=== PATIENT | female | born 1955 | race Caucasian/White ===

== ENCOUNTER 2021-03-09 10:01 | Emergency (ER) | payer OTHER, SELFPAY ==
--- NOTE | ~2021-03-09 | XR_ITS ---
EXAMINATION: XR KNEE-BILATERAL CLINICAL INFORMATION: Bilateral knee pain. COMPARISON: None TECHNIQUE: 4 views each of both knees were obtained. FINDINGS: Right knee: The bony alignments are intact. The cortices are intact. Decreased joint space, subchondral sclerosis, osteophyte formations, consistent with tricompartmental mild osteoarthrosis is present. No evidence of any joint effusion. Enthesopathy is noted at the insertional site of the quadriceps tendon to the superior pole of the patella. Slight contour irregularity is also noted at the upper lateral tibial plateau, may represent old posttraumatic change. Left knee: The bony alignments are intact. The cortices are intact. Decreased joint space, subchondral sclerosis, osteophyte formations, consistent with mild tricompartmental osteoarthrosis is noted. Similar to the right side, mild enthesopathy is also noted at the insertional site of the quadriceps tendon to the superior pole of the patella and no evidence of any joint effusion. XR/XR knee RT 4V IMPRESSION: 1. Mild tricompartmental osteoarthrosis seen bilaterally. 2. Mild enthesopathy at the insertional site of the quadriceps tendon to the superior pole of the patella bilaterally. 3. No evidence of any joint effusion on either side.
--- NOTE | ~2021-03-09 | XR_ITS ---
EXAMINATION: XR KNEE-BILATERAL CLINICAL INFORMATION: Bilateral knee pain. COMPARISON: None TECHNIQUE: 4 views each of both knees were obtained. FINDINGS: Right knee: The bony alignments are intact. The cortices are intact. Decreased joint space, subchondral sclerosis, osteophyte formations, consistent with tricompartmental mild osteoarthrosis is present. No evidence of any joint effusion. Enthesopathy is noted at the insertional site of the quadriceps tendon to the superior pole of the patella. Slight contour irregularity is also noted at the upper lateral tibial plateau, may represent old posttraumatic change. Left knee: The bony alignments are intact. The cortices are intact. Decreased joint space, subchondral sclerosis, osteophyte formations, consistent with mild tricompartmental osteoarthrosis is noted. Similar to the right side, mild enthesopathy is also noted at the insertional site of the quadriceps tendon to the superior pole of the patella and no evidence of any joint effusion. XR/XR knee LT 4V IMPRESSION: 1. Mild tricompartmental osteoarthrosis seen bilaterally. 2. Mild enthesopathy at the insertional site of the quadriceps tendon to the superior pole of the patella bilaterally. 3. No evidence of any joint effusion on either side.
[2021-03-09 10:54] VITALS: BP 148/53; PULSE 80; RESP 18; TEMP 36.1; O2SAT 98; BMI 27.4
--- NOTE | 2021-03-09 12:12 | ED_ITS ---
HPI - General Adult General Chief complaint: Extremity Injury, Lower Stated complaint: Pain/swelling in both feet Time Seen by Provider: 03/09/21 11:34 Source: patient Mode of arrival: ambulatory Limitations: no limitations History of Present Illness HPI narrative: Healthy 65-year-old female presents to ED for bilateral knee pain. Patient states worsening bilateral knee pain for the past 2 weeks. Patient denies any recent trauma. Patient denies any leg swelling, calf pain, thigh swelling, thigh pain, redness, wounds on feet, foul odor, fever, chills, chest pain, or shortness of breath. Patient denies any recent long travel or recent chills. Related Data Previous Rx's Medication Instructions Recorded naproxen 500 mg tablet 500 mg PO BID PRN 10 Days #20 tab 03/09/21 prednisone 20 mg tablet 60 mg PO DAILY 5 Days #15 tab 03/09/21 Allergies Allergy/AdvReac Type Severity Reaction Status Date / Time No Known Allergies Allergy Unverified 12/12/19 16:03 [No Known Allergies*] Review of Systems Review of Systems: Yes all other systems are reviewed and are negative Constitutional: Constitutional: Reports as per HPI and Reports no additional constitutional complaints Eyes: Eyes: Reports as per HPI and Reports no additional eye complaints ENT: Reports system reviewed and no additional complaints, except as documented and Reports as per HPI Cardiovascular: Cardiovascular: Reports as per HPI and Reports no additional cardiovascular complaints Respiratory: Respiratory: Reports as per HPI and Reports no additional respiratory complaints Gastrointestinal: Gastrointestinal: Reports as per HPI and Reports no additional gastrointestinal complaints Genitourinary: Genitourinary: Reports no additional female genitourinary complaints and Reports as per HPI Musculoskeletal: Musculoskeletal: Reports no additional musculoskeletal complaints, Reports as per HPI and Reports arthralgias (Bilateral knee pain) Integumentary/Breasts: Skin/Breast: Reports system reviewed and no additional complaints, except as docu and Reports as per HPI Neurologic: Reports system reviewed and no additional complaints, except as documented and Reports as per HPI Psychiatric: Psychiatric: Reports no additional psychiatric complaints and Reports as per HPI [facility] Social History Social History Advance Directives: No Advance Directives Information Provided: Yes Physical Exam Vital Signs: Vital Signs: Last Vital Signs Temp 98.6 F 03/09/21 12:43 Pulse 67 03/09/21 12:43 Resp 18 03/09/21 12:43 BP 122/73 12/14/21 12:43 Pulse Ox 97 03/09/21 12:43 BMI result Body Mass Index 27.4 Const: General: cooperative, healthy appearing, comfortable, no acute distress, well developed, alert, awake and Physically active Orientation/cons ciousness: patient oriented x3 HENMT: Head: Yes normal to inspection, Yes No palpable skull fracture present, Yes normocephalic, Yes atraumatic, No abrasion, No Acrocyanosis present, No Teran's sign, No contusion, No cranial bruits, No hematoma, No laceration, No occipital foramen tenderness, No palpable skull fracture, No raccoon eyes, No scalp lesion, No scalp tenderness, No Temporal artery tenderness present and No periorbital ecchymosis Eyes: General: appearance normal, both eyes and all related structures Neck: Neck: Yes normal visual inspection, Yes full ROM, Yes no lymphadenopathy, Yes no meningeal signs, Yes trachea midline, Yes supple, No anterior neck swelling and No tender Chest: Chest palpation & inspection: normal inspection of the chest and normal palpation of entire chest wall Resp: Effort & Inspection: normal respiratory effort and able to speak in complete sentences Auscultation: clear to auscultation bilaterally Cardio: Jugular venous distension: no JVD Heart sounds: S1 normal heart sound present and S2 normal heart sound present GI: Inspection: Yes normal to inspection and No abdominal wall ecchymosis Palpation (GI): Soft to palpation, not firm, nontender, no guarding and not rigid : General: No CVA tenderness and Yes no CVA tenderness Back/Spine/Pelvis: Back: no CVA tenderness, No CVA tenderness and No back tenderness Skin: General skin exam: no rashes or lesions noted and elasticity normal Neuro: General: patient oriented x3, gait normal, no meningeal signs and CN's II-XI intact bilaterally Cranial nerves: Yes CN's II-XII intact bilaterally Extrem: Other: Lower extremities negative for swelling, pitting edema, calf tenderness, or redness. Motor states/nerve/vascular exam intact. General: Yes normal to inspection and Yes full ROM Knee images: 1. Positive for tenderness on palpation. Negative ecchymosis, crepitus, erythema, deformity, stiffness, or elasticity. Patient able to flex and extend knee. 2. Positive for tenderness on palpation. Negative ecchymosis, crepitus, erythema, deformity, stiffness, or elasticity. Patient able to flex and extend knee. Psych: Appearance: grossly normal, well kempt and not disheveled Course Course Course Narrative: Patient is seen for bilateral knee x-ray and given pain medication. History physical exam does not indicate septic joint, cellulitis, arterial occlusion or DVT. Reevaluation(s) Reevaluation #1: Knee x-ray shows bilateral arthritis and enthesopathy at the insertion of qauadricpes. Patient will be discharged with pain medication and steroids. Time: 12:49 Medical Decision Making MDM Narrative Medical decision making narrative: Bilateral knee arthritis Discharge Plan Discharge Clinical Impression: Osteoarthritis of both knees Patient Disposition: Home, Self-Care Instructions: Osteoarthritis (ED) Additional Instructions: La radiograf?a de moffett rodilla result? negativa por cualquier l?quido o fractura. La radiograf?a de rodilla muestra osteoartritis bilateral con inflamaci?n del tend?n del cu?driceps. Se le jun? de sowmya con SAWYER y esteroides. Sabina un seguimiento con el proveedor de atenci?n primaria para ramses evaluaci?n adicional para agustin si necesita fisioterapia o manejo del dolor. Regrese al servicio de urgencias inmediatamente si tiene hinchaz?n, enrojecimiento, incapacidad para caminar, dolor en la pantorrilla, rigidez y rodilla, fiebre, escalofr?os, calor, vetas lagunas, frialdad de las extremidades inferiores, decoloraci?n clifton azulada, aumento de la hinchaz?n, dolor en el pecho, dificultad para respirar, o cualquier otro s?ntoma preocupante. Prescriptions: New prednisone 20 mg tablet 60 mg PO DAILY 5 Days Qty: 15 RF: 0 naproxen 500 mg tablet 500 mg PO BID PRN (Reason: pain) 10 Days Qty: 20 RF: 0 Stand Alone Forms: Work/School Release Interventions: ED Discharge Assessment Last Done: 03/09/21 13:56 Discharge Date/Time: 12/14/21 13:56 Print Language: Palestinian
[2021-03-09] MEDS: Ketorolac Tromethamine 30 MG/ML VIAL IM (12:18)
[2021-03-09 12:43] VITALS: BP 122/73; PULSE 67; RESP 18; TEMP 37; O2SAT 97
== END 2021-03-09 13:56 | disposition home or self-care (01) ==
PROVIDERS: Emergency Provider Emergency Medicine
DX: M17.0 Bilateral primary osteoarthritis of knee (principal); M25.562 Pain in left knee; M25.561 Pain in right knee
CPT/HCPCS: 73564; 96372; 99284; J1885

== ENCOUNTER 2021-05-18 14:20 | Emergency (ER) | payer OTHER, SELFPAY ==
--- NOTE | ~2021-05-18 | XR_ITS ---
EXAMINATION: XR KNEE, RIGHT CLINICAL INFORMATION: Right knee pain COMPARISON: Right knee radiographs 03/09/2021 TECHNIQUE: Four views of the right knee. FINDINGS: Again seen are tricompartmental degenerative changes with sclerosis and osteophyte formation most marked in the medial compartment. A small joint effusion is present that has increased in size since the prior study. Again seen is enthesopathy at the insertion of the quadriceps tendon. XR/XR knee RT 4V IMPRESSION: Tricompartmental degenerative changes are stable. Small joint effusion has increased.
[2021-05-18 15:29] VITALS: BP 173/76; PULSE 83; RESP 18; TEMP 36.8; O2SAT 98; BMI 31.0
--- NOTE | 2021-05-18 16:55 | ED_ITS ---
HPI - Extremity Injury (Lower) General Chief Complaint: Extremity Injury, Lower Stated Complaint: B/L Foot Pain Time Seen by Provider: 05/18/21 16:55 Source: patient Mode of arrival: ambulatory Limitations: no limitations History of Present Illness HPI Narrative: Patient is a 65 year old female presenting to the emergency department today with right knee pain. Patient states that she has chronic right knee pain but it seems to be worse lately. Patient denies any dizziness, lightheadedness, abdominal pain, nausea, vomiting, fever, chills, blurry vision, double vision, loss of vision, chest pain, difficulty breathing, shortness of breath, back pain, night sweats, pain with urination, increased urinary frequency, increased urinary urgency, blood in her urine or stool, syncope or a near syncopal e pisode, recent trauma or falls, bowel incontinence, bladder incontinence, bowel retention, bladder retention, or any other complaints at this time. Other symptoms: none Related Data Previous Rx's Medication Instructions Recorded naproxen 500 mg tablet 500 mg PO BID PRN 10 Days #20 tab 03/09/21 prednisone 20 mg tablet 60 mg PO DAILY 5 Days #15 tab 03/09/21 Allergies Allergy/AdvReac Type Severity Reaction Status Date / Time No Known Allergies Allergy Unverified 12/12/19 16:03 [No Known Allergies*] Review of Systems Constitutional: Constitutional: Reports no additional constitutional complaints, Denies chills, Denies fever(s) and Denies night sweats Eyes: Eyes: Reports no additional eye complaints, Denies blurry vision, Denies change in vision, Denies diplopia, Denies eye discharge, Denies loss of vision and Denies eye pain ENT: Denies dizziness Cardiovascular: Cardiovascular: Reports no additional cardiovascular complaints, Denies chest pain, Denies lightheadedness, Denies Loss of Consciousness and Denies dyspnea Respiratory: Respiratory: Reports no additional respiratory complaints and Denies dyspnea Gastrointestinal: Gastrointestinal: Reports no additional gastrointestinal complaints, Denies abdominal pain, Denies melena, Denies hematochezia, Denies change in bowel habits and Denies change in stool character Genitourinary: Genitourinary: Denies hematuria, Denies urinary frequency, Denies dysuria, Denies urinary incontinence, Denies urinary hesitancy and Denies urinary urgency Musculoskeletal: Musculoskeletal: Reports no additional musculoskeletal complaints, Denies numbness and Denies tingling Comments: right knee pain Neurologic: Denies dizziness, Denies loss of vision, Denies numbness and Denies tingling Psychiatric: Psychiatric: Reports no additional psychiatric complaints Endocrine: Endocrine: Reports no additional endocrine complaints Hematologic/Lymphatic: Hematologic/Lymphatic: Reports no additional hematologic/lymphatic complaints Allergic/Immunologic: Allergic/Immunologic: Reports no additional allergic/immunologic complaints PMFSH Past Medical History Attestation statement: The following information was validated with the patient. Source: old records reviewed Medical History HTN (hypertension) Social History Social History Advance Directives: No Advance Directives Information Provided: No Patient : No Physical Exam Vital Signs: Vital Signs: Last Vital Signs Temp 98.3 F 05/18/21 15:29 Pulse 83 05/18/21 15:29 Resp 18 05/18/21 15:29 BP 173/76 H 05/18/21 15:29 Pulse Ox 98 05/18/21 15:29 BMI result Body Mass Index 31.0 Const: General: cooperative, no acute distress, alert and awake Nutritional Appearance: well nourished Orientation/consciousness: patient oriented x3 Limitations: no limitations HENMT: Head: Yes normal to inspection and Yes atraumatic Ears: hearing grossly normal bilaterally and external ears normal General nose exam: Normal external nose present, no nasal discharge noted and no epistaxis Face and sinus: Yes normal facial exam, No abrasion and No laceration Mouth: Normal oral and palatal mucosa present, no drooling and no muffled voice Eyes: General: appearance normal, both eyes and all related structures Periorbital: periorbital findings normal Eyelids: Yes eyelids normal Conjunctivae: conjunctivae normal Pupils: Equal, round and reactive pupils present EOM: EOMs intact bilaterally Neck: Neck: Yes normal visual inspection, Yes full ROM and Yes no lymphadenopathy Chest: Chest palpation & inspection: normal inspection of the chest Resp: Effort & Inspection: normal respiratory effort and able to speak in complete sentences GI: Inspection: Yes normal to inspection Neuro: General: patient oriented x3 and moves all extremities Cranial nerves: Yes Equal, round and reactive pupils present Cognition (Neuro): normal cognition Motor exam (neuro): 5/5 motor strength present throughout Sensory Exam: Normal double simultaneous stimulation for sensation Coordination: [id number] test normal Extrem: General: Yes normal to inspection, Yes full ROM and Yes capillary refill normal Right lower extremity: full ROM and knee Details: tenderness Psych: Appearance: grossly normal Mental Status: mental status grossly normal Affect: normal affect Attitude: cooperative Thought process: Normal thought process present Thought content: Normal thought content present Insight: Good insight present (Psych) MDM - Extremity Injury (Lower) MDM Narrative Medical decision making narrative: Patient is a 65 year old female presenting to the emergency department today with right knee pain. Patient's physical exam was unremarkable. Patient's right knee x-ray showed no acute process. I explained my physical exam findings as well as all test results to the patient. I answered all questions asked by the patient. Patient received IM toradol which she stated helped her symptoms significantly. I stressed the importance of the patient taking her medication as prescribed. I stressed the importance of the patient following up with her primary care provider and orthopedic provider. I stressed the importance of the patient returning to the emergency department immediately if her symptoms were to worsen or if she were to develop any dizziness, shortness of breath, difficulty breathing, chest pain, blurry vision, loss of vision, nausea, vomiting, abdominal pain, fever, chills, back pain, or any other complaints. Patient verbalized agreement and understanding with this treatment plan and discharge. Differential Diagnosis Differential diagnosis: Unlikely ankle sprain and strain (chronic right knee pain) Medical Records Attestation: I reviewed the patient's medical records. Imaging Data Right knee x-ray: Attestation: I personally reviewed and interpreted this imaging study as follows: Radiologist's impression: EXAMINATION: XR KNEE, RIGHT? CLINICAL INFORMATION: Right knee pain? COMPARISON: Right knee radiographs 03/09/2021? TECHNIQUE: Four views of the right knee. FINDINGS: Again seen are tricompartmental degenerative changes with sclerosis and osteophyte formation most marked in the medial compartment. A small joint effusion is present that has increased in size since the prior study. Again seen is enthesopathy at the insertion of the quadriceps tendon. XR/XR knee RT 4V IMPRESSION: Tricompartmental degenerative changes are stable. Small joint effusion has increased. Dictated By: MARCELLO JERRY MD Signed By: Electronically signed by MARCELLO JERRY MD 05/18/21 1720 Discharge Plan Discharge Clinical Impression: Chronic knee pain Patient Disposition: Home, Self-Care Instructions: Chronic Pain (ED), Knee Pain (ED) Additional Instructions: Call to schedule a follow up appointment with an Orthopedic provider. Follow up with your primary care provider. Return to the emergency department immediately if your symptoms worsen or if you develop any dizziness, shortness of breath, difficulty breathing, chest pain, blurry vision, loss of vision, nausea, vomiting, abdominal pain, fever, chills, back pain, or any other complaints. Prescriptions: No Action prednisone 20 mg tablet 60 mg PO DAILY 5 Days Qty: 15 0RF naproxen 500 mg tablet 500 mg PO BID PRN (Reason: pain) 10 Days Qty: 20 0RF Referrals: Niecy Dixon MD [Physician] - 2 days Interventions: ED Discharge Assessment Last Done: 05/18/21 18:29 Print Language: Colombian
[2021-05-18] MEDS: Ketorolac Tromethamine 30 MG/ML VIAL IM (18:01)
== END 2021-05-18 18:41 | disposition home or self-care (01) ==
PROVIDERS: Emergency Provider Emergency Medicine
DX: G89.29 Other chronic pain (principal); M25.561 Pain in right knee; I10 Essential (primary) hypertension
CPT/HCPCS: 73564; 96372; 99284; J1885

== ENCOUNTER → 2021-06-18 09:05 | Outpatient (BNVA) | payer OTHER, SELFPAY | PROVIDERS: Visit Provider Physician Assistant | DX: M17.0 Bilateral primary osteoarthritis of knee (principal) | CPT/HCPCS: 20610; 99202; J1040 ==

== ENCOUNTER 2021-12-03 07:54 | Outpatient (REF) | payer OTHER, SELFPAY ==
--- NOTE | ~2021-12-03 | XR_ITS ---
EXAMINATION: XR ANKLE, LEFT CLINICAL INFORMATION: Left ankle and foot pain. COMPARISON: None TECHNIQUE: AP, lateral, and mortise views of the left ankle. FINDINGS: Focal cortical irregularity at the lateral aspect of the talar body which is partially seen on the mortise view and may represent a nondisplaced fracture fragment. No additional fracture. No dislocation. The ankle mortise is maintained. Small tibiotalar joint effusion. Circumferential soft tissue swelling, most significant laterally. No osseous erosion. No abnormal soft tissue calcification. XR/XR ankle LT 2V IMPRESSION: Possible tiny avulsion fracture at the lateral aspect of the talus. Circumferential soft tissue swelling, most prominent laterally.
[2021-12-03 08:10] LABS: MANUAL DIFF FLAG NO
[2021-12-03 08:52] LABS: Basophils Absolute Auto 0.1 X10*3/uL (0.0-0.2); Eosinophils Absolute Auto 0.3 X10*3/uL (0.0-0.4); Eosinophils Percent Auto 5.5 % (0-4); Hematocrit 27.3 % (37.0-47.0); Hemoglobin 8.5 g/dl (12.0-16.0); Imm Gran Abs Auto 0.01 X10*3/uL (0.00-0.03); Imm Gran Pct Auto 0.2 % (0.0-0.4); Lymphocytes Absolute Auto 1.9 X10*3/uL (1.2-4.9); Lymphocytes Percent Auto 36.7 % (20-40); Mean Corpuscular HGB Conc 31.1 g/dl (31.0-35.0); Mean Corpuscular Hemoglobin 24.5 pg (27.0-33.0); Mean Corpuscular Volume 78.7 fL (80.0-98.0); Mean Platelet Volume 9.9 fL (9.4-12.3); Monocytes Absolute Auto 0.4 X10*3/uL (0.1-1.2); Monocytes Percent Auto 7.3 % (2-11); Neutrophils Absolute Auto 2.6 x10*3/uL (2.0-8.3); Neutrophils Percent Auto 49.3 % (45-73); Platelet Count 404 X10*3/uL (160-400); Red Blood Count 3.47 X10*6/uL (4.20-5.50); Red Cell Distribution Width 17.4 % (11.0-16.0); White Blood Count 5.2 X10*3/uL (4.8-10.8)
[2021-12-03 09:22] LABS: Alanine Aminotransferase 17 U/L (0-31); Albumin Level 4.1 g/dL (3.5-5.0); Alkaline Phosphatase 90 U/L (39-117); Anion Gap 15 (12-20); Aspartate Amino Transferase 21 U/L (5-31); Bilirubin Total 0.3 mg/dL (0.0-1.0); Blood Urea Nitrogen 17 mg/dL (9-16); Calcium 9.1 mg/dL (8.4-10.2); Carbon Dioxide 27 mmol/L (22-29); Chloride 104 mmol/L (96-108); Cholesterol 230 mg/dL; Estimated Glomerular Filt Rate > 60; Glucose Fasting 93 mg/dL (60-99); HDL Cholesterol 88 mg/dL; LDL Cholesterol Calculated 131 mg/dl; Potassium 4.2 mmol/L (3.3-5.1); Rheumatoid Factor < 15.0 IU/mL (<15.0); Sodium 142 mmol/L (135-145); Total Protein 7.1 g/dL (6.5-8.0); Triglycerides 59 mg/dL
[2021-12-03 09:29] LABS: Erythrocyte Sedimentation Rate 23 MM/HR (0-20)
[2021-12-03 09:43] LABS: Thyroid Stimulating Hormone 2.66 uIU/mL (0.32-4.0)
[2021-12-06 16:51] LABS: CRP High Sensitivity 1.9 mg/L; Cyclic Citrullinated Peptide <16 UNITS
[2021-12-07 09:07] LABS: Anti DNA DS Antibody <1 IU/mL
[2021-12-07 14:46] LABS: ANA Titer 2 1:40 titer; Anti Nuclear Antibody Pattern Nuclear, Homogeneous; Anti Nuclear Antibody Screen POSITIVE (NEGATIVE)
== END 2021-12-03 07:55 | disposition home or self-care (01) ==
LOC: HO.XRAY 07:54
PROVIDERS: PCP Internal Medicine; Visit Provider Internal Medicine
DX: M25.572 Pain in left ankle and joints of left foot (principal); E66.9 Obesity, unspecified
CPT/HCPCS: 36415; 73600; 80053; 80061; 84443; 85025; 85652; 86038; 86039; 86141; 86200; 86225; 86431

== ENCOUNTER 2022-01-06 11:22 | Outpatient (REF) | payer OTHER, SELFPAY ==
[2022-01-06 12:00] LABS: MANUAL DIFF FLAG NO
[2022-01-06 12:52] LABS: Basophils Percent Auto 0.6 % (0-2); Eosinophils Absolute Auto 0.2 X10*3/uL (0.0-0.4); Eosinophils Percent Auto 2.9 % (0-4); Hematocrit 29.6 % (37.0-47.0); Hemoglobin 9.1 g/dl (12.0-16.0); Imm Gran Abs Auto 0.01 X10*3/uL (0.00-0.03); Imm Gran Pct Auto 0.2 % (0.0-0.4); Lymphocytes Absolute Auto 1.5 X10*3/uL (1.2-4.9); Lymphocytes Percent Auto 28.3 % (20-40); Mean Corpuscular HGB Conc 30.7 g/dl (31.0-35.0); Mean Corpuscular Hemoglobin 24.4 pg (27.0-33.0); Mean Corpuscular Volume 79.4 fL (80.0-98.0); Monocytes Absolute Auto 0.4 X10*3/uL (0.1-1.2); Neutrophils Absolute Auto 3.1 x10*3/uL (2.0-8.3); Platelet Count 405 X10*3/uL (160-400); Red Blood Count 3.73 X10*6/uL (4.20-5.50); Red Cell Distribution Width 16.5 % (11.0-16.0); White Blood Count 5.1 X10*3/uL (4.8-10.8)
[2022-01-06 13:07] LABS: Estimated Average Glucose 108 mg/dL; Hemoglobin A1c % 5.4 %
[2022-01-06 13:31] LABS: Appearance Urine Clear; Color Urine Yellow; Glucose Urine UA Negative (Negative); Leukocyte Esterase Urine Trace (Negative); Nitrite Urine Negative (Negative); UMIC TRIGGER UA YES; Urine Blood Negative (Negative); Urine Ketones Negative (Negative); Urine Protein Trace mg/dL (Neg-Trace)
[2022-01-06 13:40] LABS: Erythrocyte Sedimentation Rate 27 MM/HR (0-20)
[2022-01-06 13:42] LABS: Bacteria Urine None Seen (None Seen); Calcium Oxalate Crystals Urine Present; Hyaline Casts Urine 0-2 /LPF (0-2); RBC Urine 0-2 /HPF (0-2); Squamous Epithelial Cell Urine 0-2 /HPF (0-2); WBC Urine 0-5 /HPF (0-5)
[2022-01-06 13:44] LABS: Alanine Aminotransferase 11 U/L (0-31); Albumin Level 4.4 g/dL (3.5-5.0); Alkaline Phosphatase 95 U/L (39-117); Anion Gap 15 (12-20); Aspartate Amino Transferase 18 U/L (5-31); Bilirubin Total 0.2 mg/dL (0.0-1.0); Blood Urea Nitrogen 19 mg/dL (9-16); Calcium 9.5 mg/dL (8.4-10.2); Carbon Dioxide 27 mmol/L (22-29); Chloride 102 mmol/L (96-108); Estimated Glomerular Filt Rate > 60; Glucose Random 91 mg/dL (60-115); Potassium 4.4 mmol/L (3.3-5.1); Sodium 140 mmol/L (135-145); Total Protein 7.6 g/dL (6.5-8.0); Uric Acid 4.5 mg/dL (2.4-5.7)
[2022-01-06 13:54] LABS: Thyroid Stimulating Hormone 1.55 uIU/mL (0.32-4.0)
[2022-01-06 13:59] LABS: Ferritin 7 ng/mL (10-250)
[2022-01-06 14:02] LABS: Creatinine Urine 88.04 mg/dL; Protein/Creatinine Ratio, Ur 0.19 (<0.2); Total Protein Urine Random 17 mg/dL (<12)
[2022-01-07 08:35] LABS: HBS Num1 0.88 mIU/mL (0-7.99); HBc Num1 0.13 S/CO (0.00-0.79); HBsAGNum1 0.16 S/CO (0.00-0.99); HIV AB/AG Nonreactive (Nonreactive); HIV Num 1 0.07 S/CO (0.00-0.99); Hepatitis A Antibody IgM 0.28 Index (0-0.79); Hepatitis B Core Antibody Nonreactive (Nonreactive); Hepatitis B Surface Antigen Negative (Negative); ~HepC Num1 0.17 S/CO (0.00-0.79); ~Hepatitis A Antibody IgM Nonreactive (Nonreactive); ~Hepatitis B Surface Antibody NONREACTIVE (Nonreactive); ~Hepatitis C Antibody Nonreactive (Nonreactive)
[2022-01-07 14:47] LABS: Complement C3 150 mg/dL (83-193)
[2022-01-09 00:47] LABS: TS Negative Control Passed; TS Panel A 0; TS Panel B 0; TS Positive Control Passed; TSpotTB Negative (Negative)
[2022-01-10 13:42] LABS: Thyroid Peroxidase Antibodies 1 IU/mL (<9)
[2022-01-10 17:43] LABS: Lyme Blot 2.09 index
[2022-01-10 21:22] LABS: Angiotensin Converting Enzyme 19.7 U/L (9-67)
[2022-01-11 11:22] LABS: Thyroglobulin Antibodies <1 IU/mL (< or = 1)
[2022-01-11 13:42] LABS: Vitamin D 25-OH, D2 <4 ng/mL; Vitamin D 25-OH, D3 35 ng/mL; Vitamin D 25-OH, Total 35 ng/mL (30-100)
[2022-01-11 14:32] LABS: IgA 168 mg/dL (70-320); IgG 1403 mg/dL (600-1540); IgM 78 mg/dL (50-300)
[2022-01-11 21:52] LABS: PTT (LAC) Screen 29 sec (<=40)
[2022-01-11 23:21] LABS: Prot Elec - Albumin 4.2 g/dL (3.8-4.8); Prot Elec - Alpha1 0.3 g/dL (0.2-0.3); Prot Elec - Alpha2 0.7 g/dL (0.5-0.9); Prot Elec - Beta 1 0.6 g/dL (0.4-0.6); Prot Elec - Beta 2 0.3 g/dL (0.2-0.5); Prot Elec - Gamma 1.2 g/dL (0.8-1.7); Prot Elec - Total Protein 7.4 g/dL (6.1-8.1)
[2022-01-12 09:56] LABS: Lyme Abs Screen POSITIVE
[2022-01-12 11:21] LABS: Antibody to SS-A Antigen <1.0 NEG AI (<1.0 NEG); Antibody to SS-B Antigen <1.0 NEG AI (<1.0 NEG); SM/Ribonucleoprotein Ab <1.0 NEG AI (<1.0 NEG); Smith Protein <1.0 NEG AI (<1.0 NEG)
[2022-01-12 20:22] LABS: Beta-2 Glycoprotein IgA <2.0 U/mL (<20.0); Beta-2 Glycoprotein IgG <2.0 U/mL (<20.0); Beta-2 Glycoprotein IgM <2.0 U/mL (<20.0)
[2022-01-12 21:36] LABS: 18 KD (IgG) Band NON-REACTIVE; 23 KD (IgG) Band NON-REACTIVE; 23 KD (IgM) Band NON-REACTIVE; 28 KD (IgG) Band NON-REACTIVE; 30 KD (IgG) Band NON-REACTIVE; 39 KD (IgM) Band NON-REACTIVE; 39KD (IgG) Band NON-REACTIVE; 41 KD (IgM) Band NON-REACTIVE; 41KD (IgG) Band REACTIVE; 45 KD (IgG) Band NON-REACTIVE; 58 KD (IgG) Band NON-REACTIVE; 66 KD (IgG) Band NON-REACTIVE; 93 KD (IgG) Band NON-REACTIVE; Lyme IgG Blot Interp NEGATIVE (NEGATIVE); Lyme IgM Blot Interp NEGATIVE (NEGATIVE)
[2022-01-14 13:51] LABS: Endomysial IgA Antibody Negative (Negative)
[2022-01-15 13:36] LABS: Cardiolipin IgG Ab <2.0 GPL-U/mL; Cardiolipin IgM Ab <2.0 MPL-U/mL
== END 2022-01-06 11:23 | disposition home or self-care (01) ==
LOC: HO.10HDL 11:22
PROVIDERS: Internal Medicine Medical Oncology; Visit Provider Student in an Organized Health Care Education/Training Program
DX: Z11.7 Encounter for testing for latent tuberculosis infection (principal); Z11.4 Encounter for screening for human immunodeficiency virus [HIV]; Z11.59 Encounter for screening for other viral diseases; Z13.21 Encounter for screening for nutritional disorder; Z13.1 Encounter for screening for diabetes mellitus; R76.8 Other specified abnormal immunological findings in serum; M25.572 Pain in left ankle and joints of left foot; D64.9 Anemia, unspecified
CPT/HCPCS: 36415; 80053; 81001; 82164; 82306; 82550; 82728; 82784; 83036; 84156; 84165; 84443; 84550; 85025; 85597; 85613; 85652; 85730; 86140; 86146; 86147; 86160; 86231; 86235; 86334; 86376; 86481; 86617; 86618; 86704; 86706; 86709; 86800; 86803; 86812; 87340; 87389

== ENCOUNTER 2022-01-06 12:23 | Outpatient (REF) | payer OTHER, SELFPAY ==
--- NOTE | ~2022-01-06 | XR_ITS ---
EXAMINATION: XR ANKLE, RIGHT XR FOOT, RIGHT XR FOOT, LEFT CLINICAL INFORMATION: Rheumatoid arthritis. COMPARISON: None TECHNIQUE: AP, lateral, and mortise views of the right ankle and AP, lateral, and oblique views of each foot. FINDINGS: RIGHT ANKLE: No fracture. Alignment is anatomic. Ankle mortise is symmetric. Joint spaces are maintained. Small marginal osteophytes at the talocrural joint. No ankle joint effusion. Mild soft tissue swelling. No erosions. RIGHT FOOT: Tiny marginal osteophytes of the 1st MTP joint and the 2nd toe DIP joint. No erosions. Joint spaces appear relatively well preserved. Bone mineralization is normal. Mild soft tissue swelling. Small enthesopathic spur is present at the plantar fascial origin on the calcaneus. LEFT FOOT: Small marginal osteophytes at the 1st MTP joint. Joint spaces appear relatively well preserved. No erosions. Bone mineralization is normal. Mild soft tissue swelling. Tiny enthesopathic spur at the plantar fascial origin. XR/XR foot LT min 3V IMPRESSION: Minimal multifocal osteoarthritis in the feet, primarily at the 1st MTP joints. No specific findings of rheumatoid arthritis. No acute osseous findings. Soft tissue swelling at the ankles and feet, right greater than left.
--- NOTE | ~2022-01-06 | XR_ITS ---
EXAMINATION: XR ANKLE, RIGHT XR FOOT, RIGHT XR FOOT, LEFT CLINICAL INFORMATION: Rheumatoid arthritis. COMPARISON: None TECHNIQUE: AP, lateral, and mortise views of the right ankle and AP, lateral, and oblique views of each foot. FINDINGS: RIGHT ANKLE: No fracture. Alignment is anatomic. Ankle mortise is symmetric. Joint spaces are maintained. Small marginal osteophytes at the talocrural joint. No ankle joint effusion. Mild soft tissue swelling. No erosions. RIGHT FOOT: Tiny marginal osteophytes of the 1st MTP joint and the 2nd toe DIP joint. No erosions. Joint spaces appear relatively well preserved. Bone mineralization is normal. Mild soft tissue swelling. Small enthesopathic spur is present at the plantar fascial origin on the calcaneus. LEFT FOOT: Small marginal osteophytes at the 1st MTP joint. Joint spaces appear relatively well preserved. No erosions. Bone mineralization is normal. Mild soft tissue swelling. Tiny enthesopathic spur at the plantar fascial origin. XR/XR foot RT min 3V IMPRESSION: Minimal multifocal osteoarthritis in the feet, primarily at the 1st MTP joints. No specific findings of rheumatoid arthritis. No acute osseous findings. Soft tissue swelling at the ankles and feet, right greater than left.
--- NOTE | ~2022-01-06 | XR_ITS ---
EXAMINATION: XR ANKLE, RIGHT XR FOOT, RIGHT XR FOOT, LEFT CLINICAL INFORMATION: Rheumatoid arthritis. COMPARISON: None TECHNIQUE: AP, lateral, and mortise views of the right ankle and AP, lateral, and oblique views of each foot. FINDINGS: RIGHT ANKLE: No fracture. Alignment is anatomic. Ankle mortise is symmetric. Joint spaces are maintained. Small marginal osteophytes at the talocrural joint. No ankle joint effusion. Mild soft tissue swelling. No erosions. RIGHT FOOT: Tiny marginal osteophytes of the 1st MTP joint and the 2nd toe DIP joint. No erosions. Joint spaces appear relatively well preserved. Bone mineralization is normal. Mild soft tissue swelling. Small enthesopathic spur is present at the plantar fascial origin on the calcaneus. LEFT FOOT: Small marginal osteophytes at the 1st MTP joint. Joint spaces appear relatively well preserved. No erosions. Bone mineralization is normal. Mild soft tissue swelling. Tiny enthesopathic spur at the plantar fascial origin. XR/XR ankle RT min 3V IMPRESSION: Minimal multifocal osteoarthritis in the feet, primarily at the 1st MTP joints. No specific findings of rheumatoid arthritis. No acute osseous findings. Soft tissue swelling at the ankles and feet, right greater than left.
--- NOTE | ~2022-01-06 | XR_ITS ---
EXAMINATION: XR HAND/WRIST, RIGHT XR HAND/WRIST, LEFT CLINICAL INFORMATION: Rheumatoid arthritis, unspecified. COMPARISON: None TECHNIQUE: PA, lateral, and oblique views of the each hand and wrist as well as scaphoid views of each wrist. FINDINGS: RIGHT HAND/WRIST: Small marginal osteophytes are present at multiple joints in the hand and wrist including the 1st CMC joints, 1st and 2nd MCP joints, and most interphalangeal joints (particularly the DIP joints). Joint spaces appear relatively well preserved. No erosions. Articular surfaces are normal. Bone mineralization appears within normal limits. Soft tissues are unremarkable. No soft tissue calcifications. No fracture or malalignment. LEFT HAND/WRIST: At the 1st CMC joint, there are moderate-sized marginal osteophytes along with nonuniform joint space narrowing, articular surface irregularity, and joint space narrowing. More mild osteoarthritis in the DIP joints is characterized by small marginal osteophytes primarily. There is also involvement of the thumb IP joint. MCP joints are unremarkable. No appreciable erosions. Bone mineralization appears normal. No soft tissue calcifications. No acute fractures. XR/XR hand wrist LT IMPRESSION: Moderate osteoarthritis in the left 1st CMC joint with more mild multifocal osteoarthritis elsewhere in the bilateral hands and wrists. No specific findings of rheumatoid arthritis.
--- NOTE | ~2022-01-06 | XR_ITS ---
EXAMINATION: XR HAND/WRIST, RIGHT XR HAND/WRIST, LEFT CLINICAL INFORMATION: Rheumatoid arthritis, unspecified. COMPARISON: None TECHNIQUE: PA, lateral, and oblique views of the each hand and wrist as well as scaphoid views of each wrist. FINDINGS: RIGHT HAND/WRIST: Small marginal osteophytes are present at multiple joints in the hand and wrist including the 1st CMC joints, 1st and 2nd MCP joints, and most interphalangeal joints (particularly the DIP joints). Joint spaces appear relatively well preserved. No erosions. Articular surfaces are normal. Bone mineralization appears within normal limits. Soft tissues are unremarkable. No soft tissue calcifications. No fracture or malalignment. LEFT HAND/WRIST: At the 1st CMC joint, there are moderate-sized marginal osteophytes along with nonuniform joint space narrowing, articular surface irregularity, and joint space narrowing. More mild osteoarthritis in the DIP joints is characterized by small marginal osteophytes primarily. There is also involvement of the thumb IP joint. MCP joints are unremarkable. No appreciable erosions. Bone mineralization appears normal. No soft tissue calcifications. No acute fractures. XR/XR hand wrist RT IMPRESSION: Moderate osteoarthritis in the left 1st CMC joint with more mild multifocal osteoarthritis elsewhere in the bilateral hands and wrists. No specific findings of rheumatoid arthritis.
== END 2022-01-06 12:24 | disposition home or self-care (01) ==
LOC: HO.MDS 12:23
PROVIDERS: Visit Provider Internal Medicine Medical Oncology
DX: M06.9 Rheumatoid arthritis, unspecified (principal); D50.9 Iron deficiency anemia, unspecified
CPT/HCPCS: 73110; 73130; 73610; 73630; 96365; 99202; J1756

== ENCOUNTER 2022-01-13 12:48 | Outpatient (REF) | payer OTHER, SELFPAY | END 2022-01-13 12:49 | disposition home or self-care (01) | LOC: HO.MDS 12:48 | PROVIDERS: Visit Provider Internal Medicine Medical Oncology | DX: D50.9 Iron deficiency anemia, unspecified (principal) | CPT/HCPCS: 96365; J1756 ==

== ENCOUNTER 2022-01-17 13:59 | Outpatient (REF) | payer OTHER, SELFPAY ==
[2022-01-22 11:03] LABS: HLA B27 Negative (Negative)
== END 2022-01-17 14:00 | disposition home or self-care (01) ==
LOC: HO.LAB 13:59
PROVIDERS: PCP Internal Medicine; Visit Provider Student in an Organized Health Care Education/Training Program
DX: M25.572 Pain in left ankle and joints of left foot (principal)
CPT/HCPCS: 36415; 86812

== ENCOUNTER 2022-01-20 12:12 | Outpatient (REF) | payer OTHER, SELFPAY | END 2022-01-20 12:13 | disposition home or self-care (01) | LOC: HO.MDS 12:12 | PROVIDERS: Visit Provider Internal Medicine Medical Oncology | DX: D50.9 Iron deficiency anemia, unspecified (principal) | CPT/HCPCS: 96365; J1756 ==

== ENCOUNTER 2022-01-26 13:47 | Outpatient (REF) | payer OTHER, SELFPAY | END 2022-01-26 13:48 | disposition home or self-care (01) | LOC: HO.MDS 13:47 | PROVIDERS: Visit Provider Internal Medicine Medical Oncology | DX: D50.9 Iron deficiency anemia, unspecified (principal) | CPT/HCPCS: 96365; J1756 ==

== ENCOUNTER → 2022-02-10 08:03 | Outpatient (BNVA) | payer OTHER, SELFPAY | PROVIDERS: PCP Internal Medicine; Referring Provider Internal Medicine; Visit Provider Student in an Organized Health Care Education/Training Program | DX: M25.472 Effusion, left ankle (principal); M25.432 Effusion, left wrist; R76.8 Other specified abnormal immunological findings in serum; D50.9 Iron deficiency anemia, unspecified; I10 Essential (primary) hypertension; F41.9 Anxiety disorder, unspecified | CPT/HCPCS: 99212 ==

== ENCOUNTER 2022-03-07 14:28 | Outpatient (REF) | payer OTHER, SELFPAY ==
[2022-03-07 14:41] LABS: MANUAL DIFF FLAG NO
[2022-03-07 14:52] LABS: Basophils Absolute Auto 0.1 X10*3/uL (0.0-0.2); Basophils Percent Auto 0.9 % (0-2); Eosinophils Absolute Auto 0.2 X10*3/uL (0.0-0.4); Eosinophils Percent Auto 4.3 % (0-4); Hematocrit 39.4 % (37.0-47.0); Hemoglobin 12.7 g/dl (12.0-16.0); Lymphocytes Absolute Auto 1.9 X10*3/uL (1.2-4.9); Mean Corpuscular HGB Conc 32.2 g/dl (31.0-35.0); Mean Corpuscular Hemoglobin 27.7 pg (27.0-33.0); Mean Corpuscular Volume 85.8 fL (80.0-98.0); Mean Platelet Volume 9.7 fL (9.4-12.3); Monocytes Absolute Auto 0.4 X10*3/uL (0.1-1.2); Monocytes Percent Auto 7.2 % (2-11); Neutrophils Absolute Auto 2.8 x10*3/uL (2.0-8.3); Neutrophils Percent Auto 52.6 % (45-73); Platelet Count 347 X10*3/uL (160-400); Red Blood Count 4.59 X10*6/uL (4.20-5.50); Red Cell Distribution Width 18.5 % (11.0-16.0); White Blood Count 5.4 X10*3/uL (4.8-10.8)
[2022-03-07 15:06] LABS: Iron 103 mcg/dL (30-160); Percent Iron Saturation 27 % (15-50); Total Iron Binding Capacity 378 mcg/dL (228-428); Unsaturated Iron Binding 275 ug/dL
[2022-03-07 15:43] LABS: Folate 10.9 ng/mL (> or = 4.0); Vitamin B12 441 pg/mL (200-900)
== END 2022-03-07 14:29 | disposition home or self-care (01) ==
LOC: HO.LAB 14:28
PROVIDERS: PCP Internal Medicine; Visit Provider Internal Medicine
DX: D64.9 Anemia, unspecified (principal)
CPT/HCPCS: 36415; 82607; 82746; 83540; 85025

== ENCOUNTER 2022-03-25 08:34 | Outpatient (REF) | payer OTHER, SELFPAY ==
--- NOTE | ~2022-03-25 | MR_ITS ---
EXAMINATION: MR WRIST WITHOUT AND WITH CONTRAST, LEFT CLINICAL INFORMATION: Left wrist pain. COMPARISON: Radiographs 01/06/2022 TECHNIQUE: MRI without and with intravenous administration of 8.5 mL of Gadavist is performed on the left wrist. FINDINGS: There is a lobulated and elongated ganglion measuring approximately 1.8 cm, the distal extent of which is the largest with a transverse measurement of 6 mm, which projects volar to the radial styloid and dorsal/peripheral to the radial vessels. Trace distal radioulnar joint effusion. There is degeneration and a possible full-thickness perforation of the central TFCC. Ulnar variance is neutral. The scapholunate and lunotriquetral ligaments appear intact. Severe 1st CMC joint osteoarthritis with an 8mm ossified body at the ulnar aspect of the joint. Relatively mild osteoarthritis of the radioscaphoid articulation and at the junction of the capitate and hamate. No acute osseous abnormality. No enhancing mass lesion. MR/MR wrist LT wo/w con IMPRESSION: 1. There is a lobulated and elongated ganglion volar to the radial styloid measuring up to 1.8 cm. 2. 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 3. Degeneration and possible full-thickness perforation of the central TFCC.
--- NOTE | ~2022-03-25 | MR_ITS ---
EXAMINATION: MRI ANKLE WITHOUT CONTRAST, LEFT CLINICAL INFORMATION: Ankle pain and swelling. Effusion. COMPARISON: Most recent left foot radiographs dated 01/06/2022 and left ankle radiographs dated 12/03/2021. TECHNIQUE: Multisequence MR imaging of the left ankle was obtained without contrast on a high-field strength scanner. FINDINGS: BONE AND ARTICULAR CARTILAGE: Reactive marrow edema within the lateral malleolus. No associated fracture line. Articular cartilage thinning with subchondral cystic change at the articulation between the lateral talus and lateral malleolus. Mild degenerative spurring and reactive marrow edema at the lateral aspect of the calcaneal body adjacent to the peroneal tendons. No talar osteochondral lesion. Subtalar joint articular cartilage thinning with mild subchondral cystic change. Degenerative cystic change at the angle of [place]. ACHILLES TENDON: Intact. OTHER TENDONS: Prominent fluid within the peroneal brevis and peroneal longus tendon sheaths consistent with prominent tenosynovitis. Adjacent soft tissue edema. There is attenuation and longitudinal split tearing of the peroneal brevis tendon at the level of the lateral malleolus measuring up to 4.1 cm in cranial caudal dimension. No full-thickness transverse tendon tear or tendon retraction. Mild posterior tibialis and flexor digitorum longus tenosynovitis. LIGAMENTS: Attenuation the anterior talofibular ligament likely indicating a remote sprain/partial tear. No evidence of acute ligament injury. JOINT FLUID AND SOFT TISSUES: Trace posterior subtalar joint effusion. Lateral subcutaneous venous edema. PLANTAR FASCIA: Intact. SINUS TARSI AND TARSAL TUNNEL: Patent. MR/MR ankle LT wo con IMPRESSION: 1. Prominent peroneal brevis and peroneal longus tenosynovitis. Attenuation and longitudinal split tearing of the peroneal brevis tendon at the level of the lateral malleolus measuring up to 4.1 cm in craniocaudal dimension. No full-thickness transverse tendon tear or tendon retraction. Overlying lateral soft tissue edema. Reactive marrow edema within the lateral malleolus as well as the lateral aspect of the calcaneal body where there is associated degenerative spurring. 2. Mild posterior tibialis and flexor digitorum longus tenosynovitis. 3. Mild degenerative arthritis at the articulation between the lateral talus and lateral malleolus. Trace posterior subtalar joint effusion. 4. Remote sprain/partial tear of the anterior talofibular ligament. No evidence of acute ligament injury.
== END 2022-03-25 08:35 | disposition home or self-care (01) ==
LOC: HO.MRI 08:34
PROVIDERS: Visit Provider Student in an Organized Health Care Education/Training Program
DX: M25.432 Effusion, left wrist (principal); M25.472 Effusion, left ankle
CPT/HCPCS: 73223; 73721

== ENCOUNTER → 2022-04-06 09:53 | Outpatient (BNVA) | payer OTHER, SELFPAY | PROVIDERS: PCP Internal Medicine; Visit Provider Student in an Organized Health Care Education/Training Program | DX: Z13.820 Encounter for screening for osteoporosis (principal); M06.9 Rheumatoid arthritis, unspecified; M24.132 Other articular cartilage disorders, left wrist; Z79.631 Long term (current) use of antimetabolite agent | CPT/HCPCS: 99212 ==

== ENCOUNTER 2022-04-15 08:06 | Outpatient (REF) | payer OTHER, SELFPAY ==
--- NOTE | ~2022-04-15 | MM_ITS ---
EXAMINATION: BONE DENSITOMETRY CLINICAL INDICATION: Menopause. COMPARISON: None (current study represents initial baseline exam). TECHNIQUE: Using a [employer] DXA System (software version: 13.1) manufactured by [employer], dual-energy x-ray absorptiometry was performed of the lumbar spine and left hip. The images are of good technical quality. Summary results are attached. FINDINGS: AP SPINE L1-L4: BMD 0.789 g/cm2, Z-score -2.2, T-score -3.3, osteoporosis. LEFT FEMUR, NECK: BMD 0.856 g/cm2, Z-score -0.2, T-score -1.3, osteopenia. LEFT FEMUR, TOTAL: BMD 0.938 g/cm2, Z-score 0.3, T-score -0.6, normal. IDENTIFIED RISK FACTORS: Rheumatoid arthritis. Recurrent falls. Menopause. Hysterectomy. Glucocorticoids (chronic). HISTORY OF FRACTURE: No insufficiency fracture reported. MEDICATIONS: Calcium supplement or multivitamin. Vitamin D. MM/XR DEXA axial skeleton IMPRESSION: 1. DIAGNOSIS: Osteoporosis based on the lowest T-score value of -3.3 in the lumbar spine applying World Health Organization criteria. 2. 10-YEAR FRACTURE RISK PREDICTION, FRAX: According to the guidelines, FRAX calculation should only be performed on patients in the osteopenia bone density category. Therefore, FRAX was not performed on this patient.? 3. Treatment Recommendations: NOF guidelines recommend consideration for treatment in postmenopausal women and men age 50 and older presenting with the following: -A hip or vertebral (clinical or morphometric) fracture. -T-score less than or equal to -2.5 at the femoral neck or spine after appropriate evaluation to exclude secondary causes. -Low bone mass at the hip or spine and a 10-year fracture probability by FRAX of greater than or equal to 3% for hip fracture or greater than or equal to 20% for major osteoporotic fracture based on the [place] adapted WHO algorithm. 4. Other Recommendations: All treatment decisions require clinical judgment and consideration of individual patient factors, including patient preferences, comorbidities, previous drug use, risk factors not captured in the FRAX model (e.g. frailty, falls, vitamin D deficiency, increased bone turnover, interval significant decline in bone density) and possible under or overestimation of fracture risk by FRAX. Additional medical evaluation for secondary cause of low bone mineral density may be appropriate. FUTURE SCAN RECOMMENDATION: People with diagnosed cases of osteoporosis or at high risk for fracture should have regular bone mineral density tests. For patients eligible for Medicare, routine testing is allowed once every 2 years. The testing frequency can be increased to one year for patients who have rapidly progressing disease, those who are receiving or discontinuing medical therapy to restore bone mass, or have additional risk factors.
== END 2022-04-15 08:07 | disposition home or self-care (01) ==
LOC: HO.MAMMO 08:06
PROVIDERS: PCP Internal Medicine; Visit Provider Student in an Organized Health Care Education/Training Program
DX: Z13.820 Encounter for screening for osteoporosis (principal); Z78.0 Asymptomatic menopausal state; Z79.52 Long term (current) use of systemic steroids
CPT/HCPCS: 77080

== ENCOUNTER 2022-05-26 09:19 | Outpatient (REF) | payer OTHER, SELFPAY ==
[2022-05-26 09:34] LABS: MANUAL DIFF FLAG NO
[2022-05-26 09:56] LABS: Basophils Percent Auto 0.9 % (0-2); Eosinophils Absolute Auto 0.2 X10*3/uL (0.0-0.4); Eosinophils Percent Auto 4.1 % (0-4); Hematocrit 37.6 % (37.0-47.0); Hemoglobin 12.5 g/dl (12.0-16.0); Imm Gran Abs Auto 0.01 X10*3/uL (0.00-0.03); Imm Gran Pct Auto 0.2 % (0.0-0.4); Lymphocytes Absolute Auto 1.8 X10*3/uL (1.2-4.9); Lymphocytes Percent Auto 38.3 % (20-40); Mean Corpuscular HGB Conc 33.2 g/dl (31.0-35.0); Mean Corpuscular Hemoglobin 29.9 pg (27.0-33.0); Mean Platelet Volume 9.6 fL (9.4-12.3); Monocytes Absolute Auto 0.4 X10*3/uL (0.1-1.2); Monocytes Percent Auto 8.4 % (2-11); Neutrophils Absolute Auto 2.3 x10*3/uL (2.0-8.3); Neutrophils Percent Auto 48.1 % (45-73); Platelet Count 348 X10*3/uL (160-400); Red Blood Count 4.18 X10*6/uL (4.20-5.50); White Blood Count 4.7 X10*3/uL (4.8-10.8)
[2022-05-26 10:38] LABS: Erythrocyte Sedimentation Rate 23 MM/HR (0-20)
[2022-05-26 10:56] LABS: Alanine Aminotransferase 216 U/L (0-31); Albumin Level 4.1 g/dL (3.5-5.0); Alkaline Phosphatase 274 U/L (39-117); Anion Gap 14 (12-20); Aspartate Amino Transferase 72 U/L (5-31); Bilirubin Total 0.8 mg/dL (0.0-1.0); Blood Urea Nitrogen 18 mg/dL (9-16); C Reactive Protein 0.36 mg/dL (< or = 0.50); Calcium 9.2 mg/dL (8.4-10.2); Carbon Dioxide 26 mmol/L (22-29); Chloride 102 mmol/L (96-108); Cholesterol 236 mg/dL; Estimated Glomerular Filt Rate > 60; Glucose Fasting 102 mg/dL (60-99); HDL Cholesterol 71 mg/dL; LDL Cholesterol Calculated 143 mg/dl; Potassium 4.3 mmol/L (3.3-5.1); Sodium 138 mmol/L (135-145); Total Protein 7.2 g/dL (6.5-8.0); Triglycerides 114 mg/dL
== END 2022-05-26 09:20 | disposition home or self-care (01) ==
LOC: HO.LAB 09:19
PROVIDERS: PCP Internal Medicine; Visit Provider Student in an Organized Health Care Education/Training Program
DX: Z00.00 Encounter for general adult medical examination without abnormal findings (principal); R74.01 Elevation of levels of liver transaminase levels; R10.13 Epigastric pain; Z79.631 Long term (current) use of antimetabolite agent
CPT/HCPCS: 36415; 80053; 80061; 85025; 85652; 86140

== ENCOUNTER 2022-06-02 10:44 | Outpatient (REF) | payer OTHER, SELFPAY ==
[2022-06-02 11:01] LABS: MANUAL DIFF FLAG NO
[2022-06-02 11:10] LABS: Basophils Absolute Auto 0.1 X10*3/uL (0.0-0.2); Basophils Percent Auto 1.1 % (0-2); Eosinophils Absolute Auto 0.2 X10*3/uL (0.0-0.4); Eosinophils Percent Auto 4.4 % (0-4); Hematocrit 38.1 % (37.0-47.0); Hemoglobin 12.6 g/dl (12.0-16.0); Imm Gran Abs Auto 0.02 X10*3/uL (0.00-0.03); Imm Gran Pct Auto 0.4 % (0.0-0.4); Lymphocytes Absolute Auto 1.7 X10*3/uL (1.2-4.9); Mean Corpuscular HGB Conc 33.1 g/dl (31.0-35.0); Mean Corpuscular Hemoglobin 29.6 pg (27.0-33.0); Mean Corpuscular Volume 89.6 fL (80.0-98.0); Mean Platelet Volume 9.2 fL (9.4-12.3); Monocytes Absolute Auto 0.4 X10*3/uL (0.1-1.2); Monocytes Percent Auto 7.2 % (2-11); Neutrophils Percent Auto 55.9 % (45-73); Platelet Count 422 X10*3/uL (160-400); Red Blood Count 4.25 X10*6/uL (4.20-5.50); Red Cell Distribution Width 12.5 % (11.0-16.0); White Blood Count 5.4 X10*3/uL (4.8-10.8)
[2022-06-02 12:11] LABS: Erythrocyte Sedimentation Rate 19 MM/HR (0-20)
[2022-06-02 16:54] LABS: Alanine Aminotransferase 45 U/L (0-31); Alkaline Phosphatase 173 U/L (39-117); Anion Gap 18 (12-20); Aspartate Amino Transferase 21 U/L (5-31); Bilirubin Total 0.6 mg/dL (0.0-1.0); Blood Urea Nitrogen 13 mg/dL (9-16); Calcium 9.4 mg/dL (8.4-10.2); Carbon Dioxide 23 mmol/L (22-29); Chloride 105 mmol/L (96-108); Estimated Glomerular Filt Rate > 60; Glucose Random 102 mg/dL (60-115); Potassium 4.2 mmol/L (3.3-5.1); Sodium 142 mmol/L (135-145); Total Protein 6.9 g/dL (6.5-8.0)
== END 2022-06-02 10:45 | disposition home or self-care (01) ==
LOC: HO.LAB 10:44
PROVIDERS: PCP Internal Medicine; Visit Provider Student in an Organized Health Care Education/Training Program
DX: R74.01 Elevation of levels of liver transaminase levels (principal); Z79.631 Long term (current) use of antimetabolite agent
CPT/HCPCS: 36415; 80053; 85025; 85652; 86140

== ENCOUNTER → 2022-06-10 08:46 | Outpatient (BNVA) | payer OTHER, SELFPAY | PROVIDERS: PCP Internal Medicine; Visit Provider Student in an Organized Health Care Education/Training Program | DX: M06.00 Rheumatoid arthritis without rheumatoid factor, unspecified site (principal); M24.132 Other articular cartilage disorders, left wrist; M81.0 Age-related osteoporosis without current pathological fracture; F33.0 Major depressive disorder, recurrent, mild | CPT/HCPCS: 99212 ==

== ENCOUNTER 2022-06-16 09:23 | Outpatient (REF) | payer OTHER, SELFPAY ==
--- NOTE | ~2022-06-16 | US_ITS ---
EXAMINATION: US COMPLETE ABDOMEN WITH LIVER ELASTOGRAPHY CLINICAL INFORMATION: Elevated LFTs COMPARISON: None available. TECHNIQUE: Real-time imaging of the abdominal viscera. Noninvasive ultrasound liver fibrosis assessment is performed using [employer] El[employer] point quantification shear wave elastography (2D-SWE) with a C5-2 MHz transducer. Multiple elastography samples are obtained. FINDINGS: PANCREAS: Obscured by overlying bowel gas. ABDOMINAL AORTA: The proximal and distal abdominal aorta appear unremarkable. The mid abdominal aorta is obscured by overlying bowel gas. INFERIOR VENA CAVA: Visualized portions are normal. LIVER: Normal. The liver demonstrates normal size, contour and echogenicity. No focal lesion or intrahepatic biliary duct dilatation. The right lobe measures 11.9 cm in length. The left lobe measures 9.4 cm in length. Portal flow is hepatopedal Shear wave liver elastography median stiffness is 1.51 m/s (reference: normal median stiffness is 1.3 m/s or less). IQR/median stiffness to assess sampling precision is 0.21 (reference: good quality data set is IQR/median stiffness of 0.15 or less). Examination was limited due to patient's inability to suspend respirations correctly. GALLBLADDER: There is a nonmobile calculus present without significant wall thickening or pericholecystic fluid. COMMON BILE DUCT: Normal in caliber measuring 0.4 cm in diameter. RIGHT KIDNEY: Normal. No hydronephrosis. No renal calculi or focal parenchymal lesions. The kidney measures 9.6 cm in maximum dimension. LEFT KIDNEY: Normal. No hydronephrosis. No renal calculi or focal parenchymal lesions. The kidney measures 8.9 cm in maximum dimension. SPLEEN: Normal. The spleen measures 8.0 cm in maximum dimension. US/US abdomen comp w elastography IMPRESSION: 1. Cholelithiasis without evidence of acute cholecystitis. 2. Liver elastography: Although measurements appear to rule out compensated advanced chronic liver disease, there is statistical variability of the sampling which decreases accuracy. REFERENCE: Society of Radiologists in Ultrasound Liver Stiffness Thresholds (2019): LIVER STIFFNESS THRESHOLDS: *Liver Stiffness equal or less than 1.3 m/s: High probability of being normal. *Liver Stiffness less than 1.7 m/s: In the absence of other known clinical signs, rules out compensated advanced chronic liver disease. *Liver Stiffness 1.7-2.1 m/s: Suggestive of compensated advanced chronic liver disease but need further test for confirmation. *Liver Stiffness over 2.1 m/s: Rules in compensated advanced chronic liver disease. *Liver Stiffness over 2.4 m/s: Suggestive of clinically significant portal hypertension. QUALITY OF DATA SET: *IQR/Median value equal or less than 0.15 implies a quality data set. *IQR/Median value over 0.15 implies a poor quality data set. SIGNIFICANT CHANGE FROM PRIOR EXAM: Significant change if liver stiffness measurement is 10% or greater from prior exam. OTHER CONSIDERATIONS: The stage of liver fibrosis may be overestimated in the setting of acute hepatitis, liver inflammation, elevated liver function tests, hepatic vascular congestion, obstructive cholestasis, non-fasting state, and infiltrative diseases such as amyloidosis and lymphoma. In some patients with NAFLD, the liver stiffness thresholds for compensated advanced chronic liver disease may be lower. In causes other than viral hepatitis and NAFLD, liver stiffness thresholds are not well established.
== END 2022-06-16 09:24 | disposition home or self-care (01) ==
LOC: HO.US 09:23
PROVIDERS: PCP Internal Medicine; Visit Provider Internal Medicine
DX: R74.01 Elevation of levels of liver transaminase levels (principal)
CPT/HCPCS: 76705; 76981

== ENCOUNTER → 2022-07-04 10:03 | Outpatient (BNVA) | payer OTHER, SELFPAY | PROVIDERS: PCP Internal Medicine; Visit Provider Student in an Organized Health Care Education/Training Program | DX: Z71.89 Other specified counseling (principal) | CPT/HCPCS: 99211 ==

== ENCOUNTER 2022-08-15 08:17 | Day surgery (SDC) | payer OTHER, SELFPAY ==
[2022-08-11 11:45] VITALS: BMI 32.7
--- NOTE | 2022-08-11 14:57 | P.CONAN_ITS ---
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 (Acute) Triangular fibrocartilage complex tear (Acute) Rheumatoid arthritis (Acute) Menopausal state (Acute) Screening for osteoporosis (Acute) Chronic GERD (Acute) Microcytic hypochromic anemia (Acute) Obesity (BMI 30-39.9) (Acute) ORA (generalized anxiety disorder) (Acute) Bilateral primary osteoarthritis of knee (Acute) Past Medical History Medical History RUBY positive Chronic GERD HTN (hypertension) Left ankle pain Family History Family History Mother Arthritis Father Prostate cancer Maternal Aunt Breast cancer Cervical cancer Sister SLE (systemic lupus erythematosus) Surgical History Surgical History (Updated 08/15/22 @ 09:14 by Anjali Mckenzie, RN) History of carpal tunnel surgery of left wrist History of partial hysterectomy Hx of colonoscopy Hx of esophagogastroduodenoscopy Vocal cord anomaly Social History Social History Household Members: Children Housing: House Are you a primary geriatric personal care aide to a significant other at home: No Do you presently have visiting nurse or other home services: No Alcohol intake: current Alcohol intake frequency: does not drink Alcohol type: hard liquor Patient Tobacco Use Status: Former Tobacco user Tobacco use type: Cigarette e-Cigarette/Vaping Use: Never Used Second Hand Smoke Exposure: No Use of substances other than those prescribed or required for medical reasons: No Advance Directives: No Advance Directives Information Provided: Yes Advance Directives on File: No Nutrition Risks: No Nutritional Risk service: No Current occupational status: retired and disabled 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 Cognitive needs: No Hearing needs: No Vision needs: Yes Meds Allergies Allergy/AdvReac Type Severity Reaction Status Date / Time etanercept [From Enbrel] Allergy Rash Verified 08/15/22 09:14 Home Medications Medication Instructions Recorded Confirmed Last Taken Type clonazepam 0.5 mg tablet 0.5 mg PO BID PRN Anxiety 06/18/21 08/11/22 Unknown History ibuprofen 200 mg tablet (Advil) 400 mg PO Q8H PRN Pain 02/10/22 08/11/22 Unknown History Exam Exam Date and Time: August 11, 2022 145 Height,Weight and Vital Signs: Height 5 ft 2 in Weight 81.193 kg Assessment and Plan Assessment Anesthesia Assessment: Chart Reviewed Documented by User: Santos Zarate MD 08/15/22 17:15 HPI - Anesthesia Eval Consult details Narrative: 66yo F for EGD and Colonoscopy PMFSH Past Medical History Medical History RUBY positive Chronic GERD HTN (hypertension) Left ankle pain Functional capacity: independent ambulation Family History Family History Mother Arthritis Father Prostate cancer Maternal Aunt Breast cancer Cervical cancer Sister SLE (systemic lupus erythematosus) Family history of problems with anesthesia: No Surgical History Surgical History (Updated 08/15/22 @ 09:14 by Anjali Mckenzie, RN) History of carpal tunnel surgery of left wrist History of partial hysterectomy Hx of colonoscopy Hx of esophagogastroduodenoscopy Vocal cord anomaly History of Problems with Anesthesia: No Social History Social History Household Members: Children Housing: House Are you a primary geriatric personal care aide to a significant other at home: No Do you presently have visiting nurse or other home services: No Alcohol intake: current Alcohol intake frequency: does not drink Alcohol type: hard liquor Patient Tobacco Use Status: Former Tobacco user Tobacco use type: Cigarette e-Cigarette/Vaping Use: Never Used Second Hand Smoke Exposure: No Use of substances other than those prescribed or required for medical reasons: No Advance Directives: No Advance Directives Information Provided: Yes Advance Directives on File: No Nutrition Risks: No Nutritional Risk service: No Current occupational status: retired and disabled 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 Cognitive needs: No Hearing needs: No Vision needs: Yes Meds Allergies Allergy/AdvReac Type Severity Reaction Status Date / Time etanercept [From Enbrel] Allergy Rash Verified 08/15/22 09:14 Home Medications Medication Instructions Recorded Confirmed Last Taken Type clonazepam 0.5 mg tablet 0.5 mg PO BID PRN Anxiety 06/18/21 08/11/22 Unknown History ibuprofen 200 mg tablet (Advil) 400 mg PO Q8H PRN Pain 02/10/22 08/11/22 Unknown History Exam Airway Mallampati Class: IV TM Dist: >3cm Neck ROM: Full Loose/Missing/Broken Teeth: Yes (implants ) Assessment and Plan Assessment Anesthesia Assessment: Anesthesia Plan Discussed Final Anesthetic Review Family History of Problems with Anesthesia: No History of Problems with Anesthesia: No NPO: Yes ASA Class: II Final Preanesthetic Review: Meds/Allgs Chart Reviewed, Consent Obtained/Reviewed and Anes Risks/Benef Reviewed Patient Risk: Intermediate Procedure Risk: Intermediate Anesthetic Plan Anesthetic Plan: MAC: and Agree w/ Assess. and Plan Disposition: Standard PACU
--- NOTE | 2022-08-15 09:35 | MHC.SHP ---
Pre-Procedural Eval Section A Date of Service: 08/15/22 The patient is an INPATIENT: No The History & Physical has been completed within 30 days and I have reviewed it.: No Section B Chief Complaint: screening,Anemia Relevant Family History (Specify if Yes): No Relevant Social History: Tobacco Use (Former smoker) Present Medications: see Short Stay Collaborative assessment Medical History: Significant History (RUBY positive Chronic GERD HTN (hypertension)) History of Previous Operations: Relevant previous surgery/procedure and date(s) (History of carpal tunnel surgery of left wrist History of partial hysterectomy Vocal cord anomaly) Allergies: Allergies Allergy/AdvReac Type Severity Reaction Status Date / Time etanercept [From Enbrel] Allergy Rash Verified 08/15/22 09:14 Review of Systems Sugical H&P ROS: Negative: Constitution, Cardiovascular, Respiratory and Gastrointestinal Exam Surgical H&P Exam: Normal: Heart, Normal: Lungs, Normal: Extremities and Normal: Abdomen Plan Diagnosis/Plan: Unchanged I have reviewed the history and physical and performed a pertinent physical examination on my patient. No changes have occurred unless specified. Time Spent With Patient Time: Total time managing care of this patient today ____ minutes.
[2022-08-15] MEDS: Lactated Ringers 1,000 ML 100 ML IVCONT (09:45)
[2022-08-15 09:46] VITALS: BP 144/92; PULSE 66; RESP 18; TEMP 36.6; O2SAT 99
--- NOTE | 2022-08-15 10:23 | W.PM.OPN ---
Operative Note Operative Note Date of Service: 08/15/22 Narrative: FLEXIBLE TRANSORAL UPPER GASTROINTESTINAL ENDOSCOPY WITH BIOPSIES AND COLONOSCOPY TILL CECUM WITH BIOPSIES AND SNARE POLYPECTOMY Pre-op diagnosis: Colon cancer screening, iron deficiency anemia Post-op diagnosis: Gastritis, gastric polyps, hiatal hernia, colon polyp, diverticulosis, hemorrhoids? Endoscopist:? Gulshan Zee MD Anesthesia:?MAC UPPER ENDOSCOPY Consent: Indications for the procedure and potential complications of bleeding, perforation, reaction to medications and missed diagnosis were discussed with the patient and informed consent was obtained. Instrument: Olympus GIF H 190 mid size upper endoscope Monitoring: Vital signs and clinical assessment, continuous EKG monitoring, Pulse oximetry, Carbon Dioxide monitoring and blood pressure monitoring were done throughout the procedure. Procedure: The patient was placed in the left lateral decubitis position and pre-procedure medications were administered and a bite block was placed. The endoscope was inserted into the mouth and advanced under direct vision to the third part of duodenum. A careful inspection was made as the upper endoscope was withdrawn including a retroflexed examination of the proximal stomach; Findings and interventions are described below. Findings: Larynx: Normal Esophagus: GE junction at 30 cms, large hiatal hernia 30 to 35 cms. A few 5 to 10 mm benign appearing polyps in the hiatal hernia sac - biopsied. No esophagitis or Randle's. Stomach: Mild gastric erythema. Biopsies were obtained. Grade 4 flap valve on retroflexed examination of the cardia. Duodenum: Normal bulb and descending duodenum. Biopsies were obtained from 3rd part of the duodenum to check for celiac sprue. Intervention: Biopsies as noted above COLONOSCOPY PROCEDURE NOTE Consent: Indications for the procedure and potential complications of bleeding, perforation, reaction to medications and missed diagnosis were discussed with the patient and informed consent was obtained. Instrument: Olympus PCF H 190 L variable stiffness pediatric colonoscope Monitoring: Vital signs and clinical assessment, intermittent blood pressure monitoring, continuous EKG monitoring, Pulse oximetry and Carbon Dioxide monitoring were done throughout the procedure. Colon withdrawl time was 15 minutes. Procedure: The patient was placed in the left lateral decubitis position and pre-procedure medications were administered. After a digital rectal examination of the ano-rectum, the video colonoscope was inserted into the rectum and advanced through the colon to the cecum. The colonoscope was slowly withdrawn in a retrograde panoramic fashion and the colon mucosa was carefully examined including a retroflexed view of the rectum. Findings and interventions are described below. Procedure Difficulty: : Without difficulty Findings: Terminal Ileum: Not evaluated Cecum: A 5 mm sessile polyp - removed with a cold snare. A few aphthoid ulcers adjacent to the appendicular orifice - random biopsies were obtained Ascending Colon: Normal Transverse Colon: Normal Descending Colon: Normal Sigmoid Colon: Moderate diverticulosis Rectum: Normal Ano-rectum: Moderate internal hemorrhoids Colon preparation: Good after some irrigation Impression and Post Procedure Diagnosis: Endoscopy Findings: ESOPHAGUS: GE junction at 30 cms, large hiatal hernia 30 to 35 cms. A few 5 to 10 mm benign appearing polyps in the hiatal hernia sac - biopsied. STOMACH: Mild gastric erythema. Biopsies were obtained. Grade 4 flap valve on retroflexed examination of the cardia. DUODENUM: Normal -biopsied to check for celiac sprue Colonoscopy Findings: One small polyp removed Moderate diverticulosis seen in the sigmoid colon Moderate hemorrhoids on retroflexed exam. No clear source found for CIARRA. Plan: Await pathology results Patient to schedule a FU appointment in the GI Clinic with Gulshan Zee M.D. for FU of CIARRA and elevated LFTs - scheduled on 09/29/22. Repeat Colonoscopy interval based on path results - in 5 years if polyps are adenomatous and 10 years if polyps are hyperplastic. Above findings were reviewed with the patient and Hiatal hernia, colon polyps and diverticulosis handouts were given in the discharge area BIOPSIES SHOWED: A.? Small bowel, biopsy:? Small intestinal mucosa within normal limits; negative for celiac disease. B.? Stomach, antrum, biopsy:? Antral-type mucosa with mild chronic inactive inflammation; no Helicobacter organisms seen. C.? Stomach, polyp:? Clinically polypoid oxyntic mucosa with mild chronic inactive inflammation; no Helicobacter organisms seen. D.? Cecum, biopsy:? Colonic mucosa within normal limits. E.? Cecum, polypectomy:? Small fragment of clinically polypoid colonic mucosa within normal limits.
[2022-08-15 11:22] VITALS: BP 116/69; PULSE 101; RESP 16; TEMP 36.3; O2SAT 94
[2022-08-15 11:37] VITALS: BP 119/79; PULSE 79; RESP 16; TEMP 36.1; O2SAT 95
== END 2022-08-15 11:54 | disposition home or self-care (01) ==
PROVIDERS: PCP Internal Medicine; Visit Provider Internal Medicine Gastroenterology
PROC: 0DJD8ZZ Inspection of Lower Intestinal Tract, Via Natural or Artificial Opening Endoscopic (ICD-10-PCS; CPT 45378; principal; 2022-08-15 10:20)
DX: Z12.11 Encounter for screening for malignant neoplasm of colon (principal); K63.5 Polyp of colon; K57.30 Diverticulosis of large intestine without perforation or abscess without bleeding; K64.8 Other hemorrhoids; D64.9 Anemia, unspecified; K31.7 Polyp of stomach and duodenum; K29.50 Unspecified chronic gastritis without bleeding; K44.9 Diaphragmatic hernia without obstruction or gangrene; K21.9 Gastro-esophageal reflux disease without esophagitis; R76.0 Raised antibody titer; I10 Essential (primary) hypertension; Z79.899 Other long term (current) drug therapy; Z88.8 Allergy status to other drugs, medicaments and biological substances; Z87.891 Personal history of nicotine dependence
CPT/HCPCS: 45385; 45380; 43239; 88305; 88342

== ENCOUNTER 2022-08-17 09:40 | Outpatient (REF) | payer OTHER, SELFPAY ==
[2022-08-17 10:10] LABS: MANUAL DIFF FLAG NO
[2022-08-17 10:32] LABS: Basophils Percent Auto 0.7 % (0-2); Eosinophils Absolute Auto 0.2 X10*3/uL (0.0-0.4); Eosinophils Percent Auto 4.1 % (0-4); Hematocrit 36.2 % (37.0-47.0); Imm Gran Abs Auto 0.01 X10*3/uL (0.00-0.03); Imm Gran Pct Auto 0.2 % (0.0-0.4); Lymphocytes Absolute Auto 1.6 X10*3/uL (1.2-4.9); Lymphocytes Percent Auto 28.7 % (20-40); Mean Corpuscular HGB Conc 33.1 g/dl (31.0-35.0); Mean Corpuscular Hemoglobin 29.6 pg (27.0-33.0); Mean Corpuscular Volume 89.4 fL (80.0-98.0); Mean Platelet Volume 9.7 fL (9.4-12.3); Monocytes Absolute Auto 0.4 X10*3/uL (0.1-1.2); Monocytes Percent Auto 7.1 % (2-11); Neutrophils Absolute Auto 3.4 x10*3/uL (2.0-8.3); Neutrophils Percent Auto 59.2 % (45-73); Platelet Count 310 X10*3/uL (160-400); Red Blood Count 4.05 X10*6/uL (4.20-5.50); Red Cell Distribution Width 12.7 % (11.0-16.0); White Blood Count 5.7 X10*3/uL (4.8-10.8)
[2022-08-17 11:04] LABS: Alanine Aminotransferase 16 U/L (0-31); Alkaline Phosphatase 90 U/L (39-117); Anion Gap 15 (12-20); Aspartate Amino Transferase 17 U/L (5-31); Bilirubin Total 0.4 mg/dL (0.0-1.0); Blood Urea Nitrogen 11 mg/dL (9-16); C Reactive Protein 2.25 mg/dL (< or = 0.50); Calcium 9.3 mg/dL (8.4-10.2); Carbon Dioxide 25 mmol/L (22-29); Chloride 107 mmol/L (96-108); Estimated Glomerular Filt Rate > 60; Glucose Random 95 mg/dL (60-115); Potassium 3.8 mmol/L (3.3-5.1); Sodium 143 mmol/L (135-145); Total Protein 6.9 g/dL (6.5-8.0)
[2022-08-17 11:26] LABS: Erythrocyte Sedimentation Rate 19 MM/HR (0-20)
== END 2022-08-17 09:41 | disposition home or self-care (01) ==
LOC: HO.LAB 09:40
PROVIDERS: PCP Internal Medicine; Visit Provider Student in an Organized Health Care Education/Training Program
DX: M06.9 Rheumatoid arthritis, unspecified (principal)
CPT/HCPCS: 36415; 80053; 85025; 85652; 86140

== ENCOUNTER → 2022-08-18 12:09 | Outpatient (BNVA) | payer OTHER, SELFPAY | PROVIDERS: PCP Internal Medicine; Visit Provider Student in an Organized Health Care Education/Training Program | DX: M06.00 Rheumatoid arthritis without rheumatoid factor, unspecified site (principal); M81.0 Age-related osteoporosis without current pathological fracture; F33.0 Major depressive disorder, recurrent, mild; Z79.631 Long term (current) use of antimetabolite agent | CPT/HCPCS: 99212 ==

== ENCOUNTER 2022-08-19 09:38 | Outpatient (REF) | payer OTHER, SELFPAY ==
[2022-08-19 09:57] LABS: MANUAL DIFF FLAG NO
[2022-08-19 11:01] LABS: Basophils Percent Auto 0.8 % (0-2); Eosinophils Absolute Auto 0.3 X10*3/uL (0.0-0.4); Eosinophils Percent Auto 5.5 % (0-4); Hematocrit 35.5 % (37.0-47.0); Hemoglobin 11.6 g/dl (12.0-16.0); Imm Gran Abs Auto 0.01 X10*3/uL (0.00-0.03); Imm Gran Pct Auto 0.2 % (0.0-0.4); Lymphocytes Absolute Auto 1.8 X10*3/uL (1.2-4.9); Lymphocytes Percent Auto 38.3 % (20-40); Mean Corpuscular HGB Conc 32.7 g/dl (31.0-35.0); Mean Corpuscular Hemoglobin 29.6 pg (27.0-33.0); Mean Corpuscular Volume 90.6 fL (80.0-98.0); Mean Platelet Volume 10.2 fL (9.4-12.3); Monocytes Absolute Auto 0.4 X10*3/uL (0.1-1.2); Monocytes Percent Auto 7.4 % (2-11); Neutrophils Absolute Auto 2.3 x10*3/uL (2.0-8.3); Neutrophils Percent Auto 47.8 % (45-73); Platelet Count 355 X10*3/uL (160-400); Red Blood Count 3.92 X10*6/uL (4.20-5.50); Red Cell Distribution Width 12.8 % (11.0-16.0); White Blood Count 4.7 X10*3/uL (4.8-10.8)
[2022-08-19 11:27] LABS: Alanine Aminotransferase 15 U/L (0-31); Alkaline Phosphatase 89 U/L (39-117); Anion Gap 12 (12-20); Aspartate Amino Transferase 16 U/L (5-31); Bilirubin Total 0.4 mg/dL (0.0-1.0); Blood Urea Nitrogen 14 mg/dL (9-16); C Reactive Protein 1.03 mg/dL (< or = 0.50); Calcium 9.4 mg/dL (8.4-10.2); Carbon Dioxide 28 mmol/L (22-29); Chloride 107 mmol/L (96-108); Estimated Glomerular Filt Rate > 60; Glucose Random 87 mg/dL (60-115); Potassium 4.5 mmol/L (3.3-5.1); Sodium 142 mmol/L (135-145); Total Protein 6.9 g/dL (6.5-8.0)
[2022-08-19 11:49] LABS: Erythrocyte Sedimentation Rate 20 MM/HR (0-20)
== END 2022-08-19 09:39 | disposition home or self-care (01) ==
LOC: HO.LAB 09:38
PROVIDERS: Student in an Organized Health Care Education/Training Program; PCP Internal Medicine; Visit Provider Internal Medicine
DX: Z79.899 Other long term (current) drug therapy (principal)
CPT/HCPCS: 36415; 80053; 85025; 85652; 86140

== ENCOUNTER 2022-11-03 08:00 | Outpatient (REF) | payer OTHER, SELFPAY ==
[2022-11-03 09:12] LABS: MANUAL DIFF FLAG NO
[2022-11-03 09:47] LABS: Basophils Percent Auto 0.9 % (0-2); Eosinophils Absolute Auto 0.3 X10*3/uL (0.0-0.4); Eosinophils Percent Auto 5.8 % (0-4); Hematocrit 38.5 % (37.0-47.0); Hemoglobin 12.6 g/dl (12.0-16.0); Imm Gran Abs Auto 0.01 X10*3/uL (0.00-0.03); Imm Gran Pct Auto 0.2 % (0.0-0.4); Lymphocytes Absolute Auto 1.9 X10*3/uL (1.2-4.9); Mean Corpuscular HGB Conc 32.7 g/dl (31.0-35.0); Mean Corpuscular Hemoglobin 29.6 pg (27.0-33.0); Mean Corpuscular Volume 90.4 fL (80.0-98.0); Mean Platelet Volume 9.6 fL (9.4-12.3); Monocytes Absolute Auto 0.4 X10*3/uL (0.1-1.2); Monocytes Percent Auto 9.1 % (2-11); Neutrophils Absolute Auto 1.9 x10*3/uL (2.0-8.3); Platelet Count 331 X10*3/uL (160-400); Red Blood Count 4.26 X10*6/uL (4.20-5.50); Red Cell Distribution Width 12.6 % (11.0-16.0); White Blood Count 4.5 X10*3/uL (4.8-10.8)
[2022-11-03 10:15] LABS: Ferritin 33 ng/mL (10-250)
== END 2022-11-03 08:01 | disposition home or self-care (01) ==
LOC: HO.LAB 08:00
PROVIDERS: PCP Internal Medicine; Visit Provider Internal Medicine Gastroenterology
DX: D50.9 Iron deficiency anemia, unspecified (principal); K44.9 Diaphragmatic hernia without obstruction or gangrene
CPT/HCPCS: 36415; 82728; 85025; 99212

== ENCOUNTER 2022-11-03 08:00 | Outpatient (AMB) | payer OTHER, SELFPAY ==
--- NOTE | 2022-11-03 08:08 | MHC.OFFVIS ---
Intake Vital Signs 11/03/22 08:18 Height 5 ft 2 in Weight 176 lb BMI 32.2 BP 120/70 Blood Pressure Location Lt brachial Position Sitting Pulse 74 Intake Visit Reasons: abd pain Intake Note: Patient new consult for abdominal pain. Patient cc: abdominal pain, acid reflex with burning sensation, patient is scare to eat due vomiting. Patient needed Omeprazole refills. Chrome Polisher Required: Yes Chrome Polisher Name: Jade [facility] interpeter Accompanied by: Self / Same As Patient Allergies etanercept [From Enbrel] Allergy (Verified 11/03/22 08:06) Rash Medication List - Last Reconciled 11/03/22 by Gulshan Zee MD clonazepam 0.5 mg PO BID PRN ibuprofen (Advil) 400 mg PO Q8H PRN omeprazole 40 mg PO DAILY 90 days paroxetine HCl 0 mg PO HPI abd pain HPI Details GI clinic visit for this 66 year old Lao-speaking female for follow-up to discuss colonoscopy results LABS IN [facility] : Reviewed IMAGING STUDIES: 05/2022 ABD US SHOWED: IMPRESSION: 1. Cholelithiasis without evidence of acute cholecystitis. ? 2. Liver elastography:? Although measurements appear to rule out compensated advanced chronic liver disease, there is statistical variability of the sampling which decreases accuracy. ENDOSCOPIC STUDIES: 07/2022 EGD AND COLONOSCOPY SHOWED: Endoscopy Findings: ESOPHAGUS: GE junction at 30 cms, large hiatal hernia 30 to 35 cms. A few 5 to 10 mm benign appearing polyps in the hiatal hernia sac - biopsied. STOMACH: Mild gastric erythema. Biopsies were obtained. Grade 4 flap valve on retroflexed examination of the cardia. DUODENUM: Normal -biopsied to check for celiac sprue Colonoscopy Findings: One small polyp removed Moderate diverticulosis seen in the sigmoid colon Moderate hemorrhoids on retroflexed exam. No clear source found for CIARRA. Plan: Patient to schedule a FU appointment in the GI Clinic with Gulshan Zee M.D. for FU of CIARRA and elevated LFTs - scheduled on 09/29/22. Repeat Colonoscopy interval based on path results - in 5 years if polyps are adenomatous and 10 years if polyps are hyperplastic. Above findings were reviewed with the patient and Hiatal hernia, colon polyps and diverticulosis handouts were given in the discharge area BIOPSIES SHOWED: A.? Small bowel, biopsy:? Small intestinal mucosa within normal limits; negative for celiac disease. B.? Stomach, antrum, biopsy:? Antral-type mucosa with mild chronic inactive inflammation; no Helicobacter organisms seen. C.? Stomach, polyp:? Clinically polypoid oxyntic mucosa with mild chronic inactive inflammation; no Helicobacter organisms seen. D.? Cecum, biopsy:? Colonic mucosa within normal limits. E.? Cecum, polypectomy:? Small fragment of clinically polypoid colonic mucosa within normal limits. 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 Unable to eat due to episodes of choking and postprandial regurgitation. Notes a burning sensation in the chest and upper abdomen and denies abdominal pain. Decreased appetite and anemia for the past 3 months. Treated with IV iron. Denies recent change in bowel habits, constipation, diarrhea, black stools or rectal bleeding. Has a BM 2-3 times a day. Patient denies major cardiac or pulmonary problems. Admits to loud snoring and has not been checked sleep apnea Denies problems with anesthesia in the past. Denies being on chronic anticoagulation. Takes Advil prn for knee pain - takes once a week Past smoker and quitted smoking 6 months ago. (smoked 1-2 cigg daily) Mom had colon polyps and had surgery in her 80's Patient denies known family history of colon cancer or other GI malignancies. [facility] Medical History RUBY positive Chronic GERD HTN (hypertension) Left ankle pain Surgical History History of carpal tunnel surgery of left wrist History of partial hysterectomy Hx of colonoscopy Hx of esophagogastroduodenoscopy Vocal cord anomaly Family History Mother Arthritis Father Prostate cancer Maternal Aunt Breast cancer Cervical cancer Sister SLE (systemic lupus erythematosus) Social History Household Members: Children Housing: House Are you a primary wound care center consultant to a significant other at home: No Do you presently have visiting nurse or other home services: No Alcohol intake: current Alcohol intake frequency: does not drink Alcohol type: hard liquor Patient Tobacco Use Status: Former Tobacco user Tobacco use type: Cigarette e-Cigarette/Vaping Use: Never Used Second Hand Smoke Exposure: No service: No Current occupational status: retired and disabled 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 Cognitive needs: No Hearing needs: No Vision needs: Yes Review of Systems Const Denies fever(s), Denies headache(s) and Denies weight loss Eyes Denies eye discharge and Denies irritation ENT Reports Normal hearing present, Reports dysphagia, Denies dizziness, Denies headache(s) and Reports sore throat Card Reports chest pain, Denies leg edema and Denies dyspnea on exertion Resp Denies cough, Denies dyspnea on exertion and Denies wheezing GI Reports abdominal pain, Denies change in bowel habits, Reports dysphagia, Reports early satiety, Denies heartburn and Reports other (loss of appetite) Denies difficulty voiding and Denies dysuria Musc Denies back pain and Denies arthralgias Skin/Breast Denies pruritus, Denies rash and Denies jaundice Neuro Reports Normal hearing present, Denies Abnormal speech present, Denies dizziness, Denies headache(s) and Denies seizure-like activity Psych Denies anxiety, Denies depression and Denies panic attacks Endo Denies cold intolerance, Denies flushing and Denies heat intolerance Zheng/Lymph Denies easy bleeding and Denies easy bruising Aller/Immun Denies wheezing Physical Exam Vital Signs: Last Vital Signs Pulse 74 11/03/22 08:18 BP 120/70 11/03/22 08:18 BMI result Body Mass Index 32.2 Const General: healthy appearing and no acute distress Nutritional Appearance: obese Orientation/consciousness: patient oriented x3 Limitations: language barrier HEENT Head: Yes normal to inspection Ears: hearing grossly normal bilaterally Eyes Sclerae: sclerae normal Pupils: Equal, round and reactive pupils present Neck Neck: Yes normal visual inspection Chest Chest palpation & inspection: normal inspection of the chest Resp Effort & Inspection: normal respiratory effort Auscultation: clear to auscultation bilaterally Cardio Palpation: normal PMI Rate: regular rate Rhythm: regular rhythm Heart sounds: S1 normal heart sound present, S2 normal heart sound present and no murmurs GI Palpation (GI): Soft to palpation, nontender and No hepatosplenomegaly present Auscultation: normal bowel sounds Rectal Exam - Female: deferred Skin General skin exam: no rashes or lesions noted Neuro General: patient oriented x3, gait normal and moves all extremities Cranial nerves: Yes Equal, round and reactive pupils present and Yes Normal hearing present Speech: No Abnormal speech present Psych Appearance: grossly normal Mental Status: mental status grossly normal Assessment & Plan Assessment & Plan (1) Microcytic hypochromic anemia: Code(s): D50.9 - Iron deficiency anemia, unspecified (2) Large hiatal hernia: Code(s): K44.9 - Diaphragmatic hernia without obstruction or gangrene Plan 66 year old Lao-speaking female with hypertension, obesity, rheumatoid arthritis and generalized anxiety disorder seen for follow-up after EGD and colonoscopy EGD showed a large hiatal hernia with benign polyps in hiatal hernia sac. Gastric biopsies were negative for Helicobacter pylori. A small hyperplastic polyp was removed during colonoscopy - FU colonoscopy advised in 10 yrs. Patient complains of heartburn, postprandial burning sensation in the chest and episodes of choking and regurgitation likely related to large hiatal hernia. Patient was advised to resume omeprazole and was referred to general surgery to be evaluated for hiatal hernia repair. She was advised to have labs checked to Fu on iron def anemia FU in 3 months. Orders: Orders Ferritin Today D50.9 - Iron deficiency anemia, unspecified Complete Blood Count Auto Diff Today D50.9 - Iron deficiency anemia, unspecified Referrals General Surgery Referral K44.9 - Diaphragmatic hernia without obstruction or gangrene Medications: Refilled omeprazole 40 mg PO DAILY 90 days 90 caps 1RF Coding Level of Care Code Est Pt Level 4 (82249) Diagnoses Microcytic hypochromic anemia D50.9 Large hiatal hernia K44.9 Time Spent (min) 25
[2022-11-03 08:18] VITALS: BP 120/70; PULSE 74; BMI 32.2
== END 2022-11-03 08:58 | disposition home or self-care (01) ==
PROVIDERS: PCP Internal Medicine; Visit Provider Internal Medicine Gastroenterology
DX: D50.9 Iron deficiency anemia, unspecified (principal); K44.9 Diaphragmatic hernia without obstruction or gangrene
CPT/HCPCS: 99214

== ENCOUNTER 2022-11-15 08:03 | Outpatient (REF) | payer OTHER, SELFPAY ==
[2022-11-15 08:26] LABS: MANUAL DIFF FLAG NO
[2022-11-15 08:51] LABS: Basophils Percent Auto 0.6 % (0-2); Eosinophils Absolute Auto 0.3 X10*3/uL (0.0-0.4); Eosinophils Percent Auto 4.9 % (0-4); Hematocrit 35.9 % (37.0-47.0); Hemoglobin 11.7 g/dl (12.0-16.0); Imm Gran Abs Auto 0.01 X10*3/uL (0.00-0.03); Imm Gran Pct Auto 0.2 % (0.0-0.4); Lymphocytes Absolute Auto 2.4 X10*3/uL (1.2-4.9); Mean Corpuscular HGB Conc 32.6 g/dl (31.0-35.0); Mean Corpuscular Hemoglobin 29.5 pg (27.0-33.0); Mean Corpuscular Volume 90.7 fL (80.0-98.0); Mean Platelet Volume 9.6 fL (9.4-12.3); Monocytes Absolute Auto 0.4 X10*3/uL (0.1-1.2); Monocytes Percent Auto 6.8 % (2-11); Neutrophils Absolute Auto 2.3 x10*3/uL (2.0-8.3); Neutrophils Percent Auto 42.5 % (45-73); Platelet Count 285 X10*3/uL (160-400); Red Blood Count 3.96 X10*6/uL (4.20-5.50); Red Cell Distribution Width 12.5 % (11.0-16.0); White Blood Count 5.3 X10*3/uL (4.8-10.8)
[2022-11-15 09:16] LABS: Alanine Aminotransferase 13 U/L (0-31); Alkaline Phosphatase 93 U/L (39-117); Anion Gap 10 (12-20); Aspartate Amino Transferase 17 U/L (5-31); Bilirubin Total 0.3 mg/dL (0.0-1.0); Blood Urea Nitrogen 16 mg/dL (9-16); Calcium 9.6 mg/dL (8.4-10.2); Carbon Dioxide 29 mmol/L (22-29); Chloride 107 mmol/L (96-108); Estimated Glomerular Filt Rate > 60; Glucose Random 92 mg/dL (60-115); Potassium 3.9 mmol/L (3.3-5.1); Sodium 142 mmol/L (135-145)
[2022-11-15 09:38] LABS: Ferritin 34 ng/mL (10-250)
[2022-11-15 12:12] LABS: Alanine Aminotransferase 14 U/L (0-31); Albumin Level 4.3 g/dL (3.5-5.0); Alkaline Phosphatase 100 U/L (39-117); Anion Gap 11 (12-20); Aspartate Amino Transferase 18 U/L (5-31); Bilirubin Total 0.4 mg/dL (0.0-1.0); Blood Urea Nitrogen 14 mg/dL (9-16); Calcium 9.7 mg/dL (8.4-10.2); Carbon Dioxide 29 mmol/L (22-29); Chloride 105 mmol/L (96-108); Estimated Glomerular Filt Rate > 60; Glucose Random 94 mg/dL (60-115); Sodium 141 mmol/L (135-145); Total Protein 7.6 g/dL (6.5-8.0)
== END 2022-11-15 08:04 | disposition home or self-care (01) ==
LOC: HO.LAB 08:03
PROVIDERS: Internal Medicine Medical Oncology; Absent Provider Surgery; PCP Internal Medicine; Visit Provider Student in an Organized Health Care Education/Training Program
DX: D50.9 Iron deficiency anemia, unspecified (principal); R74.01 Elevation of levels of liver transaminase levels; K44.9 Diaphragmatic hernia without obstruction or gangrene; E66.9 Obesity, unspecified; K21.9 Gastro-esophageal reflux disease without esophagitis; M06.9 Rheumatoid arthritis, unspecified; M81.0 Age-related osteoporosis without current pathological fracture; Z79.899 Other long term (current) drug therapy
CPT/HCPCS: 36415; 80053; 82728; 85025; 99202; 99212

== ENCOUNTER 2022-11-15 08:37 | Outpatient (AMB) | payer OTHER, SELFPAY ==
--- NOTE | 2022-11-15 08:39 | MHC.OFFVIS ---
Intake Vital Signs 11/15/22 08:40 Height 5 ft 2 in Weight 179 lb 0.246 oz BMI 32.7 BP 116/74 Blood Pressure Location Rt brachial Position Sitting Pulse 61 Pulse Source Pulse Oximeter Temp 96.6 F L Temp Source Skin Pulse Oximetry (%) 98 Intake Visit Reasons: RA Intake Note: Pt seen today for RA follow up. C/o intermittent left ankle pain, bl knee pain Production Control Technologist Required: Yes Production Control Technologist Name: Bao [id number] Information Interpreted: clinical only Accompanied by: Self / Same As Patient Allergies etanercept [From Enbrel] Allergy (Verified 11/15/22 08:42) Rash Medication List - Last Reconciled 11/15/22 by Martinez Cox MD clonazepam 0.5 mg PO BID PRN ibuprofen (Advil) 400 mg PO Q8H PRN omeprazole 40 mg PO DAILY 90 days paroxetine HCl 0 mg PO HPI HPI Comments History of Present Illness Details 66-year-old female with seronegative RA presents for follow-up. She is not on any DMARDs. She continues to feel about the same. Continues to have pain in both knees, left ankle and wrist pain. Pain is generally worse in the morning. Knee pain is worse with walking. Initial history: This is a 66-year-old female with mild recurrent major depression and rheumatoid arthritis that comes for her physical exam. Depression stable with paroxetine and this is follow by Psychiatry. Rheumatoid arthritis is follow by Rheumatology and has not started methotrexate yet. No need for Pap smears due to hysterectomy. Mammogram is scheduled for 04/15/2022. Was refer for colonoscopy through open access and has not received it date yet. Last colonoscopy was 15 years ago. Complains of diffuse abdominal pain. [facility] Medical History RUBY positive Chronic GERD HTN (hypertension) Left ankle pain Surgical History History of carpal tunnel surgery of left wrist History of partial hysterectomy Hx of colonoscopy Hx of esophagogastroduodenoscopy Vocal cord anomaly Family History Mother Arthritis Father Prostate cancer Maternal Aunt Breast cancer Cervical cancer Sister SLE (systemic lupus erythematosus) Social History Household Members: Children Housing: House Are you a primary overnight caregiver to a significant other at home: No Do you presently have visiting nurse or other home services: No Alcohol intake: current Alcohol intake frequency: does not drink Alcohol type: hard liquor Patient Tobacco Use Status: Former Tobacco user Tobacco use type: Cigarette e-Cigarette/Vaping Use: Never Used Second Hand Smoke Exposure: No service: No Current occupational status: retired and disabled 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 Cognitive needs: No Hearing needs: No Vision needs: Yes Review of Systems Musc Reports arthralgias, Reports joint swelling and Reports stiffness Physical Exam Vital Signs: Last Vital Signs Temp 96.6 F L 11/15/22 08:40 Pulse 61 11/15/22 08:40 BP 116/74 11/15/22 08:40 Pulse Ox 98 11/15/22 08:40 BMI result Body Mass Index 32.7 Const General: cooperative, healthy appearing, comfortable and no acute distress Nutritional Appearance: obese Orientation/consciousness: patient oriented x3 Limitations: no limitations HEENT Head: Yes normocephalic and Yes atraumatic Mouth: moist mucous membranes Resp Effort & Inspection: normal respiratory effort and able to speak in complete sentences Neuro General: patient oriented x3 Extrem Other: Hand exam: Left wrist pain with full flexion and extension of left wrist. Left wrist swelling & tenderness to palpation Left 2nd 3rd and 4th MCP swelling Right hand 3rd 4th and 5th MCP tenderness Bilateral positive MCP squeeze test Bilateral mild osteoarthritic changes of both hands Normal nailfold capillaroscopy Left ankle swelling and tenderness especially at the lateral malleolus Results Reviewed Results Reviewed: MR/MR wrist LT wo/w con IMPRESSION: 1.? There is a lobulated and elongated ganglion volar to the radial styloid measuring up to 1.8 cm. ? 2. 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 ? 3. Degeneration and possible full-thickness perforation of the central TFCC. MR/MR ankle LT wo con IMPRESSION: 1.? Prominent peroneal brevis and peroneal longus tenosynovitis. Attenuation and longitudinal split tearing of the peroneal brevis tendon at the level of the lateral malleolus measuring up to 4.1 cm in craniocaudal dimension. No full-thickness transverse tendon tear or tendon retraction. Overlying lateral soft tissue edema. Reactive marrow edema within the lateral malleolus as well as the lateral aspect of the calcaneal body where there is associated degenerative spurring. 2.? Mild posterior tibialis and flexor digitorum longus tenosynovitis. 3.? Mild degenerative arthritis at the articulation between the lateral talus and lateral malleolus. Trace posterior subtalar joint effusion. 4.? Remote sprain/partial tear of the anterior talofibular ligament. No evidence of acute ligament injury. Assessment & Plan Assessment & Plan (1) Rheumatoid arthritis: Comment: Positive RUBY 1:80 homogeneous, 1:40 nuclear fine speckled Seronegative Dx 04/18 MTX couldn't be started due to transaminitis Enbrel 06/16-07/17 stopped due to local rash Code(s): M06.9 - Rheumatoid arthritis, unspecified Plan: This is a 66-year-old female with seronegative RA presents for follow-up. Continues to have multiple swollen and tender joints. Needs DMARDs. Patient had transaminitis with methotrexate. Had an injection site reaction to Enbrel. Does not want Humira as her sister has SLE and her sister was told that she might lose her vision if she takes Humira. I discussed injection site reaction. Discussed how to mitigate and treat them. I discussed risk of not treating active rheumatoid arthritis including persistent joint pain, deformities and tendon rupture. Patient continues to refuse injectables. Discussed risks and benefits of sulfasalazine. Patient agreed to proceed. Start sulfasalazine 500 mg Twice daily then uptitrate to 1000 mg Twice daily. Labs before next visit in 2 months (2) Osteoporosis without pathological fracture: Code(s): M81.0 - Age-related osteoporosis without current pathological fracture Plan: DEXA 04/18 shows T-score of -3.3 at the L-spine. Discussed the need for antiresorptives. Start Fosamax 70 mg once weekly. Patient has history of a large hiatal hernia and she was referred to general surgery for evaluation. Takes omeprazole daily. Advised patient to let us know if she develops GI upset with Fosamax and we will consider switching to Reclast or Prolia Plan I spent 26 minutes reviewing patient's chart, evaluating patient counseling patient and documenting in the chart Orders: Orders Comprehensive Met. Panel 2 Months M06.9 - Rheumatoid arthritis, unspecified C Reactive Protein 2 Months M06.9 - Rheumatoid arthritis, unspecified Complete Blood Count Auto Diff 2 Months M06.9 - Rheumatoid arthritis, unspecified Erythrocyte Sedimentation Rate 2 Months M06.9 - Rheumatoid arthritis, unspecified Medications: New sulfasalazine give with food (meal/snack) Take 1 tab twice daily for 1 week then 2 tabs in the morning and 1 tab at night for 1 week then 2 tabs Twice daily 240 tabs 0RF alendronate One tab once weekly on an empty stomach, with large glass of water (at least 6 oz) and remain upright for 30 minutes 70 mg PO QWEEK 12 tabs 1RF Coding Level of Care Code Est Pt Level 4 (32131) Diagnoses Rheumatoid arthritis M06.9 Osteoporosis without pathological fracture M81.0
[2022-11-15 08:40] VITALS: BP 116/74; PULSE 61; TEMP 35.9; O2SAT 98; BMI 32.7
== END 2022-11-15 09:14 | disposition home or self-care (01) ==
PROVIDERS: PCP Internal Medicine; Visit Provider Student in an Organized Health Care Education/Training Program
DX: M06.9 Rheumatoid arthritis, unspecified (principal); M81.0 Age-related osteoporosis without current pathological fracture
CPT/HCPCS: 99214

== ENCOUNTER 2022-11-15 09:33 | Outpatient (AMB) | payer OTHER, SELFPAY ==
[2022-11-15 09:56] VITALS: BP 184/89; PULSE 69; TEMP 36.4; O2SAT 99; BMI 32.6
--- NOTE | 2022-11-15 09:57 | A.OFFVIS_ITS ---
Intake Vital Signs 11/15/22 09:56 11/15/22 09:58 Height 5 ft 2 in Weight 178 lb 5 oz BMI 32.6 32.6 BP 184/89 H Blood Pressure Location Rt brachial Position Sitting Pulse 69 Pulse Source Pulse Oximeter Temp 97.6 F Temp Source Temporal Artery Scan Pulse Oximetry (%) 99 Oxygen Delivery Method Room Air Intake Visit Reasons: Diaphragmatic hernia Law Tutor Required: Yes Law Tutor Name: DEMARCUS Maurer Information Interpreted: non-clinical & clinical Calender Machine Operator Helper: Calender Machine Operator Helper Present Allergies etanercept [From Enbrel] Allergy (Verified 11/15/22 09:57) Rash Medication List - Last Reconciled 11/15/22 by Mauricio Conde MD alendronate 70 mg PO QWEEK clonazepam 0.5 mg PO BID PRN ibuprofen (Advil) 400 mg PO Q8H PRN omeprazole 40 mg PO DAILY 90 days paroxetine HCl 0 mg PO sulfasalazine give with food (meal/snack) Take 1 tab twice daily for 1 week then 2 tabs in the morning and 1 tab at night for 1 week then 2 tabs Twice daily HPI HPI Comments History of Present Illness Details The patient is a 66-year-old woman with rheumatoid arthritis, anemia from unclear sources, a hiatal hernia identified by Dr. Mai at upper endoscopy from 30-35 cm who reports reflux. Patient also reports issues with dysphagia. Via ethylene plant operator, she notes that she is not currently taking the prescribed prescription antacid and is having ongoing symptoms. For unclear reasons, she started taking it p.r.n. and continues to note report both sour/acid brash and regurgitation as well as odynophagia with certain foods. She notes that the biggest meal of her day/her supper tends to be at about 03:00 o'clock in the afternoon. She notes weight fluctuation between 150-170 lb. She states her medications were changed and that she is at the heaviest of her adult life at 178.3 lb/BMI 32.6. She denies any hematemesis, but does note regurgitation and vomiting, especially when she overeats. ESS 0 GERD 28 PATIENT REPORTS THAT SHE IS NOT TAKING HER PROTON PUMP INHIBITOR PFSH Medical History RUBY positive Chronic GERD HTN (hypertension) Left ankle pain Surgical History History of carpal tunnel surgery of left wrist History of partial hysterectomy Hx of colonoscopy Hx of esophagogastroduodenoscopy Vocal cord anomaly Family History Mother Arthritis Father Prostate cancer Maternal Aunt Breast cancer Cervical cancer Sister SLE (systemic lupus erythematosus) Social History Household Members: Children Housing: House Are you a primary manager critical care unit to a significant other at home: No Do you presently have visiting nurse or other home services: No Alcohol intake: current Alcohol intake frequency: does not drink Alcohol type: hard liquor Patient Tobacco Use Status: Former Tobacco user Tobacco use type: Cigarette e-Cigarette/Vaping Use: Never Used Second Hand Smoke Exposure: No service: No Current occupational status: retired and disabled 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 Cognitive needs: No Hearing needs: No Vision needs: Yes Review of Systems Const All systems reviewed & are unremarkable except as noted in HPI and below Reports as per HPI Physical Exam Vital Signs: Last Vital Signs Temp 97.6 F 11/15/22 09:56 Pulse 69 11/15/22 09:56 BP 184/89 H 11/15/22 09:56 Pulse Ox 99 11/15/22 09:56 Oxygen Delivery Method Room Air 11/15/22 09:56 BMI result Body Mass Index 32.6 The patient is non-toxic & in good spirits NC/AT, PERRLA, EOMI Mood, affect & judgment all appear appropriate Sclera anicteric conjunctiva pink and moist Oropharynx is clear with no aphthous ulcers, Mallampati class 4, mucous membranes moist Neck is supple with no masses, adenopathy or bruits Heart is regular, normal S1-S2 no rubs or murmurs Lungs are clear and equal anteriorly with no audible wheezing, rubs or dullness to percussion Abdomen is obese no demonstrable hernias. No HSM, tenderness, rebound, rigidity, guarding, masses or bruits are present. Rectal exam is deferred Skin has good turgor and is free of rashes Extremities free of cyanosis clubbing edema Results Reviewed Results Reviewed: Diagnostic imaging Patient underwent a liver lobe elastography 06/16/2022 which showed normal liver elasticity and parenchymal structure, cholelithiasis was incidentally noted Labs from 11/15/2022 include Hemoglobin 11.7, white blood cell count 5.3, platelet count 285 K BUN is 16, creatinine 0.73, electrolytes within normal parameters LFTs are within normal limits Endoscopy report dated 08/15/22 reviewed HH from 30 to 35cm is noted with no obvious source for the patient's anemia. Assessment & Plan Assessment & Plan (1) Large hiatal hernia: Code(s): K44.9 - Diaphragmatic hernia without obstruction or gangrene (2) Microcytic hypochromic anemia: Code(s): D50.9 - Iron deficiency anemia, unspecified (3) Obesity (BMI 30-39.9): Code(s): E66.9 - Obesity, unspecified (4) Chronic GERD: Code(s): K21.9 - Gastro-esophageal reflux disease without esophagitis Plan Via ethylene plant operator, I explained the importance of continuing to take the proton pump inhibitor since this will indicate whether not the patient would benefit from a fundoplication. Using a teaching catalytic converter operator and interpretive services, I explained that she has hiatal hernia which is when the valve that should be in the abdomen is up in the chest and it causes regurgitation and acid reflux. I have ordered an upper GI to assess gross function of the patient's esophagus since she is reporting dysphagia; if there is evidence of abnormal swallowing, high-resolution esophageal manometry may be required. The contribution of centripetal obesity to hiatal hernia and risk of recurrence from weight gain was discussed with the patient and apparently understood. Will see the patient back for a 45 minute visit after her upper GI and lab work is complete. She is instructed to take her omeprazole, 40 mg daily an hour before her dinner at 15:00. I have explained the importance of taking every day to better assess whether not she would benefit from a fundoplication. Her questions seemed to be satisfactorily answered. Orders: Orders Hemoglobin A1c Today D50.9 - Iron deficiency anemia, unspecified, E66.9 - Obesity, unspecified, K21.9 - Gastro-esophageal reflux disease without esophagitis, K44.9 - Diaphragmatic hernia without obstruction or gangrene Prealbumin Today D50.9 - Iron deficiency anemia, unspecified, E66.9 - Obesity, unspecified, K21.9 - Gastro-esophageal reflux disease without esophagitis, K44.9 - Diaphragmatic hernia without obstruction or gangrene FL upper GI series Today D50.9 - Iron deficiency anemia, unspecified, E66.9 - Obesity, unspecified, K21.9 - Gastro-esophageal reflux disease without esophagitis, K44.9 - Diaphragmatic hernia without obstruction or gangrene Coding Level of Care Code New Pt Level 4 (04612) Diagnoses Large hiatal hernia K44.9 Microcytic hypochromic anemia D50.9 Obesity (BMI 30-39.9) E66.9 Chronic GERD K21.9
[2022-11-15 09:58] VITALS: BMI 32.6
== END 2022-11-15 10:37 | disposition home or self-care (01) ==
PROVIDERS: PCP Internal Medicine; Referring Provider Internal Medicine Gastroenterology; Visit Provider Surgery
DX: K44.9 Diaphragmatic hernia without obstruction or gangrene (principal); D50.9 Iron deficiency anemia, unspecified; E66.9 Obesity, unspecified; K21.9 Gastro-esophageal reflux disease without esophagitis
CPT/HCPCS: 99204

== ENCOUNTER 2022-11-25 06:55 | Outpatient (REF) | payer OTHER, SELFPAY ==
--- NOTE | ~2022-11-25 | FL_ITS ---
EXAMINATION: XR FLUOROSCOPY UPPER GI WITH AIR CLINICAL INFORMATION: 66-year-old female complaining of dysphagia and episodic epigastric pain, GERD, and history of hiatus hernia. COMPARISON: None available. TECHNIQUE: Standard technique fluoroscopic air contrast upper GI examination was performed utilizing thin and thick barium with effervescent granules. Numerous fluoroscopic spot images were obtained. Plaster Mechanic was present during the examination to facilitate communication for best imaging. FINDINGS: Lateral cine images taken during swallow of thick barium demonstrate normal epiglottic inversion, and soft palate elevation. There was trace laryngeal penetration, which did not progress further into the larynx. No gross glottic or subglottic aspiration. Moderate cricopharyngeal achalasia was noted. No definite mass or diverticulum identified. Moderate distention of the hypopharynx was noted during swallow. There was persistent pooling in the piriform sinuses and vallecula, which did clear upon subsequent swallows. Esophagus is tortuous and mildly patulous, with markedly disordered motility. Primary peristaltic wave was moderately effective, however followed by numerous tertiary contractions which were essentially nonpropulsive. In the most distal esophagus, immediately above a large paraesophageal hiatus hernia, there is a moderate esophageal stricture identified, which has a probably benign appearance without heaped up margins or evidence of gross mass. There was granular mucosa in the region of the stricture and above with small ulcerations present highly suggestive of erosive esophagitis. Cannot exclude Randle's change in this region. There was notable gastroesophageal reflux seen throughout the examination which extended to the level of the thoracic inlet. Moderate to large sized paraesophageal hiatus hernia present. Otherwise, the stomach has normal contour and mucosal fold appearance. No definite mucosal ulceration or other gastric abnormality identified. No evidence of mass. The duodenal bulb and duodenal sweep have a normal appearance, with normal fold pattern. Contrasted progressed somewhat rapidly into the small bowel reaching the mid ileum at the end of the examination. Loops of jejunum and ileum appear normal without fold thickening. FLUOROSCOPY TIME: 38 spot images were obtained. 4.0 minutes DOSE AREA PRODUCT: 40.663 uGy-m2 (microgray-meter squared) FL/FL upper GI w air IMPRESSION: 1. Moderate to large sized paraesophageal hiatus hernia. 2. Episodic gastroesophageal reflux to the level of the thoracic inlet. 3. Suspect benign stricture of the distal esophagus just above the hiatus hernia, where there appears to be granular mucosa and ulcerations suggesting erosive esophagitis. Cannot exclude Randle's. No definite mass lesion. 4. The more proximal esophagus has a normal fold pattern but is somewhat patulous, tortuous, with extensive presbyesophagus and poor motility. 5. Trace laryngeal penetration of thick barium was noted without gross glottic or subglottic aspiration. Moderate cricopharyngeal achalasia was noted. 6. Normal-appearing duodenal bulb, duodenum, and imaged small bowel. Somewhat rapid transit of contrast was noted to the mid ileal level incidentally. 7. Given above findings, correlating with upper endoscopy highly recommended.
== END 2022-11-25 06:56 | disposition home or self-care (01) ==
LOC: HO.XRAY 06:55
PROVIDERS: PCP Internal Medicine; Visit Provider Surgery
DX: K44.9 Diaphragmatic hernia without obstruction or gangrene (principal); D50.9 Iron deficiency anemia, unspecified; E66.9 Obesity, unspecified
CPT/HCPCS: 74246

== ENCOUNTER → 2022-11-25 06:57 | Outpatient (BNV) | payer OTHER, SELFPAY | PROVIDERS: PCP Internal Medicine; Visit Provider Radiology Diagnostic Radiology | DX: R13.10 Dysphagia, unspecified (principal); R10.13 Epigastric pain | CPT/HCPCS: 74246 ==

== ENCOUNTER 2022-12-05 13:23 | Outpatient (REF) | payer OTHER, SELFPAY ==
[2022-12-05 14:40] LABS: Estimated Average Glucose 105 mg/dL; Hemoglobin A1c % 5.3 % (<6.0)
== END 2022-12-05 13:24 | disposition home or self-care (01) ==
LOC: HO.LAB 13:23
PROVIDERS: Visit Provider Surgery
DX: K44.9 Diaphragmatic hernia without obstruction or gangrene (principal); E66.9 Obesity, unspecified; D50.9 Iron deficiency anemia, unspecified; K21.9 Gastro-esophageal reflux disease without esophagitis
CPT/HCPCS: 36415; 83036; 84134

== ENCOUNTER 2022-12-06 10:25 | Outpatient (AMB) | payer OTHER, SELFPAY ==
--- NOTE | 2022-12-06 10:31 | A.OFFVIS_ITS ---
Intake Vital Signs 12/06/22 10:36 Height 5 ft 2 in Weight 178 lb 9.191 oz BMI 32.7 BP 135/73 Blood Pressure Location Lt brachial Position Sitting Pulse 82 Pulse Source Pulse Oximeter Temp 96.4 F L Temp Source Tympanic Pulse Oximetry (%) 95 Oxygen Delivery Method Room Air Intake Visit Reasons: Diaphragmatic hernia Credit And Collections Analyst Required: Yes Information Interpreted: non-clinical & clinical Manager Of Sustainability: Manager Of Sustainability Present Allergies etanercept [From Enbrel] Allergy (Verified 12/06/22 10:40) Rash HPI HPI Comments History of Present Illness0 Details The patient is a 66-year-old woman with rheumatoid arthritis, anemia from unclear sources, a hiatal hernia identified by Dr. Mai at upper endoscopy from 30-35 cm who reports reflux. Patient also reports issues with dysphagia. Via business management consultant, she notes that she is not currently taking the prescribed prescription antacid and is having ongoing symptoms. For unclear reasons, she started taking it p.r.n. and continues to note report both sour/acid brash and regurgitation as well as odynophagia with certain foods. She notes that the biggest meal of her day/her supper tends to be at about 03:00 o'clock in the afternoon. She notes weight fluctuation between 150-170 lb. She states her medications were changed and that she is at the heaviest of her adult life at 178.3 lb/BMI 32.6. She denies any hematemesis, but does note regurgitation and vomiting, especially when she overeats. ESS 0 GERD 28 PATIENT REPORTS THAT SHE IS NOT TAKING HER PROTON PUMP INHIBITOR The patient reports that she is doing better now with taking her daily PPI. She notes intermittent ibuprofen/Advil usage daily due to her arthritis. She otherwise denies interval change PFSH Medical History RUBY positive Left ankle pain Chronic GERD HTN (hypertension) Surgical History Hx of esophagogastroduodenoscopy Hx of colonoscopy History of carpal tunnel surgery of left wrist Vocal cord anomaly History of partial hysterectomy Family History Mother Arthritis Father Prostate cancer Maternal Aunt Breast cancer Cervical cancer Sister SLE (systemic lupus erythematosus) Social History Household Members: Children Housing: House Are you a primary intensive care nurse to a significant other at home: No Do you presently have visiting nurse or other home services: No Alcohol intake: current Alcohol intake frequency: does not drink Alcohol type: hard liquor Patient Tobacco Use Status: Former Tobacco user Tobacco use type: Cigarette e-Cigarette/Vaping Use: Never Used Second Hand Smoke Exposure: No service: No Current occupational status: retired and disabled 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 Moderate to large sized paraesophageal hiatus hernia. 2. Episodic gastroesophageal reflux to the level of the thoracic inlet. 3. Suspect benign stricture of the distal esophagus just above the hiatus hernia, where there appears to be granular mucosa and ulcerations suggesting erosive esophagitis. Cannot exclude Randle's. No definite mass lesion. 4. The more proximal esophagus has a normal fold pattern but is somewhat patulous, tortuous, with extensive presbyesophagus and poor motility. 5. Trace laryngeal penetration of thick barium was noted without gross glottic or subglottic aspiration. Moderate cricopharyngeal achalasia was noted. 6. Normal-appearing duodenal bulb, duodenum, and imaged small bowel. Somewhat rapid transit of contrast was noted to the mid ileal level incidentally. 7. Given above findings, correlating with upper endoscopy highly recommended. Patient underwent a liver lobe elastography 06/16/2022 which showed normal liver elasticity and parenchymal structure, cholelithiasis was incidentally noted Labs from 11/15/2022 include Hemoglobin 11.7, white blood cell count 5.3, platelet count 285 K BUN is 16, creatinine 0.73, electrolytes within normal parameters LFTs are within normal limits Endoscopy report dated 08/15/22 reviewed HH from 30 to 35cm is noted with no obvious source for the patient's anemia. Assessment & Plan Assessment & Plan (1) Large hiatal hernia: Code(s): K44.9 - Diaphragmatic hernia without obstruction or gangrene (2) Microcytic hypochromic anemia: Code(s): D50.9 - Iron deficiency anemia, unspecified (3) Obesity (BMI 30-39.9): Code(s): E66.9 - Obesity, unspecified (4) ORA (generalized anxiety disorder): Comment: Follow by psychiatry Dr. Valdez Code(s): F41.1 - Generalized anxiety disorder (5) Rheumatoid arthritis: Comment: Positive RUBY 1:80 homogeneous, 1:40 nuclear fine speckled Seronegative Dx 04/18 MTX couldn't be started due to transaminitis Enbrel 06/16-07/17 stopped due to local rash Code(s): M06.9 - Rheumatoid arthritis, unspecified (6) Dyspepsia: Code(s): R10.13 - Epigastric pain Plan Via business management consultant, explained to the patient that her upper GI showed esophageal dysmotility and an upper endoscopy to assess her anatomy is in order. I reviewed the option of a 2nd opinion as well as the inherent risks of an EGD with biopsies which include, but are not limited to bleeding, perforation or injury that could require emergent surgery, aspiration. The possible need to to send the patient to [facility] for esophageal manometry depending on the findings was also discussed and apparently understood. Will see the patient back a week after the EGD to review biopsy results and the next step. The importance of maintaining a healthy weight and stable weight due to the recent weight increase needs to be addressed with a more definite plan. Coding Level of Care Code Est Pt Level 4 (06514) Diagnoses Large hiatal hernia K44.9 Microcytic hypochromic anemia D50.9 Obesity (BMI 30-39.9) E66.9 ORA (generalized anxiety disorder) F41.1 Rheumatoid arthritis M06.9 Dyspepsia R10.13
[2022-12-06 10:36] VITALS: BP 135/73; PULSE 82; TEMP 35.8; O2SAT 95; BMI 32.7
== END 2022-12-06 10:51 | disposition home or self-care (01) ==
PROVIDERS: PCP Internal Medicine; Visit Provider Surgery
DX: K44.9 Diaphragmatic hernia without obstruction or gangrene (principal); D50.9 Iron deficiency anemia, unspecified; E66.9 Obesity, unspecified; F41.1 Generalized anxiety disorder; M06.9 Rheumatoid arthritis, unspecified; R10.13 Epigastric pain
CPT/HCPCS: 99214

== ENCOUNTER → 2022-12-06 10:25 | Outpatient (BNVA) | payer OTHER, SELFPAY | PROVIDERS: PCP Internal Medicine; Visit Provider Surgery | DX: K44.9 Diaphragmatic hernia without obstruction or gangrene (principal); D50.9 Iron deficiency anemia, unspecified; E66.9 Obesity, unspecified; F41.1 Generalized anxiety disorder; M06.00 Rheumatoid arthritis without rheumatoid factor, unspecified site; R10.13 Epigastric pain | CPT/HCPCS: 99212 ==

== ENCOUNTER 2022-12-21 08:12 | Day surgery (SDC) | payer OTHER, SELFPAY ==
[2022-12-19 14:04] VITALS: BMI 32.7
--- NOTE | 2022-12-20 10:25 | P.CONAN_ITS ---
Documented by User: Tisha Gutierrez NP 12/20/22 10:27 HPI - Anesthesia Eval Consult details Narrative: 67yo F for Upper Endoscopy s/p colo 07/2022 with MAC Hx vocal cord anomaly ? s/p surgery PMFSH Active Problems Active Problems: All Active Problems (Updated 12/06/22 @ 11:54 by [employer]) Large hiatal hernia (Acute) Osteoporosis without pathological fracture (Acute) Dyspepsia (Acute) Mild recurrent major depression (Acute) Degenerative triangular fibrocartilage complex tear (Acute) Triangular fibrocartilage complex tear (Acute) Rheumatoid arthritis (Acute) Menopausal state (Acute) Screening for osteoporosis (Acute) Microcytic hypochromic anemia (Acute) Obesity (BMI 30-39.9) (Acute) ORA (generalized anxiety disorder) (Acute) Bilateral primary osteoarthritis of knee (Acute) Chronic GERD (Acute) Past Medical History Medical History RUBY positive Left ankle pain Chronic GERD HTN (hypertension) Family History Family History Mother Arthritis Father Prostate cancer Maternal Aunt Breast cancer Cervical cancer Sister SLE (systemic lupus erythematosus) Family history of problems with anesthesia: No Surgical History Surgical History Hx of esophagogastroduodenoscopy Hx of colonoscopy History of carpal tunnel surgery of left wrist Vocal cord anomaly History of partial hysterectomy History of Problems with Anesthesia: No Social History Social History Household Members: Children Housing: House Are you a primary human services care specialist to a significant other at home: No Do you presently have visiting nurse or other home services: No Alcohol intake: current Alcohol intake frequency: does not drink Alcohol type: hard liquor Patient Tobacco Use Status: Former Tobacco user Tobacco use type: Cigarette e-Cigarette/Vaping Use: Never Used Second Hand Smoke Exposure: No Use of substances other than those prescribed or required for medical reasons: No Are you DNR?: No Advance Directives: No Advance Directives Information Provided: Yes Advance Directives on File: No Nutrition Risks: No Nutritional Risk service: No Current occupational status: retired and disabled 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 Cognitive needs: No Hearing needs: No Vision needs: Yes Meds Allergies Allergy/AdvReac Type Severity Reaction Status Date / Time etanercept [From Enbrel] Allergy Rash Verified 12/06/22 10:40 Home Medications Medication Instructions Recorded Confirmed Last Taken Type clonazepam 0.5 mg tablet 0.5 mg PO BID PRN Anxiety 06/18/21 12/19/22 Unknown His tory ibuprofen 200 mg tablet (Advil) 400 mg PO Q8H PRN Pain 02/10/22 11/15/22 Unknown History paroxetine HCl 10 mg tablet 10 mg PO QAM 08/18/22 12/19/22 Unknown History Exam Exam Date and Time: December 20, 2022 1025 Height,Weight and Vital Signs: Height 5 ft 2 in Weight 81.193 kg Pertinent Lab Results Pertinent Lab Results: Laboratory Tests 11/15/22 11/15/22 11/15/22 08:25 08:25 10:39 WBC 5.3 Hgb 11.7 L Hct 35.9 L Plt Count 285 Sodium 141 Potassium 4.0 Chloride 105 Carbon Dioxide BUN 14 Creatinine 0.75 11/15/22 10:39 WBC Hgb Hct Plt Count Sodium Potassium Chloride Carbon Dioxide 29 BUN Creatinine Assessment and Plan Assessment Anesthesia Assessment: Chart Reviewed Final Anesthetic Review Family History of Problems with Anesthesia: No History of Problems with Anesthesia: No Documented by User: Priscilla Perrin MD 12/21/22 09:41 PMFSH Past Medical History Medical History RUBY positive Left ankle pain Chronic GERD HTN (hypertension) Family History Family History Mother Arthritis Father Prostate cancer Maternal Aunt Breast cancer Cervical cancer Sister SLE (systemic lupus erythematosus) Surgical History Surgical History Hx of esophagogastroduodenoscopy Hx of colonoscopy History of carpal tunnel surgery of left wrist Vocal cord anomaly History of partial hysterectomy Social History Social History Household Members: Children Housing: House Are you a primary human services care specialist to a significant other at home: No Do you presently have visiting nurse or other home services: No Alcohol intake: current Alcohol intake frequency: does not drink Alcohol type: hard liquor Patient Tobacco Use Status: Former Tobacco user Tobacco use type: Cigarette e-Cigarette/Vaping Use: Never Used Second Hand Smoke Exposure: No Use of substances other than those prescribed or required for medical reasons: No Are you DNR?: No Advance Directives: No Advance Directives Information Provided: Yes Advance Directives on File: No Nutrition Risks: No Nutritional Risk service: No Current occupational status: retired and disabled 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 Cognitive needs: No Hearing needs: No Vision needs: Yes Meds Allergies Allergy/AdvReac Type Severity Reaction Status Date / Time etanercept [From Enbrel] Allergy Rash Verified 12/06/22 10:40 Home Medications Medication Instructions Recorded Confirmed Last Taken Type clonazepam 0.5 mg tablet 0.5 mg PO BID PRN Anxiety 06/18/21 12/19/22 Unknown History ibuprofen 200 mg tablet (Advil) 400 mg PO Q8H PRN Pain 02/10/22 11/15/22 Unknown History paroxetine HCl 10 mg tablet 10 mg PO QAM 08/18/22 12/19/22 Unknown History Exam Airway Mallampati Class: II TM Dist: >3cm Neck ROM: Limited (rheumatoid arthritis ) Loose/Missing/Broken Teeth: Yes, Upper and Lower Heart: rrr Lungs: cta Other: prior vocal cord surgery Assessment and Plan Assessment Anesthesia Assessment: Anesthesia Plan Discussed Final Anesthetic Review NPO: Yes ASA Class: III Final Preanesthetic Review: No Changes in Pt Med Stat, Meds/Allgs Chart Reviewed, Consent Obtained/Reviewed and Anes Risks/Benef Reviewed Patient Risk: Intermediate Procedure Risk: Intermediate Anesthetic Plan Anesthetic Plan: MAC: Disposition: Standard PACU
--- NOTE | 2022-12-20 10:32 | MHC.SHP ---
Pre-Procedural Eval Section A Date of Service: 12/20/22 The patient is an INPATIENT: No The History & Physical has been completed within 30 days and I have reviewed it.: Yes Section B Chief Complaint: Epigastric pain Allergies: Allergies Allergy/AdvReac Type Severity Reaction Status Date / Time etanercept [From Enbrel] Allergy Rash Verified 12/06/22 10:40 Plan I have reviewed the history and physical and performed a pertinent physical examination on my patient. No changes have occurred unless specified. Time Spent With Patient Time: Total time managing care of this patient today ____ minutes.
--- NOTE | 2022-12-20 10:32 | W.PM.OPN ---
Operative Note Operative Note Date of Service: 12/21/22 Narrative: Preop diagnosis: [dysphagia, hiatal hernia vs paraesophageal hernia, anemia] Postop diagnosis: [same, hiatal hernia, question hypertensive gastropathy, possible Type 4 mixed hiatal/paraesophageal hernia] Procedure: [EGD with Bx] Surgeon: Mauricio Conde MD Assist: [] Anesthesia: [MAC] Estimated blood loss: [3cc] Specimen: [1) gastric antrum; 2) hiatal hernia pouch, 3) lower esophagus 28cm, 4) mid esophagus 20 cm] Intraoperative findings: [hiatal hernia [id number] noted endoscopically, but UGI findings c/w type 4 mixed hernia. Possible hypertensive gastropathy, antral gastritis & trachealization of esophagus, Bx to assess for EoE performed Comment: I personally reviewed the UGI images & report; the UGI appears c/w paraesophageal hernia with a fixed intraabdominal GE jxn ; procedural sedation may be relaxing the pt enough her true & dynamic anatomy cannot be appreciated] Indications: [The patient is a 67-year-old Citizen [place]-speaking woman who is seen with the help of interpretive services because of dysphagia, a 5 cm hiatal hernia versus paraesophageal hernia. Patient underwent an EGD by Dr. Mai in gastroenterology 08/15/2022 and was noted to have a 5 cm hiatal hernia. Patient noted significant cervical and thoracic dysphagia and underwent an upper GI on 11/25/2022 that showed moderate cricopharyngeal achalasia, trace aspiration, presbyesophagus with tertiary contractions and a paraesophageal hernia. In addition, a distal esophageal stricture was identified barium swallow, and the patient is considering operative options, so endoscopy was recommended. The inherent risks to an upper endoscopy and biopsies which include, but are not limited to: Bleeding that could require another endoscopy or blood transfusion, aspiration that could cause pneumonia, risk of perforation or injury that could require emergent surgery, delayed complications, possibility of no change in her treatment, possible need for esophageal manometry at a different center were all reviewed with the patient via compensation director. She seemed understand her options and wanted to proceed.] Procedure: [The patient was identified in the preoperative holding area and again an operating suite 5. An appropriate time-out was performed while the patient was lucid and the patient was then placed in left lateral decubitus position with a bite block in place. Following successful administration of MAC anesthesia by the Department of Anesthesia, the Olympus 190 gastroscope was inserted per os into the esophagus under direct vision. The scope is then advanced into the stomach where clear secretions were encountered and aspirated. The stomach was then inflated and the stomach sheldon including anterior, posterior, lesser curve fundus and antrum all exam. The scope was then advanced to the 2nd portion of the duodenum. Duodenal bulb & secord portion appeared grossly normal. Biopsy sites were assessed for hemostasis which was good. Biopsies: 1) Antrum, 2) Hiatal hernia at 32cm, 3) lower esophagus 28cm, 4) mid-esophagus 20cm The scope was used to aspirate gas from the stomach and withdrawn from the patient. GE junction is noted to be at 30cm from the incisor and mild GERD morphology noted, no ulcers nor Randle's Hiatal hernia was not appreciated/noted from 30cm to 35cm. Esophageal had trachealization & biopsies to assess for EoE were obtained The patient tolerated the procedure well and was sent to the recovery area in stable condition. Continue PPI, path pending. Esophageal manometry required.
[2022-12-21 08:48] VITALS: BP 140/79; PULSE 79; RESP 16; TEMP 36.6; O2SAT 96
[2022-12-21 10:32] VITALS: BP 114/74; PULSE 101; RESP 16; TEMP 36.4; O2SAT 100
[2022-12-21 10:47] VITALS: BP 122/81; PULSE 84; RESP 14; TEMP 36.4; O2SAT 98
[2022-12-21 11:02] VITALS: BP 135/81; PULSE 73; RESP 16; TEMP 36.3; O2SAT 99
== END 2022-12-21 11:33 | disposition home or self-care (01) ==
LOC: HO.SSS 08:14
PROVIDERS: PCP Internal Medicine; Visit Provider Surgery
PROC: 0DJ08ZZ Inspection of Upper Intestinal Tract, Via Natural or Artificial Opening Endoscopic (ICD-10-PCS; CPT 43235; principal; 2022-12-21 10:00)
DX: R13.10 Dysphagia, unspecified (principal); R10.13 Epigastric pain; K22.9 Disease of esophagus, unspecified; K22.0 Achalasia of cardia; K29.50 Unspecified chronic gastritis without bleeding; K44.9 Diaphragmatic hernia without obstruction or gangrene; I10 Essential (primary) hypertension; D50.9 Iron deficiency anemia, unspecified; M06.9 Rheumatoid arthritis, unspecified; E66.9 Obesity, unspecified; Z68.32 Body mass index [BMI] 32.0-32.9, adult; F41.1 Generalized anxiety disorder; Z79.899 Other long term (current) drug therapy; Z88.8 Allergy status to other drugs, medicaments and biological substances; Z87.891 Personal history of nicotine dependence
CPT/HCPCS: 43239; 88305; 88342

== ENCOUNTER → 2022-12-21 08:12 | Outpatient (BNV) | payer OTHER, SELFPAY | PROVIDERS: PCP Internal Medicine; Visit Provider Surgery | DX: R13.10 Dysphagia, unspecified (principal); K76.6 Portal hypertension | CPT/HCPCS: 43239 ==

== ENCOUNTER 2022-12-27 09:59 | Outpatient (AMB) | payer OTHER, SELFPAY ==
--- NOTE | 2022-12-27 10:04 | MHC.OFFVIS ---
Intake Vital Signs 12/27/22 10:06 Height 5 ft 2 in Weight 179 lb 14.355 oz BMI 32.9 BP 147/75 H Blood Pressure Location Rt brachial Pulse 79 Pulse Source Pulse Oximeter Temp 96.6 F L Temp Source Tympanic Pulse Oximetry (%) 98 Oxygen Delivery Method Room Air Intake Visit Reasons: s/p EGD 12/21/22 Grain Combiner Required: Yes Information Interpreted: non-clinical & clinical Registered Nurse Nursery: Registered Nurse Nursery Present Allergies etanercept [From Enbrel] Allergy (Verified 12/06/22 10:40) Rash Medication List - Last Reconciled 12/27/22 by Mauricio Conde MD alendronate 70 mg PO QWEEK clonazepam 0.5 mg PO BID PRN ibuprofen (Advil) 400 mg PO Q8H PRN omeprazole 40 mg PO DAILY 90 days paroxetine HCl 10 mg PO QAM HPI HPI Comments History of Present Illness Details The patient is a 66-year-old woman with rheumatoid arthritis, anemia from unclear sources, a hiatal hernia identified by Dr. Mai at upper endoscopy from 30-35 cm who reports reflux. Patient also reports issues with dysphagia. Via artificial flower maker, she notes that she is not currently taking the prescribed prescription antacid and is having ongoing symptoms. For unclear reasons, she started taking it p.r.n. and continues to note report both sour/acid brash and regurgitation as well as odynophagia with certain foods. She notes that the biggest meal of her day/her supper tends to be at about 03:00 o'clock in the afternoon. She reports that her symptoms are improved on daily PPI. She notes weight fluctuation between 150-170 lb. She states her medications were changed and that she is at the heaviest of her adult life today at 179.8 lb/BMI 32.9. She denies any hematemesis, but does note regurgitation and vomiting, especially when she overeats. ESS 0 GERD 28 The patient reports that she is doing better now with taking her daily PPI. She notes intermittent ibuprofen/Advil usage daily due to her arthritis. She otherwise denies interval change PFSH Medical History RUBY positive Left ankle pain Chronic GERD HTN (hypertension) Surgical History Hx of esophagogastroduodenoscopy Hx of colonoscopy History of carpal tunnel surgery of left wrist Vocal cord anomaly History of partial hysterectomy Family History Mother Arthritis Father Prostate cancer Maternal Aunt Breast cancer Cervical cancer Sister SLE (systemic lupus erythematosus) Social History Household Members: Children Housing: House Are you a primary healthcare consultant to a significant other at home: No Do you presently have visiting nurse or other home services: No Alcohol intake: current Alcohol intake frequency: does not drink Alcohol type: hard liquor Patient Tobacco Use Status: Former Tobacco user Tobacco use type: Cigarette e-Cigarette/Vaping Use: Never Used Second Hand Smoke Exposure: No service: No Current occupational status: retired and disabled 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 Mai demonstrated. There is always a chance this may represent a type 4 hernia/different dynamic anatomy when the patient is awake and moving, but biopsies excluded EoE & H. pylori and she appears to have a hiatal hernia rather than paraesophageal hernia demonstrated on upper GI. Diagnostic imaging UGI dated 11/25/22 1. Moderate to large sized paraesophageal hiatus hernia. 2. Episodic gastroesophageal reflux to the level of the thoracic inlet. 3. Suspect benign stricture of the distal esophagus just above the hiatus hernia, where there appears to be granular mucosa and ulcerations suggesting erosive esophagitis. Cannot exclude Randle's. No definite mass lesion. 4. The more proximal esophagus has a normal fold pattern but is somewhat patulous, tortuous, with extensive presbyesophagus and poor motility. 5. Trace laryngeal penetration of thick barium was noted without gross glottic or subglottic aspiration. Moderate cricopharyngeal achalasia was noted. 6. Normal-appearing duodenal bulb, duodenum, and imaged small bowel. Somewhat rapid transit of contrast was noted to the mid ileal level incidentally. 7. Given above findings, correlating with upper endoscopy highly recommended. Patient underwent a liver lobe elastography 06/16/2022 which showed normal liver elasticity and parenchymal structure, cholelithiasis was incidentally noted Labs from 11/15/2022 include Hemoglobin 11.7, white blood cell count 5.3, platelet count 285 K BUN is 16, creatinine 0.73, electrolytes within normal parameters LFTs are within normal limits Endoscopy report dated 08/15/22 reviewed HH from 30 to 35cm is noted with no obvious source for the patient's anemia. Assessment & Plan Assessment & Plan (1) Large hiatal hernia: Code(s): K44.9 - Diaphragmatic hernia without obstruction or gangrene (2) Dysphagia: Code(s): R13.10 - Dysphagia, unspecified (3) Dyspepsia: Code(s): R10.13 - Epigastric pain (4) Rheumatoid arthritis: Comment: Positive RUBY 1:80 homogeneous, 1:40 nuclear fine speckled Seronegative Dx 04/18 MTX couldn't be started due to transaminitis Enbrel 06/16-07/17 stopped due to local rash Code(s): M06.9 - Rheumatoid arthritis, unspecified (5) Chronic GERD: Code(s): K21.9 - Gastro-esophageal reflux disease without esophagitis (6) ORA (generalized anxiety disorder): Comment: Follow by psychiatry Dr. Valdez Code(s): F41.1 - Generalized anxiety disorder (7) Microcytic hypochromic anemia: Code(s): D50.9 - Iron deficiency anemia, unspecified (8) Obesity (BMI 30-39.9): Code(s): E66.9 - Obesity, unspecified Plan Via artificial flower maker, I reviewed with the patient the importance of esophageal manometry to determine the next step since operative repair typically endorses a fundoplication. If she has a primary esophageal motility disorder, her dysphagia will worsen. We also reviewed her ongoing weight gain and need for dietary modification. I briefly reviewed the need to limit carbohydrates and fats and reviewed the fact that any hernia operation can fail with weight gain. Patient is not currently a candidate for bariatric surgery, but with her centripetal obesity and ongoing weight gain, this may be the most definitive resolution for these problems. She is in agreement to have manometry done at [facility] and obtain dietary Education. I will see her back in 1 month, she will continue her PPI and reach out if she is clinically worsening. Orders: Referrals [employer] [facility] Referral E66.9 - Obesity, unspecified, K44.9 - Diaphragmatic hernia without obstruction or gangrene, R10.13 - Epigastric pain, R13.10 - Dysphagia, unspecified Coding Level of Care Code Est Pt Level 4 (36251) Diagnoses Large hiatal hernia K44.9 Dysphagia R13.10 Dyspepsia R10.13 Rheumatoid arthritis M06.9 Chronic GERD K21.9 ORA (generalized anxiety disorder) F41.1 Microcytic hypochromic anemia D50.9 Obesity (BMI 30-39.9) E66.9
[2022-12-27 10:06] VITALS: BP 147/75; PULSE 79; TEMP 35.9; O2SAT 98; BMI 32.9
== END 2022-12-27 10:46 | disposition home or self-care (01) ==
PROVIDERS: PCP Internal Medicine; Visit Provider Surgery
DX: K44.9 Diaphragmatic hernia without obstruction or gangrene (principal); R13.10 Dysphagia, unspecified; R10.13 Epigastric pain; M06.9 Rheumatoid arthritis, unspecified; K21.9 Gastro-esophageal reflux disease without esophagitis; F41.1 Generalized anxiety disorder; D50.9 Iron deficiency anemia, unspecified; E66.9 Obesity, unspecified
CPT/HCPCS: 99214

== ENCOUNTER → 2022-12-27 09:59 | Outpatient (BNVA) | payer OTHER, SELFPAY | PROVIDERS: PCP Internal Medicine; Visit Provider Surgery | DX: K44.9 Diaphragmatic hernia without obstruction or gangrene (principal); R13.10 Dysphagia, unspecified; R10.13 Epigastric pain; K21.9 Gastro-esophageal reflux disease without esophagitis; D50.9 Iron deficiency anemia, unspecified; F41.1 Generalized anxiety disorder; E66.9 Obesity, unspecified; M06.00 Rheumatoid arthritis without rheumatoid factor, unspecified site; Z98.890 Other specified postprocedural states | CPT/HCPCS: 99212 ==

== ENCOUNTER 2023-01-09 12:39 | Outpatient (REF) | payer OTHER, SELFPAY ==
[2023-01-09 12:55] LABS: MANUAL DIFF FLAG NO
[2023-01-09 14:46] LABS: Erythrocyte Sedimentation Rate 14 MM/HR (0-20)
[2023-01-09 14:48] LABS: Alanine Aminotransferase 18 U/L (0-31); Albumin Level 4.2 g/dL (3.5-5.0); Alkaline Phosphatase 91 U/L (39-117); Anion Gap 13 (12-20); Aspartate Amino Transferase 20 U/L (5-31); Bilirubin Total 0.2 mg/dL (0.0-1.0); Blood Urea Nitrogen 13 mg/dL (9-16); C Reactive Protein 0.22 mg/dL (< or = 0.50); Calcium 9.6 mg/dL (8.4-10.2); Carbon Dioxide 27 mmol/L (22-29); Chloride 105 mmol/L (96-108); Estimated Glomerular Filt Rate > 60; Glucose Random 94 mg/dL (60-115); Potassium 4.3 mmol/L (3.3-5.1); Sodium 141 mmol/L (135-145); Total Protein 7.6 g/dL (6.5-8.0)
[2023-01-09 14:50] LABS: Basophils Percent Auto 0.8 % (0-2); Eosinophils Absolute Auto 0.2 X10*3/uL (0.0-0.4); Eosinophils Percent Auto 3.8 % (0-4); Hematocrit 37.7 % (37.0-47.0); Hemoglobin 12.3 g/dl (12.0-16.0); Lymphocytes Percent Auto 38.1 % (20-40); Mean Corpuscular HGB Conc 32.6 g/dl (31.0-35.0); Mean Corpuscular Hemoglobin 29.5 pg (27.0-33.0); Mean Corpuscular Volume 90.4 fL (80.0-98.0); Monocytes Absolute Auto 0.5 X10*3/uL (0.1-1.2); Monocytes Percent Auto 8.7 % (2-11); Neutrophils Absolute Auto 2.5 x10*3/uL (2.0-8.3); Neutrophils Percent Auto 48.6 % (45-73); Platelet Count 310 X10*3/uL (160-400); Red Blood Count 4.17 X10*6/uL (4.20-5.50); Red Cell Distribution Width 12.8 % (11.0-16.0); White Blood Count 5.2 X10*3/uL (4.8-10.8)
== END 2023-01-09 12:40 | disposition home or self-care (01) ==
LOC: HO.LAB 12:39
PROVIDERS: PCP Internal Medicine; Visit Provider Student in an Organized Health Care Education/Training Program
DX: M06.9 Rheumatoid arthritis, unspecified (principal)
CPT/HCPCS: 36415; 80053; 85025; 85652; 86140

== ENCOUNTER 2023-01-11 14:13 | Outpatient (AMB) | payer OTHER, SELFPAY ==
[2023-01-11 14:19] VITALS: BP 100/62; PULSE 88; TEMP 36.6; O2SAT 97; BMI 32.8
--- NOTE | 2023-01-11 14:19 | A.OFFVIS_ITS ---
Intake Vital Signs 01/11/23 14:19 Height 5 ft 2 in Weight 179 lb 3.773 oz BMI 32.8 BP 100/62 Blood Pressure Location Lt brachial Position Sitting Pulse 88 Pulse Source Pulse Oximeter Temp 97.9 F Temp Source Skin Pulse Oximetry (%) 97 Oxygen Delivery Method Room Air Intake Visit Reasons: RA Intake Note: Patient presents today to follow up on RA. Patient would like Placard form filled out. Professional Nurse Required: Yes Professional Nurse Language: Junior Underwriter Name: Riddhi [id number] Information Interpreted: clinical only Accompanied by: Self / Same As Patient Allergies etanercept [From Enbrel] Allergy (Verified 01/11/23 14:19) Rash Medication List - Last Reconciled 01/11/23 by Martinez Cox MD clonazepam 0.5 mg PO BID PRN ibuprofen (Advil) 400 mg PO Q8H PRN omeprazole 40 mg PO DAILY 90 days paroxetine HCl 10 mg PO QAM sulfasalazine PO HPI HPI Comments History of Present Illness Details 66-year-old female with seronegative RA presents for follow-up. She started taking sulfasalazine last visit. States that she takes 3 tabs a day. Also started alendronate. States that she was having some GI upset in the 1st few days after starting sulfasalazine then she was able to tolerated. She feels some improvement with regards to her joint pain and swelling. States that her left ankle continues to swell but it does not persist. She is having right index finger pain today. Initial history: This is a 66-year-old female with mild recurrent major depression and rheumatoid arthritis that comes for her physical exam. Depression stable with paroxetine and this is follow by Psychiatry. Rheumatoid arthritis is follow by Rheumatology and has not started methotrexate yet. No need for Pap smears due to hysterectomy. Mammogram is scheduled for 04/15/2022. Was refer for colonoscopy through open access and has not received it date yet. Last colonoscopy was 15 years ago. Complains of diffuse abdominal pain. [facility] Medical History RUBY positive Left ankle pain Chronic GERD HTN (hypertension) Surgical History Hx of esophagogastroduodenoscopy Hx of colonoscopy History of carpal tunnel surgery of left wrist Vocal cord anomaly History of partial hysterectomy Family History Mother Arthritis Father Prostate cancer Maternal Aunt Breast cancer Cervical cancer Sister SLE (systemic lupus erythematosus) Social History Household Members: Children Housing: House Are you a primary school childcare attendant to a significant other at home: No Do you presently have visiting nurse or other home services: No Alcohol intake: current Alcohol intake frequency: does not drink Alcohol type: hard liquor Patient Tobacco Use Status: Former Tobacco user Tobacco use type: Cigarette e-Cigarette/Vaping Use: Never Used Second Hand Smoke Exposure: No service: No Current occupational status: retired and disabled 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 Cognitive needs: No Hearing needs: No Vision needs: Yes Review of Systems Musc Reports arthralgias, Reports joint swelling and Reports stiffness Physical Exam Vital Signs: Last Vital Signs Temp 97.9 F 01/11/23 14:19 Pulse 88 01/11/23 14:19 BP 100/62 01/11/23 14:19 Pulse Ox 97 01/11/23 14:19 Oxygen Delivery Method Room Air 01/11/23 14:19 BMI result Body Mass Index 32.8 Const General: cooperative, healthy appearing, comfortable and no acute distress Nutritional Appearance: obese Orientation/consciousness: patient oriented x3 Limitations: no limitations HEENT Head: Yes normocephalic and Yes atraumatic Mouth: moist mucous membranes Resp Effort & Inspection: normal respiratory effort and able to speak in complete sentences Neuro General: patient oriented x3 Extrem Other: Hand exam: No left wrist tenderness, warmth swelling or tenderness or pain with flexion and extension Right 2nd extensor tendon tenderness Negative MCP squeeze test bilaterally Bilateral mild osteoarthritic changes of both hands Normal nailfold capillaroscopy Left ankle swelling and tenderness especially at the lateral malleolus Results Reviewed Results Reviewed: MR/MR wrist LT wo/w con IMPRESSION: 1.? There is a lobulated and elongated ganglion volar to the radial styloid measuring up to 1.8 cm. ? 2. 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 ? 3. Degeneration and possible full-thickness perforation of the central TFCC. MR/MR ankle LT wo con IMPRESSION: 1.? Prominent peroneal brevis and peroneal longus tenosynovitis. Attenuation and longitudinal split tearing of the peroneal brevis tendon at the level of the lateral malleolus measuring up to 4.1 cm in craniocaudal dimension. No full-thickness transverse tendon tear or tendon retraction. Overlying lateral soft tissue edema. Reactive marrow edema within the lateral malleolus as well as the lateral aspect of the calcaneal body where there is associated degenerative spurring. 2.? Mild posterior tibialis and flexor digitorum longus tenosynovitis. 3.? Mild degenerative arthritis at the articulation between the lateral talus and lateral malleolus. Trace posterior subtalar joint effusion. 4.? Remote sprain/partial tear of the anterior talofibular ligament. No evidence of acute ligament injury. Assessment & Plan Assessment & Plan (1) Rheumatoid arthritis: Comment: Positive RUBY 1:80 homogeneous, 1:40 nuclear fine speckled Seronegative Dx 04/18 MTX couldn't be started due to transaminitis Enbrel 06/16-07/17 stopped due to local rash SSZ 11/16 partially effective Code(s): M06.9 - Rheumatoid arthritis, unspecified Plan: This is a 66-year-old female with seronegative RA presents for follow-up. On sulfasalazine 1500 mg daily. Today she has less swollen and tender joints. Will uptitrate sulfasalazine into 3000 mg daily Labs before next visit in 2 months (2) Osteoporosis without pathological fracture: Code(s): M81.0 - Age-related osteoporosis without current pathological fracture Plan: DEXA 04/18 shows T-score of -3.3 at the L-spine. Recent calcium swallow consistent with hiatal hernia and esophagitis. Will discontinue alendronate. Will discuss alternatives such as Reclast or Prolia next visit Plan I spent 26 minutes reviewing patient's chart, evaluating patient, ordering diagnostic tests, counseling patient and documenting in the chart Orders: Orders Complete Blood Count Auto Diff 2 Months M06.9 - Rheumatoid arthritis, unspecified Comprehensive Met. Panel 2 Months M06.9 - Rheumatoid arthritis, unspecified C Reactive Protein 2 Months M06.9 - Rheumatoid arthritis, unspecified Erythrocyte Sedimentation Rate 2 Months M06.9 - Rheumatoid arthritis, unspeci fied Medications: Changed From sulfasalazine give with food (meal/snack) Take 1 tab twice daily for 1 week then 2 tabs in the morning and 1 tab at night for 1 week then 2 tabs Twice daily 240 tabs 0RF To sulfasalazine give with food (meal/snack) Take 2 tabs twice daily for 1 week then 3 tabs in the morning and 2 tabs at night for 1 week then 3 tabs Twice daily 360 tabs 1RF NS Coding Level of Care Code Est Pt Level 4 (97520) Diagnoses Rheumatoid arthritis M06.9 Osteoporosis without pathological fracture M81.0
== END 2023-01-11 15:01 | disposition home or self-care (01) ==
PROVIDERS: PCP Internal Medicine; Visit Provider Student in an Organized Health Care Education/Training Program
DX: M06.9 Rheumatoid arthritis, unspecified (principal); M81.0 Age-related osteoporosis without current pathological fracture
CPT/HCPCS: 99214

== ENCOUNTER → 2023-01-11 14:13 | Outpatient (BNVA) | payer OTHER, SELFPAY | PROVIDERS: PCP Internal Medicine; Visit Provider Student in an Organized Health Care Education/Training Program | DX: M06.9 Rheumatoid arthritis, unspecified (principal); M81.0 Age-related osteoporosis without current pathological fracture | CPT/HCPCS: 99212 ==

== ENCOUNTER 2023-01-30 09:05 | Outpatient (AMB) | payer MEDICARE, SELFPAY ==
--- NOTE | 2023-01-30 09:12 | MHC.OFFVIS ---
Intake Vital Signs 01/30/23 09:14 Height 5 ft 2 in Weight 178 lb 9.191 oz BMI 32.7 BP 142/72 H Blood Pressure Location Rt brachial Position Sitting Pulse 82 Pulse Source Pulse Oximeter Temp 96.2 F L Temp Source Tympanic Pulse Oximetry (%) 98 Oxygen Delivery Method Room Air Intake Visit Reasons: follow up Fur Machine Operator Required: Yes Fur Machine Operator Name: DEMARCUS Maurer Information Interpreted: clinical only Grain Buyer: Grain Buyer Present Allergies etanercept [From Enbrel] Allergy (Verified 01/11/23 14:19) Rash Medication List - Last Reconciled 01/30/23 by Mauricio Conde MD, FACS, FASMBS clonazepam 0.5 mg PO BID PRN ibuprofen (Advil) 400 mg PO Q8H PRN omeprazole 40 mg PO DAILY 90 days paroxetine HCl 10 mg PO QAM sulfasalazine PO sulfasalazine give with food (meal/snack) Take 2 tabs twice daily for 1 week then 3 tabs in the morning and 2 tabs at night for 1 week then 3 tabs Twice daily NS HPI HPI Comments History of Present Illness Details The patient is a 66-year-old woman with rheumatoid arthritis, anemia from unclear sources, a hiatal hernia identified by Dr. Mai at upper endoscopy from 30-35 cm who reports reflux. Patient also reports issues with dysphagia. Via balance engineer, she notes that she is not currently taking the prescribed prescription antacid and is having ongoing symptoms. For unclear reasons, she started taking it p.r.n. and continues to note report both sour/acid brash and regurgitation as well as odynophagia with certain foods. She notes that the biggest meal of her day/her supper tends to be at about 03:00 o'clock in the afternoon. The patient notes that she is interested in proceeding with surgery and understands the importance of weight loss. Will schedule dietitian appointment. The inherent risk of a operative failure if she regains weight was reviewed and apparently understood. The need to obtain esophageal manometry regarding possible fundoplication versus primary operative repair was discussed and apparently understood. She reports that her symptoms are improved on daily PPI. I explained to the patient that if she is unable to lose weight, she may just be better served to continue a PPI daily rather than considering operative repair since she reports good symptom control. She notes weight fluctuation between 150-170 lb. She states her medications were changed and that she is at the heaviest of her adult life today at 179.8 lb/BMI 32.9. She denies any hematemesis, but does note regurgitation and vomiting, especially when she overeats. ESS 0 GERD 28 The patient reports that she is doing better now with taking her daily PPI. She notes intermittent ibuprofen/Advil usage daily due to her arthritis. She otherwise denies interval change [facility] Medical History RUBY positive Left ankle pain Chronic GERD HTN (hypertension) Surgical History Hx of esophagogastroduodenoscopy Hx of colonoscopy History of carpal tunnel surgery of left wrist Vocal cord anomaly History of partial hysterectomy Family History Mother Arthritis Father Prostate cancer Maternal Aunt Breast cancer Cervical cancer Sister SLE (systemic lupus erythematosus) Social History Household Members: Children Housing: House Are you a primary career center advisor to a significant other at home: No Do you presently have visiting nurse or other home services: No Alcohol intake: current Alcohol intake frequency: does not drink Alcohol type: hard liquor Patient Tobacco Use Status: Former Tobacco user Tobacco use type: Cigarette e-Cigarette/Vaping Use: Never Used Second Hand Smoke Exposure: No service: No Current occupational status: retired and disabled 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 Mai demonstrated. There is always a chance this may represent a type 4 hernia/different dynamic anatomy when the patient is awake and moving, but biopsies excluded EoE & H. pylori and she appears to have a hiatal hernia rather than paraesophageal hernia demonstrated on upper GI. Diagnostic imaging UGI dated 11/25/22 1. Moderate to large sized paraesophageal hiatus hernia. 2. Episodic gastroesophageal reflux to the level of the thoracic inlet. 3. Suspect benign stricture of the distal esophagus just above the hiatus hernia, where there appears to be granular mucosa and ulcerations suggesting erosive esophagitis. Cannot exclude Randle's. No definite mass lesion. 4. The more proximal esophagus has a normal fold pattern but is somewhat patulous, tortuous, with extensive presbyesophagus and poor motility. 5. Trace laryngeal penetration of thick barium was noted without gross glottic or subglottic aspiration. Moderate cricopharyngeal achalasia was noted. 6. Normal-appearing duodenal bulb, duodenum, and imaged small bowel. Somewhat rapid transit of contrast was noted to the mid ileal level incidentally. 7. Given above findings, correlating with upper endoscopy highly recommended. Patient underwent a liver lobe elastography 06/16/2022 which showed normal liver elasticity and parenchymal structure, cholelithiasis was incidentally noted Labs from 11/15/2022 include Hemoglobin 11.7, white blood cell count 5.3, platelet count 285 K BUN is 16, creatinine 0.73, electrolytes within normal parameters LFTs are within normal limits Endoscopy report dated 08/15/22 reviewed HH from 30 to 35cm is noted with no obvious source for the patient's anemia. I reviewed EGD & Bx and pathology report that I performed 12/20/22 which confirmed a typical sliding hiatal hernia with no evidence of a paraesophageal hernia. Assessment & Plan Assessment & Plan (1) Dysphagia: Code(s): R13.10 - Dysphagia, unspecified (2) Large hiatal hernia: Code(s): K44.9 - Diaphragmatic hernia without obstruction or gangrene (3) Obesity (BMI 30-39.9): Code(s): E66.9 - Obesity, unspecified (4) Chronic GERD: Code(s): K21.9 - Gastro-esophageal reflux disease without esophagitis (5) Dyspepsia: Code(s): R10.13 - Epigastric pain (6) Rheumatoid arthritis: Comment: Positive RUBY 1:80 homogeneous, 1:40 nuclear fine speckled Seronegative Dx 04/18 MTX couldn't be started due to transaminitis Enbrel 06/16-07/17 stopped due to local rash SSZ 11/16 partially effective Code(s): M06.9 - Rheumatoid arthritis, unspecified (7) ORA (generalized anxiety disorder): Comment: Follow by psychiatry Dr. Valdez Code(s): F41.1 - Generalized anxiety disorder (8) Microcytic hypochromic anemia: Code(s): D50.9 - Iron deficiency anemia, unspecified Plan Via balance engineer, I reviewed with the patient the importance of esophageal manometry to determine the next step since operative repair typically endorses a fundoplication. If she has a primary esophageal motility disorder, her dysphagia will worsen. We also reviewed her ongoing weight gain and need for dietary modification. I briefly reviewed the need to limit carbohydrates and fats and reviewed the fact that any hernia operation can fail with weight gain. Will refer to [facility] for esophageal manometry and schedule dietitian appointment. Will see the patient back after the studies are done and the information is given to the patient. [place] handouts on diet and exercise were reviewed with the patient and provided. She notes that her arthritis is limiting her ability to exercise. Patient is not currently a candidate for bariatric surgery, but with her centripetal obesity and ongoing weight gain, this may be the most definitive resolution for these problems. She is in agreement to have manometry done at [facility] and obtain dietary Education. I will see her back in 1 month, she will continue her PPI and reach out if she is clinically worsening. Orders: Referrals Gastroenterology Referral E66.9 - Obesity, unspecified, K21.9 - Gastro-esophageal reflux disease without esophagitis, K44.9 - Diaphragmatic hernia without obstruction or gangrene, R13.10 - Dysphagia, unspecified Coding Level of Care Code Est Pt Level 4 (96269) Diagnoses Dysphagia R13.10 Large hiatal hernia K44.9 Obesity (BMI 30-39.9) E66.9 Chronic GERD K21.9 Dyspepsia R10.13 Rheumatoid arthritis M06.9 ORA (generalized anxiety disorder) F41.1 Microcytic hypochromic anemia D50.9
[2023-01-30 09:14] VITALS: BP 142/72; PULSE 82; TEMP 35.7; O2SAT 98; BMI 32.7
== END 2023-01-30 09:37 | disposition home or self-care (01) ==
PROVIDERS: PCP Internal Medicine; Visit Provider Surgery
DX: R13.10 Dysphagia, unspecified (principal); K44.9 Diaphragmatic hernia without obstruction or gangrene; E66.9 Obesity, unspecified; K21.9 Gastro-esophageal reflux disease without esophagitis; R10.13 Epigastric pain; M06.9 Rheumatoid arthritis, unspecified; F41.1 Generalized anxiety disorder; D50.9 Iron deficiency anemia, unspecified
CPT/HCPCS: 99214

== ENCOUNTER → 2023-01-30 09:05 | Outpatient (BNVA) | payer MEDICARE, MEDICAID, SELFPAY | PROVIDERS: PCP Internal Medicine; Visit Provider Surgery | DX: R13.10 Dysphagia, unspecified (principal); K44.9 Diaphragmatic hernia without obstruction or gangrene; E66.9 Obesity, unspecified; Z68.32 Body mass index [BMI] 32.0-32.9, adult; K21.9 Gastro-esophageal reflux disease without esophagitis; R10.13 Epigastric pain; M06.00 Rheumatoid arthritis without rheumatoid factor, unspecified site; D50.9 Iron deficiency anemia, unspecified; F41.1 Generalized anxiety disorder | CPT/HCPCS: 99212 ==

== ENCOUNTER 2023-02-23 09:38 | Outpatient (AMB) | payer MEDICARE, SELFPAY ==
--- NOTE | 2023-02-23 10:33 | MHC.AMNUTRGE ---
Intake Intake Visit Reasons: (OV) Nutrition (Amaya) Tufting Machine Operator Single Needle Required: Yes Tufting Machine Operator Single Needle Name: [id number] Information Interpreted: non-clinical & clinical Allergies etanercept [From Enbrel] Allergy (Verified 01/11/23 14:19) Rash IWONA Nutrition Presentation Details Patient is not currently a candidate for bariatric surgery per Dr. Conde - referral today for general nutrition education . per dr. conde note, pt with hiatal hernia Diet Assmnt Details Pt states she does not have reflux symptoms since she cut out fried foods,rice, and bread and began PPI. she has also lost 10# She reports lack of sleep and increased stressed/pressure to lose weight. reports she is't losing weight, helped her set realistic expectations and understand she haa lost 10# Pt makes contradictory statements , difficult to assess what some of her challenges are. eggs, spinach, with banana or plantain meat with broccoli , no rice meat and vegetables drinks homemade carrot juice in the AM , coffee in the morning with milk reports last year, reflux was severe and developed a fear of eating. Over the last year, condition has improved, gained weight. states she is no longer taking Paroxetine (associated w sig weight gain) Diagnosis Nutrition problem #1 overweight/obesity As related to (etiology) #1 excess energy intake and physical inactivity As evidenced by (sign/symptom) #1 high BMI Nutrition problem #2 food nutri know defi As related to (etiology) #2 lack of nutrit education As evidenced by (sign/symptom) #2 no prior educ - nutri rec Monitoring/Goals Nutrition problem monitoring total energy intake, level of knowledge/skill, total PRO intake, total CHO intake and weight Outcome progress progressing Learning/Education Readiness to learn good Stages of change action Educational materials provided Yes Most Recent Diabetes Results: Creatinine 0.70 mg/dL (0.5-1.4) 01/09/23 Blood Urea Nitrogen 13 mg/dL (9-16) 01/09/23 Sodium 141 mmol/L (135-145) 01/09/23 Potassium 4.3 mmol/L (3.3-5.1) 01/09/23 Chloride 105 mmol/L (96-108) 01/09/23 Carbon Dioxide 27 mmol/L (22-29) 01/09/23 Calcium 9.6 mg/dL (8.4-10.2) 01/09/23 AST 20 U/L (5-31) 01/09/23 ALT 18 U/L (0-31) 01/09/23 Total Protein 7.6 g/dL (6.5-8.0) 01/09/23 Albumin 4.2 g/dL (3.5-5.0) 01/09/23 PFSH Medical History RUBY positive Left ankle pain Chronic GERD HTN (hypertension) Surgical History Hx of esophagogastroduodenoscopy Hx of colonoscopy History of carpal tunnel surgery of left wrist Vocal cord anomaly History of partial hysterectomy Family History Mother Arthritis Father Prostate cancer Maternal Aunt Breast cancer Cervical cancer Sister SLE (systemic lupus erythematosus) Social History (Reviewed 01/30/23 @ 09:14 by Mauricio Conde MD, [facility], [facility]) Household Members: Children Housing: House Are you a primary health care liaison to a significant other at home: No Do you presently have visiting nurse or other home services: No Alcohol intake: current Alcohol intake frequency: does not drink Alcohol type: hard liquor Patient Tobacco Use Status: Former Tobacco user Tobacco use type: Cigarette e-Cigarette/Vaping Use: Never Used Second Hand Smoke Exposure: No service: No Current occupational status: retired and disabled 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 Patient Instructions: She has made some changes on her own which have resulted in improved symptoms and weight loss. educated on general nutrition recs, including balancing plate, portion control, and food groups. Reinforced beneficial eating habits. recommended some exercise videos to do at home. She has missed several appts, will have those r/s today Coding Level of Care Code Nutr Indiv Intake (11711) Diagnoses Obesity (BMI 30-39.9) E66.9 Time Spent (min) 50
== END 2023-02-23 11:16 | disposition home or self-care (01) ==
PROVIDERS: PCP Internal Medicine; Visit Provider Dietitian, Registered
DX: E66.9 Obesity, unspecified (principal)

== ENCOUNTER → 2023-02-23 09:38 | Outpatient (BNVA) | payer MEDICARE, SELFPAY | PROVIDERS: PCP Internal Medicine; Visit Provider Dietitian, Registered | DX: E66.9 Obesity, unspecified (principal) | CPT/HCPCS: 97802 ==

== ENCOUNTER 2023-03-14 12:35 | Outpatient (REF) | payer MEDICARE, SELFPAY ==
[2023-03-14 12:50] LABS: MANUAL DIFF FLAG NO
[2023-03-14 13:04] LABS: Hemoglobin 11.5 g/dl (12.0-16.0); Imm Gran Pct Auto 0.2 % (0.0-0.4); Lymphocytes Percent Auto 27.9 % (20-40); Mean Corpuscular HGB Conc 31.9 g/dl (31.0-35.0); Mean Corpuscular Hemoglobin 29.6 pg (27.0-33.0); Mean Corpuscular Volume 92.5 fL (80.0-98.0); Mean Platelet Volume 9.2 fL (9.4-12.3); Neutrophils Percent Auto 59.7 % (45-73); Platelet Count 361 X10*3/uL (160-400); Red Blood Count 3.89 X10*6/uL (4.20-5.50); Red Cell Distribution Width 13.3 % (11.0-16.0); White Blood Count 5.5 X10*3/uL (4.8-10.8)
[2023-03-14 13:05] LABS: Basophils Percent Auto 0.7 % (0-2); Eosinophils Absolute Auto 0.2 X10*3/uL (0.0-0.4); Eosinophils Percent Auto 3.1 % (0-4); Imm Gran Abs Auto 0.01 X10*3/uL (0.00-0.03); Lymphocytes Absolute Auto 1.5 X10*3/uL (1.2-4.9); Monocytes Absolute Auto 0.5 X10*3/uL (0.1-1.2); Monocytes Percent Auto 8.4 % (2-11); Neutrophils Absolute Auto 3.3 x10*3/uL (2.0-8.3)
[2023-03-14 13:52] LABS: Erythrocyte Sedimentation Rate 17 MM/HR (0-20)
[2023-03-14 14:11] LABS: Alanine Aminotransferase 46 U/L (0-31); Albumin Level 4.1 g/dL (3.5-5.0); Alkaline Phosphatase 155 U/L (39-117); Anion Gap 11 (12-20); Aspartate Amino Transferase 54 U/L (5-31); Bilirubin Total 0.2 mg/dL (0.0-1.0); Blood Urea Nitrogen 12 mg/dL (9-16); C Reactive Protein 0.22 mg/dL (< or = 0.50); Carbon Dioxide 28 mmol/L (22-29); Chloride 106 mmol/L (96-108); Estimated Glomerular Filt Rate > 60; Glucose Random 100 mg/dL (60-115); Potassium 4.3 mmol/L (3.3-5.1); Sodium 141 mmol/L (135-145); Total Protein 7.5 g/dL (6.5-8.0)
== END 2023-03-14 12:36 | disposition home or self-care (01) ==
LOC: HO.LAB 12:35
PROVIDERS: PCP Internal Medicine; Visit Provider Student in an Organized Health Care Education/Training Program
DX: M06.9 Rheumatoid arthritis, unspecified (principal)
CPT/HCPCS: 36415; 80053; 85025; 85652; 86140

== ENCOUNTER 2023-03-15 12:31 | Outpatient (AMB) | payer MEDICARE, SELFPAY ==
[2023-03-15 13:14] VITALS: BP 118/68; PULSE 73; RESP 15; TEMP 36.5; O2SAT 97; BMI 32.2
--- NOTE | 2023-03-15 13:14 | MHC.OFFVIS ---
Intake Vital Signs 03/15/23 13:14 Height 5 ft 2 in Weight 175 lb 14.862 oz BMI 32.2 BP 118/68 Blood Pressure Location Rt brachial Position Sitting Respiration 15 Pulse 73 Pulse Source Pulse Oximeter Temp 97.7 F Temp Source Tympanic Pulse Oximetry (%) 97 Oxygen Delivery Method Room Air Intake Visit Reasons: RA Student Success Advisor Required: Yes Student Success Advisor Name: surinder #[id number] Accompanied by: Self / Same As Patient Allergies etanercept [From Enbrel] Allergy (Verified 03/15/23 13:19) Rash Medication List - Last Reconciled 03/15/23 by Martinez Cox MD clonazepam 0.5 mg PO BID PRN hydroxychloroquine 200 mg PO BID omeprazole 40 mg PO DAILY 90 days paroxetine HCl 10 mg PO QAM sulfasalazine 1.5 grams (3 x 500 mg) PO DAILY NS HPI HPI Comments History of Present Illness Details 67-year-old female with seronegative RA presents for follow-up. She is currently on sulfasalazine 6 tabs daily. She states that she feels a little better overall. Improved pain and left ankle and left knee. She states that her hands get swollen and stiff, some mornings, stiffness lasts for about 30 minutes. Initial history: This is a 66-year-old female with mild recurrent major depression and rheumatoid arthritis that comes for her physical exam. Depression stable with paroxetine and this is follow by Psychiatry. Rheumatoid arthritis is follow by Rheumatology and has not started methotrexate yet. No need for Pap smears due to hysterectomy. Mammogram is scheduled for 04/15/2022. Was refer for colonoscopy through open access and has not received it date yet. Last colonoscopy was 15 years ago. Complains of diffuse abdominal pain. PENDING SALE TO [facility] Medical History (Updated 03/15/23 @ 13:46 by Martinez Cox MD) RUBY positive Left ankle pain Chronic GERD HTN (hypertension) Surgical History Hx of esophagogastroduodenoscopy Hx of colonoscopy History of carpal tunnel surgery of left wrist Vocal cord anomaly History of partial hysterectomy Family History Mother Arthritis Father Prostate cancer Maternal Aunt Breast cancer Cervical cancer Sister SLE (systemic lupus erythematosus) Social History Household Members: Children Housing: House Are you a primary director critical care to a significant other at home: No Do you presently have visiting nurse or other home services: No Alcohol intake: current Alcohol intake frequency: does not drink Alcohol type: hard liquor Patient Tobacco Use Status: Former Tobacco user Tobacco use type: Cigarette e-Cigarette/Vaping Use: Never Used Second Hand Smoke Exposure: No service: No Current occupational status: retired and disabled 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 Cognitive needs: No Hearing needs: No Vision needs: Yes Review of Systems Musc Reports arthralgias, Reports joint swelling and Reports stiffness Physical Exam Vital Signs: Last Vital Signs Temp 97.7 F 03/15/23 13:14 Pulse 73 03/15/23 13:14 Resp 15 03/15/23 13:14 BP 118/68 03/15/23 13:14 Pulse Ox 97 03/15/23 13:14 Oxygen Delivery Method Room Air 03/15/23 13:14 BMI result Body Mass Index 32.2 Const General: cooperative, healthy appearing, comfortable and no acute distress Nutritional Appearance: obese Orientation/consciousness: patient oriented x3 Limitations: no limitations HEENT Head: Yes normocephalic and Yes atraumatic Mouth: moist mucous membranes Resp Effort & Inspection: normal respiratory effort and able to speak in complete sentences Neuro General: patient oriented x3 Extrem Other: Hand exam: No left wrist tenderness, warmth swelling or tenderness or pain with flexion and extension Normal nailfold capillaroscopy Left ankle swelling without tenderness or warmth Normal range of motion of both knees with no pain Results Reviewed Results Reviewed: MR/MR wrist LT wo/w con IMPRESSION: 1.? There is a lobulated and elongated ganglion volar to the radial styloid measuring up to 1.8 cm. ? 2. 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 ? 3. Degeneration and possible full-thickness perforation of the central TFCC. MR/MR ankle LT wo con IMPRESSION: 1.? Prominent peroneal brevis and peroneal longus tenosynovitis. Attenuation and longitudinal split tearing of the peroneal brevis tendon at the level of the lateral malleolus measuring up to 4.1 cm in craniocaudal dimension. No full-thickness transverse tendon tear or tendon retraction. Overlying lateral soft tissue edema. Reactive marrow edema within the lateral malleolus as well as the lateral aspect of the calcaneal body where there is associated degenerative spurring. 2.? Mild posterior tibialis and flexor digitorum longus tenosynovitis. 3.? Mild degenerative arthritis at the articulation between the lateral talus and lateral malleolus. Trace posterior subtalar joint effusion. 4.? Remote sprain/partial tear of the anterior talofibular ligament. No evidence of acute ligament injury. Assessment & Plan Assessment & Plan (1) Rheumatoid arthritis: Comment: Positive RUBY 1:80 homogeneous, 1:40 nuclear fine speckled Seronegative Dx 04/18 MTX couldn't be started due to transaminitis Enbrel 06/16-07/17 stopped due to local rash SSZ 11/16 partially effective Code(s): M06.9 - Rheumatoid arthritis, unspecified Qualifiers: Rheumatoid arthritis location: multiple sites Rheumatoid factor presence: without rheumatoid factor Qualified Code(s): M06.09 - Rheumatoid arthritis without rheumatoid factor, multiple sites Plan: This is a 67-year-old female with seronegative RA presents for follow-up. On sulfasalazine 3000 mg daily. Doing much better overall. However since sulfasalazine was increased from 1500 mg daily to 3000 mg daily she has been having transaminitis. She denies any recent alcohol consumption. Most recent alcohol use was 2 weeks ago. Reduce sulfasalazine to 1500 mg daily Discussed risks and benefits of hydroxychloroquine. Patient agreed to proceed. Will start hydroxychloroquine 200 mg Twice daily Labs before next visit in 3 months (2) Osteoporosis without pathological fracture: Code(s): M81.0 - Age-related osteoporosis without current pathological fracture Plan: DEXA 04/18 shows T-score of -3.3 at the L-spine. Patient was on alendronate briefly. Recent barium swallow showed hiatal hernia with esophagitis. Cannot continue with alendronate due to risk of worsening her esophagitis. Discussed risks and benefits of Reclast. Patient agreed to proceed. Will start prior authorization for Reclast infusions (3) Long-term use of hydroxychloroquine: Code(s): Z79.899 - Other longterm (current) drug therapy Plan: Discussed risk of retinopathy associated with hydroxychloroquine. Referred patient to Ophthalmology (4) On sulfasalazine therapy: Code(s): Z79.899 - Other longterm (current) drug therapy Plan: Monitor safety labs Plan I spent 35 minutes reviewing patient's chart, evaluating patient, ordering diagnostic tests, counseling patient and documenting in the chart Orders: Referrals Ophthalmology Referral Z79.899 - Other rat exterminator (current) drug therapy Medications: New hydroxychloroquine 200 mg PO BID 180 tabs 1RF Changed From sulfasalazine give with food (meal/snack) Take 2 tabs twice daily for 1 week then 3 tabs in the morning and 2 tabs at night for 1 week then 3 tabs Twice daily 360 tabs 1RF NS To sulfasalazine 1.5 grams (3 x 500 mg) PO DAILY 270 tabs 0RF NS Coding Level of Care Code Est Pt Level 5 (00116) Diagnoses Rheumatoid arthritis of multiple sites with negative rheumatoid factor M06.09 Rheumatoid arthritis location: multiple sites Rheumatoid factor presence: without rheumatoid factor Osteoporosis without pathological fracture M81.0 Long-term use of hydroxychloroquine Z79.899 On sulfasalazine therapy Z79.899
== END 2023-03-15 13:41 | disposition home or self-care (01) ==
PROVIDERS: PCP Internal Medicine; Visit Provider Student in an Organized Health Care Education/Training Program
DX: M06.09 Rheumatoid arthritis without rheumatoid factor, multiple sites (principal); M81.0 Age-related osteoporosis without current pathological fracture; Z79.899 Other long term (current) drug therapy
CPT/HCPCS: 99214

== ENCOUNTER → 2023-03-15 12:31 | Outpatient (BNVA) | payer MEDICARE, MEDICAID, SELFPAY | PROVIDERS: PCP Internal Medicine; Visit Provider Student in an Organized Health Care Education/Training Program | DX: M06.09 Rheumatoid arthritis without rheumatoid factor, multiple sites (principal); M81.0 Age-related osteoporosis without current pathological fracture; Z79.899 Other long term (current) drug therapy | CPT/HCPCS: 99212 ==

== ENCOUNTER 2023-04-18 08:26 | Outpatient (AMB) | payer MEDICARE, MEDICAID, SELFPAY ==
--- NOTE | 2023-04-18 08:34 | A.OFFPC_ITS ---
Vital Signs 04/18/23 08:36 Height 5 ft 2 in Weight 175 lb BMI 32.0 BP 110/68 Blood Pressure Location Lt brachial Position Sitting Intake Visit Reasons: PE Intake Note: Patient here for a physical exam, Hernia discussion and referral. [employer] Re[employer] Officer Required: No Accompanied by: Self / Same As Patient Allergies etanercept [From Enbrel] Allergy (Verified 04/18/23 08:56) Rash Medication List - Last Reconciled 04/18/23 by Colleen Catalan MD clonazepam 0.5 mg PO BID PRN hydroxychloroquine 200 mg PO BID omeprazole 40 mg PO DAILY 90 days paroxetine HCl 10 mg PO QAM sulfasalazine 1.5 grams (3 x 500 mg) PO DAILY NS Tobacco use date assessed: 04/18/23 Fall risk assessment: No Falls in past year Last assessed Fall Risk: 04/18/23 Dental Screening Dental Screen Date: 04/18/23 Did you have a dental visit in the last 12 months?: Yes Did you have a dental problem in the last 6 months where you did not have access to dental care?: No Was dental information given to patient?: Patient has dentist HPI HPI Comments History of Present Illness Details This is a 67-year-old female with mild recurrent major depression and rheumatoid arthritis that comes for her physical exam. Depression stable with medications and this is follow by Psychiatry. On sulfasalazine for her rheumatoid arthritis that is follow by Rheumatology. Last colonoscopy was 2022. Last mammogram was over 2 years ago. No need for Pap smear due to hysterectomy and age. No chest pain or shortness of breath. Wants a 2nd opinion for her hiatal hernia with a surgeon. She has an appointment tomorrow with the surgeon in [place]. Patient is a poor historian. [facility] Medical History COLLEEN positive Left ankle pain Chronic GERD HTN (hypertension) Surgical History Hx of esophagogastroduodenoscopy Hx of colonoscopy History of carpal tunnel surgery of left wrist Vocal cord anomaly History of partial hysterectomy Family History Mother Arthritis Father Prostate cancer Maternal Aunt Breast cancer Cervical cancer Sister SLE (systemic lupus erythematosus) Social History Household Members: Children Housing: House Are you a primary intensive care anaesthetist to a significant other at home: No Do you presently have visiting nurse or other home services: No Alcohol intake: current Alcohol intake frequency: does not drink Alcohol type: hard liquor Patient Tobacco Use Status: Former Tobacco user Tobacco use type: Cigarette e-Cigarette/Vaping Use: Never Used Second Hand Smoke Exposure: No service: No Current occupational status: retired and disabled 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 1. Little interest or pleasure in doing things: not at all 2. Feeling down, depressed, or hopeless: not at all 3. Trouble falling or staying asleep, or sleeping too much: not at all 4. Feeling tired or having little energy: not at all 5. Poor appetite or overeating: not at all 6. Feeling bad about yourself - or that you are a failure or have let yourself or your family down: not at all 7. Trouble concentrating on things, such as reading the newspaper or watching television: not at all 8. Moving or speaking so slowly that other people could have noticed. Or the opposite - being so fidgety or restless that you have been moving around a lot more than usual: not at all 9. Thoughts that you would be better off or of hurting yourself in some way: not at all Total score: 0 Depression Screening Interpretation: Negative Depression Screening Done: Yes 17005 - PHQ-9 Billing: Yes Source: Developed by Drs. Joel Hernandez, Tracey Benton, Henry Wells and colleagues, with an educational kenneth from [employer] Thrive Questionnaire Date Thrive assessed: 04/18/23 I am a: Patient What is your living situation today?: I have a steady place to live Within the past 12 months, did the food you bought not last and you didn't have the money to get more?: Never true Within the past 12 months, did you worry whether your food would run out before you got money to buy more?: Never true Do you have trouble paying for medicines?: No Do you have trouble getting transportation to medical appointments?: No Do you have trouble paying your heating and electricity bill?: No Do you have trouble taking care of your child, family member or friend?: No Do you have trouble with day-to-day activities such as bathing, preparing meals, shopping, managing finances, etc.?: No Are you currently unemployed and looking for a job?: No Are you interested in more education?: No Please select the resources that you would like help with: None Currently or been in a relationship where the following occur: no concerns reported THRIVE Score: 0 AUDIT C Alcohol Use Questionnaire (AUDIT-C) 1. How often do you have a drink containing alcohol?: Monthly or less 2. How many drinks containing alcohol do you have on a typical day when you are drinking?: 1 or 2 3. How often do you have six or more drinks on one occasion?: Never Total Score: 1 Score Reviewed/Action Taken: Yes ORA-7 AMB Questionnaire ORA-7 Date ORA - 7 assessed: 04/18/23 Feeling nervous, anxious, or on edge: 0 = Not at all Not being able to stop or control worryin = Not at all Worrying too much about different things: 0 = Not at all Trouble relaxin = Not at all Being so restless that it is hard to sit still: 0 = Not at all Becoming easily annoyed or irritable: 0 = Not at all Feeling afraid as if something awful might happen: 0 = Not at all Total ORA-7 score (0-4 normal; 5-9 mild; 10-14 moderate; 15-21 severe): 0 Source: Developed by Drs. Joel Hernandez, Tracey Benton, Henry Wells and colleagues, with an educational kenneth from [employer] ORA-7 Assessment Billing ORA-7 Assessment Tool: ORA-7 Assessment 88896 Review of Systems Const All systems reviewed & are unremarkable except as noted in HPI and below Eyes Reports no additional complaints, Denies change in vision and Denies other visual disturbances Card Denies chest pain at rest, Denies chest pain with activity, Denies edema, Denies irregular heart rhythm, Denies claudication, Denies dyspnea, Denies dyspnea on exertion, Denies orthopnea, Denies paroxysmal nocturnal dyspnea and Denies slow heart rate Resp Denies cough, Denies dyspnea and Denies dyspnea on exertion GI Denies abdominal pain, Denies change in bowel habits, Denies excessive flatus, Denies nausea and Denies vomiting Denies urinary incontinence, Denies urinary hesitancy and Denies urinary urgency Musc Denies abnormal gait, Denies atrophy, Denies deformity and Denies limited range of motion Skin/Breast Denies bleeding lesions, Denies changing lesions and Denies rash Neuro Denies abnormal gait, Denies behavioral changes, Denies confusion and Denies lack of coordination Psych Denies behavioral changes and Denies confusion Physical exam (Primary Care) Vital Signs: Last Vital Signs BP 110/68 04/18/23 08:36 BMI result Body Mass Index 32.0 Tobacco/Smoking Status: Tobacco use Status Tobacco use date assessed 04/18/23 04/18/23 08:41 Patient Tobacco Use Status Former Tobacco user 04/18/23 08:34 Tobacco use type Cigarette 04/18/23 08:34 e-Cigarette/Vaping Use Never Used 04/18/23 08:34 PHQ-9: PHQ-9 Score PHQ-9: Total score 0 04/18/23 08:41 Depression Screening Interpretation: Negative Thrive Assessment: Date of Thrive Assessment Date Thrive assessed 04/18/23 04/18/23 08:41 Currently or been in a relationship where the following occur: no concerns reported Const General: No confusion Orientation/consciousness: patient oriented x3 and No confusion HENMT Head: Yes normal to inspection, Yes normocephalic and Yes atraumatic Ears: external ears normal Eyes General: appearance normal, both eyes and all related structures Eyelids: Yes eyelids normal Conjunctivae: conjunctivae normal Neck Neck: Yes normal visual inspection and Yes supple Resp Effort & Inspection: normal respiratory effort Auscultation: clear to auscultation bilaterally Cardio Jugular venous distension: no JVD Rate: regular rate Rhythm: regular rhythm Heart sounds: S1 normal heart sound present and S2 normal heart sound present GI Inspection: Yes normal to inspection Palpation (GI): Soft to palpation and nontender Auscultation: normal bowel sounds Skin General skin exam: no rashes or lesions noted Neuro General: patient oriented x3, no focal motor deficits and No confusion Extrem General: Yes full ROM Psych Appearance: grossly normal Office Procedures Flu Questionnaire Does the patient have a severe egg allergy?: No Immunizations flu vacc [id number] 6mos up(PF) 60 mcg(15 mcgx4)/0.5 mL IM syringe Performing Provider: Colleen Catalan MD [facility] Documented (not given) by: DEMARCUS Pereyra on 04/18/23 08:42 Reason Not Given: Patient Refused Assessment and Plan Assessment & Plan (1) Physical exam: Code(s): Z00.00 - Encounter for general adult medical examination without abnormal findin gs Plan: Repeat in a year. (2) Mild recurrent major depression: Code(s): F33.0 - Major depressive disorder, recurrent, mild Plan: Continue paroxetine. Follow-up with psychiatry. (3) Rheumatoid arthritis: Comment: Positive COLLEEN 1:80 homogeneous, 1:40 nuclear fine speckled Seronegative Dx 04/18 MTX couldn't be started due to transaminitis Enbrel 06/16-07/17 stopped due to local rash SSZ 11/16 partially effective Code(s): M06.9 - Rheumatoid arthritis, unspecified Qualifiers: Rheumatoid arthritis location: multiple sites Rheumatoid factor presence: without rheumatoid factor Qualified Code(s): M06.09 - Rheumatoid arthritis without rheumatoid factor, multiple sites Plan: Continue sulfasalazine. Follow-up with rheumatology. Orders: Orders MM screening mammo BI Today Z12.31 - Encounter for screening mammogram for malignant neoplasm of breast Influenza 2401-2838 Immunization Today Z23 - Encounter for immunization Liver Panel Today R74.01 - Elevation of levels of liver transaminase levels Coding Level of Care Code Est Pt Prev Care >65y(28060) Diagnoses Physical exam Z00.00 Mild recurrent major depression F33.0 Rheumatoid arthritis of multiple sites with negative rheumatoid factor M06.09 Rheumatoid arthritis location: multiple sites Rheumatoid factor presence: without rheumatoid factor Additional Codes ORA-7 Assessment Billing - ORA-7 Assessment Tool: ORA-7 Assessment 57976 ([id number]) Time Spent (min) 34
[2023-04-18 08:36] VITALS: BP 110/68; BMI 32.0
== END 2023-04-18 09:17 | disposition home or self-care (01) ==
PROVIDERS: PCP Internal Medicine; Visit Provider Internal Medicine
DX: Z00.00 Encounter for general adult medical examination without abnormal findings (principal); F33.0 Major depressive disorder, recurrent, mild; M06.09 Rheumatoid arthritis without rheumatoid factor, multiple sites
CPT/HCPCS: 99397

== ENCOUNTER 2023-04-18 09:22 | Outpatient (REF) | payer MEDICARE, MEDICAID, SELFPAY ==
[2023-04-18 11:02] LABS: Alanine Aminotransferase 16 U/L (0-31); Albumin Level 4.2 g/dL (3.5-5.0); Alkaline Phosphatase 91 U/L (39-117); Aspartate Amino Transferase 19 U/L (5-31); Bilirubin Direct 0.1 mg/dL (0.0-0.5); Bilirubin Total 0.3 mg/dL (0.0-1.0); Total Protein 7.6 g/dL (6.5-8.0)
== END 2023-04-18 09:23 | disposition home or self-care (01) ==
LOC: HO.LAB 09:22
PROVIDERS: PCP Internal Medicine; Visit Provider Internal Medicine
DX: R74.01 Elevation of levels of liver transaminase levels (principal)
CPT/HCPCS: 36415; 80076

== ENCOUNTER 2023-06-05 00:20 | Emergency (ER) | payer MEDICARE, MEDICAID, SELFPAY ==
--- NOTE | ~2023-06-05 | XR_ITS ---
EXAMINATION: XR HAND, RIGHT CLINICAL INFORMATION: Fall, acute pain COMPARISON: 01/06/2022 TECHNIQUE: PA, lateral, and oblique views of the right hand. FINDINGS: Osseous alignment appears anatomic. No acute fracture is seen. Mild to moderate degenerative change at the basal joint of the thumb. No significant focal soft tissue abnormality identified. XR/XR hand RT min 3V IMPRESSION: No acute findings identified.
--- NOTE | ~2023-06-05 | XR_ITS ---
EXAMINATION: XR SHOULDER, LEFT CLINICAL INFORMATION: Fall, acute pain COMPARISON: None available. TECHNIQUE: Three views of the left shoulder. FINDINGS: Glenohumeral alignment is anatomic. No acute fracture is seen. The acromioclavicular joint appears intact with degenerative change. XR/XR shoulder LT min 2V IMPRESSION: No acute findings.
[2023-06-05 00:24] VITALS: BP 179/82; PULSE 77; RESP 18; TEMP 36.7; O2SAT 100; BMI 30.8
--- NOTE | 2023-06-05 01:56 | ED_ITS ---
HPI - Fall General Chief Complaint: Fall Stated Complaint: fall Time Seen by Provider: 06/05/23 01:49 Source: patient Mode of arrival: ambulatory Limitations: no limitations History of Present Illness HPI Narrative: Patient is a 67-year-old female presenting to the emergency department with complaint of left shoulder pain and right hand pain after a trip and fall at home on the patio earlier today. She denies any head strike or loss of consciousness. She has not anticoagulated. She states that she applied ice and took ibuprofen prior to arrival with some relief of discomfort. Denies any weakness, numbness, tingling. complaint: fall Onset (ago): hour(s) Fall from: standing Fall witnessed: no Place fall occurred: home Loss of consciousness: none Prolonged down time: no Symptoms prior to fall: none Context: tripped/slipped Location of injury - extremities: left: shoulder and right: hand Severity: moderate Quality: aching Associated symptoms (after fall): denies Related Data Home Medications Medication Instructions Recorded Confirmed clonazepam 0.5 mg tablet 0.5 mg PO BID PRN Anxiety 06/18/21 04/18/23 paroxetine HCl 10 mg tablet 10 mg PO QAM 08/18/22 04/18/23 Previous Rx's Medication Instructions Recorded omeprazole 40 mg capsule,delayed 40 mg PO DAILY 90 days #90 caps 11/03/22 release hydroxychloroquine 200 mg tablet 200 mg PO BID #180 tabs 03/15/23 sulfasalazine 500 mg tablet 1.5 g (3 x 500 mg) PO DAILY #270 03/15/23 tabs cyclobenzaprine 5 mg tablet 5 mg PO TID PRN muscle spasm #10 06/05/23 tabs lidocaine 5 % topical patch 1 patch topical DAILY #15 ea 06/05/23 Allergies Allergy/AdvReac Type Severity Reaction Status Date / Time etanercept [From Enbrel] Allergy Rash Verified 06/05/23 00:26 Review of Systems Review of Systems: As per HPI. Yes all other systems are reviewed and are negative Constitutional: Constitutional: Reports as per HPI [facility] Past Medical History Medical History COLLEEN positive Left ankle pain Chronic GERD HTN (hypertension) Surgical History Hx of esophagogastroduodenoscopy Hx of colonoscopy History of carpal tunnel surgery of left wrist Vocal cord anomaly History of partial hysterectomy Family History Family History Mother Arthritis Father Prostate cancer Maternal Aunt Breast cancer Cervical cancer Sister SLE (systemic lupus erythematosus) Social History Social History Household Members: Children Housing: House Are you a primary acute care nurse practitioner to a significant other at home: No Do you presently have visiting nurse or other home services: No Alcohol intake: current Alcohol intake frequency: does not drink Alcohol type: hard liquor Patient Tobacco Use Status: Former Tobacco user Tobacco use type: Cigarette e-Cigarette/Vaping Use: Never Used Second Hand Smoke Exposure: No Advance Directives: No Advance Directives Information Provided: No service: No Current occupational status: retired and disabled 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 Blood pressure elevated. Heart rate normal. Respiratory rate normal. Temperature normal. Oxygen saturation normal. Const: General: cooperative, healthy appearing and no acute distress Orientation/consciousness: oriented to person, oriented to place, oriented to time and patient oriented x3 Limitations: no limitations HEENT: Head: Yes normocephalic and Yes atraumatic Ears: external ears normal General nose exam: Normal external nose present Face and sinus: Yes face symmetric Mouth: oropharynx normal and moist mucous membranes Throat: Yes uvula midline Eyes: Pupils: Equal, round and reactive pupils present Neck: Neck: Yes normal visual inspection and Yes supple Resp: Effort & Inspection: normal respiratory effort and able to speak in complete sentences Auscultation: clear to auscultation bilaterally Cardio: Rate: regular rate Rhythm: regular rhythm Heart sounds: S1 normal heart sound present and S2 normal heart sound present GI: Palpation (GI): Soft to palpation and nontender Auscultation: normoactive bowel sounds : General: Yes no CVA tenderness Back/Spine/Pelvis: Back: no CVA tenderness Skin: General skin exam: elasticity normal and turgor normal Neuro: General: oriented to person, oriented to place, oriented to time, patient oriented x3, moves all extremities, no focal motor deficits and CN's II- XI intact bilaterally Cranial nerves: Yes Equal, round and reactive pupils present Cognition (Neuro): normal cognition Extrem: General: Yes full ROM, Yes no pedal edema and Yes no calf tenderness Right upper extremity: Extremity exam: right hand Details: normal capillary refill, neuromotor exam normal, neurosensory exam normal, tenderness Location: of the dorsal hand Location: over the 1st metacarpal and over the 2nd metacarpal and of the thumb and normal ROM of fingers Left upper extremity: shoulder/upper arm Details: inspection abnormal, tenderness Location: of the scapula and normal ROM Psych: Mental Status: mental status grossly normal Affect: normal affect Thought process: Normal thought process present Medical Decision Making Medical Decision Making MDM Narrative: Patient is a 67-year-old female presenting to the emergency department with complaint of left shoulder pain and right hand pain after a trip and fall at home on the patio earlier today. On exam patient is awake, A+Ox3, BP elevated, VS otherwise WNL, afebrile, normal neurological exam without focal deficits, physical exam findings as above. Given reported symptoms and physical exam findings, initial differential includes right hand contusion vs fracture, left shoulder strain vs fracture. X-rays notable for no acute fractures left shoulder or right hand. My interpretation is in agreement with the radiologist's interpretation. Patient updated on results and all questions answered. Advised patient alternate Tylenol ibuprofen as needed for discomfort, apply ice intermittently throughout the day, will prescribe Flexeril for left shoulder strain as well as topical lidocaine patches. Instructed patient to follow-up with her primary care provider. Return precautions discussed at bedside. Patient verbalized understanding and agreement with plan. Differential Diagnosis Differential Diagnoses: The differential diagnosis associated with the presentation includes As per MDM. Independent Interpretation I performed an independent interpretation of an: Plain X-Ray Interpretation: No evidence of acute fracture to right hand or left shoulder Radiology Impression Discussion of test interpretation with radiology: I have reviewed the radiologist's reading. Radiologist Impression: XR/XR shoulder LT min 2V IMPRESSION: No acute findings. XR/XR hand RT min 3V IMPRESSION: No acute findings identified. External Record Review External record reviewed: Inpatient record, Office record and Outpatient record Prescription Management I considered prescription management with: Pain Medication and Other Discharge Plan Discharge Clinical Impression: Left shoulder strain, Contusion of hand, right Patient Disposition: Home, Self-Care Instructions: Muscle Strain (DC), Contusion in Adults (ED), R.I.C.E. Treatment (ED) Additional Instructions: Usted fue evaluado hoy en el departamento de emergencias por lesiones despu?s de ramses ca?da. Roxy radiograf?as no mostraron evidencia de fracturas. Est? siendo tratado por ramses distensi?n en el hombro con un m?sculo y parches para el dolor t?ashleigh. Puede aplicar hielo en las ?reas afectadas stormy 10 a 15 minutos seguidos varias veces al d?a. Tambi?n le recomendamos que tome 650 mg de Tylenol o 600 mg de ibuprofeno cada 6 horas seg?n sea necesario para el dolor. Sabina un seguimiento con moffett proveedor de atenci?n primaria. Regrese al departamento de emergencias si presenta un dolor que empeora, nueva debilidad, entumecimiento, hormigueo o cambio de color en las ?reas afectadas, o cualquier otro s?ntoma preocupante. Prescriptions: New cyclobenzaprine 5 mg tablet 5 mg PO TID PRN (Reason: muscle spasm) Qty: 10 0RF lidocaine 5 % adhesive patch,medicated 1 patch topical DAILY Qty: 15 0RF Rx Instructions: leave on most painful area for up to 12 hrs No Action clonazepam 0.5 mg tablet 0.5 mg PO BID PRN (Reason: Anxiety) paroxetine HCl 10 mg tablet 10 mg PO QAM hydroxychloroquine 200 mg tablet 200 mg PO BID Qty: 180 1RF sulfasalazine 500 mg tablet 1.5 g PO DAILY Qty: 270 0RF omeprazole 40 mg capsule,delayed release(DR/EC) 40 mg PO DAILY 90 Days Qty: 90 1RF
[2023-06-05 02:00] VITALS: BP 176/87; PULSE 72; RESP 16; TEMP 36.8; O2SAT 100
== END 2023-06-05 02:12 | disposition home or self-care (01) ==
PROVIDERS: Emergency Provider Emergency Medicine; PCP Internal Medicine
DX: S46.912A Strain of unspecified muscle, fascia and tendon at shoulder and upper arm level, left arm, initial encounter (principal); S60.221A Contusion of right hand, initial encounter; I10 Essential (primary) hypertension; W01.0XXA Fall on same level from slipping, tripping and stumbling without subsequent striking against object, initial encounter; Y93.9 Activity, unspecified; Y92.008 Other place in unspecified non-institutional (private) residence as the place of occurrence of the external cause; Y99.9 Unspecified external cause status
CPT/HCPCS: 73030; 73130; 99283

== ENCOUNTER 2023-06-13 11:12 | Outpatient (REF) | payer MEDICARE, OTHER, SELFPAY ==
[2023-06-13 11:37] LABS: MANUAL DIFF FLAG NO
[2023-06-13 12:45] LABS: Basophils Percent Auto 0.6 % (0-2); Eosinophils Absolute Auto 0.2 X10*3/uL (0.0-0.4); Eosinophils Percent Auto 3.3 % (0-4); Hematocrit 34.8 % (37.0-47.0); Hemoglobin 11.5 g/dl (12.0-16.0); Imm Gran Abs Auto 0.02 X10*3/uL (0.00-0.03); Imm Gran Pct Auto 0.3 % (0.0-0.4); Lymphocytes Absolute Auto 1.2 X10*3/uL (1.2-4.9); Lymphocytes Percent Auto 17.9 % (20-40); Mean Corpuscular Hemoglobin 29.7 pg (27.0-33.0); Mean Corpuscular Volume 89.9 fL (80.0-98.0); Mean Platelet Volume 9.8 fL (9.4-12.3); Monocytes Absolute Auto 0.5 X10*3/uL (0.1-1.2); Monocytes Percent Auto 7.3 % (2-11); Neutrophils Absolute Auto 4.8 x10*3/uL (2.0-8.3); Neutrophils Percent Auto 70.6 % (45-73); Platelet Count 345 X10*3/uL (160-400); Red Blood Count 3.87 X10*6/uL (4.20-5.50); Red Cell Distribution Width 12.6 % (11.0-16.0); White Blood Count 6.8 X10*3/uL (4.8-10.8)
[2023-06-13 13:32] LABS: Alanine Aminotransferase 11 U/L (0-31); Albumin Level 3.9 g/dL (3.5-5.0); Alkaline Phosphatase 94 U/L (39-117); Anion Gap 12 (12-20); Aspartate Amino Transferase 16 U/L (5-31); Bilirubin Total 0.3 mg/dL (0.0-1.0); Blood Urea Nitrogen 18 mg/dL (9-16); C Reactive Protein 0.85 mg/dL (< or = 0.50); Carbon Dioxide 26 mmol/L (22-29); Chloride 107 mmol/L (96-108); Estimated Glomerular Filt Rate > 60; Glucose Random 103 mg/dL (60-115); Potassium 3.7 mmol/L (3.3-5.1); Sodium 141 mmol/L (135-145); Total Protein 7.2 g/dL (6.5-8.0)
[2023-06-13 13:36] LABS: Erythrocyte Sedimentation Rate 20 MM/HR (0-20)
== END 2023-06-13 11:13 | disposition home or self-care (01) ==
LOC: HO.LAB 11:12
PROVIDERS: PCP Internal Medicine; Visit Provider Student in an Organized Health Care Education/Training Program
DX: M06.09 Rheumatoid arthritis without rheumatoid factor, multiple sites (principal)
CPT/HCPCS: 36415; 80053; 85025; 85652; 86140

== ENCOUNTER 2023-06-23 12:24 | Outpatient (AMB) | payer MEDICARE, MEDICAID, SELFPAY ==
--- NOTE | 2023-06-23 12:35 | A.OFFVIS_ITS ---
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 Required: Yes Waste Water Worker Name: Brian #[id number] Accompanied by: Self / Same As Patient Allergies etanercept [From Enbrel] Allergy (Verified 06/23/23 12:37) Rash Medication List - Last Reconciled 06/23/23 by Martinez Cox MD clonazepam 0.5 mg PO BID PRN cyclobenzaprine 5 mg PO TID PRN hydroxychloroquine 200 mg PO BID lidocaine 5% leave on most painful area for up to 12 hrs topical omeprazole 40 mg PO DAILY 90 days paroxetine HCl 10 mg PO QAM sulfasalazine 1.5 grams (3 x 500 mg) PO DAILY NS HPI HPI Comments History of Present Illness Details 67-year-old female with seronegative RA presents for follow-up. she states that she has been doing fairly well. She started taking hydroxychloroquine 200 mg Twice daily last visit. she states that she was starting to feel well with improved joint pain and stiffness until 2 weeks ago when she fell. She went to the emergency room and there were no fractures. since then she has been having left shoulder pain. She has requesting an injection. she stopped taking sulfasalazine about 2 weeks ago, she ran out and was also having stomach upset. Initial history: This is a 66-year-old female with mild recurrent major depression and rheumatoid arthritis that comes for her physical exam. Depression stable with paroxetine and this is follow by Psychiatry. Rheumatoid arthritis is follow by Rheumatology and has not started methotrexate yet. No need for Pap smears due to hysterectomy. Mammogram is scheduled for 04/15/2022. Was refer for colonoscopy through open access and has not received it date yet. Last colonoscopy was 15 years ago. Complains of diffuse abdominal pain. [facility] Medical History RUBY positive Left ankle pain Chronic GERD HTN (hypertension) Surgical History Hx of esophagogastroduodenoscopy Hx of colonoscopy History of carpal tunnel surgery of left wrist Vocal cord anomaly History of partial hysterectomy Family History Mother Arthritis Father Prostate cancer Maternal Aunt Breast cancer Cervical cancer Sister SLE (systemic lupus erythematosus) Social History Household Members: Children Housing: House Are you a primary resident care supervisor to a significant other at home: No Do you presently have visiting nurse or other home services: No Alcohol intake: current Alcohol intake frequency: does not drink Alcohol type: hard liquor Patient Tobacco Use Status: Former Tobacco user Tobacco use type: Cigarette e-Cigarette/Vaping Use: Never Used Second Hand Smoke Exposure: No service: No Current occupational status: retired and disabled 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 Cognitive needs: No Hearing needs: No Vision needs: Yes Review of Systems Musc Reports arthralgias and Reports stiffness Physical Exam Vital Signs: Last Vital Signs Temp 97.4 F 06/23/23 12:36 Pulse 79 06/23/23 12:36 Resp 15 06/23/23 12:36 BP 122/74 06/23/23 12:36 Pulse Ox 96 06/23/23 12:36 Oxygen Delivery Method Room Air 06/23/23 12:36 BMI result Body Mass Index 30.7 Const General: cooperative, healthy appearing, comfortable and no acute distress Nutritional Appearance: obese Orientation/consciousness: patient oriented x3 Limitations: no limitations HEENT Head: Yes normocephalic and Yes atraumatic Mouth: moist mucous membranes Resp Effort & Inspection: normal respiratory effort and able to speak in complete sentences Neuro General: patient oriented x3 Extrem Other: Bilateral puffy fingers and wrists but no tenderness Pain in the left upper back and trapezius area with left shoulder movement. tenderness to palpation of the left trapezius Results Reviewed Results Reviewed: MR/MR wrist LT wo/w con IMPRESSION: 1.? There is a lobulated and elongated ganglion volar to the radial styloid measuring up to 1.8 cm. ? 2. 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 ? 3. Degeneration and possible full-thickness perforation of the central TFCC. MR/MR ankle LT wo con IMPRESSION: 1.? Prominent peroneal brevis and peroneal longus tenosynovitis. Attenuation and longitudinal split tearing of the peroneal brevis tendon at the level of the lateral malleolus measuring up to 4.1 cm in craniocaudal dimension. No full-thickness transverse tendon tear or tendon retraction. Overlying lateral soft tissue edema. Reactive marrow edema within the lateral malleolus as well as the lateral aspect of the calcaneal body where there is associated degenerative spurring. 2.? Mild posterior tibialis and flexor digitorum longus tenosynovitis. 3.? Mild degenerative arthritis at the articulation between the lateral talus and lateral malleolus. Trace posterior subtalar joint effusion. 4.? Remote sprain/partial tear of the anterior talofibular ligament. No evidence of acute ligament injury. Assessment & Plan Assessment & Plan (1) Rheumatoid arthritis: Comment: Positive RUBY 1:80 homogeneous, 1:40 nuclear fine speckled Seronegative Dx 04/18 MTX couldn't be started due to transaminitis Enbrel 06/16-07/17 stopped due to local rash SSZ 11/16 partially effective HCQ 02/2024 Code(s): M06.9 - Rheumatoid arthritis, unspecified Qualifiers: Rheumatoid arthritis location: multiple sites Rheumatoid factor presence: without rheumatoid factor Qualified Code(s): M06.09 - Rheumatoid arthritis without rheumatoid factor, multiple sites Plan: This is a 67-year-old female with seronegative RA presents for follow-up. patient has been doing fairly well on hydroxychloroquine 200 mg Twice dailyand sulfasalazine 1.5 g daily. She discontinued her sulfasalazine 2 weeks ago due to GI upset. Today she is doing well with no active synovitis. Priority of her pain is pain related to the impact after the fall she had 2 weeks ago. Advised patient to restart sulfasalazine 1.5 g daily Continue with hydroxychloroquine 200 mg Twice daily Labs before next visit in 3 months (2) Osteoporosis without pathological fracture: Code(s): M81.0 - Age-related osteoporosis without current pathological fracture Plan: DEXA 04/18 shows T-score of -3.3 at the L-spine. Patient was on alendronate briefly. Recent barium swallow showed hiatal hernia with esophagitis. Cannot continue with alendronate due to risk of worsening her esophagitis. Discussed risks and benefits of Reclast. Patient agreed to proceed. Will start prior authorization for Reclast infusions (3) Long-term use of hydroxychloroquine: Code(s): Z79.899 - Other terminal carman (current) drug therapy Plan: Discussed risk of retinopathy associated with hydroxychloroquine. Referred patient to Ophthalmology. States that she has an appointment in September (4) On sulfasalazine therapy: Code(s): Z79.899 - Other terminal carman (current) drug therapy Plan: Monitor safety labs Plan I spent 35 minutes reviewing patient's chart, evaluating patient, ordering diagnostic tests, counseling patient and documenting in the chart Orders: Orders Comprehensive Met. Panel 3 Months M06.9 - Rheumatoid arthritis, unspecified, Z79.899 - Other retirement (current) drug therapy C Reactive Protein 3 Months M06.9 - Rheumatoid arthritis, unspecified, Z79.899 - Other retirement (current) drug therapy Erythrocyte Sedimentation Rate 3 Months M06.9 - Rheumatoid arthritis, unspecified, Z79.899 - Other retirement (current) drug therapy Complete Blood Count Auto Diff 3 Months M06.9 - Rheumatoid arthritis, unspecified, Z79.899 - Other terminal carman (current) drug therapy Medications: New lidocaine 5% leave on most painful area for up to 12 hrs topical 15 ea 2RF lidocaine 5% leave on most painful area for up to 12 hrs topical 15 ea 2RF Refilled sulfasalazine 1.5 grams (3 x 500 mg) PO DAILY 270 tabs 0RF NS cyclobenzaprine 5 mg PO TID PRN 10 tabs 0RF muscle spasm cyclobenzaprine 5 mg PO TID PRN 10 tabs 0RF muscle spasm Coding Level of Care Code Est Pt Level 4 (01993) Diagnoses Rheumatoid arthritis of multiple sites with negative rheumatoid factor M06.09 Rheumatoid arthritis location: multiple sites Rheumatoid factor presence: without rheumatoid factor Osteoporosis without pathological fracture M81.0 Long-term use of hydroxychloroquine Z79.899 On sulfasalazine therapy Z79.899
[2023-06-23 12:36] VITALS: BP 122/74; PULSE 79; RESP 15; TEMP 36.3; O2SAT 96; BMI 30.7
== END 2023-06-23 13:12 | disposition home or self-care (01) ==
PROVIDERS: PCP Internal Medicine; Visit Provider Student in an Organized Health Care Education/Training Program
DX: M06.09 Rheumatoid arthritis without rheumatoid factor, multiple sites (principal); M81.0 Age-related osteoporosis without current pathological fracture; Z79.899 Other long term (current) drug therapy
CPT/HCPCS: 99214

== ENCOUNTER → 2023-06-23 12:24 | Outpatient (BNVA) | payer MEDICARE, OTHER, SELFPAY | PROVIDERS: PCP Internal Medicine; Visit Provider Student in an Organized Health Care Education/Training Program | DX: M06.09 Rheumatoid arthritis without rheumatoid factor, multiple sites (principal); M81.0 Age-related osteoporosis without current pathological fracture; Z79.899 Other long term (current) drug therapy | CPT/HCPCS: 99212 ==

== ENCOUNTER 2023-07-26 12:42 | Outpatient (AMB) | payer OTHER, SELFPAY ==
[2023-07-26 12:58] VITALS: BP 122/68; PULSE 76; O2SAT 96; BMI 30.5
--- NOTE | 2023-07-26 12:58 | MHC.OFFVIS ---
Vital Signs 07/26/23 12:58 Height 5 ft 4 in Weight 177 lb 14.609 oz BMI 30.5 BP 122/68 Blood Pressure Location Rt brachial Position Sitting Pulse 76 Pulse Source Pulse Oximeter Pulse Oximetry (%) 96 Oxygen Delivery Method Room Air Intake Visit Reasons: Cortisone left shoulder Intake Note: Pt walked into the office requesting a cortisone injection on left shoulder. C/o pain x 1 month unable to do ADL's. 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 She presented to the office requesting left shoulder injection. She has been having left shoulder pain and stiffness, difficulty with her activities of daily living. She stated that she received steroid injections in her knees and in her hands before, they have helped. She does not recall any complications associated with steroid injections Initial history: This is a 66-year-old female with mild recurrent major depression and rheumatoid arthritis that comes for her physical exam. Depression stable with paroxetine and this is follow by Psychiatry. Rheumatoid arthritis is follow by Rheumatology and has not started methotrexate yet. No need for Pap smears due to hysterectomy. Mammogram is scheduled for 04/15/2022. Was refer for colonoscopy through open access and has not received it date yet. Last colonoscopy was 15 years ago. Complains of diffuse abdominal pain. [facility] Medical History RUBY positive Left ankle pain Chronic GERD HTN (hypertension) Surgical History Hx of esophagogastroduodenoscopy Hx of colonoscopy History of carpal tunnel surgery of left wrist Vocal cord anomaly History of partial hysterectomy Family History Mother Arthritis Father Prostate cancer Maternal Aunt Breast cancer Cervical cancer Sister SLE (systemic lupus erythematosus) Social History Household Members: Children Housing: House Are you a primary animal caregiver to a significant other at home: No Do you presently have visiting nurse or other home services: No Alcohol intake: current Alcohol intake frequency: does not drink Alcohol type: hard liquor Patient Tobacco Use Status: Former Tobacco user Tobacco use type: Cigarette e-Cigarette/Vaping Use: Never Used Second Hand Smoke Exposure: No service: No Current occupational status: retired and disabled 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 Cognitive needs: No Hearing needs: No Vision needs: Yes Review of Systems Musc Reports arthralgias, Reports limited range of motion and Reports stiffness Physical Exam Const General: cooperative, healthy appearing, comfortable and no acute distress Nutritional Appearance: obese Orientation/consciousness: patient oriented x3 Limitations: no limitations HEENT Head: Yes normocephalic and Yes atraumatic Mouth: moist mucous membranes Resp Effort & Inspection: normal respiratory effort and able to speak in complete sentences Neuro General: patient oriented x3 Extrem Other: Bilateral puffy fingers and wrists but no tenderness Limited left shoulder abduction Positive empty can test and Speed's test on the left Office Procedures Joint Injection/Drain Joint Injection/Drain Secondary Site: left shoulder Prep: site was prepped using sterile technique and ethochloride spray was applied Injected: 40 mg of, Kenalog and other (2 mL of 1% lidocaine) Approach Used: posterolateral Coding Details: With the patient's consent the left shoulder was prepped with ChloraPrep and alcohol. Under a topical ethyl chloride spray the left subacromial space was injected with 40 mg of triamcinolone and 2 cc of 1% lidocaine. The patient tolerated the procedure without any acute adverse effects. 25266 - Large joint Procedure code (CPT) selection complete Assessment & Plan Assessment & Plan (1) Rheumatoid arthritis: Comment: Positive RUBY 1:80 homogeneous, 1:40 nuclear fine speckled Seronegative Dx 04/18 MTX couldn't be started due to transaminitis Enbrel 06/16-07/17 stopped due to local rash SSZ 11/16 partially effective HCQ 02/2024 Code(s): M06.9 - Rheumatoid arthritis, unspecified Category: Medical Qualifiers: Rheumatoid arthritis location: multiple sites Rheumatoid factor presence: without rheumatoid factor Qualified Code(s): M06.09 - Rheumatoid arthritis without rheumatoid factor, multiple sites Plan: This is a 67-year-old female with seronegative RA presents to clinic requesting left shoulder injection. RA flare versus rotator cuff tendinopathy. We discussed potential risks associated with injections. With patient's consent, left shoulder was injected with Kenalog today. Follow-up as scheduled for her rheumatoid arthritis next month Plan I spent 15 minutes reviewing patient's chart, evaluating patient, counseling patient and documenting in the chart Orders: Orders AMB Joint Injection/Aspiration Today M06.09 - Rheumatoid arthritis without rheumatoid factor, multiple sites Coding Level of Care Code Est Pt Level 3 (68298) Diagnoses Rheumatoid arthritis of multiple sites with negative rheumatoid factor M06.09 Rheumatoid arthritis location: multiple sites Rheumatoid factor presence: without rheumatoid factor CPT Codes Coding - 72013 Large joint: 99085 - Large joint ([id number])
== END 2023-07-26 13:06 | disposition home or self-care (01) ==
PROVIDERS: PCP Internal Medicine; Visit Provider Student in an Organized Health Care Education/Training Program
DX: M06.09 Rheumatoid arthritis without rheumatoid factor, multiple sites (principal)
CPT/HCPCS: 20610; 99213

== ENCOUNTER → 2023-07-26 12:42 | Outpatient (BNVA) | payer OTHER, SELFPAY | PROVIDERS: PCP Internal Medicine; Visit Provider Student in an Organized Health Care Education/Training Program | DX: M06.09 Rheumatoid arthritis without rheumatoid factor, multiple sites (principal) | CPT/HCPCS: 20610; 99212 ==

== ENCOUNTER 2023-08-01 09:51 | Outpatient (REF) | payer OTHER, SELFPAY ==
--- NOTE | ~2023-08-01 | MM_ITS ---
EXAMINATION: MM SCREENING DIGITAL BREAST TOMOSYNTHESIS, BILATERAL CLINICAL INFORMATION: Screening. Asymptomatic. COMPARISON: Mammography: 09/14/2020 from [facility] TECHNIQUE: Digital breast tomosynthesis is performed in both the craniocaudal and mediolateral oblique views along with computer-aided detection (CAD). Synthesized 2D images are generated from the tomosynthesis. FINDINGS: There are scattered areas of fibroglandular density (ACR BI-RADS breast composition Category b). There are are a few scattered skin calcifications. There are no suspicious masses, suspicious grouped calcifications, or areas of architectural distortion in either breast. The parenchymal pattern is stable from prior exams. No suspicious skin or axillary abnormalities. MM/MM tomosynthesis screening BI IMPRESSION: No mammographic evidence of malignancy. No significant interval change. ASSESSMENT: BI-RADS BI-RADS 2 - Benign Findings RECOMMENDATION: Routine annual mammography screening. 1 year F/U This examination should not preclude the clinical evaluation of a suspicious palpable abnormality. This patient's information was entered into a reminder system with a target due date for their next mammogram.
== END 2023-08-01 09:52 | disposition home or self-care (01) ==
LOC: HO.MAMMO 09:51
PROVIDERS: PCP Internal Medicine; Visit Provider Internal Medicine
DX: Z12.31 Encounter for screening mammogram for malignant neoplasm of breast (principal)
CPT/HCPCS: 77063; 77067

== ENCOUNTER → 2023-08-01 10:15 | Outpatient (BNV) | payer OTHER, SELFPAY | PROVIDERS: PCP Internal Medicine; Visit Provider Radiology Diagnostic Radiology | DX: Z12.31 Encounter for screening mammogram for malignant neoplasm of breast (principal) | CPT/HCPCS: 77063; 77067 ==

== ENCOUNTER 2023-09-19 11:35 | Outpatient (REF) | payer OTHER, SELFPAY ==
[2023-09-19 11:54] LABS: MANUAL DIFF FLAG NO
[2023-09-19 12:09] LABS: Basophils Percent Auto 0.8 % (0-2); Eosinophils Absolute Auto 0.2 X10*3/uL (0.0-0.4); Eosinophils Percent Auto 4.3 % (0-4); Hematocrit 36.8 % (37.0-47.0); Hemoglobin 12.4 g/dl (12.0-16.0); Imm Gran Abs Auto 0.01 X10*3/uL (0.00-0.03); Imm Gran Pct Auto 0.2 % (0.0-0.4); Lymphocytes Absolute Auto 1.4 X10*3/uL (1.2-4.9); Lymphocytes Percent Auto 27.5 % (20-40); Mean Corpuscular HGB Conc 33.7 g/dl (31.0-35.0); Mean Corpuscular Hemoglobin 30.2 pg (27.0-33.0); Mean Corpuscular Volume 89.5 fL (80.0-98.0); Mean Platelet Volume 9.4 fL (9.4-12.3); Monocytes Absolute Auto 0.4 X10*3/uL (0.1-1.2); Monocytes Percent Auto 8.9 % (2-11); Neutrophils Absolute Auto 2.9 x10*3/uL (2.0-8.3); Neutrophils Percent Auto 58.3 % (45-73); Platelet Count 305 X10*3/uL (160-400); Red Blood Count 4.11 X10*6/uL (4.20-5.50); Red Cell Distribution Width 13.3 % (11.0-16.0); White Blood Count 4.9 X10*3/uL (4.8-10.8)
[2023-09-19 12:37] LABS: Alanine Aminotransferase 11 U/L (0-31); Alkaline Phosphatase 90 U/L (39-117); Anion Gap 12 (12-20); Aspartate Amino Transferase 18 U/L (5-31); Bilirubin Total 0.3 mg/dL (0.0-1.0); Blood Urea Nitrogen 14 mg/dL (9-16); C Reactive Protein 0.32 mg/dL (< or = 0.50); Calcium 9.3 mg/dL (8.4-10.2); Carbon Dioxide 27 mmol/L (22-29); Chloride 106 mmol/L (96-108); Estimated Glomerular Filt Rate > 60; Glucose Random 112 mg/dL (60-115); Potassium 3.7 mmol/L (3.3-5.1); Sodium 141 mmol/L (135-145); Total Protein 7.3 g/dL (6.5-8.0)
[2023-09-19 13:06] LABS: Erythrocyte Sedimentation Rate 17 MM/HR (0-20)
== END 2023-09-19 11:36 | disposition home or self-care (01) ==
LOC: HO.LAB 11:35
PROVIDERS: PCP Internal Medicine; Visit Provider Student in an Organized Health Care Education/Training Program
DX: M06.9 Rheumatoid arthritis, unspecified (principal); Z79.899 Other long term (current) drug therapy
CPT/HCPCS: 36415; 80053; 85025; 85652; 86140

== ENCOUNTER 2023-09-21 08:07 | Outpatient (AMB) | payer OTHER, SELFPAY ==
--- NOTE | 2023-09-21 08:21 | MHC.OFFVIS ---
Vital Signs 09/21/23 08:25 Height 5 ft 4 in Weight 179 lb 14.355 oz BMI 30.9 BP 118/74 Blood Pressure Location Rt brachial Position Sitting Pulse 86 Pulse Source Pulse Oximeter Pulse Oximetry (%) 98 Oxygen Delivery Method Room Air Intake Visit Reasons: RA/CM Intake Note: Patient presents for RA f/u. 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 Required: Yes 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 Name: Richard [id number] Allergies etanercept [From Enbrel] Allergy (Verified 09/21/23 08:57) Rash hydroxychloroquine Adverse Reaction (Intermediate, Verified 09/21/23 08:57) GI upset sulfasalazine Adverse Reaction (Intermediate, Verified 09/21/23 08:57) gi upset Medication List - Last Reconciled 09/21/23 by Martinez Cox MD alendronate 70 mg (75 mL) PO QWEEK clonazepam 0.5 mg PO BID PRN lidocaine 5% leave on most painful area for up to 12 hrs topical omeprazole 40 mg PO DAILY 90 days paroxetine HCl 10 mg PO QAM HPI Comments Details: 67-year-old female with seronegative RA presents for follow-up. She discontinued hydroxychloroquine about a month ago. Due to GI upset. She states that she will be going for a GI procedure. She has not on any DMARDs currently. She continues to have left shoulder pain significantly limited range of motion. Minimal relief with steroid injections Initial history: This is a 66-year-old female with mild recurrent major depression and rheumatoid arthritis that comes for her physical exam. Depression stable with paroxetine and this is follow by Psychiatry. Rheumatoid arthritis is follow by Rheumatology and has not started methotrexate yet. No need for Pap smears due to hysterectomy. Mammogram is scheduled for 04/15/2022. Was refer for colonoscopy through open access and has not received it date yet. Last colonoscopy was 15 years ago. Complains of diffuse abdominal pain. [facility] Medical History RUBY positive Left ankle pain Chronic GERD HTN (hypertension) Surgical History Hx of esophagogastroduodenoscopy Hx of colonoscopy History of carpal tunnel surgery of left wrist Vocal cord anomaly History of partial hysterectomy Family History Mother Arthritis Father Prostate cancer Maternal Aunt Breast cancer Cervical cancer Sister SLE (systemic lupus erythematosus) Social History Household Members: Children Housing: House Are you a primary pediatric care coordinator to a significant other at home: No Do you presently have visiting nurse or other home services: No Alcohol intake: current Alcohol intake frequency: does not drink Alcohol type: hard liquor Patient Tobacco Use Status: Former Tobacco user Tobacco use type: Cigarette e-Cigarette/Vaping Use: Never Used Second Hand Smoke Exposure: No service: No Current occupational status: retired and disabled 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 Cognitive needs: No Hearing needs: No Vision needs: Yes Female Reproductive History Menstrual Total pregnancies: 2 Number of Living Children: 2 Review of Systems Musc Reports arthralgias, Reports limited range of motion and Reports stiffness Physical Exam Vital Signs: Last Vital Signs Pulse 86 09/21/23 08:25 BP 118/74 09/21/23 08:25 Pulse Ox 98 09/21/23 08:25 Oxygen Delivery Method Room Air 09/21/23 08:25 BMI result Body Mass Index 30.9 Const General: cooperative, healthy appearing, comfortable and no acute distress Nutritional Appearance: obese Orientation/consciousness: patient oriented x3 Limitations: no limitations HEENT Head: Yes normocephalic and Yes atraumatic Mouth: moist mucous membranes Resp Effort & Inspection: normal respiratory effort and able to speak in complete sentences Neuro General: patient oriented x3 Extrem Other: Bilateral puffy fingers and wrists but no tenderness Normal bilateral hand housekeeping department worker strength Normal range of motion of right shoulder Limited left shoulder abduction Positive empty can test and Speed's test on the left Left ankle swelling without warmth or tenderness Results Reviewed Results Reviewed: MR/MR wrist LT wo/w con IMPRESSION: 1.? There is a lobulated and elongated ganglion volar to the radial styloid measuring up to 1.8 cm. ? 2. 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 ? 3. Degeneration and possible full-thickness perforation of the central TFCC. MR/MR ankle LT wo con IMPRESSION: 1.? Prominent peroneal brevis and peroneal longus tenosynovitis. Attenuation and longitudinal split tearing of the peroneal brevis tendon at the level of the lateral malleolus measuring up to 4.1 cm in craniocaudal dimension. No full-thickness transverse tendon tear or tendon retraction. Overlying lateral soft tissue edema. Reactive marrow edema within the lateral malleolus as well as the lateral aspect of the calcaneal body where there is associated degenerative spurring. 2.? Mild posterior tibialis and flexor digitorum longus tenosynovitis. 3.? Mild degenerative arthritis at the articulation between the lateral talus and lateral malleolus. Trace posterior subtalar joint effusion. 4.? Remote sprain/partial tear of the anterior talofibular ligament. No evidence of acute ligament injury. Assessment & Plan Assessment & Plan (1) Rheumatoid arthritis: Comment: Positive RUBY 1:80 homogeneous, 1:40 nuclear fine speckled Seronegative Dx 04/18 MTX couldn't be started due to transaminitis Enbrel 06/16-07/17 stopped due to local rash SSZ 11/16 partially effective DC due to GI uoset HCQ 02/2024 partially effective DC 07/2023 due to GI upset Code(s): M06.9 - Rheumatoid arthritis, unspecified Category: Medical Qualifiers: Rheumatoid arthritis location: multiple sites Rheumatoid factor presence: without rheumatoid factor Qualified Code(s): M06.09 - Rheumatoid arthritis without rheumatoid factor, multiple sites Plan: This is a 67-year-old female with seronegative RA who presents for follow-up. She is not on any DMARDs currently. She discontinued her hydroxychloroquine about a month ago. On exam she does not have any active synovitis. Inflammatory markers are normal We will continue to watch patient off DMARDs Follow-up in 2 months. (2) Internal derangement of left shoulder: Code(s): M24.812 - Other specific joint derangements of left shoulder, not elsewhere classified Category: Medical Plan: Left shoulder pain since after a fall 05/2023 patient took Advil for approximately 6 weeks without much improvement. She received a steroid injection almost 2 months ago which also did not help. I would like to order a shoulder MRI to rule out internal derangement such as a tendon or labral tear Plan I spent 25 minutes reviewing patient's chart, evaluating patient, ordering diagnostic workup, counseling patient and documenting in the chart Orders: Orders MR shoulder LT wo con Today M24.812 - Other specific joint derangements of left shoulder, not elsewhere classified Coding Level of Care Code Est Pt Level 4 (19337) Diagnoses Rheumatoid arthritis of multiple sites with negative rheumatoid factor M06.09 Rheumatoid arthritis location: multiple sites Rheumatoid factor presence: without rheumatoid factor Internal derangement of left shoulder M24.812
[2023-09-21 08:25] VITALS: BP 118/74; PULSE 86; O2SAT 98; BMI 30.9
== END 2023-09-21 08:55 | disposition home or self-care (01) ==
LOC: HO.RHE 08:07
PROVIDERS: PCP Internal Medicine; Visit Provider Student in an Organized Health Care Education/Training Program
DX: M06.09 Rheumatoid arthritis without rheumatoid factor, multiple sites (principal); M24.812 Other specific joint derangements of left shoulder, not elsewhere classified
CPT/HCPCS: 99214

== ENCOUNTER → 2023-09-21 08:07 | Outpatient (BNVA) | payer OTHER, SELFPAY | PROVIDERS: PCP Internal Medicine; Visit Provider Student in an Organized Health Care Education/Training Program | DX: M06.09 Rheumatoid arthritis without rheumatoid factor, multiple sites (principal); M24.812 Other specific joint derangements of left shoulder, not elsewhere classified | CPT/HCPCS: 99212 ==

== ENCOUNTER 2023-10-17 10:01 | Outpatient (AMB) | payer OTHER, SELFPAY ==
[2023-10-17 10:06] VITALS: BP 138/80; BMI 31.1
--- NOTE | 2023-10-17 10:06 | MHC.PC.OV ---
Vital Signs 10/17/23 10:06 Height 5 ft 4 in Weight 181 lb BMI 31.1 BP 138/80 Blood Pressure Location Lt brachial Position Sitting Intake Visit Reasons: gerd Intake Note: Patient here for a follow up GERD, c/o issues with tongue, sinusitis Record Changer Required: No Accompanied by: Self / Same As Patient Allergies etanercept [From Enbrel] Allergy (Verified 10/17/23 10:20) Rash hydroxychloroquine Adverse Reaction (Intermediate, Verified 10/17/23 10:20) GI upset sulfasalazine Adverse Reaction (Intermediate, Verified 10/17/23 10:20) gi upset Medication List - Last Reconciled 10/17/23 by Colleen Catalan MD alendronate 70 mg (75 mL) PO QWEEK clonazepam 0.5 mg PO BID PRN lidocaine 5% leave on most painful area for up to 12 hrs topical omeprazole 40 mg PO DAILY 90 days paroxetine HCl 10 mg PO QAM Tobacco use date assessed: 04/18/23 Fall risk assessment: 1 Fall in past year Last assessed Fall Risk: 10/17/23 Dental Screening Dental Screen Date: 04/18/23 HPI HPI Comments History of Present Illness Details This is a 67-year-old female with mild recurrent major depression, rheumatoid arthritis and osteoporosis that comes today complaining of left shoulder pain that has been follow by ortho and MRI order still pending. Depression stable with paroxetine and follow by Psychiatry. Rheumatoid arthritis is follow by Rheumatology. On alendronate once a week for her osteoporosis and last DEXA scan was 2022. She denies any chest pain or shortness on breath. Will be referred to physical therapy for her shoulder. [facility] Medical History COLLEEN positive Left ankle pain Chronic GERD HTN (hypertension) Surgical History Hx of esophagogastroduodenoscopy Hx of colonoscopy History of carpal tunnel surgery of left wrist Vocal cord anomaly History of partial hysterectomy Family History Mother Arthritis Father Prostate cancer Maternal Aunt Breast cancer Cervical cancer Sister SLE (systemic lupus erythematosus) Social History Household Members: Children Housing: House Are you a primary healthcare network pricing consultant to a significant other at home: No Do you presently have visiting nurse or other home services: No Alcohol intake: current Alcohol intake frequency: does not drink Alcohol type: hard liquor Patient Tobacco Use Status: Former Tobacco user Tobacco use type: Cigarette e-Cigarette/Vaping Use: Never Used Second Hand Smoke Exposure: No service: No Current occupational status: retired and disabled 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 Joel Hernandez, Tracey Benton, Henry Wells and colleagues, with an educational kenneth from [employer]. Review of Systems Const All systems reviewed & are unremarkable except as noted in HPI and below Card Denies chest pain at rest, Denies chest pain with activity, Denies edema, Denies irregular heart rhythm, Denies claudication, Denies dyspnea, Denies dyspnea on exertion, Denies orthopnea, Denies paroxysmal nocturnal dyspnea and Denies slow heart rate Resp Denies cough, Denies dyspnea and Denies dyspnea on exertion Musc Reports arthralgias and Reports limited range of motion Physical exam (Primary Care) Vital Signs: Last Vital Signs BP 138/80 10/17/23 10:06 BMI result Body Mass Index 31.1 BMI Assessment/Plan discussion: High BMI High, discussed plan: lifestyle, weight reduction, dietary and physical activity Tobacco/Smoking Status: Tobacco use Status Tobacco use date assessed 04/18/23 10/17/23 10:11 Patient Tobacco Use Status Former Tobacco user 10/17/23 10:11 Tobacco use type Cigarette 10/17/23 10:11 e-Cigarette/Vaping Use Never Used 10/17/23 10:11 Thrive Assessment: Date of Thrive Assessment Date Thrive assessed 04/18/23 10/17/23 10:11 Resp Effort & Inspection: normal respiratory effort Auscultation: clear to auscultation bilaterally Cardio Jugular venous distension: no JVD Rate: regular rate Rhythm: regular rhythm Heart sounds: S1 normal heart sound present and S2 normal heart sound present Extrem General: Yes full ROM Left upper extremity: shoulder/upper arm Details: abnormal ROM Details: pain with active ROM Assessment and Plan Assessment & Plan (1) Mild recurrent major depression: Code(s): F33.0 - Major depressive disorder, recurrent, mild Plan: Continue paroxetine. Follow-up with psychiatry. (2) Internal derangement of left shoulder: Code(s): M24.812 - Other specific joint derangements of left shoulder, not elsewhere classified Plan: Start physical therapy. (3) Osteoporosis without pathological fracture: Code(s): M81.0 - Age-related osteoporosis without current pathological fracture Plan: Continue alendronate once a week. (4) Rheumatoid arthritis: Comment: Positive COLLEEN 1:80 homogeneous, 1:40 nuclear fine speckled Seronegative Dx 04/18 MTX couldn't be started due to transaminitis Enbrel 06/16-07/17 stopped due to local rash SSZ 11/16 partially effective DC due to GI uoset HCQ 02/2024 partially effective DC 07/2023 due to GI upset Code(s): M06.9 - Rheumatoid arthritis, unspecified Qualifiers: Rheumatoid arthritis location: multiple sites Rheumatoid factor presence: without rheumatoid factor Qualified Code(s): M06.09 - Rheumatoid arthritis without rheumatoid factor, multiple sites Plan: Follow-up with rheumatology. Orders: Orders PT Evaluation and Treatment Today M24.812 - Other specific joint derangements of left shoulder, not elsewhere classified Medications: New fluticasone propionate 50 mcg/actuation (Flonase Allergy Relief) administer into each nostril 1 spray intranasal Q12H 16 grams 0RF 30 days Coding Level of Care Code Est Pt Level 4 (31715) Complex EM visit Add On G2211 Diagnoses Mild recurrent major depression F33.0 Internal derangement of left shoulder M24.812 Osteoporosis without pathological fracture M81.0 Rheumatoid arthritis of multiple sites with negative rheumatoid factor M06.09 Rheumatoid arthritis location: multiple sites Rheumatoid factor presence: without rheumatoid factor Time Spent (min) 23
== END 2023-10-17 10:26 | disposition home or self-care (01) ==
PROVIDERS: PCP Internal Medicine; Visit Provider Internal Medicine
DX: F33.0 Major depressive disorder, recurrent, mild (principal); M24.812 Other specific joint derangements of left shoulder, not elsewhere classified; M81.0 Age-related osteoporosis without current pathological fracture; M06.09 Rheumatoid arthritis without rheumatoid factor, multiple sites
CPT/HCPCS: 99214; G2211

== ENCOUNTER 2023-11-16 08:32 | Outpatient (REF) | payer OTHER, SELFPAY ==
--- NOTE | ~2023-11-16 | MR_ITS ---
EXAMINATION: MR SHOULDER WITHOUT CONTRAST, LEFT CLINICAL INFORMATION: Left shoulder pain COMPARISON: Radiographs 06/05/2023 TECHNIQUE: MRI of the shoulder without contrast was performed on a high-field scanner. FINDINGS: ROTATOR CUFF: Moderate supraspinatus and infraspinatus tendinopathy with ill-defined interstitial partial tearing is prominently involving the anterior aspect of the distal supraspinatus tendon. Portions of this interstitial tearing or near full-thickness with no definite full thickness component. Mild subscapularis tendinopathy and undersurface fraying. No muscle atrophy or fatty infiltration. BICEPS: Normal. CORACOACROMIAL ARCH: The undersurface of the acromion is flat with no subacromial spur. Minimal acromioclavicular osteoarthritis. LABRUM/CAPSULE: Chronic ill-defined tearing of the anterior inferior labrum. GLENOHUMERAL JOINT/MARROW: Remote, healed osseous Bankart with small residual articular surface incongruity and osteophyte formation. There is a small chronic Hill-Sachs deformity. There is a 6 mm loose body in the axillary recess. MR/MR shoulder LT wo con IMPRESSION: 1. Moderate supraspinatus and infraspinatus tendinopathy with ill-defined interstitial partial tearing, prominently involving the anterior aspect of the supraspinatus tendon. 2. Mild subscapularis tendinopathy with undersurface fraying. 3. Evidence of a remote anterior inferior shoulder dislocation with healed osseous Bankart injury with chronic tearing of the anterior inferior labrum, and small remote Hill-Sachs deformity. 4. Mild glenohumeral osteoarthritis with a 6 mm loose body in the axillary recess. Electronically signed by: Damir Ortiz MD 11/20/2023 08:13 PM EDT
== END 2023-11-16 08:33 | disposition home or self-care (01) ==
LOC: HO.MRI 08:32
PROVIDERS: PCP Internal Medicine; Visit Provider Student in an Organized Health Care Education/Training Program
DX: M24.812 Other specific joint derangements of left shoulder, not elsewhere classified (principal)
CPT/HCPCS: 73221

== ENCOUNTER 2023-11-30 00:14 | Emergency (ER) | payer OTHER, SELFPAY ==
[2023-11-30 00:18] VITALS: BP 185/90; PULSE 80; RESP 16; TEMP 36.6; O2SAT 97; BMI 36.1
[2023-11-30 01:50] VITALS: BP 199/90; BP 208/96; PULSE 69; PULSE 71; RESP 16; RESP 18; TEMP 36.9; O2SAT 98
[2023-11-30 01:53] VITALS: BP 173/75; PULSE 70; RESP 12; TEMP 36.9; O2SAT 98
[2023-11-30 02:00] VITALS: BP 156/92; PULSE 66; RESP 14; O2SAT 97
--- NOTE | 2023-11-30 03:11 | ED_ITS ---
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 Villa HPI narrative: 67-year-old female came in for multiple complaint evaluation. Patient been having bilateral facial tenderness and sinusitis symptoms for few days, bilateral eye burning sensation with mild discharge white discharge from both eyes. Patient also found to have high blood pressure in the emergency department no chest pain, no headache. Related Data Home Medications ?Medication ?Instructions ?Recorded ?Confirmed clonazepam 0.5 mg tablet 0.5 mg PO BID PRN Anxiety 06/18/21 10/17/23 paroxetine HCl 10 mg tablet 10 mg PO QAM 08/18/22 10/17/23 Previous Rx's ?Medication ?Instructions ?Recorded omeprazole 40 mg capsule,delayed 40 mg PO DAILY 90 days #90 caps 11/03/22 release lidocaine 5 % topical patch See Rx Instructions topical 06/23/23 .COMPLEX #15 ea alendronate 70 mg/75 mL oral 70 mg (75 mL) PO QWEEK #300 mL 06/27/23 solution fluticasone propionate 50 1 spray intranasal Q12H 30 days 10/17/23 mcg/actuation nasal #16 grams spray,suspension (Flonase Allergy Relief) amlodipine 5 mg tablet 5 mg PO DAILY #14 tabs 11/30/23 amoxicillin 875 mg-potassium 1 tab PO BID #14 tabs 11/30/23 clavulanate 125 mg tablet erythromycin 5 mg/gram (0.5 %) eye 0.5 inch ophthalmic (eye) BID #3.5 11/30/23 ointment grams Allergies Allergy/AdvReac Type Severity Reaction Status Date / Time etanercept [From Enbrel] Allergy Rash Verified 11/30/23 00:23 hydroxychloroquine AdvReac Intermediate GI upset Verified 11/30/23 00:23 sulfasalazine AdvReac Intermediate gi upset Verified 11/30/23 00:23 Review of Systems Review of Systems: All other systems are reviewed and are negative Constitutional: Reports as per HPI and Reports no additional constitutional complaints Eyes: Reports as per HPI and Reports no additional eye complaints Reports system reviewed and no additional complaints, except as documented Cardiovascular: Reports as per HPI and Reports no additional cardiovascular complaints Respiratory: Reports as per HPI and Reports no additional respiratory complaints Gastrointestinal: Reports as per HPI and Reports no additional gastrointestinal complaints Genitourinary: Reports no additional female genitourinary complaints Musculoskeletal: Reports no additional musculoskeletal complaints Skin/Breast: Reports system reviewed and no additional complaints, except as docu Psychiatric: Reports no additional psychiatric complaints Endocrine: Reports no additional endocrine complaints Hematologic/Lymphatic: Reports no additional hematologic/lymphatic complaints Allergic/Immunologic: Reports no additional allergic/immunologic complaints Reports system reviewed and no additional complaints, except as documented and Reports Abnormal speech present [facility] Past Medical History Medical History COLLEEN positive Left ankle pain Chronic GERD HTN (hypertension) Surgical History Hx of esophagogastroduodenoscopy Hx of colonoscopy History of carpal tunnel surgery of left wrist Vocal cord anomaly History of partial hysterectomy Family History Family History Mother Arthritis Father Prostate cancer Maternal Aunt Breast cancer Cervical cancer Sister SLE (systemic lupus erythematosus) Social History Social History Household Members: Children Housing: House Are you a primary day care home provider to a significant other at home: No Do you presently have visiting nurse or other home services: No Alcohol intake: current Alcohol intake frequency: does not drink Alcohol type: hard liquor Patient Tobacco Use Status: Former Tobacco user Tobacco use type: Cigarette Smoked in Last 30 Days: No e-Cigarette/Vaping Use: Never Used Second Hand Smoke Exposure: No Advance Directives: No Advance Directives Information Provided: Yes Do you have a plan to hurt others: No Plan service: No Current occupational status: retired and disabled 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 Cognitive needs: No Hearing needs: No Vision needs: Yes Physical Exam ED Vital Signs: Vital Signs - 24 hr 11/30/23 00:18 11/30/23 01:50 11/30/23 01:50 Temperature 97.9 F 98.4 F Pulse Rate 80 71 69 Respiratory Rate 16 16 18 Blood Pressure 185/90 H 208/96 H 199/90 H Pulse Oximetry 97 98 Oxygen Delivery Method Room Air Room Air 11/30/23 01:53 11/30/23 02:00 11/30/23 03:29 Temperature 98.4 F 98.7 F Pulse Rate 70 66 66 Respiratory Rate 12 14 16 Blood Pressure 173/75 H 156/92 H 172/88 H Pulse Oximetry 98 97 98 Oxygen Delivery Method Room Air Room Air Room Air BMI result Body Mass Index 36.1 Vital signs have been reviewed and appear to be correct. Blood pressure elevated. Heart rate normal. Respiratory rate normal. Temperature normal. Oxygen saturation normal. Appearance: Alert. Oriented X3. No acute distress. Head: Normal external exam. Normocephalic. Atraumatic. No Teran signs noted. No raccoon eyes noted Eyes: PERRLA. EOMI. Conjunctival and scleral erythema, Eyelids normal. ENT: Bilateral maxillary sinus tenderness on percussion. Neck: Normal inspection. Neck supple. FROM. No adenopathy. Thyroid Normal. No meningeal signs. No neck mass noted. CVS: Normal heart rate and rhythm. Heart sound normal. No murmurs noted. Pulses normal throughout. Respiratory: No respiratory distress. Painless inspiration. Breath sounds normal. No wheezes/rales/rhonchi noted. Chest nontender. No accessory muscle usage noted or decreased air movement noted. Abdomen: Soft and nontender. Bowel sounds normal in all 4 quadrants. No distention noted. No organomegaly noted. No visible injury noted. Back: No CVA tenderness. Full range of motion noted. Skin: Skin warm and dry. Normal skin color. Normal skin turgor. No rashes/lesions/lacerations noted. Extremities: No lower extremity edema. Extremities exhibit normal range of motion. Extremities nontender. Neuro: Oriented X 3. Cranial nerve exam: II-XII are grossly intact No motor deficit. No sensory deficit. Reflexes normal. Course Reevaluation(s) Reevaluation #1: Elevated blood pressure in the emergency department that could be secondary to anxiety patient was instructed to follow-up with her PCP for further evaluation of her blood pressure will start on 5 mg of amlodipine times 14 days until sees her primary doctor. Will treat acute sinusitis with Augmentin, and prescribe erythromycin eye ointment for mild conjunctivitis. Time: 03:14 Medical Decision Making Differential Diagnosis Differential Diagnoses: The differential diagnosis associated with the presentation includes (Essential hypertension, conjunctivitis, acute sinusitis.) Admission/Observation Consideration of admission/observation: Escalation of care including admission/observation considered Discharge Plan Discharge Clinical Impression: Elevated blood pressure reading, Maxillary sinusitis, Conjunctivitis Patient Disposition: Home, Self-Care Instructions: Sinusitis (ED), Conjunctivitis (ED) Additional Instructions: Follow-up with your PCP in regard to blood pressure high reading. Prescriptions: New amoxicillin-pot clavulanate 875-125 mg tablet 1 tab PO BID Qty: 14 0RF erythromycin 5 mg/gram (0.5 %) ointment 0.5 inch ophthalmic (eye) BID Qty: 3.5 0RF amlodipine 5 mg tablet 5 mg PO DAILY Qty: 14 0RF No Action alendronate 70 mg/75 mL solution 70 mg PO QWEEK Qty: 300 2RF Rx Instructions: Stay upright for 30 minutes fluticasone propionate [Flonase Allergy Relief] 50 mcg/actuation spray,suspension 1 spray intranasal Q12H 30 Days Qty: 16 0RF Rx Instructions: administer into each nostril clonazepam 0.5 mg tablet 0.5 mg PO BID PRN (Reason: Anxiety) paroxetine HCl 10 mg tablet 10 mg PO QAM omeprazole 40 mg capsule,delayed release(DR/EC) 40 mg PO DAILY 90 Days Qty: 90 1RF lidocaine 5 % adhesive patch,medicated See Rx Instructions topical .COMPLEX Qty: 15 2RF Rx Instructions: leave on most painful area for up to 12 hrs topical Referrals: Colleen Nieves MD [Primary Care Provider] - Interventions: ED Discharge Assessment Last Done: 11/30/23 03:29 Discharge Date/Time: 11/30/23 03:37 Print Language: Belgian
[2023-11-30 03:29] VITALS: BP 172/88; PULSE 66; RESP 16; TEMP 37.1; O2SAT 98
== END 2023-11-30 03:37 | disposition home or self-care (01) ==
PROVIDERS: Emergency Provider Emergency Medicine; PCP Internal Medicine
DX: J32.0 Chronic maxillary sinusitis (principal); H10.9 Unspecified conjunctivitis; R03.0 Elevated blood-pressure reading, without diagnosis of hypertension; Z87.891 Personal history of nicotine dependence; Z79.899 Other long term (current) drug therapy
CPT/HCPCS: 99283; 99284

== ENCOUNTER 2023-12-19 14:10 | Outpatient (AMB) | payer OTHER, SELFPAY ==
--- NOTE | 2023-12-19 14:25 | MHC.OFFVIS ---
Vital Signs 12/19/23 14:30 Handedness Right Intake Visit Reasons: New Prob - Left shoulder pain, limited ROM Intake Note: Venus is a 68 year old right hand dominant female who presents today for her left shoulder pain. MRI done on 11/16/23. Patient reports she had a fall 3 months ago. She states that she landed on her left shoulder and started to have pain, her ROM is limited. Patient mentions that her PCP gave her an injection about 3 months ago which gave her mild relief. Allergies etanercept [From Enbrel] Allergy (Verified 12/19/23 14:29) Rash hydroxychloroquine Adverse Reaction (Intermediate, Verified 12/19/23 14:29) GI upset sulfasalazine Adverse Reaction (Intermediate, Verified 12/19/23 14:29) gi upset HPI HPI New Prob - Left shoulder pain, limited ROM: Details: 68-year-old female who is Palauan speaking, presents in the office today for an evaluation of left shoulder pain. The patient was seen by Rheumatology on 06/23/23 status post a fall two weeks prior. She confirmed being seen in the ED and was told she had no fractures. She was prescribed lidocaine topical to apply to areas with pain.The patient followed up on 07/26/23 when she received a cortisone injection in the left shoulder. She returned to Rheumatology on 09/21/23 with continued left shoulder pain. An MRI of the left shoulder was ordered. The patient was seen by her PCP on 10/17/23 and was referred to physical therapy. While in the office today, the patient reports ongoing pain in the left shoulder. She received a cortisone injection in the left shoulder from her PCP with mild relief. She is interested in repeating the injection today. [facility] Medical History RUBY positive Left ankle pain Chronic GERD HTN (hypertension) Surgical History Hx of esophagogastroduodenoscopy Hx of colonoscopy History of carpal tunnel surgery of left wrist Vocal cord anomaly History of partial hysterectomy Family History Mother Arthritis Father Prostate cancer Maternal Aunt Breast cancer Cervical cancer Sister SLE (systemic lupus erythematosus) Social History Household Members: Children Housing: House Are you a primary rn critical care to a significant other at home: No Do you presently have visiting nurse or other home services: No Alcohol intake: current Alcohol intake frequency: does not drink Alcohol type: hard liquor Patient Tobacco Use Status: Former Tobacco user Tobacco use type: Cigarette e-Cigarette/Vaping Use: Never Used Second Hand Smoke Exposure: No service: No Current occupational status: retired and disabled 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 Cognitive needs: No Hearing needs: No Vision needs: Yes Review of Systems Const All systems reviewed & are unremarkable except as noted in HPI and below Physical Exam Const General: cooperative and no acute distress Orientation/consciousness: patient oriented x3 Resp Effort & Inspection: normal respiratory effort and able to speak in complete sentences Cardio Rate: regular rate Peripheral pulses: Peripheral pulses 2+ throughout GI Palpation (GI): Soft to palpation Skin General skin exam: no rashes or lesions noted Lesions: no lesions Rashes: no rashes Neuro General: patient oriented x3 Extrem Other: Left shoulder: Normal to inspection. No ecchymosis, erythema, or edema. Forward flexion and abduction are lacking about 45 degrees. Pain along the impingement arc. Pain with cross-body reach. 4/5 strength for empty can. Able to reach the back pocket. Negative drop arm. NVI. Office Procedures Joint Injection/Aspiration Joint Injection/Aspiration Primary Site: left shoulder Prep: site was prepped using aseptic technique, ethochloride spray was applied and injection warnings given Injected: 80 mg of, DepoMedrol, with 8 mL of (2% plain lido ) and in the subcromial space Approach Used: posterolateral Procedure: The patient tolerated the procedure well, but had some pain with the injection and there was some relief with the local anesthesia Coding 06142 - Large joint Procedure code (CPT) selection complete Assessment & Plan Assessment & Plan (1) Painful arc syndrome of left shoulder: Code(s): M75.102 - Unspecified rotator cuff tear or rupture of left shoulder, not specified as traumatic Category: Medical Plan Ms. Hernandez is a 68-year-old female who is Palauan speaking, presents in the office today for an evaluation of left shoulder pain. The patient was seen by Rheumatology on 06/23/23 status post a fall two weeks prior. She confirmed being seen in the ED and was told she had no fractures. She was prescribed lidocaine topical to apply to areas with pain.The patient followed up on 07/26/23 when she received a cortisone injection in the left shoulder. She returned to Rheumatology on 09/21/23 with continued left shoulder pain. An MRI of the left shoulder was ordered. The patient was seen by her PCP on 10/17/23 and was referred to physical therapy. While in the office today, the patient reports ongoing pain in the left shoulder. She received a cortisone injection in the left shoulder from her PCP with mild relief. She is interested in repeating the injection today. The patient was offered a cortisone injection in the left shoulder with 80 mg of Depo-Medrol. The patient was explained the risks, benefits, and alternatives to receiving this injection. After receiving consent for the injection, the patient had the procedure done while in the office today. The patient tolerated the procedure well with no complication. I recommended that the patient to attend physical therapy and a referral was placed. Follow up will be in 6 weeks, or sooner if needed. MRI of the left shoulder, obtained on 11/16/23, revealed: 1. Moderate supraspinatus and infraspinatus tendinopathy with ill-defined interstitial partial tearing, prominently involving the anterior aspect of the supraspinatus tendon. 2. Mild subscapularis tendinopathy with undersurface fraying. 3. Evidence of a remote anterior inferior shoulder dislocation with healed osseous Bankart injury with chronic tearing of the anterior inferior labrum, and small remote Hill-Sachs deformity. 4. Mild glenohumeral osteoarthritis with a 6 mm loose body in the axillary recess. X-rays of the left shoulder, obtained on 06/05/23, revealed: Glenohumeral alignment is anatomic. No acute fracture is seen. The acromioclavicular joint appears intact with degenerative change. Orders: Orders PT Evaluation and Treatment Today M75.102 - Unspecified rotator cuff tear or rupture of left shoulder, not specified as traumatic Patient Instructions: Scribed by Alisa Swift medical care administrator, for Olivia Payne PA-C on 12/19/23 at 2:55 pm EST. Coding Level of Care Code New Pt Level 4 (48898) Complex EM visit Add On G2211 Diagnoses Painful arc syndrome of left shoulder M75.102 CPT Codes Coding - 25081 Large joint: 89984 - Large joint ([id number])
== END 2023-12-19 14:53 | disposition home or self-care (01) ==
PROVIDERS: PCP Internal Medicine; Visit Provider Physician Assistant
DX: M75.102 Unspecified rotator cuff tear or rupture of left shoulder, not specified as traumatic (principal)
CPT/HCPCS: 20610; 99214

== ENCOUNTER → 2023-12-19 14:10 | Outpatient (BNVA) | payer OTHER, SELFPAY | PROVIDERS: PCP Internal Medicine; Visit Provider Physician Assistant | DX: M75.102 Unspecified rotator cuff tear or rupture of left shoulder, not specified as traumatic (principal) | CPT/HCPCS: 20610; 99212; J1010 ==

== ENCOUNTER → 2024-01-29 09:00 | Outpatient (BNVA) | payer OTHER, SELFPAY | PROVIDERS: PCP Internal Medicine; Visit Provider Student in an Organized Health Care Education/Training Program | DX: M06.09 Rheumatoid arthritis without rheumatoid factor, multiple sites (principal); M81.0 Age-related osteoporosis without current pathological fracture | CPT/HCPCS: 99212 ==

== ENCOUNTER → 2024-01-29 09:00 | Outpatient (AMB) | payer OTHER, SELFPAY ==
--- NOTE | 2024-01-29 09:01 | MHC.OFFVIS ---
Vital Signs 01/29/24 09:05 Height 5 ft Weight 183 lb 3.266 oz BMI 35.8 BP 140/64 H Blood Pressure Location Rt brachial Position Sitting Pulse 74 Pulse Source Pulse Oximeter Pulse Oximetry (%) 98 Oxygen Delivery Method Room Air Intake Visit Reasons: RA/cm Intake Note: Patient presents for RA. Aircraft Load Controller Required: Yes Aircraft Load Controller Language: Crop Consultant Services: Aircraft Load Controller Present Aircraft Load Controller Name: Julia [id number] Information Interpreted: non-clinical & clinical Allergies etanercept [From Enbrel] Allergy (Verified 01/29/24 09:04) Rash hydroxychloroquine Adverse Reaction (Intermediate, Verified 01/29/24 09:04) GI upset sulfasalazine Adverse Reaction (Intermediate, Verified 01/29/24 09:04) gi upset Medication List - Last Reconciled 01/29/24 by Martinez Cox MD alendronate 70 mg (75 mL) PO QWEEK amlodipine 5 mg PO DAILY amoxicillin 500 mg PO Q12H 5 days amoxicillin-pot clavulanate 875-125 mg 1 tab PO BID clonazepam 0.5 mg PO BID PRN erythromycin 0.5 inches ophthalmic (eye) BID fluticasone propionate 50 mcg/actuation (Flonase Allergy Relief) 1 spray intranasal Q12H 30 days lidocaine 5% leave on most painful area for up to 12 hrs topical omeprazole 40 mg PO DAILY 90 days paroxetine HCl 10 mg PO QAM HPI Comments Details: 68-year-old female with seronegative RA presents for follow-up. She states that she has been doing reasonably well recently. She states that she received an injection in her left shoulder about 2 months ago and it was helpful. She denies any swollen joints currently. She states that on the days when she does a lot of cleaning , her right index finger can get stuck. Initial history: This is a 66-year-old female with mild recurrent major depression and rheumatoid arthritis that comes for her physical exam. Depression stable with paroxetine and this is follow by Psychiatry. Rheumatoid arthritis is follow by Rheumatology and has not started methotrexate yet. No need for Pap smears due to hysterectomy. Mammogram is scheduled for 04/15/2022. Was refer for colonoscopy through open access and has not received it date yet. Last colonoscopy was 15 years ago. Complains of diffuse abdominal pain. [facility], [facility] Medical History RUBY positive Left ankle pain Chronic GERD HTN (hypertension) Surgical History Hx of esophagogastroduodenoscopy Hx of colonoscopy History of carpal tunnel surgery of left wrist Vocal cord anomaly History of partial hysterectomy Family History Mother Arthritis Father Prostate cancer Maternal Aunt Breast cancer Cervical cancer Sister SLE (systemic lupus erythematosus) Social History Household Members: Children Housing: House Are you a primary auto care center manager to a significant other at home: No Do you presently have visiting nurse or other home services: No Alcohol intake: current Alcohol intake frequency: does not drink Alcohol type: hard liquor Patient Tobacco Use Status: Former Tobacco user Tobacco use type: Cigarette e-Cigarette/Vaping Use: Never Used Second Hand Smoke Exposure: No service: No Current occupational status: retired and disabled 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 Cognitive needs: No Hearing needs: No Vision needs: Yes Female Reproductive History Menstrual Total pregnancies: 2 Number of Living Children: 2 Review of Systems Musc Reports arthralgias, Denies joint swelling, Reports limited range of motion and Reports stiffness Physical Exam Vital Signs: Last Vital Signs Pulse 74 01/29/24 09:05 BP 140/64 H 01/29/24 09:05 Pulse Ox 98 01/29/24 09:05 Oxygen Delivery Method Room Air 01/29/24 09:05 BMI result Body Mass Index 35.8 Const General: cooperative, healthy appearing, comfortable and no acute distress Nutritional Appearance: obese Orientation/consciousness: patient oriented x3 Limitations: no limitations HEENT Head: Yes normocephalic and Yes atraumatic Mouth: moist mucous membranes Resp Effort & Inspection: normal respiratory effort and able to speak in complete sentences Neuro General: patient oriented x3 Extrem Other: Bilateral puffy fingers and wrists but no tenderness Normal bilateral hand director compliance strength Left ankle swelling without warmth or tenderness Assessment & Plan Assessment & Plan (1) Rheumatoid arthritis: Comment: Positive RUBY 1:80 homogeneous, 1:40 nuclear fine speckled Seronegative Dx 04/18 MTX couldn't be started due to transaminitis Enbrel 06/16-07/17 stopped due to local rash SSZ 11/16 partially effective DC due to GI uoset HCQ 02/2024 partially effective DC 07/2023 due to GI upset Code(s): M06.9 - Rheumatoid arthritis, unspecified Category: Medical Qualifiers: Rheumatoid arthritis location: multiple sites Rheumatoid factor presence: without rheumatoid factor Qualified Code(s): M06.09 - Rheumatoid arthritis without rheumatoid factor, multiple sites Plan: This is a 68-year-old female with seronegative RA who presents for follow-up. She is not on any DMARDs currently. On exam she does not have any active synovitis. We will continue to watch patient off DMARDs Re-evaluate in 6 months. Labs before next visit (2) Osteoporosis without pathological fracture: Code(s): M81.0 - Age-related osteoporosis without current pathological fracture Category: Medical Plan: Patient could not tolerate alendronate tablets or liquid form. She has history of hiatal hernia. Reclast was attempted , Medicare will cover 80% of the cost of the infusion, patient does not have a supplemental insurance and would not be able to pay the remaining 20%. Advised patient to take calcium and vitamin-D regularly Plan I spent 25 minutes reviewing patient's chart, evaluating patient, ordering diagnostic workup, counseling patient and documenting in the chart Orders: Orders Comprehensive Met. Panel 6 Months M06.09 - Rheumatoid arthritis without rheumatoid factor, multiple sites C Reactive Protein 6 Months M06.09 - Rheumatoid arthritis without rheumatoid factor, multiple sites Erythrocyte Sedimentation Rate 6 Months M06.09 - Rheumatoid arthritis without rheumatoid factor, multiple sites Vitamin D 25-OH (D2 and D3) 6 Months E55.9 - Vitamin D deficiency, unspecified Complete Blood Count Auto Diff 6 Months M06.09 - Rheumatoid arthritis without rheumatoid factor, multiple sites Coding Level of Care Code Est Pt Level 4 (60248) Diagnoses Rheumatoid arthritis of multiple sites with negative rheumatoid factor M06.09 Rheumatoid arthritis location: multiple sites Rheumatoid factor presence: without rheumatoid factor Osteoporosis without pathological fracture M81.0
[2024-01-29 09:05] VITALS: BP 140/64; PULSE 74; O2SAT 98; BMI 35.8
== END ==
LOC: HO.RHE 09:00
PROVIDERS: PCP Internal Medicine; Visit Provider Student in an Organized Health Care Education/Training Program
DX: M06.09 Rheumatoid arthritis without rheumatoid factor, multiple sites (principal); M81.0 Age-related osteoporosis without current pathological fracture
CPT/HCPCS: 99214

== ENCOUNTER 2024-03-22 09:15 | Outpatient (REF) | payer OTHER, SELFPAY ==
[2024-03-22 09:24] LABS: MANUAL DIFF FLAG NO
[2024-03-22 09:41] LABS: Basophils Percent Auto 0.6 % (0-2); Eosinophils Absolute Auto 0.3 X10*3/uL (0.0-0.4); Eosinophils Percent Auto 4.5 % (0-4); Hematocrit 32.1 % (37.0-47.0); Hemoglobin 10.5 g/dl (12.0-16.0); Imm Gran Abs Auto 0.02 X10*3/uL (0.00-0.03); Imm Gran Pct Auto 0.3 % (0.0-0.4); Lymphocytes Absolute Auto 2.3 X10*3/uL (1.2-4.9); Mean Corpuscular HGB Conc 32.7 g/dl (31.0-35.0); Mean Corpuscular Hemoglobin 29.2 pg (27.0-33.0); Mean Corpuscular Volume 89.4 fL (80.0-98.0); Mean Platelet Volume 9.4 fL (9.4-12.3); Monocytes Absolute Auto 0.5 X10*3/uL (0.1-1.2); Monocytes Percent Auto 7.8 % (2-11); Neutrophils Absolute Auto 3.2 x10*3/uL (2.0-8.3); Neutrophils Percent Auto 50.8 % (45-73); Platelet Count 371 X10*3/uL (160-400); Red Blood Count 3.59 X10*6/uL (4.20-5.50); Red Cell Distribution Width 12.6 % (11.0-16.0); White Blood Count 6.3 X10*3/uL (4.8-10.8)
[2024-03-22 10:18] LABS: Alanine Aminotransferase 19 U/L (0-31); Alkaline Phosphatase 100 U/L (39-117); Anion Gap 12 (12-20); Aspartate Amino Transferase 22 U/L (5-31); Bilirubin Total 0.3 mg/dL (0.0-1.0); Blood Urea Nitrogen 17 mg/dL (9-16); Calcium 8.9 mg/dL (8.4-10.2); Carbon Dioxide 28 mmol/L (22-29); Chloride 104 mmol/L (96-108); Cholesterol 230 mg/dL (<200); Estimated Glomerular Filt Rate > 60; Glucose Fasting 100 mg/dL (60-99); HDL Cholesterol 89 mg/dL (>40); LDL Cholesterol Calculated 130 mg/dL (<100); Potassium 3.5 mmol/L (3.3-5.1); Sodium 140 mmol/L (135-145); Total Protein 7.1 g/dL (6.5-8.0); Triglycerides 58 mg/dL (<150)
[2024-03-22 10:33] LABS: Vitamin D 25-OH Total 38.9 ng/mL (>30)
== END 2024-03-22 09:16 | disposition home or self-care (01) ==
LOC: HO.LAB 09:15
PROVIDERS: PCP Internal Medicine; Visit Provider Internal Medicine
DX: E78.5 Hyperlipidemia, unspecified (principal); E55.9 Vitamin D deficiency, unspecified; R13.10 Dysphagia, unspecified
CPT/HCPCS: 36415; 80053; 80061; 82306; 85025

== ENCOUNTER 2024-03-29 13:53 | Outpatient (AMB) | payer OTHER, SELFPAY ==
--- NOTE | 2024-03-29 13:57 | MHC.PC.OV ---
Vital Signs 03/29/24 14:09 Height 5 ft Weight 183 lb BMI 35.7 BP 168/100 H Blood Pressure Location Lt brachial Position Sitting Pulse 74 Pulse Source Pulse Oximeter Pulse Oximetry (%) 100 Oxygen Delivery Method Room Air Intake Visit Reasons: BP Supervisor Soldering Required: No Accompanied by: Self / Same As Patient Allergies etanercept [From Enbrel] Allergy (Verified 03/29/24 14:28) Rash hydroxychloroquine Adverse Reaction (Intermediate, Verified 03/29/24 14:28) GI upset sulfasalazine Adverse Reaction (Intermediate, Verified 03/29/24 14:28) gi upset Medication List - Last Reconciled 03/29/24 by Colleen Catalan MD alendronate 70 mg (75 mL) PO QWEEK amlodipine 5 mg PO DAILY clonazepam 0.5 mg PO BID PRN fluticasone propionate 50 mcg/actuation (Flonase Allergy Relief) 1 spray intranasal Q12H 30 days lidocaine 5% leave on most painful area for up to 12 hrs topical omeprazole 40 mg PO DAILY 90 days paroxetine HCl 10 mg PO QAM Tobacco use date assessed: 03/29/24 Fall risk assessment: No Falls in past year Last assessed Fall Risk: 03/29/24 Dental Screening Dental Screen Date: 03/29/24 Did you have a dental visit in the last 12 months?: Yes Did you have a dental problem in the last 6 months where you did not have access to dental care?: No Was dental information given to patient?: Patient has dentist HPI HPI Comments History of Present Illness Details The patient is a 68-year-old female presenting with hypertension and chest pain. Hypertension has been noted to be high, with recent measurements of 180 systolic and unknown diastolic. She has been prescribed amlodipine 5 mg, which she has not taken today but sometimes supplements with garlic for perceived efficacy. Elevated cholesterol levels were reported, with HDL at 89. She has a history of osteoporosis and was taking Fosamax, which she discontinued due to intolerance. Her BMI indicates class II obesity. She reported occasional chest pains associated with shortness of breath, though she did not describe them as classical angina. An electrocardiogram is recommended for further evaluation. Mild major depression with anxiety are follow by Psychiatry. 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 [facility] Medical History COLLEEN positive Left ankle pain Chronic GERD HTN (hypertension) Surgical History Hx of esophagogastroduodenoscopy Hx of colonoscopy History of carpal tunnel surgery of left wrist Vocal cord anomaly History of partial hysterectomy Family History Mother Arthritis Father Prostate cancer Maternal Aunt Breast cancer Cervical cancer Sister SLE (systemic lupus erythematosus) Social History Household Members: Children Housing: House Are you a primary intensive care anaesthetist to a significant other at home: No Do you presently have visiting nurse or other home services: No Alcohol intake: current Alcohol intake frequency: does not drink Alcohol type: hard liquor Patient Tobacco Use Status: Former Tobacco user Tobacco use type: Cigarette e-Cigarette/Vaping Use: Never Used Second Hand Smoke Exposure: No service: No Current occupational status: retired and disabled 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 1. Little interest or pleasure in doing things: not at all 2. Feeling down, depressed, or hopeless: not at all 3. Trouble falling or staying asleep, or sleeping too much: not at all 4. Feeling tired or having little energy: not at all 5. Poor appetite or overeating: not at all 6. Feeling bad about yourself - or that you are a failure or have let yourself or your family down: not at all 7. Trouble concentrating on things, such as reading the newspaper or watching television: not at all 8. Moving or speaking so slowly that other people could have noticed. Or the opposite - being so fidgety or restless that you have been moving around a lot more than usual: not at all 9. Thoughts that you would be better off or of hurting yourself in some way: not at all Total score: 0 Depression Screening Interpretation: Negative Depression Screening Done: Yes 48608 - PHQ-9 Billing: Yes Source: Developed by Drs. Joel Hernandez, Tracey BentonHenry and colleagues, with an educational kenneth from Interview. Thrive Questionnaire Date Thrive assessed: 03/29/24 I am a: Patient What is your living situation today?: I have a steady place to live Within the past 12 months, did the food you bought not last and you didn't have the money to get more?: Never true Within the past 12 months, did you worry whether your food would run out before you got money to buy more?: Never true Do you have trouble paying for medicines?: No Do you have trouble getting transportation to medical appointments?: No Do you have trouble paying your heating and electricity bill?: No Do you have trouble taking care of your child, family member or friend?: No Do you have trouble with day-to-day activities such as bathing, preparing meals, shopping, managing finances, etc.?: No Are you currently unemployed and looking for a job?: No Are you interested in more education?: No Please select the resources that you would like help with: None Currently or been in a relationship where the following occur: No concerns reported THRIVE Score: 0 AUDIT C Alcohol Use Questionnaire (AUDIT-C) 1. How often do you have a drink containing alcohol?: Monthly or less 2. How many drinks containing alcohol do you have on a typical day when you are drinking?: 1 or 2 3. How often do you have six or more drinks on one occasion?: Never Total Score: 1 Score Reviewed/Action Taken: No ORA-7 AMB Questionnaire ORA-7 Date ORA - 7 assessed: 03/29/24 Feeling nervous, anxious, or on edge: 0 = Not at all Not being able to stop or control worryin = Not at all Worrying too much about different things: 0 = Not at all Trouble relaxin = Not at all Being so restless that it is hard to sit still: 0 = Not at all Becoming easily annoyed or irritable: 0 = Not at all Feeling afraid as if something awful might happen: 0 = Not at all Total ORA-7 score (0-4 normal; 5-9 mild; 10-14 moderate; 15-21 severe): 0 Source: Developed by Drs. Joel Hernandez, Henry Sun and colleagues, with an educational kenneth from Interview. ORA-7 Assessment Billing ORA-7 Assessment Tool: ORA-7 Assessment 13080 Review of Systems Const Details: - Cardiovascular: Reports episodes of chest pain and shortness of breath. Physical exam (Primary Care) Vital Signs: Last Vital Signs Pulse 74 03/29/24 14:09 BP 168/100 H 03/29/24 14:09 Pulse Ox 100 03/29/24 14:09 Oxygen Delivery Method Room Air 03/29/24 14:09 BMI result Body Mass Index 35.7 BMI Assessment/Plan discussion: High BMI High, discussed plan: lifestyle, weight reduction, dietary and physical activity Tobacco/Smoking Status: Tobacco use Status Tobacco use date assessed 03/29/24 03/29/24 14:11 Patient Tobacco Use Status Former Tobacco user 03/29/24 13:58 Tobacco use type Cigarette 03/29/24 13:58 e-Cigarette/Vaping Use Never Used 03/29/24 13:58 PHQ-9: PHQ-9 Score PHQ-9: Total score 0 03/29/24 14:31 Depression Screening Interpretation: Negative Thrive Assessment: Date of Thrive Assessment Date Thrive assessed 03/29/24 03/29/24 14:08 Currently or been in a relationship where the following occur: No concerns reported Const Other: General: No confusion Respiratory: Normal respiratory effort, clear to auscultation bilaterally Cardiovascular: No jugular venous distension, regular rate, regular rhythm, S1 normal heart sound present and S2 normal heart sound present Extremities: Full ROM Office Procedures Flu Questionnaire Does the patient have a severe egg allergy?: No Immunizations Fluarix Triv [id number] (PF) 45 mcg (15 mcg x 3)/0.5 mL IM syringe Performing Provider: Colleen Catalan MD [place] Documented (not given) by: DARRYL Rene on 03/29/24 14:08 Reason Not Given: Patient Refused Coding Level of Care Code Est Pt Level 4 (79257) Complex EM visit Add On G2211 Diagnoses Chest pain R07.9 Pure hypercholesterolemia E78.00 Mild recurrent major depression F33.0 Rheumatoid arthritis of multiple sites with negative rheumatoid factor M06.09 Rheumatoid arthritis location: multiple sites Rheumatoid factor presence: without rheumatoid factor ORA (generalized anxiety disorder) F41.1 Additional Codes ORA-7 Assessment Billing - ORA-7 Assessment Tool: ORA-7 Assessment 85329 ([id number]) PHQ-9 - 37862 - PHQ-9 Billing: Yes ([id number]) Time Spent (min) 24 Assessment & Plan Assessment & Plan (1) Chest pain: Code(s): R07.9 - Chest pain, unspecified Category: Medical (2) Pure hypercholesterolemia: Code(s): E78.00 - Pure hypercholesterolemia, unspecified Category: Medical (3) Mild recurrent major depression: Code(s): F33.0 - Major depressive disorder, recurrent, mild Category: Medical (4) Rheumatoid arthritis: Comment: Positive COLLEEN 1:80 homogeneous, 1:40 nuclear fine speckled Seronegative Dx 04/18 MTX couldn't be started due to transaminitis Enbrel 06/16-07/17 stopped due to local rash SSZ 11/16 partially effective DC due to GI uoset HCQ 02/2024 partially effective DC 07/2023 due to GI upset Code(s): M06.9 - Rheumatoid arthritis, unspecified Category: Medical Qualifiers: Rheumatoid arthritis location: multiple sites Rheumatoid factor presence: without rheumatoid factor Qualified Code(s): M06.09 - Rheumatoid arthritis without rheumatoid factor, multiple sites (5) ORA (generalized anxiety disorder): Comment: Follow by psychiatry Dr. Valdez Code(s): F41.1 - Generalized anxiety disorder Category: Medical Plan - Increase amlodipine to 10 mg for better blood pressure control. - Initiate statin therapy for hypercholesterolemia. - Conduct electrocardiogram to evaluate chest pain. - Schedule a bone density scan for osteoporosis follow-up as her last scan was in March 2022. Patient was informed and verbally consented to the use of an ambient scribe for clinic note documentation during this visit. During today?s visit, I discussed with the patient the seriousness of maintaining controlled blood pressure and cholesterol levels to prevent cardiovascular events. I explained the necessity of gradually introducing changes, such as increasing amlodipine dosage before starting the statin to monitor potential side effects separately. The benefits of controlling cholesterol were emphasized, along with the need to avoid high-sodium foods to manage hypertension and overall cardiovascular risk. We also reviewed her history with osteoporosis medications, and she will be scheduled for a bone density scan to assess current status. Potential risks associated with uncontrolled hypertension, including heart attacks, were detailed, and the patient was advised to maintain regular follow-ups. Orders: Orders Influenza [id number] Immunization Today Z23 - Encounter for immunization XR DEXA axial skeleton Today Z78.0 - Asymptomatic menopausal state ECG 12 lead EKG Today R07.9 - Chest pain, unspecified Medications: New amlodipine 10 mg PO DAILY 90 days 90 tabs 1RF atorvastatin 20 mg PO BEDTIME 90 days 90 tabs 1RF E78.00 - Pure hypercholesterolemia, unspecified Discontinued amlodipine Discontinued Reason: Patient Completed Course 5 mg PO DAILY 14 tabs 0RF alendronate Stay upright for 30 minutes Discontinued Reason: Patient Completed Course 70 mg (75 mL) PO QWEEK 300 mL 2RF Patient Instructions: - Take the prescribed amlodipine 10 mg daily in the morning. - Begin statin therapy two weeks after starting new amlodipine dose. - Maintain a low-sodium diet to assist with blood pressure control. - Attend scheduled electrocardiogram and bone density scan appointments. - Report any worsening of symptoms, particularly chest pain or shortness of breath.
[2024-03-29 14:09] VITALS: BP 168/100; PULSE 74; O2SAT 100; BMI 35.7
--- OUTSIDE RECORDS SUMMARY | 2024-03-29 15:22 | XMS_ITS | Data Portability ---
Author Organization [facility] Vladimir barbour [facility] Address [address] [place] [address] Assessment Encounter Date Assessment Date Assessment LastModified by Organization Details LastModified Time 10/21/2020 10/21/2020 A&P Osteoporosis: Continue with Calcium 1200 mg daily and vitamin D 400 daily. Will obtain copy of Bone density scan that patient had at [facility] at time of Mammogram. Low back pain: Xray ordered at [facility]. Refer for PT. Reviewed use of ibuprophen 600-800 mg up to three times daily with food. Reviewed risks, indications, education. Apply warm packs 2-3 times daily as needed for comfort. Reviewed lifestyle modifications including healthy eating habits, daily exercise, sleep hygeine and stress coping skills. FU in 3 months Not available 10/21/2020 10:43:45 Plan of Treatment Reminders Order Date Submit Date Provider Last Modified By Organization Details Last Modified Time Details Appointments None record ed. Lab None record ed. Referral None record ed. Procedures None record ed. Surgeries None record ed. Imaging None record ed. Medication Orders None record ed. Patient TargetsNo targets recorded. Patient InstructionsNo instructions recorded. Reason for Referral None Reported. Problems Name Problem SNOMED Code Status Onset Date Resolution Date Notes Provider Name and Address Organization Details Recorded Time Osteoporosis 79859872 Active 2020 Josephine blunt [facility] 09:57:33 Gastroesophage al reflux disease 097063929 Active 2020 Josephine blunt [facility] 09:57:58 Generalized anxiety disorder 32817311 Active 2020 Josephine blunt [facility] 09:59:10 Problem Notes None recorded. Procedures Surgical History Date Name Laterality Status Provider Name and Address Organization Details Recorded Time 07/26/19 21 Most Recent Mammogram completed Josephine Knapp [facility] 10/21/2020 10:10:16 03/27/19 18 Date of Last Pap Smear completed Josephine Knapp [facility] 10/21/2020 10:07:48 03/27/19 15 uterine myomectomy completed Josephine Knapp [facility] 10/21/2020 10:05:40 03/27/19 14 Partial hysterectomy completed Josephine Knapp [facility] 10/21/2020 10:06:34 Imaging Results None recorded. Procedure Notes None recorded. Medical Equipment None Reported. Allergies No known drug allergies Medications Name Sig Start Date Stop Date Status Note LastModified by Organization Details LastModified Time omeprazole one capsule daily active Not Available Not Available No t Available Calcium 500 one tablet daily active Not Available Not Available No t Available Vitals Date Recorded Body height Heart rate Respiratory rate Body temperature Body mass index (BMI) Body weight Oxygen saturation Oxygen saturation in Arterial blood by Pulse oximetry Systolic blood pressure Diastolic blood pressure Provider Name and Address Organization Details Last Updated DateTime 162.56 cm 73 /min 18 /min 97.9 [degF] 33.6 kg/m2 38631.1 g 97 % 97 % 110 mm[Hg] 82 mm[Hg] Josephine brown [facility] 09:41:40 Social History Question Answer Notes LastModified by Organizat ion Details LastModified Time Tobacco Smoking Status Never Smoker Josephine Knapp [facility] 10/21/2020 10:03:31 Do You Have An Advance Directive? No Information not available 10/21/2020 What Is Your Level Of Alcohol Consumption? None Information not available 10/21/2020 Are You Blind Or Do You Have Difficulty Seeing? No Information not available 10/21/2020 Is Blood Transfusion Acceptable In An Emergency? Yes Information not available 10/21/2020 What Is Your Level Of Caffeine Consumption? Moderate One Cup Daily Information not available 10/21/2020 In The 14 Days Before Symptom Onset, Have You Had Close Contact With A Laboratory-confi rmed COVID-19 While That Case Was Ill? No Information not available 10/21/2020 In The 14 Days Before Symptom Onset, Have You Had Close Contact With A Person Who Is Under Investigation For COVID-19 While That Person Was Ill? No Information not available 10/21/2020 Have You Been To An Area Known To Be High Risk For COVID-19? No Information not available 10/21/2020 Are You Currently Employed? No Disability Information not available 10/21/2020 Are You Deaf Or Do You Have Serious Difficulty Hearing? No Information not available 10/21/2020 What Type Of Diet Are You Following? REGULAR Information not available 10/21/2020 Have You Processed Blood Or Body Fluids From An Ebola Virus Disease Patient Without Appropriate PPE? No Information not available 10/21/2020 Do You Reside In Or Have You Traveled To An Area Where Ebola Virus Transmission Is Active? No Information not available 10/21/2020 What Is The Highest Grade Or Level Of School You Have Completed Or The Highest Degree You Have Received? [id number] Information not available 10/21/2020 Which Of Your Hands Is Dominant? Right Information not available 10/21/2020 Have You Recently Or Are You Planning To Travel To An Area With Zika Virus? No Information not available 10/21/2020 What Was The Date Of Your Most Recent Tobacco Screening? 10/21/2020 Information not available 10/21/2020 How Many Children Do You Have? 2 Information not available 10/21/2020 What Is Your Relationship Status? Information not available 10/21/2020 Are You Sexually Active? No Information not available 10/21/2020 Do You Use Any Illicit Or Recreational Drugs? No Information not available 10/21/2020 Do You Or Have You Ever Used Any Other Forms Of Tobacco Or Nicotine? No Information not available 10/21/2020 Sex: Unknown Functional Status Question Answer Note LastModified by Organizat ion Details LastModified Time Do you have difficulty walking or climbing stairs? Yes pain in lower extremities occasional Information not available 10/21/2020 Are you able to walk? YESWOREST Information not available 10/21/2020 Do you have difficulty doing errands alone? No Information not available 10/21/2020 Are you able to care for yourself? Yes Information not available 10/21/2020 Do you have difficulty dressing or bathing? No Information not available 10/21/2020 What is your exercise level? Occasional walking Information not available 10/21/2020 Mental Status Question Answer Note LastModified by Organization D etails LastModified Time Do you have difficulty concentrating, remembering or making decisions? No Information no t available 10/21/2020 Family History Relationship Description Onset Age of this Age Resolved Age Notes LastModified by Organization Details LastModified Time Sister Lupus erythematosu s Not available 10:00:06 Maternal Aunt Suspected ovarian cancer pt unsure if vagina l vs ovaria n Not available 10/21/2020 10:00:56 Medical History Condition Response Obesity Y Arthritis Y Acid Reflux (GERD) Y Gynecological History Statement/Question Response STIs/STDs N Abnormal Pap N Date of Last Pap Smear 03/27/2017 Most Recent Mammogram 07/25/2020 Date of LMP Sexually Active? N Obstetrics History GPAL:G 2 P 2 0 0 2 Type Value Full Term 2 Living 2 Total 2 Immunizations Vaccine Type Date Status Note Provider Nam e and Address Organization Details Recorded Time tetanus toxoid, adsorbed 1 completed Josephine blunt [facility] 10/21/2020 09:56:30 SARS-COV-2 (COVID-19) vaccine, UNSPECIFIED 1 PAYAL Smith [facility] 10/21/2020 09:57:11 Influenza, split virus, quadrivalent, preservative 0 [facility]/2020 10:13:11 Past Encounters Encounter ID Performer Location Encounter Start Date Encounter Closed Date Diagnosis/Indication Diagnosis SNOMED-CT Code Diagnosis ICD10 Code [id number] Josephine Malone Main Office [address] [place] [address],[place] [address] 10/21/2020 09:36:20 10/21/2020 10:46:25 Active or passive immunization 310963709 Z23 Adult heal th examination 162180700 Z00.00 Screening for cardiovascular system disease 993311911 Z13.6 Screening for malignant neoplasm of colon 602766650 Z12.11 Screening mammography 24 944993 Z12.31 Lumbago with sciatica 20 6043621 M54.40 Health Concerns Section Related Observation LastModified by Organization Detai ls LastModified Time None Recorded Concern Status LastModified by Organization Details LastModified Time None Recorded Advance Directives Directive N: Payers Encounter Date Sequence Insurance Name Policy Number Policy Nugent Covered Member ID Nugent Member ID Guarantor Name 10/21/[address] [facility] Venus Hernandez [id number] Venus Hernandez 10/21/2020 2 MEDICARE [place] Venus Hernandez [id number] Venus Hernandez Notes Date Note Type Note Provider Name and Address Organization Details Recorded Time 10/21/2020 text/html Pt here today to establish care and for annual wellness visit. She also complains of low back and leg pain when walking Josephine blunt [place] - [facility] 10/21/2020 12:54:12 OBGyn Episode No OBEpisode recorded.
== END 2024-03-29 14:40 | disposition home or self-care (01) ==
PROVIDERS: PCP Internal Medicine; Visit Provider Internal Medicine
DX: R07.9 Chest pain, unspecified (principal); E78.00 Pure hypercholesterolemia, unspecified; F33.0 Major depressive disorder, recurrent, mild; M06.09 Rheumatoid arthritis without rheumatoid factor, multiple sites; F41.1 Generalized anxiety disorder; Z23 Encounter for immunization

== ENCOUNTER → 2024-03-29 13:53 | Outpatient (BNVA) | payer OTHER, SELFPAY | PROVIDERS: PCP Internal Medicine; Visit Provider Internal Medicine | DX: I10 Essential (primary) hypertension (principal); R07.9 Chest pain, unspecified; E66.812 Obesity, class 2; E78.00 Pure hypercholesterolemia, unspecified; F33.0 Major depressive disorder, recurrent, mild; M06.09 Rheumatoid arthritis without rheumatoid factor, multiple sites; F41.1 Generalized anxiety disorder; Z68.35 Body mass index [BMI] 35.0-35.9, adult; Z28.21 Immunization not carried out because of patient refusal | CPT/HCPCS: 90471; 96127; 99212 ==

== ENCOUNTER → 2024-04-24 08:50 | Outpatient (BNVA) | payer OTHER, SELFPAY | PROVIDERS: PCP Internal Medicine; Visit Provider Internal Medicine | DX: Z00.00 Encounter for general adult medical examination without abnormal findings (principal); E78.00 Pure hypercholesterolemia, unspecified; R00.2 Palpitations | CPT/HCPCS: 90471; 90715; 96127; 99212 ==

== ENCOUNTER → 2024-05-06 09:07 | Outpatient (BNV) | payer OTHER, SELFPAY | PROVIDERS: PCP Internal Medicine; Visit Provider Internal Medicine Cardiovascular Disease | DX: R00.2 Palpitations (principal) | CPT/HCPCS: 93010 ==

== ENCOUNTER → 2024-05-06 09:20 | Outpatient (REF) | payer OTHER, SELFPAY | LOC: HO.CARD 09:20 | PROVIDERS: PCP Internal Medicine; Visit Provider Internal Medicine | DX: R07.9 Chest pain, unspecified (principal); R00.2 Palpitations | CPT/HCPCS: 93005; 93225 ==

== ENCOUNTER 2024-05-07 08:51 | Outpatient (REF) | payer OTHER, SELFPAY ==
--- NOTE | ~2024-05-07 | MM_ITS ---
EXAMINATION: DXA BONE DENSITY AXIAL HISTORY: Estrogen deficiency TECHNIQUE: Trov Dual energy absorptiometry (DEXA) of the lumbar spine, total left hip, and femoral neck was performed. COMPARISON: Comparison is made with the prior examination dated 04/15/2022. FINDINGS: The bone mineral density of the lumbar spine is 0.746 with a T-score of -3.6, and a Z-score of -1.7. This represents a BMD change of -5.8% compared to the prior exam. This is statistically significant. The bone mineral density of the left total hip is 0.939 with a T-score of -0.5, and a Z-score of 1.0. This represents BMD change of 0.1% compared to the prior exam. This is not statistically significant. The bone mineral density of the left femoral neck is 0.855 with a T-score of -1.3, and a Z-score of 0.4. This represents BMD change of -0.1% compared to the prior exam. MM/XR DEXA axial skeleton IMPRESSION: Based on bone mineral density, and according to World Health Organization (WHO) criteria, the diagnosis is consistent with osteoporosis. All bone density values are in grams per centimeter squared (g/cm2). Statistically, 68% of repeat scans fall within 1 SD (+/- 0.010 g/cm2 for AP spine L1-L4) and 1 SD (+/- 0.012 g/cm2 for femur total) FRAX is a trademark of the [employer] [facility] [employer] [facility], a World Health Organization (WHO) Collaborating Center. Electronically signed by: Joel Rivera MD 05/07/2024 03:36 PM [facility]
== END 2024-05-07 08:52 | disposition home or self-care (01) ==
LOC: HO.MAMMO 08:51
PROVIDERS: PCP Internal Medicine; Visit Provider Internal Medicine
DX: Z13.820 Encounter for screening for osteoporosis (principal); Z78.0 Asymptomatic menopausal state
CPT/HCPCS: 77080

== ENCOUNTER → 2024-05-07 09:15 | Outpatient (BNV) | payer OTHER, SELFPAY | PROVIDERS: PCP Internal Medicine; Visit Provider Radiology Diagnostic Radiology | DX: E28.39 Other primary ovarian failure (principal) | CPT/HCPCS: 77080 ==

== ENCOUNTER 2024-07-23 14:02 | Outpatient (AMB) | payer OTHER, SELFPAY ==
[2024-07-23 14:12] VITALS: BP 140/78; PULSE 76; O2SAT 98; BMI 35.9
--- NOTE | 2024-07-23 14:12 | MHC.OFFVIS ---
Vital Signs 07/23/24 14:12 Height 5 ft Weight 184 lb 1.376 oz BMI 35.9 BP 140/78 H Blood Pressure Location Lt brachial Position Sitting Pulse 76 Pulse Source Pulse Oximeter Pulse Oximetry (%) 98 Oxygen Delivery Method Room Air Intake Visit Reasons: RA Intake Note: Patient presents for follow up on RA today, patient complains of left shoulder pain for 5 months. She states it goes up to her neck. Chief Specialist Leed Name: [id number] Kelby. Allergies etanercept [From Enbrel] Allergy (Verified 07/23/24 14:16) Rash hydroxychloroquine Adverse Reaction (Intermediate, Verified 07/23/24 14:16) GI upset sulfasalazine Adverse Reaction (Intermediate, Verified 07/23/24 14:16) gi upset Medication List - Last Reconciled 07/23/24 by Yanna Xie MD amlodipine 10 mg PO DAILY 90 days atorvastatin 20 mg PO BEDTIME 90 days clonazepam 0.5 mg PO BID PRN fluticasone propionate 50 mcg/actuation (Flonase Allergy Relief) 1 spray intranasal Q12H 30 days omeprazole 40 mg PO DAILY 90 days paroxetine HCl 10 mg PO QAM HPI Comments Details: Patient is a 68-year-old female with generalized anxiety disorder, GERD, hypertension, hyperlipidemia, osteoporosis, seronegative rheumatoid arthritis and polyarticular osteoarthritis here today for follow up Interval History: Patient last seen 01/29/[address] Cox. At that time she was doing reasonably well off of DMARDs. Today She continues to report she is doing well Complaining of left shoulder pain today, requesting an injection Rheumatologic History: Positive RUBY 1:80 homogeneous, 1:40 nuclear fine speckled Seronegative Dx 04/18 MTX couldn't be started due to transaminitis Enbrel 06/16-07/17 stopped due to local rash SSZ 11/16 partially effective DC due to GI uoset HCQ 02/2024 partially effective DC 07/2023 due to GI upset Off DMARDs since 07/2023 Initial history: This is a 66-year-old female with mild recurrent major depression and rheumatoid arthritis that comes for her physical exam. Depression stable with paroxetine and this is follow by Psychiatry. Rheumatoid arthritis is follow by Rheumatology and has not started methotrexate yet. No need for Pap smears due to hysterectomy. Mammogram is scheduled for 04/15/2022. Was refer for colonoscopy through open access and has not received it date yet. Last colonoscopy was 15 years ago. Complains of diffuse abdominal pain. Current Rheumatology Medication(s): [facility] Medical History RUBY positive Left ankle pain Chronic GERD HTN (hypertension) Surgical History Hx of esophagogastroduodenoscopy Hx of colonoscopy History of carpal tunnel surgery of left wrist Vocal cord anomaly History of partial hysterectomy Family History Mother Arthritis Father Prostate cancer Maternal Aunt Breast cancer Cervical cancer Sister SLE (systemic lupus erythematosus) Social History (Updated 04/24/24 @ 09:47 by Ruby Catalan MD) Household Members: Children Housing: House Are you a primary transition of care specialist to a significant other at home: No Do you presently have visiting nurse or other home services: No Alcohol intake: current Alcohol intake frequency: holidays/special occasions only Alcohol type: hard liquor Patient Tobacco Use Status: Former Tobacco user Tobacco use type: Cigarette e-Cigarette/Vaping Use: Never Used Second Hand Smoke Exposure: No service: No Current occupational status: retired and disabled 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 Cognitive needs: No Hearing needs: No Vision needs: Yes Review of Systems Const Details: Review of Systems Constitutional: Denies fever, chills, weight loss ENT: Denies vision changes, eye pain or eye redness, dental caries, dry mouth GI: Denies nausea, vomiting, diarrhea, abdominal pain, change in BM Pulm: Denies SOB, HYATT, hemoptysis, wheezing Cards: Denies chest pain, palpitations Skin: Denies Raynaud's, rash, nail changes, photosensitivity, NEPHROLOGIST: Denies headaches, weakness, paresthesias, recurrent falls MSK: as per HPI All other systems reviewed and are unremarkable except noted above Physical Exam Vital Signs: Last Vital Signs Pulse 76 07/23/24 14:12 BP 140/78 H 07/23/24 14:12 Pulse Ox 98 07/23/24 14:12 Oxygen Delivery Method Room Air 07/23/24 14:12 BMI result Body Mass Index 35.9 Vital signs reviewed Physical Examination CONSTITUITIONAL Patient alert and cooperative. Well appearing and in no apparent painful distress HEENT Conjunctiva and sclera clear. ?Pupils equal round and reactive to light. ?No lymphadenopathy. ? CHEST/RESPIRATORY SYSTEM Normal respiratory effort and able to speak in complete sentences. ?Clear to auscultation bilaterally. ?No crackles, rales, rhonchi, wheezes heard. CARDIAC SYSTEM Regular rate and rhythm. ?S1 and S2 heard no murmurs. ?Radial pulses intact bilaterally MSK Hands: ?Able to make a fist. No synovitis noted to the MCPs, PIPs or DIPs. ?No tenderness to palpation of these joints. Herbeden's nodes Wrists: ?Full range of motion at the wrists without pain. ?No tenderness to palpation or synovitis noted to the wrists. Elbows: Full range of motion without pain. No tenderness, weakness, swelling, increased warmth or erythema. Shoulders: Left shoulder decreased ROM 2/2 pain. RIght shoulder full active ROM Knees: ?Full range of motion. ?No tenderness, swelling, increased warmth or erythema.?Bilateral crepitations Ankles: Full range of motion. ?MIld swelling to the left ankle but no TTP Feet: ?Negative squeeze test. ?No tenderness to palpation or swelling of the MTPs. Tender points:?No tenderness to palpation of the bilateral trapezius, supraspinatus, greater trochanters, anterior costochondral junctions, bilateral gluteal areas, bilateral suboccipital muscle insertions SKIN Skin intact without rashes. Office Procedures AMB Joint Injection/Aspiration Joint Injection/Aspiration Details: Procedure was explained to the patient and consent was obtained. ? The area of interest was identified and confirmed with patient. ?This was subsequently cleaned with chlorhexidine x3. ? The area was then anesthetized using ethyl chloride spray. 40 mg Kenalog with 1 cc 1% lidocaine was injected without issue. ?Minimal to no bleeding. ?Patient tolerated procedure. Primary Site: left shoulder Prep: site was prepped using aseptic technique and ethochloride spray was applied Injected: 40 mg of, Kenalog, with 1 mL of, 1% plain lidocaine and in the subcromial space Procedure: The patient tolerated the procedure well Coding 93026 - Large joint Procedure code (CPT) selection complete Office Meds lidocaine (PF) 10 mg/mL (1 %) injection solution Performing Provider: Yanna Xie MD Performing Location: [facility] Administered by: Yanna Xie MD on 07/23/24 15:02 Dose Route Admin Location Dispensed Lot Number Expiration Date [facility] [employer] Work[employer] 1 mL Infiltration left shoulder 2 mL [id number] 05/25/26 80152-147-56 [facility] Kenalog 40 mg/mL suspension for injection Performing Provider: Yanna Xie MD Performing Location: [facility] Administered by: Yanna Xie MD on 07/23/24 15:02 Dose Route Admin Location Dispensed Lot Number Expiration Date [facility] [employer] 40 mg intra-articular left shoulder 1 mL [id number] 09/24/25 [address]-0 [employer] Results Reviewed Results Reviewed: Laboratory Tests 09/19/23 03/22/24 11:53 09:24 WBC 6.3 RBC 3.59 L Hgb 10.5 L Hct 32.1 L Plt Count 371 Sodium 140 Potassium 3.5 Chloride 104 Carbon Dioxide 28 BUN 17 H Creatinine 0.74 AST 22 ALT 19 Alkaline Phosphatase 100 C-Reactive Protein 0.32 DEXA 04/2024 FINDINGS: The bone mineral density of the lumbar spine is 0.746 with a T-score of -3.6, and a Z-score of -1.7. This represents a BMD change of -5.8% compared to the prior exam. This is statistically significant. The bone mineral density of the left total hip is 0.939 with a T-score of -0.5, and a Z-score of 1.0. This represents BMD change of 0.1% compared to the prior exam. This is not statistically significant. The bone mineral density of the left femoral neck is 0.855 with a T-score of -1.3, and a Z-score of 0.4. This represents BMD change of -0.1% compared to the prior exam. Assessment & Plan Assessment & Plan (1) Rheumatoid arthritis: Comment: Positive RUBY 1:80 homogeneous, 1:40 nuclear fine speckled Seronegative Dx 04/18 MTX couldn't be started due to transaminitis Enbrel 06/16-07/17 stopped due to local rash SSZ 11/16 partially effective DC due to GI uoset HCQ 02/2024 partially effective DC 07/2023 due to GI upset Code(s): M06.9 - Rheumatoid arthritis, unspecified Category: Medical Qualifiers: Rheumatoid arthritis location: multiple sites Rheumatoid factor presence: without rheumatoid factor Qualified Code(s): M06.09 - Rheumatoid arthritis without rheumatoid factor, multiple sites Plan: #Seronegative RA Patient is a 68-year-old female with seronegative rheumatoid arthritis currently in remission not on any DMARDs. We will continue to monitor off DMARDs. Plan - Monitor off DMARDs - RTC 6 months - Labs before visit: CBC, CMP, ESR, CRP (2) Osteoporosis without pathological fracture: Comment: DEXA 03/2022: AP Spine -3.3, Left femur neck -1.3, Left femur total -0.6 DEXA 04/2024: AP Spine -3.6, Left femur neck -1.3, Left femur total -0.5 Patient could not tolerate alendronate tablets or liquid form. She has history of hiatal hernia. Reclast was attempted , Medicare will cover 80% of the cost of the infusion, patient does not have a supplemental insurance and would not be able to pay the remaining 20%. Advised patient to take calcium and vitamin-D regularly Code(s): M81.0 - Age-related osteoporosis without current pathological fracture Category: Medical Plan: #Osteoporosis Patient with worsening osteoporosis when comparing the 2024 DEXA scan to 2022. Currently not on medications due to insurance limitations. Discussed starting Prolia but patient would prefer natural methods including weight-bearing exercises and vitamin-D supplementation. 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 Mild increased risk of infections due to RANKL on T helper cells, increased risk of hypocalcemia especially in CKD patients Keep vitamin-D at least 35 ng/mL Advised to delay non emergent dental procedures to toward the end of the 6 month cycle and if they plan to stop denosumab would need to continue antiresorptive to maintain the effects of denosumabe Plan I spent 36 minutes reviewing the record and labs, taking a history, examining the patient, discussing the treatment plan, ordering diagnostic work up and documenting in the medical record Orders: Orders Complete Blood Count Auto Diff 6 Months M06.09 - Rheumatoid arthritis without rheumatoid factor, multiple sites, M81.0 - Age-related osteoporosis without current pathological fracture Vitamin D 25-OH (D2 and D3) 6 Months E55.9 - Vitamin D deficiency, unspecified AMB Joint Injection/Aspiration Today M25.512 - Pain in left shoulder Comprehensive Met. Panel 6 Months M06.09 - Rheumatoid arthritis without rheumatoid factor, multiple sites, M81.0 - Age-related osteoporosis without current pathological fracture C Reactive Protein 6 Months M06.09 - Rheumatoid arthritis without rheumatoid factor, multiple sites, M81.0 - Age-related osteoporosis without current pathological fracture Erythrocyte Sedimentation Rate 6 Months M06.09 - Rheumatoid arthritis without rheumatoid factor, multiple sites, M81.0 - Age-related osteoporosis without current pathological fracture Medications: New cholecalciferol (vitamin D3) 50 mcg PO DAILY 90 caps 1RF E55.9 - Vitamin D deficiency, unspecified lidocaine (PF) 1 mL Infiltration ONCE 2 mL 0RF M25.512 - Pain in left shoulder Kenalog (triamcinolone acetonide) 40 mg intra-articular ONCE 1 mL 0RF NS M25.512 - Pain in left shoulder Coding Level of Care Code Est Pt Level 4 (43931) Complex EM visit Add On G2211 Diagnoses Rheumatoid arthritis of multiple sites with negative rheumatoid factor M06.09 Rheumatoid arthritis location: multiple sites Rheumatoid factor presence: without rheumatoid factor Osteoporosis without pathological fracture M81.0 Chronic left shoulder pain M25.512; G89.29 Chronicity: chronic Encounter for monitoring denosumab therapy Z51.81; Z79.620 CPT Codes Coding - 68965 Large joint: 36642 - Large joint ([id number])
--- OUTSIDE RECORDS SUMMARY | 2024-07-23 16:13 | XMS_ITS | Data Portability ---
Author Organization [facility] Vladimir barbour [facility] Address [address] [place] [id number] Assessment Encounter Date Assessment Date Assessment LastModified by Organization Details LastModified Time 10/21/2020 10/21/2020 A&P Osteoporosis: Continue with Calcium 1200 mg daily and vitamin D 400 daily. Will obtain copy of Bone density scan that patient had at [facility] at time of Mammogram. Low back pain: Xray ordered at [facility]. Refer for PT. Reviewed use [...] and Address Organization Details Recorded Time Osteoporosis 34994642 Active 2020 Josephine blunt [facility] 09:57:33 Gastroesophage al reflux disease 498392925 Active 2020 Josephine blunt [facility] 09:57:58 Generalized anxiety disorder 04883719 Active 2020 Josephine blunt [facility] 09:59:10 Problem Notes None recorded. Procedures Surgical History Date Name Laterality Status Provider Name and Address Organization Details Recorded Time 07/26/19 21 Most Recent Mammogram completed Josephine Knapp [facility] 10/21/2020 10:10:16 03/27/19 18 Date of Last Pap Smear completed Josephine Knapp [facility] 10/21/2020 10:07:48 03/27/19 15 uterine myomectomy completed Josephine Knapp [facility] 10/21/2020 10:05:40 03/27/19 14 Partial hysterectomy completed Josephine Knapp [facility] 10/21/2020 10:06:34 Imaging Results None recorded. [...] /min 18 /min 97.9 [degF] 33.6 kg/m2 97543.1 g 97 % 97 % 110 mm[Hg] 82 mm[Hg] Josephine brown [facility] 09:41:40 Social History Question Answer Notes LastModified by Organizat ion Details LastModified Time Tobacco Smoking Status Never Smoker Josephine Knapp [facility] 10/21/2020 10:03:31 Do You Have An Advance [...] Or The Highest Degree You Have Received? [id number] Information not available 10/21/2020 Which Of Your [...] 10:00:56 Medical History Condition Response Obesity Y Acid Reflux (GERD) Y Arthritis Y Gynecological History Statement/Question Response STIs/STDs N [...] tetanus toxoid, adsorbed 1 completed Josephine blunt [facility] 10/21/2020 09:56:30 SARS-COV-2 (COVID-19) vaccine, UNSPECIFIED 1 PAYAL Smith [facility] 10/21/2020 09:57:11 Influenza, split virus, quadrivalent, preservative 0 completed [facility]/21/2020 10:13:11 Past Encounters Encounter ID Performer Location Encounter Start Date Encounter Closed Date Diagnosis/Indication Diagnosis SNOMED-CT Code Diagnosis ICD10 Code Diagnosis Note [id number] Josephine Malone Main Office [address] [address],[place] [address] 10/21/2020 09:36:20 10/21/2020 10:46:25 Active or passive immunization 305369603 Z23 Adult heal th examination 877145536 Z00.00 Screening for cardiovascular system disease 755365165 Z13.6 Screening for malignant neoplasm of colon 522205288 Z12.11 Screening mammography 24 047068 Z12.31 Lumbago with sciatica 20 2052943 M54.40 Health Concerns Section Related Observation LastModified by Organization Detai ls LastModified Time None Recorded Concern Status LastModified by Organization Details LastModified Time None Recorded Advance Directives Directive N: Payers Encounter Date Sequence Insurance Name Policy Number Policy Nugent Covered Member ID Nugent Member ID Guarantor Name 10/21/2020 1 [facility] Venus Hernandez [id number] Venus Hernandez 10/21/2020 2 MEDICARE [place] Venus Hernandez [id number] Venus Hernandez Notes Date Note Type Note Provider Name and Address Organization Details Recorded Time 10/21/2020 text/html Pt here today to establish care and for annual wellness visit. She also complains of low back and leg pain when walking [facility] 10/21/2020 12:54:12 OBGyn Episode No OBEpisode recorded.
--- OUTSIDE RECORDS SUMMARY | 2024-07-23 16:14 | XMS_ITS | Data Portability ---
Author Organization [employer], Main Office Address [address] [address] Assessment Encounter Date Assessment Date Assessment LastModified by Organization Details LastModified Time 11/02/2020 11/02/2020 Patient presente d to office today for their Medicare Annual Wellness Visit. Education was provided on healthy nutrition, including a diet rich in fruits and vegetables, minimizing simple carbohydrates, salt, and saturated fats. Encouraged regular cardiovascular exercise such as walking at least 30 minutes daily, 5 times per week. Emphasized preventive health measures and educated pt on fall prevention and community-based lifestyle interventions to help reduce health risks and promote healthy living. [email or web address] Not available 11/02/2020 09:45:24 Plan of Treatment Reminders Order Date Submit Date Provider Last Modified By Organization Details Last Modified Time Details Appointments None recorded. Lab None recorded. Referral allergy referral - Magalys tobin por telefono 2020 021 [email or web address] Not available 09:02:14 Procedures None recorded. Surgeries None recorded. Imaging XR, sinuses [address] (Central Sched[facility]), [address] [place], [address], 17:43:41 bone density [address] ([facility]), [address] [place], [address], 08:55:31 Medication Orders Caltrate with Vitamin D3 600 mg-20 mcg (800 unit) tablet 2020 021 [facility], [address] [place], [address], 1 10:24:52 raloxifene 60 mg tablet 2020 [facility], [address] [place], [address], 1 10:24:53 Augmentin 875 mg-125 mg tablet 2020 [facility], [address] [place], [address], 09:34:01 montelukas t 10 mg tablet 2020 [facility] [place], [address], 1 12:09:17 cetirizine 10 mg tablet 2020 [facility] [address] [place], [address], 1 12:09:18 fluticason e propionate 50 mcg/actuat ion nasal spray,susp ension 2020 INTERFACE [facility], [address] [place], [address], 1 12:09:32 Zithromax Z-Rony 250 mg tablet 2020 INTERFACE [facility], [address] [place], [address], 12:09:19 Patient TargetsNo targets recorded. Patient Instructions Encounter Date Encounter Id Patient Instructions Last Modified By Organization Details Last Modified Time 10/05/2020 [id number] CPE lab rec [email or web address] Not available 02/2021 10:21:12 11/02/2020 [id number] advance care planning: care instructions [email or web address] Not available 11/02/2020 09:46:08 Discussed and explained advance directives such as standard forms to the {{patient* caregi agustin patient and caregiver}}. Face to face discussion lasted for a duration of _30__ minutes. [email or web address] Not available 11/02/2020 09:52:51 Reason for Referral Allergy Referral for Chronic sinusitis allergies/chronic sinusitis La felipe es por telefono Referring Physician: Richard Shields, Internal Medicine, Encounter Date: 06/30/2020 Results Created Date Observation Date Name Description Value Unit Range Abnormal Flag Note LastModifiedBy Organization Detail LastModifiedTime 09/16/19 21 09/14/2020 MAMMO , scree oanh, digit al, bilat eral No observ ation record ed. [facility] ([facility]iology) [address] [place], [address], 10/05/2020 10:17:56 09/18/19 21 09/14/2020 bone densi ty No observ ation record ed. [facility] ([facility]) [address] [place], [address], 10/05/2020 10:17:56 10/22/19 21 09/14/2020 MAMMO , scree oanh, digit al, bilat eral No observ ation record ed. [facility] ([facility]) [address] [place], [address], 11/02/2020 09:26:08 Result Notes None recorded. Problems Name Problem SNOMED Code Status Onset Date Resolution Date Notes Provider Name and Address Organization Details Recorded Time Vitamin D deficiency 07859698 Active 2019 ARTIS HUSRTRIAN [address], [place], [address] , [employer], [employer] 0 20:35:22 Gastroesop hageal reflux disease without esophagiti s 886106758 Active 2019 ARTIS BOO [address], [place], [address] , [employer] 0 20:35:23 Generalize d anxiety disorder 52798948 Active 2019 ARTIS HADDAD [address] [facility],[address], [place], [address] , [employer], [employer] 0 20:35:25 Pain of multiple joints 71024060 Active 2019 [employer] null, [place] [employer], [employer] 0 09:37:38 Fibromyalg ia 467272491 Active 2019 TERESA JI null, [place] [employer], [employer] 0 09:38:05 Obesity 943353783 Active 2019 Richard Shields, [address], [place], [address] , [employer], [employer] 0 10:13:33 Carpal tunnel syndrome of right wrist 1064645857491 08 Active 2019 post op Richard Shields, [address], [place], [address] , [employer], [employer] 0 10:13:50 Hysterecto my Active 2019 Richard Shields [address], [place], [address] , [employer], [employer] 0 10:14:31 Cordopexy of vocal cord Active 2019 x 20 yrs Richard Shields [address], [place], [address] , [employer], [employer] 0 10:16:11 Allergic rhinitis 16789258 Active 2019 Richard Shields [address], [place], [address] , [employer], [employer] 0 10:36:34 Chronic sinusitis 47620013 Active 2019 Richard Shields DO [address] [place] [address],[address], [place], [address] , [employer], [employer] 0 10:36:35 Ex-smoker 7851821 Active 2019 Richard Shields DO [address] [facility],[address], [place], [address] , [employer] 0 09:51:00 Impaired glucose tolerance 2882662 Active 2019 ANDRE BRISENO null, [place] [employer] 0 08:20:41 Esophagiti s 75043056 Active 2019 ANDRE FINN null, [place] [employer] 0 08:20:53 Sprain of left ankle 3527092190635 9105 Active 2020 ARTIS BOO [address] [facility] [address], [place], [address] , [employer] 1 20:54:04 Varicose veins of lower extremity 80553409 Active 2020 ARTIS BOO [address] [place] [address],[facility] [address], [place], [address] , [employer] 1 09:31:41 Osteoporos is 58389742 Active 2020 ARTIS BOO [address] [facility] [address], [place], [address] , [employer] 1 10:18:49 Problem Notes None recorded. Procedures Surgical History Date Name Laterality Status Provider Name and Address Organization Details Recorded Time Partial hysterectomy completed [employer] 09/20/2019 09:40:51 procedure on vocal cord completed [employer] 09/20/2019 09:41:15 Imaging Results Imaging Date Name Status LastModified by Organ atformerly [facility] Details LastModified Time 09/14/2020 MAMMO, screening, digital, bilateral completed [facility] ([facility]) [address] [place], [address], 10/05/2020 10:17:56 09/14/2020 bone density completed [facility] ([facility]) [address] [place], [address], 10/05/2020 10:17:56 09/14/2020 MAMMO, screening, digital, bilateral completed [facility] ([facility]) [address] [place], [address], 11/02/2020 09:26:08 Procedure Notes None recorded. Medical Equipment None Reported. Allergies No known drug allergies Medications Name Sig Start Date Stop Date Status Note LastModified by Organization Details LastModified Time paroxetine 10 mg tablet TAKE 12 TABLET BY MOUTH EVERY MORNING active Not Available Not Available No t Available cetirizine 10 mg tablet TAKE ONE TABLET BY MOUTH DAILY 2020 active Not Available Not Available Not Avai lable azithromyci n 250 mg tablet TAKE 2 TABLETS (500 MG) BY ORAL ROUTE ONCE DAILY FOR 1 DAY THEN 1 TABLET (250 MG) BY ORAL ROUTE ONCE DAILY FOR 4 DAYS active Not Available Not Available No t Available meloxicam 15 mg tablet TAKE ONE TABLET BY MOUTH DAILY active Not Available Not Available No t Available clonazepam 0.5 mg tablet TAKE 1-2 TABLETS AT BEDTIME DIRECTED active Not Available Not Available No t Available lidocaine-p rilocaine 2.5 %-2.5 % topical cream APPLY TO AFFECTED AREA TWICE A DAY DIRECTED active Not Available Not Available No t Available famotidine 20 mg tablet TAKE ONE TABLET BY MOUTH TWICE A DAY active Not Available Not Available No t Available clotrimazol e-betametha sone 1 %-0.05 % topical cream 2019 active Not Available Not Available Not Avai lable omeprazole 20 mg capsule,del ayed release TAKE ONE CAPSULE BY MOUTH DAILY DIRECTED 2020 active Not Available Not Available Not Avai lable raloxifene 60 mg tablet TAKE ONE TABLET BY MOUTH DAILY 2020 active Not Available Not Available Not Avai lable montelukast 10 mg tablet TAKE ONE TABLET BY MOUTH AT BEDTIME 2020 active Not Available Not Available Not Avai lable ergocalcife rol (vitamin D2) 1,250 mcg (50,000 unit) capsule Take 1 capsule every day by oral route for 90 days. 09/19 completed Not Available Not Available Not Available fluticasone propionate 50 mcg/actuati on nasal spray,suspe nsion ONE SPRAY IN EACH NOSTRIL DAILY DIRECTED 2020 active Not Available Not Available Not Avai lable amoxicillin 875 mg-potassiu m clavulanate 125 mg tablet TAKE ONE TABLET BY MOUTH EVERY TWELVE HOURS UNTIL FINISHED active Not Available Not Available No t Available Daily-Raysa tablet TAKE ONE TABLET BY MOUTH DAILY active Not Available Not Available No t Available Multiple Vitamin, Womens tablet Take 1 tablet every day by oral route. 2019 active Not Available Not Available Not Avai lable 8 Hour Pain Reliever 650 mg tablet,exte nded release TAKE TWO TABLETS BY MOUTH EVERY EIGHT HOURS NEEDED active Not Available Not Available No t Available calcium 600 mg (as carbonate)- vitamin D3 10 mcg (400 unit) tablet TAKE ONE TABLET BY MOUTH DAILY 2020 active Not Available Not Available Not Avai lable diclofenac 1 % topical gel APPLY 2 GRAMS TO AFFECTED AREA FOUR TIMES A DAY DIRECTED active Not Available Not Available No t Available Vitamin D3 50 mcg (2,000 unit) tablet Take 1 tablet every day by oral route for 90 days. 06/02 completed Not Available Not Available Not Available Vitamin D3 50 mcg (2,000 unit) capsule TAKE ONE CAPSULE BY MOUTH DAILY 2020 active Not Available Not Available Not Avai lable Caltrate with Vitamin D3 600 mg-20 mcg (800 unit) tablet Take 1 tablet every day by oral route. 2020 active Not Available Not Available Not Avai lable Shingrix (PF) 50 mcg/0.5 mL intramuscul ar suspension, kit 06/02 completed Not Available Not Available Not Available Fluzone Quad (PF) 60 mcg (15 mcg x 4)/0.5 mL IM syringe ADM 0.5ML IM UTD 06/02 completed Not Available Not Available Not Available Vitals None Recorded Social History Question Answer Notes LastModified by Organizat ion Details LastModified Time Tobacco Smoking Status Former Smoker TERESA blunt [place] - [employer] 09/20/2019 09:38:58 Do You Have An Advance Directive? No Information not available 09/20/2019 What Is Your Level Of Alcohol Consumption? Occasional Information not available 09/20/2019 What Is Your Level Of Caffeine Consumption? Moderate Information not available 09/20/2019 How Much Tobacco Do You Chew? None Information not available 09/20/2019 Are You Currently Employed? No Information not available 09/20/2019 What Type Of Diet Are You Following? REGULAR Information not available 09/20/2019 Which Illicit Or Recreational Drugs Have You Used? No Information not available 09/20/2019 Do You Or Have You Ever Used E-cigarettes Or Vape? Never Used Electronic Cigarettes Information not available 09/20/2019 Education Less Than 8th Grade Information not available 09/20/2019 Hard Of Hearing Or Deaf In One Or Both Ears? No Information not available 09/20/2019 Legally Blind In One Or Both Eyes? No Information not available 09/20/2019 Live Alone Or With Others? With Others Son Information not available 09/20/2019 What Was The Date Of Your Most Recent Tobacco Screening? 09/20/2019 Information not available 09/20/2019 How Many Children Do You Have? 2 Information not available 09/20/2019 Performs Monthly Self-breast Exam? Yes Information not available 09/20/2019 Seat Belts Used Routinely Yes Information not available 09/20/2019 Are You Sexually Active? No Information not available 09/20/2019 Smoke Alarm In Home Yes Information not available 09/20/2019 Do You Or Have You Ever Used Smokeless Tobacco? Never Used Smokeless Tobacco Information not available 09/20/2019 How Much Tobacco Do You Smoke? 0.5 PPD Information not available 09/20/2019 General Stress Level Low Information not available 09/20/2019 Do You Use Sunscreen Routinely? Yes Information not available 09/20/2019 On What Date Was Tobacco Cessation Counseling Provided? 09/20/2019 Information not available 09/20/2019 How Many Years Have You Smoked Tobacco? 0 Occ Smoker- Former Information not available 09/20/2019 Sex: Unknown Functional Status Question Answer Note LastModified by Organization D etails LastModified Time Are you able to walk? YESWOREST Information not available 09/20/2019 Are you able to care for yourself? Yes Information not available 09/20/2019 What is your exercise level? None Information not available 09/20/2019 Mental Status None recorded. Family History Relationship Description Onset Age of this Age Resolved Age Notes LastModified by Organization Details LastModified Time Mother Arthritis living Not availab le 09/20/2019 09:38:21 Father Carcinoma of prostate deceas ed 60 Not available 09/20/2019 09:38:46 Medical History Condition Response Coronary Artery Disease N Other N Gout N Blood Diseases N Kidney Stones N Hyperthyroidism N Blood Transfusion N Breast Cancer N Lung Disease N COPD N Depression N Hypothyroidism N Defects or Inherited Disease N Developmental or Behavioral Disorders N Breast Problem N Difficulty Swallowing N Anesthesia Complications N Meniere's disease N Anxiety Disorder N Muscle, Joint, or Bone Problems Y Obesity Y Vision or Eye Problems N Arthritis N Polyps N Infertility N Mental Disorder N Cancer N Stroke N Varicosities N Endometriosis N Bladder or Kidney Problems N High Cholesterol N Liver Disease N Fibromyalgia Y Headaches N Kidney Disease N Allergies/Hayfever N Heart Problems N Ear or Hearing Problems N Hospitalizations N Thyroid Problems N GI Problems N ADD/ADHD N Eating Disorder N Skin Problems N Anemia N MRSA exposure N Constipation N Mental Illness N Diabetes N Ovarian Cancer N Bedwetting N Seizures/Epilepsy N Tuberculosis N AIDS/HIV N Congestive Heart Failure (CHF) N Eczema N Abuse/Domestic Violence N Diverticulitis N Asthma N Reflux/GERD N Hepatitis N Heart Disease N Pulmonary Embolism N Chronic Ear Infections N Pre-Eclampsia N Hypertension N Chicken Pox N Autism Spectrum Disorder (ASD) N Osteoporosis N Thrombophilias N Gynecological History Statement/Question Response Date of Last Mammogram Date of LMP HPV Vaccine N Current Control Method Hysterectom y Most Recent Mammogram Age at Menarche 15 Age at First Child 25 If Post Menopausal, Age at Menopause 51 Date of Last Colonoscopy Most Recent Bone Density Menses Monthly N Date of Last Pap Smear Desired Control Method N/A LMP Unknown Obstetrics History GPAL:G 2 P 0 0 0 2 Type Value Living 2 Total 2 Immunizations Vaccine Type Date Status Note Provider Nam e and Address Organization Details Recorded Time Tdap 3 completed TERESA blunt [place] - [employer] 09/19/2019 16:44:58 pneumococcal polysaccharide PPV23 6 completed TERESA blunt [place] - [facility] 09/19/2019 16:45:11 Past Encounters Encounter ID Performer Location Encounter Start Date Encounter Closed Date Diagnosis/Indication Diagnosis SNOMED-CT Code Diagnosis ICD10 Code Diagnosis Note [id number] Richard Shields [address] [address] [place] [address] 09/20/2019 09:05:38 09/20/2019 10:36:47 Vitamin D deficiency 40066095 E55.9 D3 Gastroesop hageal reflux disease without esophagitis 436814165 K21.9 d/c omep 20 Generalize d anxiety disorder 23238082 F41.1 no si/hi parox 10, clonazepam New patien t screening done 263747954 Z76.89 labs-p Viral screening 55862632 4 Z11.59 labs-p Carpal moreno salome syndrome of right wrist 8285841991 87471 G56.01 remote post op Fibromyalgia 762006158 M 79.7 pain/Psych mngt Pain of mu ltiple joints 08046492 M25.50 Obesity 703515768 E66.9 diet and exercise Chronic sinusitis 297615 00 J32.9 Allergic rhinitis 412882 04 J30.9 rast [id number] Richard Shields [facility] [address] [place] [address] 11/01/2019 07:58:27 11/01/2019 10:03:27 Screening for malignant neoplasm of colon 670052894 Z12.11 Adult heal th examination 647334745 Z00.01 normal cpe labs reviewed Screening mammography 24 630701 Z12.31 Screening for osteoporosis 880103640 Z13.820 Screening for cardiovascular system disease 620298517 Z13.6 Active or passive immunization 426758792 Z23 Impaired g lucose tolerance 3123019 R73.02 NCS diet HBA1c 5.7 7/20 Gastroesop hageal reflux disease without esophagitis 661191847 K21.9 omep 20 Vitamin D deficiency 347 83362 E55.9 D3 Generalize d anxiety disorder 85394752 F41.1 no si/hi parox 10, clonazepam Carpal moreno salome syndrome of right wrist 5720662396 67136 G56.01 remote post op Fibromyalgia 298203498 M 79.7 pain/Psych mngt Pain of mu ltiple joints 10951561 M25.50 Obesity 212108119 E66.9 diet and exercise [id number] Richard Shields, [facility] [address] [place] [address] 12/13/2019 09:42:37 12/13/2019 11:37:28 Gastroesophageal reflux disease without esophagitis 198558421 K21.9 omep 20 Generalize d anxiety disorder 53888727 F41.1 no si/hi parox 10, clonazepam Allergic rhinitis 177320 04 J30.9 rast Vitamin D deficiency 347 74906 E55.9 D3 Active or passive immunization 836926385 Z23 Impaired g lucose tolerance 8534436 R73.02 NCS diet HBA1c 5.7 7/20 Carpal moreno salome syndrome of right wrist 2774809666 32621 G56.01 remote post op Fibromyalgia 523141361 M 79.7 pain/Psych mngt Pain of mu ltiple joints 90370208 M25.50 Obesity 756535092 E66.9 diet and exercise Varicose v eins of lower extremity 83079863 I83.92 Sprain of left ankle 773 7566135 7941119 S93.402D brace-p [id number] ARTIS HADDAD [address] [place] [address] 06/02/2020 11:55:01 06/02/2020 12:07:54 Impaired glucose tolerance 1251881 R73.02 NCS diet HBA1c 5.7 720 Gastroesop hageal reflux disease without esophagitis 631399796 K21.9 omep 20, famot Generalize d anxiety disorder 96429329 F41.1 no si/hi parox 10, clonazepam Allergic rhinitis 984392 04 J30.9 rast neg 2020 dilan, cetir, flutic Vitamin D deficiency 347 79999 E55.9 D3 Carpal moreno salome syndrome of right wrist 2572680303 93881 G56.01 remote post op Fibromyalgia 720121078 M 79.7 pain/Psych mngt Pain of mu ltiple joints 21492727 M25.50 mapap, melox, pain gel Obesity 884169930 E66.9 diet and exercise Varicose v eins of lower extremity 75860058 I83.92 pain cream Sprain of left ankle 516 6653672 0839676 S93.402D brace-p resolved Chronic sinusitis 975409 00 J32.9 zpack, allergy meds prescribed Screening for osteoporosis 157185197 Z13.820 -p [id number] [facility] [address] [place] [address] 06/30/2020 09:27:53 06/30/2020 09:33:57 Chronic sinusitis 57964428 J32.9 zpack, allergy meds prescribed - not improved [facility]- p Sinus XR-p Augmentin Impaired g lucose tolerance 0261622 R73.02 NCS diet HBA1c 5.7 10/13 recheck-p Gastroesop hageal reflux disease without esophagitis 117599754 K21.9 omep 20, famot Generalize d anxiety disorder 52251638 F41.1 no si/hi parox 10, clonazepam Allergic rhinitis 368317 04 J30.9 rast neg 2020 dilan, cetir, flutic Vitamin D deficiency 347 42754 E55.9 D3 Carpal moreno salome syndrome of right wrist 2037674278 14528 G56.01 remote post op Fibromyalgia 845835783 M 79.7 pain/Psych mngt Pain of mu ltiple joints 41390185 M25.50 mapap, melox, pain gel Obesity 609099366 E66.9 diet and exercise Varicose v eins of lower extremity 31073463 I83.92 pain cream [id number] [facility] [address] [place] [address] 08/20/2020 11:55:28 08/20/2020 15:27:02 Allergic rhinitis 77285295 J30.9 rast neg 2020 dilan, cetir, flutic Chronic sinusitis 044841 00 J32.9 zpack, allergy meds prescribed - not improved [facility] 11/04/20 Sinus XR-p Augmentin Impaired g lucose tolerance 6180249 R73.02 NCS diet HBA1c 5.7 7 recheck-p Gastroesop hageal reflux disease without esophagitis 073091984 K21.9 omep 20, famot Generalize d anxiety disorder 83265000 F41.1 no si/hi parox 10, clonazepam Vitamin D deficiency 347 37719 E55.9 D3 Carpal moreno salome syndrome of right wrist 5848820427 60251 G56.01 remote post op Fibromyalgia 276364542 M 79.7 pain/Psych mngt Pain of mu ltiple joints 87458401 M25.50 mapap, melox, pain gel Obesity 107320879 E66.9 diet and exercise Varicose v eins of lower extremity 99557215 I83.92 pain cream [id number] ARTIS BOO [facility] [address] [place] [address] 10/05/2020 09:56:53 10/05/2020 10:23:01 Gastroesophageal reflux disease without esophagitis 884130227 K21.9 omep 20, famot Allergic rhinitis 921411 04 J30.9 rast neg 2020 dilan, cetir, flutic Chronic sinusitis 867784 00 J32.9 chavo, allergy meds prescribed - not improved [facility] 11/04/20 Sinus XR- did not get Augmentini mproved Impaired g lucose tolerance 2281990 R73.02 NCS diet HBA1c 5.7 10/1338TQA5k 5.8 09/16/20 Generalize d anxiety disorder 57057522 F41.1 no si/hi parox 10, clonazepam Vitamin D deficiency 347 89753 E55.9 D3 Carpal moreno salome syndrome of right wrist 1978327749 72578 G56.01 remote post op Fibromyalgia 894502287 M 79.7 pain/Psych mngt Pain of mu ltiple joints 23278598 M25.50 mapap, melox, pain gel Obesity 454214661 E66.9 diet and exercise Varicose v eins of lower extremity 93201923 I83.92 pain cream Osteoporosis 63822768 M8 1.0 ralox, ca/vit d [id number] ARTIS BOO [place] [address] [place] [address] 11/02/2020 09:24:40 11/02/2020 09:54:10 Osteoporosis 56054055 M81.0 ralox, ca/vit d Gastroesop hageal reflux disease without esophagitis 089138609 K21.9 omep 20, famot Allergic rhinitis 366950 04 J30.9 rast neg 2020 dilan, cetir, flutic Chronic sinusitis 892457 00 J32.9 zpack, allergy meds prescribed - not improved [facility] service center 11/04/20 Sinus XR- did not get Augmentini mproved Impaired g lucose tolerance 4674349 R73.02 NCS diet HBA1c 5.7 10/1398YUR0t 5.8 09/16/20 Generalize d anxiety disorder 92182361 F41.1 no si/hi parox 10, clonazepam Vitamin D deficiency 347 31855 E55.9 D3 Carpal moreno salome syndrome of right wrist 7981925392 29485 G56.01 remote post op Fibromyalgia 437131811 M 79.7 pain/Psych mngt Pain of mu ltiple joints 69172463 M25.50 mapap, melox, pain gel Obesity 591893629 E66.9 diet and exercise Varicose v eins of lower extremity 22213185 I83.92 pain cream Screening for malignant neoplasm of colon 274449336 Z12.11 -Colonosco py: 2009 , had to reschedule due to covid-pt to go to [facility] to schedule-p Adult heal th examination 376750182 Z00.01 normal cpe labs -p Screening mammography 24 696070 Z12.31 09/14/20 nml Screening for osteoporosis 051895875 Z13.820 -DEXA: 09/14/20 osteoporos is Screening for malignant neoplasm of cervix 538737311 Z12.4 ODALIS 2011 Active or passive immunization 436752817 Z23 -p (mailed to home) Health Concerns Section Related Observation LastModified by Organization Detai ls LastModified Time None Recorded Concern Status LastModified by Organization Details LastModified Time None Recorded Advance Directives Directive N: Payers Encounter Date Sequence Insurance Name Policy Number Policy Nugent Covered Member ID Nugent Member ID Guarantor Name 06/02/2020 1 [facility] - DOS PRIOR TO 2022 - DUAL ELIGIBLE (MEDICARE REPLACEMENT/AD VANTAGE - HMO) Venus Hernandez [id number] Venus Hernandez 06/30/2020 1 [facility] [facility] - DOS PRIOR TO 2022 - DUAL ELIGIBLE (MEDICARE REPLACEMENT/AD VANTAGE - HMO) Venus Hernandez [id number] Venus Hernandez 08/20/2020 1 [facility] DOS PRIOR TO 2022 - DUAL ELIGIBLE (MEDICARE REPLACEMENT/AD VANTAGE - HMO) Venus Hernandez [id number] Venus Hernandez 10/05/2020 1 [facility] - DOS PRIOR TO 2022 - DUAL ELIGIBLE (MEDICARE REPLACEMENT/AD VANTAGE - HMO) Venus Hernandez [id number] Venus Hernandez 11/02/2020 1 [facility] - DOS PRIOR TO 2022 - DUAL ELIGIBLE (MEDICARE REPLACEMENT/AD VANTAGE - HMO) Venus Hernandez [id number] Venus Hernandez Notes Date Note Type Note Provider Name and Address Organization Details Recorded Time 06/02/2020 text/html 64 yo female pre sents for fu- telemed -camera not functioning sinus infections usually 1 x year- using OTC allergy meds and c/o facial pain, sinus pain, no fever IGT- stable GERD- on PPI Anxiety- stable Alleriges- taking meds Vit D def- on suppl Chronic sinusitis- + flare VV- pain cream ARTIS BOO [address] [place] [address],[address], [address], [employer] 06/02/2020 12:06:43 06/30/2020 text/html 64 yo female pre sents for fu- telemed -camera not working Still has a lot of congestion Needs IGT labs Sinusitis- ? improved- no IGT- stable GERD- on PPI Anxiety- stable Alleriges- taking meds Vit D def- on suppl Chronic sinusitis- + flare- persistent VV- pain cream ARTIS BOO [address] [facility],[address] 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 Sinusitis- ongoing IGT- stable GERD- on PPI Anxiety- stable Alleriges- taking meds Vit D def- on suppl Chronic sinusitis- + flare- persistent VV- pain cream ARTIS BOO [address] [facility],[address], [place], [address], [facility] [employer] 08/20/2020 15:26:55 10/05/2020 text/html 64 yo female pre sents for fu- telemed-camera not working Due for CPE 10/2020 DEXA- osteoporisisMammo- nmlLabs reviewed??sinus xrayAllergist- 11/04/20Sinusitis- ongoingIGT- stableGERD- on PPIAnxiety- stableAlleriges- taking medsVit D def- on supplChronic sinusitis- + flare- persistentVV- pain cream ARTIS BOO [address] [facility],[address], [place], [address], [facility] [employer] 10/05/2020 10:23:39 11/02/2020 text/html Medicare Annual Wellness VisitReported bypatient.Diet and Nutrition:healthy diet Fracture Risk:no history of fractures; no recent explained fracture; no sudden unexplained fractures; no previous musculoskeletal injuries Physical Activity:exercises on a regular basis; recent increase in physical activity; good physical condition Depression Risk:never feels sad, empty, or tearful; no loss of interest in activities; no significant changes in weight; no sleep disturbances or insomnia; no agitation; no loss of energy; no feelings of worthlessness or guilt; no thoughts of suicide; no history of depression; no history of mood disorders Orientation:no disorientation to time; no disorientation to date; no disorientation to place Concentration and Memory:no decreased concentrating ability; no memory lapses or loss; does not forget words Speech/Motor difficulties:no speech difficulties; no difficulty expressing formulated concepts; no difficulty with fine manipulative tasks; no difficulty writing/copying; no slowed reaction time; does not knock things over when trying to pick them up Hearing:no loss of hearing Vision:no vision problems Activities of Daily Living:able to bathe with limited or no assistance; able to contol urination and bowels; able to dress with limited or no assistance; able to feed self with limited or no assistance; able to get out of chair or bed with limited or no assistance; able to groom with limited or no assistance; able to toilet with limited or no assistance Instrumental Activities of Daily Living:able to do house work with limited or no assistance; able to grocery shop with limited or no assistance; able to manage medications with limited or no assistance; able to manage money with limited or no assistance; able to prepare meals with limited or no assistance; able to use the phone with limited or no assistance Falls Risk Assessment:no frequent falls while walking; no fall in the past year; no fall since last visit; no dizziness/vertigo Home Safety:no unsafe yue hazzards; no unsafe stairs; no unsafe gas appliances; working smoke/CO detectors; wears protective head gear for biking/high velocity; use of seatbelts; practicing 'safer sex'; no vision or hearing loss while driving; no fire arms; has hand bars in the bathroom/shower; good lighting in the home 64 yo [facility]-p -Vacc-p-PAP ODALIS 2012-DEXA: 09/14/20 osteoporosis-Mammo: nml-Colonoscopy:2009 , had to reschedule due to caitlin HADDAD [address] [facility],[address], [place], [address], [employer] 11/02/2020 09:53:38 OBGyn Episode No OBEpisode recorded.
== END 2024-07-23 15:11 | disposition home or self-care (01) ==
PROVIDERS: PCP Internal Medicine; Visit Provider Student in an Organized Health Care Education/Training Program
DX: M06.09 Rheumatoid arthritis without rheumatoid factor, multiple sites (principal); M81.0 Age-related osteoporosis without current pathological fracture; M25.512 Pain in left shoulder; G89.29 Other chronic pain; Z51.81 Encounter for therapeutic drug level monitoring; Z79.620 Long term (current) use of immunosuppressive biologic
CPT/HCPCS: 20610; 99214

== ENCOUNTER → 2024-07-23 14:02 | Outpatient (BNVA) | payer OTHER, SELFPAY | PROVIDERS: PCP Internal Medicine; Visit Provider Student in an Organized Health Care Education/Training Program | DX: M06.09 Rheumatoid arthritis without rheumatoid factor, multiple sites (principal); M81.0 Age-related osteoporosis without current pathological fracture; M25.512 Pain in left shoulder; G89.29 Other chronic pain; Z51.81 Encounter for therapeutic drug level monitoring; Z79.620 Long term (current) use of immunosuppressive biologic | CPT/HCPCS: 20610; 99212; J3300 ==

== ENCOUNTER 2024-10-22 09:43 | Outpatient (AMB) | payer OTHER, SELFPAY ==
[2024-10-22 09:52] VITALS: BP 118/80; PULSE 74; O2SAT 97; BMI 36.0
--- NOTE | 2024-10-22 09:52 | MHC.PC.OV ---
Vital Signs 10/22/24 09:52 Height 5 ft Weight 184 lb 4 oz BMI 36.0 BP 118/80 Blood Pressure Location Lt brachial Position Sitting Pulse 74 Pulse Source Pulse Oximeter Pulse Oximetry (%) 97 Oxygen Delivery Method Room Air Intake Visit Reasons: depression Electric Switch Repairer Required: No Accompanied by: Self / Same As Patient Allergies etanercept (From Enbrel) Allergy (Verified 10/22/24 10:05) Rash hydroxychloroquine Adverse Reaction (Intermediate, Verified 10/22/24 10:05) GI upset sulfasalazine Adverse Reaction (Intermediate, Verified 10/22/24 10:05) gi upset Medication List - Last Reconciled 10/22/24 by Colleen Catalan MD amlodipine 10 mg PO DAILY 90 days atorvastatin 20 mg PO BEDTIME 90 days cholecalciferol (vitamin D3) 50 mcg PO DAILY clonazepam 0.5 mg PO BID PRN fluticasone propionate 50 mcg/actuation (Flonase Allergy Relief) 1 spray intranasal Q12H 30 days omeprazole 40 mg PO DAILY 90 days paroxetine HCl 10 mg PO QAM Tobacco use date assessed: 10/22/24 Fall risk assessment: No Falls in past year Last assessed Fall Risk: 10/22/24 Dental Screening Dental Screen Date: 10/22/24 Did you have a dental visit in the last 12 months?: Yes Did you have a dental problem in the last 6 months where you did not have access to dental care?: No Was dental information given to patient?: Patient has dentist HPI HPI Comments History of Present Illness Details The patient is a 68-year-old female presenting for follow-up of her chronic conditions including rheumatoid arthritis, osteoporosis, depression, and hyperlipidemia. Rheumatoid arthritis has been managed with medications such as Enbrel, which caused a rash, and Plaquenil and sulfasalazine, which caused gastrointestinal upset. The patient is currently under the care of a medical photographer, Raymond Xie, who prescribes Arby and turmeric pills, and administers injections as needed for joint pain. Osteoporosis was diagnosed following a bone densitometry in April, and Prolia injections were recommended every six months, although the patient declined due to concerns about side effects. Depression is being treated with paroxetine, and the patient has a PHQ-9 score of 13, indicating moderate depression. Clonazepam is used as needed for anxiety, prescribed by a psychiatrist. Hyperlipidemia is managed with atorvastatin 20 mg daily. The patient was advised to receive a pneumococcal vaccine, as the previous vaccination was administered before the age of 66. [facility] Medical History (Updated 10/22/24 @ 10:14 by Colleen Catalan MD) Mild recurrent major depression COLLEEN positive Left ankle pain Chronic GERD HTN (hypertension) Surgical History Hx of esophagogastroduodenoscopy Hx of colonoscopy History of carpal tunnel surgery of left wrist Vocal cord anomaly History of partial hysterectomy Family History Mother Arthritis Father Prostate cancer Maternal Aunt Breast cancer Cervical cancer Sister SLE (systemic lupus erythematosus) Social History Household Members: Children Housing: House Are you a primary adult care manager to a significant other at home: No Do you presently have visiting nurse or other home services: No Alcohol intake: current Alcohol intake frequency: holidays/special occasions only Alcohol type: hard liquor Patient Tobacco Use Status: Former Tobacco user Tobacco use type: Cigarette e-Cigarette/Vaping Use: Never Used Second Hand Smoke Exposure: No service: No Current occupational status: retired and disabled 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 1. Little interest or pleasure in doing things: more than half the days 2. Feeling down, depressed, or hopeless: several days 3. Trouble falling or staying asleep, or sleeping too much: several days 4. Feeling tired or having little energy: more than half the days 5. Poor appetite or overeating: more than half the days 6. Feeling bad about yourself - or that you are a failure or have let yourself or your family down: more than half the days 7. Trouble concentrating on things, such as reading the newspaper or watching television: nearly every day 8. Moving or speaking so slowly that other people could have noticed. Or the opposite - being so fidgety or restless that you have been moving around a lot more than usual: not at all 9. Thoughts that you would be better off or of hurting yourself in some way: not at all Total score: 13 Depression Screening Interpretation: Positive Depression Screening Follow-up: Existing condition, In treatment, Community Mental Health Worker F/U and Follow-up Visit Requested Depression Screening Done: Yes 87001 - PHQ-9 Billing: Yes Source: Developed by Drs. Joel Hernandez, Tracey Benton, Henry Wells and colleagues, with an educational kenneth from [employer]. Thrive Questionnaire Date Thrive assessed: 10/22/24 I am a: Patient What is your living situation today?: I have a steady place to live Within the past 12 months, did the food you bought not last and you didn't have the money to get more?: Never true Within the past 12 months, did you worry whether your food would run out before you got money to buy more?: Never true Do you have trouble paying for medicines?: No Do you have trouble getting transportation to medical appointments?: No Do you have trouble paying your heating and electricity bill?: No Do you have trouble taking care of your child, family member or friend?: No Do you have trouble with day-to-day activities such as bathing, preparing meals, shopping, managing finances, etc.?: No Are you currently unemployed and looking for a job?: No Are you interested in more education?: No Please select the resources that you would like help with: None Currently or been in a relationship where the following occur: No concerns reported THRIVE Score: 0 AUDIT C Alcohol Use Questionnaire (AUDIT-C) 1. How often do you have a drink containing alcohol?: Monthly or less 2. How many drinks containing alcohol do you have on a typical day when you are drinking?: 1 or 2 3. How often do you have six or more drinks on one occasion?: Never Total Score: 1 Score Reviewed/Action Taken: No ORA-7 AMB Questionnaire ORA-7 Date ORA - 7 assessed: 10/22/24 Feeling nervous, anxious, or on edge: 1 = Several days Not being able to stop or control worryin = Not at all Worrying too much about different things: 1 = Several days Trouble relaxin = Several days Being so restless that it is hard to sit still: 0 = Not at all Becoming easily annoyed or irritable: 1 = Several days Feeling afraid as if something awful might happen: 1 = Several days Total ORA-7 score (0-4 normal; 5-9 mild; 10-14 moderate; 15-21 severe): 5 Source: Developed by Drs. Joel Hernandez, Tracey Benton, Henry Wells and colleagues, with an educational kenneth from [employer]. ORA-7 Assessment Billing ORA-7 Assessment Tool: ORA-7 Assessment 84813 Review of Systems Const All systems reviewed & are unremarkable except as noted in HPI and below Card Denies chest pain at rest, Denies chest pain with activity, Denies edema, Denies irregular heart rhythm, Denies claudication, Denies dyspnea, Denies dyspnea on exertion, Denies orthopnea, Denies paroxysmal nocturnal dyspnea and Denies slow heart rate Resp Denies cough, Denies dyspnea and Denies dyspnea on exertion GI Denies abdominal pain, Denies change in bowel habits, Denies excessive flatus, Denies nausea and Denies vomiting Denies urinary incontinence, Denies urinary hesitancy and Denies urinary urgency Musc Denies atrophy, Denies deformity and Denies limited range of motion Physical exam (Primary Care) Vital Signs: Last Vital Signs Pulse 74 10/22/24 09:52 BP 118/80 10/22/24 09:52 Pulse Ox 97 10/22/24 09:52 Oxygen Delivery Method Room Air 10/22/24 09:52 BMI result Body Mass Index 36.0 BMI Assessment/Plan discussion: High BMI High, discussed plan: lifestyle, weight reduction, dietary and physical activity Tobacco/Smoking Status: Tobacco use Status Tobacco use date assessed 10/22/24 10/22/24 09:57 Patient Tobacco Use Status Former Tobacco user 10/22/24 09:57 Tobacco use type Cigarette 10/22/24 09:57 e-Cigarette/Vaping Use Never Used 10/22/24 09:57 PHQ-9: PHQ-9 Score PHQ-9: Total score 13 10/22/24 10:10 Depression Screening Interpretation: Positive Depression Screening Follow-up: Existing condition, In treatment, Community Mental Health Worker F/U and Follow-up Visit Requested Thrive Assessment: Date of Thrive Assessment Date Thrive assessed 10/22/24 10/22/24 09:57 Currently or been in a relationship where the following occur: No concerns reported Resp Effort & Inspection: normal respiratory effort Auscultation: clear to auscultation bilaterally Cardio Jugular venous distension: no JVD Rate: regular rate Rhythm: regular rhythm Heart sounds: S1 normal heart sound present and S2 normal heart sound present Extrem General: Yes full ROM Coding Level of Care Code Est Pt Level 4 (17385) Complex EM visit Add On G2211 Diagnoses Moderate recurrent major depression F33.1 ORA (generalized anxiety disorder) F41.1 Pure hypercholesterolemia E78.00 Osteoporosis without pathological fracture M81.0 Chronic GERD K21.9 Rheumatoid arthritis of multiple sites with negative rheumatoid factor M06.09 Rheumatoid arthritis location: multiple sites Rheumatoid factor presence: without rheumatoid factor Essential hypertension I10 Additional Codes ORA-7 Assessment Billing - ORA-7 Assessment Tool: ORA-7 Assessment 09198 ([id number]) PHQ-9 - 15746 - PHQ-9 Billing: Yes ([id number]) Time Spent (min) 23 Assessment & Plan Assessment & Plan (1) Moderate recurrent major depression: Code(s): F33.1 - Major depressive disorder, recurrent, moderate Category: Medical (2) ORA (generalized anxiety disorder): Comment: Follow by psychiatry Dr. Valdez Code(s): F41.1 - Generalized anxiety disorder Category: Medical (3) Pure hypercholesterolemia: Code(s): E78.00 - Pure hypercholesterolemia, unspecified Category: Medical (4) Osteoporosis without pathological fracture: Comment: DEXA 03/2022: AP Spine -3.3, Left femur neck -1.3, Left femur total -0.6 DEXA 04/2024: AP Spine -3.6, Left femur neck -1.3, Left femur total -0.5 Patient could not tolerate alendronate tablets or liquid form. She has history of hiatal hernia. Reclast was attempted , Medicare will cover 80% of the cost of the infusion, patient does not have a supplemental insurance and would not be able to pay the remaining 20%. Advised patient to take calcium and vitamin-D regularly Code(s): M81.0 - Age-related osteoporosis without current pathological fracture Category: Medical (5) Chronic GERD: Code(s): K21.9 - Gastro-esophageal reflux disease without esophagitis Category: Medical (6) Rheumatoid arthritis: Comment: Positive COLLEEN 1:80 homogeneous, 1:40 nuclear fine speckled Seronegative Dx 04/18 MTX couldn't be started due to transaminitis Enbrel 06/16-07/17 stopped due to local rash SSZ 11/16 partially effective DC due to GI uoset HCQ 02/2024 partially effective DC 07/2023 due to GI upset Code(s): M06.9 - Rheumatoid arthritis, unspecified Category: Medical Qualifiers: Rheumatoid arthritis location: multiple sites Rheumatoid factor presence: without rheumatoid factor Qualified Code(s): M06.09 - Rheumatoid arthritis without rheumatoid factor, multiple sites (7) Essential hypertension: Code(s): I10 - Essential (primary) hypertension Category: Medical Plan The management of rheumatoid arthritis includes continued use of Arby and turmeric pills, with injections administered as needed for joint pain. The patient should continue to follow up with her medical photographer for ongoing care. For osteoporosis, although Prolia injections were recommended, the patient has declined due to concerns about side effects. Alternative management strategies should be discussed in future visits. Depression management includes the continuation of paroxetine and as-needed use of clonazepam for anxiety. Regular follow-up with her psychiatrist is advised to monitor her mental health status. Hyperlipidemia is managed with atorvastatin 20 mg daily, and the patient should adhere to this regimen. The patient was advised to receive a pneumococcal vaccine, as her previous vaccination was administered before the age of 66. Patient was informed and verbally consented to the use of an ambient scribe for clinic note documentation during this visit. Orders: Orders Vitamin D 25-OH Total Today E55.9 - Vitamin D deficiency, unspecified Comprehensive [place]. Panel Fast Today E78.00 - Pure hypercholesterolemia, unspecified Lipid Panel Today E78.5 - Hyperlipidemia, unspecified
--- OUTSIDE RECORDS SUMMARY | 2024-10-22 10:18 | XMS_ITS | Data Portability ---
Author Organization [place] [facility], Main Office Address [address] [address] Assessment Encounter Date Assessment Date Assessment LastModified [...] Lab None recorded. Referral allergy referral - La felipe es por telefono 2020 021 [email or web address] Not available 09:02:14 Procedures None recorded. Surgeries None recorded. Imaging XR, sinuses [address] ([facility]), [address] [place], [address], 17:43:41 bone density [address] ([facility]), [address] [place], [address], 08:55:31 Medication Orders Caltrate with Vitamin D3 600 mg-20 mcg (800 unit) tablet 2020 021 [facility], [address] [place], [address], 1 10:24:52 raloxifene 60 mg tablet 2020 [facility], [place], [address], 1 10:24:53 Augmentin 875 mg-125 mg tablet 2020 [facility], [place], [address], 1 09:34:01 montelukas t 10 mg tablet 2020 INTERFACE [facility], [facility] [place], [address], 1 12:09:17 cetirizine 10 mg tablet 2020 INTERFACE [facility], [address] [place], [address], 1 12:09:18 fluticason e propionate 50 mcg/actuat ion nasal spray,susp ension 2020 INTERFACE [facility], [facility] [place], [address], 1 12:09:32 Zithromax Z-Rony 250 mg tablet 2020 INTERFACE [facility], [address] [place], [address], 1 12:09:19 Patient TargetsNo targets recorded. Patient Instructions Encounter Date Encounter Id Patient Instructions Last Modified By Organization Details Last Modified Time 10/05/2020 [id number] CPE lab rec [email or web address] Not available 02/2021 10:21:12 11/02/2020 [id number] advance care planning: care instructions [email or web address] Not available 11/02/2020 09:46:08 Discussed and explained advance directives such as standard forms to the patient. Face to face discussion lasted for a duration of _30__ minutes. [email or web address] Not available 11/02/2020 09:52:51 Reason for Referral Allergy Referral for Chronic sinusitis allergies/chronic sinusitis La felipe es por telefono Referring Physician: Richard Shields, Internal Medicine, Encounter Date: 06/30/2020 Results Created Date Observation Date Name Description Value Unit Range Abnormal Flag Note LastModifiedBy Organization Detail LastModifiedTime 09/16/19 21 09/14/2020 MAMMO , scree oanh, digit al, bilat eral No observ ation record ed. [facility] ([facility]) [address] [place], [address], 10/05/2020 10:17:56 09/18/19 21 09/14/2020 bone densi ty No observ ation record ed. [facility] ([facility]) [address] [place], [address], 10/05/2020 10:17:56 10/22/19 21 09/14/2020 MAMMO , scree oanh, digit al, bilat eral No observ ation record ed. [facility] ([facility]) [address] [place], [address], 11/02/2020 09:26:08 Result Notes None recorded. Problems Name Problem SNOMED Code Status Onset Date Resolution Date Notes Provider Name and Address Organization Details Recorded Time Vitamin D deficiency 42518057 Active 2019 ARTIS BOO blunt [employer] - [employer] 0 20:35:22 Gastroesop hageal reflux disease without esophagiti s 650221359 Active 2019 ARTIS BOO null, [place] - [employer] 0 20:35:23 Generalize d anxiety disorder 22832237 Active [address] [place] - [employer] 0 20:35:25 Pain of multiple joints 93302443 Active 2019 TERESA JI null, [place] - [employer] 0 09:37:38 Fibromyalg ia 528656816 Active 2019 TERESA JI null, [place] - [employer] 0 09:38:05 Obesity 743907642 Active 2019 Richard Shields, DO [address] [facility],[address], [place], [address] , [employer], [employer] 0 10:13:33 Carpal tunnel syndrome of right wrist 3231008323860 08 Active 2019 post op Richard Shields, DO [address], [place], [address] , [employer], [employer] 0 10:13:50 Hysterecto my Active 2019 Richard Shields, DO [address] [facility],[address], [place], [address] , [facility] [employer], [employer] 0 10:14:31 Cordopexy of vocal cord Active 2019 x 20 yrs Richard Shields, DO [address], [place], [address] , [employer], [employer] 0 10:16:11 Allergic rhinitis 67358688 Active 2019 Richard Shields, DO [address] [facility],[address], [place], [address] , [employer], [employer] 0 10:36:34 Chronic sinusitis 92986432 Active 2019 Richard Shields, DO [address], [place], [address] , [employer], [employer] 0 10:36:35 Ex-smoker 4817517 Active 2019 Richard Shields DO [address], [place], [address] , [employer], [employer] 0 09:51:00 Impaired glucose tolerance 8306447 Active 2019 ANDRE blunt [employer] 0 08:20:41 Esophagiti s 30904292 Active 2019 ANDRE blunt [employer] 0 08:20:53 Sprain of left ankle 0829578106502 9105 Active 2020 ARTIS HADDAD [employer] 1 20:54:04 Varicose veins of lower extremity 58337161 Active 2020 ARTIS HADDAD [employer] [facility] 1 09:31:41 Osteoporos is 86510566 Active 2020 ARTIS HADDAD [employer] 1 10:18:49 Problem Notes None recorded. Procedures Surgical History Date Name Laterality Status Provider Name and Address Organization Details Recorded Time Partial hysterectomy completed [employer] 09/20/2019 09:40:51 procedure on vocal cord completed [employer] 09/20/2019 09:41:15 Imaging Results None recorded. Procedure Notes None [...] Status Former Smoker TERESA blunt [place] - [facility] 09/20/2019 09:38:58 Do You Have An Advance Directive? No Information not available 09/20/2019 What Is Your Level Of Caffeine Consumption? Moderate Information not available 09/20/2019 How Much Tobacco Do You Chew? None Information not available 09/20/2019 What Type Of Diet Are You Following? REGULAR Information not available 09/20/2019 Which Illicit Or Recreational Drugs Have You Used? No Information not available 09/20/2019 Education Less Than [...] In Home Yes Information not available 09/20/2019 How Much Tobacco [...] LastModified by Organizat ion Details LastModified Time What is your level of alcohol consumption? Occasional Information not available 09/20/2019 Do you or have you ever used smokeless tobacco? Never used smokeless tobacco Information not available 09/20/2019 Are you currently employed? No Information not available 09/20/2019 Are you able to walk? YESWOREST Information not available 09/20/2019 Are you able to care for yourself independently? Yes Information not available 09/20/2019 Do you or have you ever used e-cigarettes or vape? Never used electronic cigarettes Information not available 09/20/2019 What is your [...] Stones N Hyperthyroidism N Blood Transfusion N COPD N Depression N Anxiety Disorder N Muscle, Joint, or Bone Problems Y Obesity Y Vision or Eye Problems N Arthritis N Polyps N Infertility N Mental Disorder N Cancer N Stroke N Varicosities N Fibromyalgia Y Headaches N Kidney Disease N Heart Problems N Ear or Hearing Problems N Hospitalizations N Eating Disorder N Skin Problems N MRSA exposure N Constipation N Tuberculosis N AIDS/HIV N Asthma N Hepatitis N Pulmonary Embolism N Chronic Ear Infections N Chicken Pox N Autism Spectrum Disorder (ASD) N Thrombophilias N Breast Cancer N Lung Disease N Hypothyroidism N Defects or Inherited Disease N Developmental or Behavioral Disorders N Breast Problem N Difficulty Swallowing N Anesthesia Complications N Meniere's disease N Endometriosis N Bladder or Kidney Problems N High Cholesterol N Liver Disease N Allergies/Hayfever N Thyroid Problems N GI Problems N ADD/ADHD N Anemia N Mental Illness N Diabetes N Ovarian Cancer N Bedwetting N Seizures/Epilepsy N Congestive Heart Failure (CHF) N Eczema N Abuse/Domestic Violence N Diverticulitis N Reflux/GERD N Heart Disease N Pre-Eclampsia N Hypertension N Osteoporosis N Gynecological History Statement/Question Response Date of [...] Immunizations Vaccine Type Date Status Note Provider Eduardo e and Address Organization Details Recorded Time Tdap 3 completed TERESASIERRA blunt [facility] 09/19/2019 16:44:58 pneumococcal polysaccharide PPV23 6 completed TERESASIERRA blunt [facility] 09/19/2019 16:45:11 Past Encounters Encounter ID Performer Location Encounter Start Date Encounter Closed Date Diagnosis/Indication Diagnosis SNOMED-CT Code Diagnosis ICD10 Code Diagnosis Note [id number] Richard Shields [facility] [address] [place] [address] 09/20/2019 09:05:38 09/20/2019 10:36:47 Vitamin D deficiency 91248345 E55.9 D3 Gastroesop hageal reflux disease without esophagitis 181446321 K21.9 d/c omep 20 Generalize d anxiety disorder 51465129 F41.1 no si/hi parox 10, clonazepam New patien t screening done 021982043 Z76.89 labs-p Viral screening 84073636 4 Z11.59 labs-p Carpal moreno salome syndrome of right wrist 1753020981 78636 G56.01 remote post op Fibromyalgia 703611170 M 79.7 pain/Psych mngt Pain of mu ltiple joints 67876373 M25.50 Obesity 442849179 E66.9 diet and exercise Chronic sinusitis 329975 00 J32.9 Allergic rhinitis 315065 04 J30.9 rast [id number] Richard Shields [facility] [address] [place] [address] 11/01/2019 07:58:27 11/01/2019 10:03:27 Screening for malignant neoplasm of colon 278337753 Z12.11 Adult heal th examination 841085909 Z00.01 normal cpe labs reviewed Screening mammography 24 817343 Z12.31 Screening for osteoporosis 546160626 Z13.820 Screening for cardiovascular system disease 328606429 Z13.6 Active or passive immunization 359123534 Z23 Impaired g lucose tolerance 3360998 R73.02 NCS diet HBA1c 5.7 7/20 Gastroesop hageal reflux disease without esophagitis 029789748 K21.9 omep 20 Vitamin D deficiency 347 78511 E55.9 D3 Generalize d anxiety disorder 63248221 F41.1 no si/hi parox 10, clonazepam Carpal moreno salome syndrome of right wrist 3901033460 46923 G56.01 remote post op Fibromyalgia 535321741 M 79.7 pain/Psych mngt Pain of mu ltiple joints 17533940 M25.50 Obesity 522281519 E66.9 diet and exercise [id number] Richard Shields [facility] [address] [place] [address] 12/13/2019 09:42:37 12/13/2019 11:37:28 Gastroesophageal reflux disease without esophagitis 986634624 K21.9 omep 20 Generalize d anxiety disorder 75456739 F41.1 no si/hi parox 10, clonazepam Allergic rhinitis 561972 04 J30.9 rast Vitamin D deficiency 347 04138 E55.9 D3 Active or passive immunization 958386700 Z23 Impaired g lucose tolerance 7811749 R73.02 NCS diet HBA1c 5.7 7/20 Carpal moreno salome syndrome of right wrist 0190314643 22652 G56.01 remote post op Fibromyalgia 670353868 M 79.7 pain/Psych mngt Pain of mu ltiple joints 29099890 M25.50 Obesity 572870208 E66.9 diet and exercise Varicose v eins of lower extremity 67206171 I83.92 Sprain of left ankle 386 7451660 2337653 S93.402D brace-p [id number] Richard Shields [facility] [address] [place] [address] 06/02/2020 11:55:01 06/02/2020 12:07:54 Impaired glucose tolerance 5132035 R73.02 NCS diet HBA1c 5.7 7/20 Gastroesop hageal reflux disease without esophagitis 137491382 K21.9 omep 20, famot Generalize d anxiety disorder 11010708 F41.1 no si/hi parox 10, clonazepam Allergic rhinitis 412590 04 J30.9 rast neg 2020 dilan, cetir, flutic Vitamin D deficiency 347 93834 E55.9 D3 Carpal moreno salome syndrome of right wrist 1010631704 35909 G56.01 remote post op Fibromyalgia 353879685 M 79.7 pain/Psych mngt Pain of mu ltiple joints 16806783 M25.50 mapap, melox, pain gel Obesity 503813458 E66.9 diet and exercise Varicose v eins of lower extremity 94553709 I83.92 pain cream Sprain of left ankle 654 8324635 3695480 S93.402D brace-p resolved Chronic sinusitis 967257 00 J32.9 zpack, allergy meds prescribed Screening for osteoporosis 868064178 Z13.820 -p [id number] [facility] [address] [place] [address] 06/30/2020 09:27:53 06/30/2020 09:33:57 Chronic sinusitis 34635416 J32.9 zpajade, allergy meds prescribed - 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 Sinus XR-p Augmentin Impaired g lucose tolerance 0050625 R73.02 NCS diet HBA1c 5.7 7/20 recheck-p Gastroesop hageal reflux disease without esophagitis 434280557 K21.9 omep 20, famot Generalize d anxiety disorder 41915645 F41.1 no si/hi parox 10, clonazepam Allergic rhinitis 836794 04 J30.9 rast neg 2020 dilan, cetir, flutic Vitamin D deficiency 347 06254 E55.9 D3 Carpal moreno salome syndrome of right wrist 8859864912 37816 G56.01 remote post op Fibromyalgia 183067754 M 79.7 pain/Psych mngt Pain of mu ltiple joints 98692019 M25.50 mapap, melox, pain gel Obesity 372469127 E66.9 diet and exercise Varicose v eins of lower extremity 38966830 I83.92 pain cream [id number] Richard Shields, [facility] [address] [place] [address] 08/20/2020 11:55:28 08/20/2020 15:27:02 Allergic rhinitis 75001679 J30.9 rast neg 2020 dilan, cetir, flutic Chronic sinusitis 107148 00 J32.9 zpajade, allergy meds prescribed - 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 11/04/20 Sinus XR-p Augmentin Impaired g lucose tolerance 8114236 R73.02 NCS diet HBA1c 5.7 10/13 recheck-p Gastroesop hageal reflux disease without esophagitis 169607987 K21.9 omep 20, famot Generalize d anxiety disorder 04830957 F41.1 no si/hi parox 10, clonazepam Vitamin D deficiency 347 56819 E55.9 D3 Carpal moreno salome syndrome of right wrist 0306378585 00490 G56.01 remote post op Fibromyalgia 497085888 M 79.7 pain/Psych mngt Pain of mu ltiple joints 45300651 M25.50 mapap, melox, pain gel Obesity 925775701 E66.9 diet and exercise Varicose v eins of lower extremity 53960916 I83.92 pain cream [id number] Richard Shields [address] [address] 10/05/2020 09:56:53 10/05/2020 10:23:01 Gastroesophageal reflux disease without esophagitis 404246080 K21.9 omep 20, famot Allergic rhinitis 727630 04 J30.9 rast neg 2020 dilan, cetir, flutic Chronic sinusitis 726308 00 J32.9 zpajade, allergy meds prescribed - 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 11/04/20 Sinus XR- did not get Augmentini mproved Impaired g lucose tolerance 1236753 R73.02 NCS diet HBA1c 5.7 10/1354QKW5b 5.8 09/16/20 Generalize d anxiety disorder 97171004 F41.1 no si/hi parox 10, clonazepam Vitamin D deficiency 347 41096 E55.9 D3 Carpal moreno salome syndrome of right wrist 7567280299 65949 G56.01 remote post op Fibromyalgia 109227681 M 79.7 pain/Psych mngt Pain of mu ltiple joints 28196539 M25.50 mapap, melox, pain gel Obesity 086204251 E66.9 diet and exercise Varicose v eins of lower extremity 84866600 I83.92 pain cream Osteoporosis 28635808 M8 1.0 ralox, ca/vit d [id number] Richard Shields [facility] [address] [place] [address] 11/02/2020 09:24:40 11/02/2020 09:54:10 Osteoporosis 68080739 M81.0 ralox, ca/vit d Gastroesop hageal reflux disease without esophagitis 528050426 K21.9 omep 20, famot Allergic rhinitis 336340 04 J30.9 rast neg 2020 dilan, cetir, flutic Chronic sinusitis 590667 00 J32.9 zpack, allergy meds prescribed - 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 11/04/20 Sinus XR- did not get Augmentini mproved Impaired g lucose tolerance 5275136 R73.02 NCS diet HBA1c 5.7 10/1344QFS5l 5.8 09/16/20 Generalize d anxiety disorder 80149168 F41.1 no si/hi parox 10, clonazepam Vitamin D deficiency 347 09060 E55.9 D3 Carpal moreno salome syndrome of right wrist 1731550133 98426 G56.01 remote post op Fibromyalgia 213586727 M 79.7 pain/Psych mngt Pain of mu ltiple joints 91276010 M25.50 mapap, melox, pain gel Obesity 654735315 E66.9 diet and exercise Varicose v eins of lower extremity 26958407 I83.92 pain cream Screening for malignant neoplasm of colon 955207864 Z12.11 -Colonosco py: 2009 , had to reschedule due to covid-pt to go to [facility] to schedule-p Adult heal th examination 547134363 Z00.01 normal cpe labs -p Screening mammography 24 657710 Z12.31 09/14/20 nml Screening for osteoporosis 747185048 Z13.820 -DEXA: 09/14/20 osteoporos is Screening for malignant neoplasm of cervix 541068347 Z12.4 [facility] 2011 Active or passive immunization 651730699 Z23 -p (mailed to home) Health Concerns Section Related Observation LastModified by Organization Detai ls LastModified Time None Recorded Concern Status LastModified by Organization Details LastModified Time None Recorded Advance Directives Directive N: Payers Insurance Date Sequence Insurance Name Policy Number Policy Nugent Covered Member ID Nugent Member ID Guarantor Name 09/30/2020 1 [facility] - DOS PRIOR TO 2022 - DUAL ELIGIBLE (MEDICARE REPLACEMENT/AD VANTAGE - HMO) Venus Hernandez [id number] Venus Hernandez OBGyn Episode No OBEpisode recorded.
--- OUTSIDE RECORDS SUMMARY | 2024-10-22 10:18 | XMS_ITS | Patient Health Record ---
[facility] Address [address] [place] [address] Care Team Providers Care Electronics Technology Instructor Name Role Phone Robinson Evans Unavailable [phone] Reason For Referral No Information Medications Medication SIG (Take, Route, Fr equency, Duration) Notes Start Date End Date Status Lamisil 250 250 MG 1 Tab Oral Daily; Duration: 90 08/16/2011 Active NexIUM 40 MG as directed Orally Active Problems Problem Type SNOMED Code ICD Code Onset Dates Problem Status W/U Status Risk Notes Problem Onychomycosis (847615041) Onychomycosis (110.1) Active confirmed Problem Pain in limb (50975485) Pain in Limb (729.5) Active confirmed Problem Ingrowing nail (261956838) Ingrowing Nail (703.0) Active confirmed Plan Of Treatment Pending Test Test Name Order Date *Liver Function Test (LFT) 08/16/2011 02573-Jmywvlwj Plate 10/21/2011 01680-Awwinjof Plate 01/17/2012 14116-Wjfzuosu Plate 08/16/2011 Insurance Providers Payer Name Payer Address Payer Phone Subscriber Number Group Number Insured Name Patient Relationship to Insured Coverage Start Date Coverage End Date [facility] [address] [place] [address] [phone] [id number] GENEVA FORBES Self - patient is the insured Medical (General) History Medical History History ICD Code chicken pox reflux Surgical History Surgery Date(Month/Year) kidney surgery 2006
== END 2024-10-22 10:20 | disposition home or self-care (01) ==
LOC: HO.HMCH 09:43
PROVIDERS: PCP Internal Medicine; Visit Provider Internal Medicine
DX: M06.09 Rheumatoid arthritis without rheumatoid factor, multiple sites (principal); F33.1 Major depressive disorder, recurrent, moderate; F41.1 Generalized anxiety disorder; E78.00 Pure hypercholesterolemia, unspecified; M81.0 Age-related osteoporosis without current pathological fracture; K21.9 Gastro-esophageal reflux disease without esophagitis; I10 Essential (primary) hypertension

== ENCOUNTER → 2024-10-22 09:43 | Outpatient (BNVA) | payer OTHER, SELFPAY | PROVIDERS: PCP Internal Medicine; Visit Provider Internal Medicine | DX: F33.1 Major depressive disorder, recurrent, moderate (principal); F41.1 Generalized anxiety disorder; E78.00 Pure hypercholesterolemia, unspecified; M81.0 Age-related osteoporosis without current pathological fracture; K21.9 Gastro-esophageal reflux disease without esophagitis; M06.09 Rheumatoid arthritis without rheumatoid factor, multiple sites; I10 Essential (primary) hypertension; Z13.31 Encounter for screening for depression; Z13.39 Encounter for screening examination for other mental health and behavioral disorders | CPT/HCPCS: 96127; 99212 ==

== ENCOUNTER 2024-10-23 10:23 | Outpatient (REF) | payer OTHER, SELFPAY ==
--- OUTSIDE RECORDS SUMMARY | 2024-10-23 11:15 | XMS_ITS | Patient Health Record ---
Author Organization [facility] Address [address] 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 Name Role Phone Robinson Evans Unavailable [phone] Reason For Referral No Information Medications Medication SIG (Take, Route, Fr equency, Duration) Notes Start Date End Date Status Lamisil 250 250 MG 1 Tab Oral Daily; Duration: 90 08/16/2011 Active NexIUM 40 MG as directed Orally Active Problems Problem Type SNOMED Code ICD Code Onset Dates Problem Status W/U Status Risk Notes Problem Onychomycosis (257534984) Onychomycosis (110.1) Active confirmed Problem Pain in limb (27255646) Pain in Limb (729.5) Active confirmed Problem Ingrowing nail (941255751) Ingrowing Nail (703.0) Active confirmed Plan Of Treatment Pending Test Test Name Order Date *Liver Function Test (LFT) 08/16/2011 50564-Zlezxiti Plate 10/21/2011 41539-Tjluwush Plate 01/17/2012 19913-Muwdmaii Plate 08/16/2011 Insurance Providers Payer Name Payer Address Payer Phone Subscriber Number Group Number Insured Name Patient Relationship to Insured Coverage Start Date Coverage End Date [facility] [address] [place] [address] [phone] [id number] GENEVA FORBES Self - patient is the insured Medical (General) History Medical History History ICD Code chicken pox reflux Surgical History Surgery Date(Month/Year) kidney surgery 2006
[2024-10-23 12:39] LABS: Alanine Aminotransferase 19 U/L (0-31); Albumin Level 4.2 g/dL (3.5-5.0); Anion Gap 11 (12-20); Aspartate Amino Transferase 27 U/L (5-31); Blood Urea Nitrogen 18 mg/dL (9-16); Calcium 8.7 mg/dL (8.4-10.2); Carbon Dioxide 27 mmol/L (22-29); Chloride 107 mmol/L (96-108); Cholesterol 239 mg/dL (<200); Estimated Glomerular Filt Rate > 60; Potassium 4.2 mmol/L (3.3-5.1); Sodium 141 mmol/L (135-145); Total Protein 7.3 g/dL (6.5-8.0); Triglycerides 55 mg/dL (<150)
[2024-10-23 12:40] LABS: Alkaline Phosphatase 98 U/L (39-117); HDL Cholesterol 92 mg/dL (>40)
== END 2024-10-23 10:24 | disposition home or self-care (01) ==
LOC: HO.LAB 10:23
PROVIDERS: PCP Internal Medicine; Visit Provider Internal Medicine
DX: E78.00 Pure hypercholesterolemia, unspecified (principal); E55.9 Vitamin D deficiency, unspecified
CPT/HCPCS: 36415; 80053; 80061; 82306

== ENCOUNTER 2025-01-22 10:40 | Outpatient (REF) | payer OTHER, SELFPAY ==
[2025-01-22 18:06] LABS: MANUAL DIFF FLAG NO
[2025-01-22 18:32] LABS: Alanine Aminotransferase 17 U/L (0-31); Albumin Level 4.2 g/dL (3.5-5.0); Alkaline Phosphatase 98 U/L (39-117); Anion Gap 11 (12-20); Aspartate Amino Transferase 24 U/L (5-31); Blood Urea Nitrogen 19 mg/dL (9-16); Calcium 9.2 mg/dL (8.4-10.2); Carbon Dioxide 27 mmol/L (22-29); Chloride 107 mmol/L (96-108); Estimated Glomerular Filt Rate > 60; Potassium 3.5 mmol/L (3.3-5.1); Sodium 141 mmol/L (135-145); Total Protein 7.2 g/dL (6.5-8.0)
[2025-01-22 18:33] LABS: Hematocrit 31.3 % (37.0-47.0); Hemoglobin 9.5 g/dl (12.0-16.0); Imm Gran Abs Auto 0.01 X10*3/uL (0.00-0.03); Imm Gran Pct Auto 0.2 % (0.0-0.4); Lymphocytes Absolute Auto 1.7 X10*3/uL (1.2-4.9); Mean Corpuscular HGB Conc 30.4 g/dl (31.0-35.0); Mean Corpuscular Hemoglobin 25.1 pg (27.0-33.0); Mean Corpuscular Volume 82.8 fL (80.0-98.0); NRBC Abs Auto 0.000 X10*3/uL (0.0-0.012); NRBC Pct Auto 0.0 /100WBC (0.0-0.2); Platelet Count 404 X10*3/uL (160-400); Red Blood Count 3.78 X10*6/uL (4.20-5.50); White Blood Count 4.8 X10*3/uL (4.8-10.8)
[2025-01-25 13:59] LABS: Vitamin D 25-OH, D2 <4 ng/mL; Vitamin D 25-OH, D3 46 ng/mL; Vitamin D 25-OH, Total 46 ng/mL (30-100)
== END 2025-01-22 10:41 | disposition home or self-care (01) ==
LOC: HO.HKASLDS 10:40
PROVIDERS: PCP Internal Medicine; Visit Provider Student in an Organized Health Care Education/Training Program
DX: M06.09 Rheumatoid arthritis without rheumatoid factor, multiple sites (principal); M81.0 Age-related osteoporosis without current pathological fracture; M25.512 Pain in left shoulder; G89.29 Other chronic pain; E55.9 Vitamin D deficiency, unspecified; Z79.899 Other long term (current) drug therapy
CPT/HCPCS: 36415; 80053; 82306; 85025; 85652; 86140; 99212

== ENCOUNTER 2025-01-22 10:40 | Outpatient (AMB) | payer OTHER, SELFPAY ==
--- NOTE | 2025-01-22 10:46 | MHC.OFFVIS ---
Vital Signs 01/22/25 10:54 Height 5 ft Weight 189 lb 9.561 oz BMI 37.0 BP 120/82 Blood Pressure Location Lt brachial Position Sitting Pulse 76 Pulse Source Pulse Oximeter Pulse Oximetry (%) 98 Oxygen Delivery Method Room Air Intake Visit Reasons: f/u RA Intake Note: Patient presents for RA follow up. Winemaker Required: Yes Winemaker Language: Axle Turner Services: Winemaker Offered & Declined Information Interpreted: non-clinical & clinical Allergies etanercept (From Enbrel) Allergy (Verified 01/22/25 10:53) Rash hydroxychloroquine Adverse Reaction (Intermediate, Verified 01/22/25 10:53) GI upset sulfasalazine Adverse Reaction (Intermediate, Verified 01/22/25 10:53) gi upset Medication List - Last Reconciled 01/22/25 by Yanna Xie MD amlodipine 10 mg PO DAILY 90 days atorvastatin 20 mg PO BEDTIME 90 days cholecalciferol (vitamin D3) 50 mcg PO DAILY clonazepam 0.5 mg PO BID PRN fluticasone propionate 50 mcg/actuation (Flonase Allergy Relief) 1 spray intranasal Q12H 30 days omeprazole 40 mg PO DAILY 90 days paroxetine HCl 10 mg PO QAM HPI Comments Details: Patient is a 69-year-old female with generalized anxiety disorder, GERD, hypertension, hyperlipidemia, osteoporosis, seronegative rheumatoid arthritis and polyarticular osteoarthritis here today for follow up Interval History: Patient last seen 07/23/24 with me - Not on DMARDs - She continues to report she is doing well - Complaining of left shoulder pain today, requesting an injection - Received left subacromial bursa injection - Worsening bone density, but patient did not want to start Prolia Today - Not on DMARDs - Shoulder improved, sometimes needs to take NSAIDs but not frequently - No falls or fractures - C/o heel pain. Known heel spur Rheumatologic History: Positive COLLEEN 1:80 homogeneous, 1:40 nuclear fine speckled Seronegative Dx 04/18 MTX couldn't be started due to transaminitis Enbrel 06/16-07/17 stopped due to local rash SSZ 11/16 partially effective DC due to GI uoset HCQ 02/2024 partially effective DC 07/2023 due to GI upset Off DMARDs since 07/2023 Initial history: This is a 66-year-old female with mild recurrent major depression and rheumatoid arthritis that comes for her physical exam. Depression stable with paroxetine and this is follow by Psychiatry. Rheumatoid arthritis is follow by Rheumatology and has not started methotrexate yet. No need for Pap smears due to hysterectomy. Mammogram is scheduled for 04/15/2022. Was refer for colonoscopy through open access and has not received it date yet. Last colonoscopy was 15 years ago. Complains of diffuse abdominal pain. Current Rheumatology Medication(s): [facility] Medical History (Updated 10/22/24 @ 10:14 by Colleen Catalan MD) Mild recurrent major depression COLLEEN positive Left ankle pain Chronic GERD HTN (hypertension) Surgical History Hx of esophagogastroduodenoscopy Hx of colonoscopy History of carpal tunnel surgery of left wrist Vocal cord anomaly History of partial hysterectomy Family History Mother Arthritis Father Prostate cancer Maternal Aunt Breast cancer Cervical cancer Sister SLE (systemic lupus erythematosus) Social History Household Members: Children Housing: House Are you a primary director day care center to a significant other at home: No Do you presently have visiting nurse or other home services: No Alcohol intake: current Alcohol intake frequency: holidays/special occasions only Alcohol type: hard liquor Patient Tobacco Use Status: Former Tobacco user Tobacco use type: Cigarette e-Cigarette/Vaping Use: Never Used Second Hand Smoke Exposure: No service: No Current occupational status: retired and disabled 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 Cognitive needs: No Hearing needs: No Vision needs: Yes Review of Systems Narrative Review of Systems Constitutional: Denies fever, chills, weight loss ENT: Denies vision changes, eye pain or eye redness, dental caries, dry mouth GI: Denies nausea, vomiting, diarrhea, abdominal pain, change in BM Pulm: Denies SOB, HYATT, hemoptysis, wheezing Cards: Denies chest pain, palpitations Skin: Denies Raynaud's, rash, nail changes, photosensitivity, ENGINEERING SUPERVISOR: Denies headaches, weakness, paresthesias, recurrent falls MSK: as per HPI All other systems reviewed and are unremarkable except noted above Physical Exam Exam Exam: Vital signs reviewed Physical Examination CONSTITUITIONAL Patient alert and cooperative. Well appearing and in no apparent painful distress MSK Hands Right Hand: Able to make a fist. No swelling or tenderness to palpation of the MCPs, PIPs or DIPs. Left Hand: Able to make a fist. No swelling or tenderness to palpation of the MCPs, PIPs or DIPs. Wrists Right Wrist: Full ROM to flexion and extension. No swelling or TTP Left Wrist: Full ROM to flexion and extension. No swelling or TTP Elbows Right Elbow: Full ROM. No swelling or TTP. No TTP of the medial epicondyle. No TTP of the lateral epicondyle Left Elbow: Full ROM. No swelling or TTP. No TTP of the medial epicondyle. No TTP of the lateral epicondyle Shoulders Right shoulder: Full ROM. No swelling noted. No TTP of the AC joint. No TTP of the subacromial bursa. No TTP of the posterior shoulder Left shoulder: Full ROM. No swelling noted. No TTP of the AC joint. No TTP of the subacromial bursa. No TTP of the posterior shoulder Knees Right knee: Full ROM. No swelling noted. No TTP of the knee joint line. No TTP of pes anserine bursa Left knee: Full ROM. No swelling noted. No TTP of the knee joint line. No TTP of pes anserine bursa. Crepitations felt bilaterally Ankles Right ankle: Good ankle dorsiflexion and plantar flexion. No swelling. No TTP of the ankle joint Left ankle: Good ankle dorsiflexion and plantar flexion. No swelling. No TTP of the ankle joint Feet Right foot: Negative squeeze test Left foot: Negative squeeze test Tender points? No tenderness to palpation of the bilateral trapezius, supraspinatus, anterior costochondral junctions, bilateral suboccipital muscle insertions SKIN No rashes Vital Signs: Last Vital Signs Pulse 76 01/22/25 10:54 BP 120/82 01/22/25 10:54 Pulse Ox 98 01/22/25 10:54 Oxygen Delivery Method Room Air 01/22/25 10:54 BMI result Body Mass Index 37.0 Results Reviewed Results Reviewed: Laboratory Tests 09/19/23 03/22/24 11:53 09:24 WBC 6.3 RBC 3.59 L Hgb 10.5 L Hct 32.1 L Plt Count 371 Sodium 140 Potassium 3.5 Chloride 104 Carbon Dioxide 28 BUN 17 H Creatinine 0.74 AST 22 ALT 19 Alkaline Phosphatase 100 C-Reactive Protein 0.32 DEXA 04/2024 FINDINGS: The bone mineral density of the lumbar spine is 0.746 with a T-score of -3.6, and a Z-score of -1.7. This represents a BMD change of -5.8% compared to the prior exam. This is statistically significant. The bone mineral density of the left total hip is 0.939 with a T-score of -0.5, and a Z-score of 1.0. This represents BMD change of 0.1% compared to the prior exam. This is not statistically significant. The bone mineral density of the left femoral neck is 0.855 with a T-score of -1.3, and a Z-score of 0.4. This represents BMD change of -0.1% compared to the prior exam. Assessment & Plan Assessment & Plan (1) Rheumatoid arthritis: Comment: Positive COLLEEN 1:80 homogeneous, 1:40 nuclear fine speckled Seronegative Dx 04/18 MTX couldn't be started due to transaminitis Enbrel 06/16-07/17 stopped due to local rash SSZ 11/16 partially effective DC due to GI uoset HCQ 02/2024 partially effective DC 07/2023 due to GI upset Code(s): M06.9 - Rheumatoid arthritis, unspecified Category: Medical Qualifiers: Rheumatoid arthritis location: multiple sites Rheumatoid factor presence: without rheumatoid factor Qualified Code(s): M06.09 - Rheumatoid arthritis without rheumatoid factor, multiple sites Plan: #Seronegative RA Patient is a 69-year-old female with seronegative rheumatoid arthritis currently in remission not on any DMARDs. We will continue to monitor off DMARDs. Plan - Monitor off DMARDs - Labs today: CBC, CMP, ESR, CRP, Hepatitis panel and T spot - RTC 6 months - Labs before visit: CBC, CMP, ESR, CRP (2) Osteoporosis without pathological fracture: Comment: DEXA 03/2022: AP Spine -3.3, Left femur neck -1.3, Left femur total -0.6 DEXA 04/2024: AP Spine -3.6, Left femur neck -1.3, Left femur total -0.5 Patient could not tolerate alendronate tablets or liquid form. She has history of hiatal hernia. Reclast was attempted , Medicare will cover 80% of the cost of the infusion, patient does not have a supplemental insurance and would not be able to pay the remaining 20%. Advised patient to take calcium and vitamin-D regularly Code(s): M81.0 - Age-related osteoporosis without current pathological fracture Category: Medical Plan: #Osteoporosis Patient with worsening osteoporosis when comparing the 2024 DEXA scan to 2022. Currently not on medications due to insurance limitations. Discussed starting Prolia but patient would prefer natural methods including weight-bearing exercises and vitamin-D supplementation. Plan - Vitamin D 2000U every day (3) Left shoulder pain: Code(s): M25.512 - Pain in left shoulder Qualifiers: Chronicity: chronic Qualified Code(s): M25.512 - Pain in left shoulder; G89.29 - Other chronic pain Plan: #Left shoulder pain Likely 2/2 OA vs rotator cuff Good ROM today RTC prn for injection Plan I spent 30 minutes reviewing the record and labs, taking a history, examining the patient, discussing the treatment plan, ordering diagnostic work up and documenting in the medical record Orders: Orders C Reactive Protein 6 Months Z79.899 - Other terminal makeup operator (current) drug therapy Erythrocyte Sedimentation Rate 6 Months Z79.899 - Other nursing home (current) drug therapy Complete Blood Count Auto Diff 6 Months Z79.899 - Other nursing home (current) drug therapy Comprehensive Met. Panel 6 Months Z79.899 - Other nursing home (current) drug therapy Coding Level of Care Code Est Pt Level 4 (38396) Complex EM visit Add On G2211 Diagnoses Rheumatoid arthritis of multiple sites with negative rheumatoid factor M06.09 Rheumatoid arthritis location: multiple sites Rheumatoid factor presence: without rheumatoid factor Osteoporosis without pathological fracture M81.0 Chronic left shoulder pain M25.512; G89.29 Chronicity: chronic
[2025-01-22 10:54] VITALS: BP 120/82; PULSE 76; O2SAT 98; BMI 37.0
--- OUTSIDE RECORDS SUMMARY | 2025-01-22 13:19 | XMS_ITS | Patient Health Record ---
Author Organization [facility] Address [address] [place] [address] Care Team Providers Care Human Factors Ergonomist Name Role Phone Robinson Melara Unavailable [phone] Reason For Referral No Information Medications Medication SIG (Take, Route, Fr equency, Duration) Notes Start Date End Date Status Lamisil 250 250 MG 1 Tab Oral Daily; Duration: 90 08/16/2011 Active NexIUM 40 MG as directed Orally Active Problems Problem Type SNOMED Code ICD Code Onset Dates Problem Status W/U Status Risk Notes Problem Onychomycosis (874505771) Onychomycosis (110.1) Active confirmed Problem Pain in limb (90814884) Pain in Limb (729.5) Active confirmed Problem Ingrowing nail (615946878) Ingrowing Nail (703.0) Active confirmed Plan Of Treatment Pending Test Test Name Order Date *Liver Function Test (LFT) 08/16/2011 [id number]-Qexukxgd Plate 10/21/2011 [id number] Plate 01/17/2012 [id number] Plate 08/16/2011 Insurance Providers Payer Name Payer Address Payer Phone Subscriber Number Group Number Insured Name Patient Relationship to Insured Coverage Start Date Coverage End Date [facility] [address] [place] [address] [id number] GENEVA FORBES Self - patient is the insured Medical (General) History Medical History History ICD Code chicken pox reflux Surgical History Surgery Date(Month/Year) kidney surgery 2006
== END 2025-01-22 11:08 | disposition home or self-care (01) ==
LOC: HO.RHES 10:41
PROVIDERS: PCP Internal Medicine; Visit Provider Student in an Organized Health Care Education/Training Program
DX: M06.09 Rheumatoid arthritis without rheumatoid factor, multiple sites (principal); M81.0 Age-related osteoporosis without current pathological fracture; M25.512 Pain in left shoulder; G89.29 Other chronic pain
CPT/HCPCS: 99214; G2211

== ENCOUNTER 2025-03-11 07:12 | Outpatient (AMB) | payer OTHER, SELFPAY ==
--- OUTSIDE RECORDS SUMMARY | 2025-03-11 07:16 | XMS_ITS | Data Portability ---
Author Organization [facility] Vladimir barbour [facility] Address [address] [place] [id number] Assessment Encounter Date Assessment Date Assessment LastModified by Organization Details LastModified Time 10/21/2020 10/21/2020 A&P Osteoporosis: Continue with Calcium 1200 mg daily and vitamin D 400 daily. Will obtain copy of Bone density scan that patient had at [facility] at time of Mammogram. Low back pain: Xray ordered at [facility]. Refer for PT. Reviewed use of ibuprophen [...] and Address Organization Details Recorded Time Osteoporosis 57608197 Active 2020 Pricila blunt, [facility] 09:57:33 Gastroesophage al reflux disease 209692312 Active 2020 Pricila blunt, [facility] 09:57:58 Generalized anxiety disorder 66689928 Active 2020 Pricila blunt [facility] 09:59:10 Problem Notes None recorded. Procedures Surgical History Date Name Laterality Status Provider Name and Address Organization Details Recorded Time 07/26/19 21 Most Recent Mammogram completed Pricila Knapp [facility] 10/21/2020 10:10:16 03/27/19 18 Date of Last Pap Smear completed Pricila Knapp [facility] 10/21/2020 10:07:48 03/27/19 15 uterine myomectomy completed Pricila Knapp [facility] 10/21/2020 10:05:40 03/27/19 14 Partial hysterectomy completed Pricila Knapp [facility] 10/21/2020 10:06:34 Imaging Results None recorded. [...] mass index (BMI) Body weight Oxygen saturation Systolic And Diastolic Provider Name and Address Organization Details Last Updated DateTime 162.56 cm 73 /min 18 /min 97.9 [degF] 33.6 kg/m2 25633.1 g 97 % 110/82 mm[Hg] Pricila brown [facility] 09:41:40 Social History Question Answer Notes LastModified by Organizat ion Details LastModified Time Tobacco Smoking Status [facility]2020 10:03:31 Do You Have An Advance Directive? No Information not available 10/21/2020 Are You Blind Or Do You Have Difficulty Seeing? No Information not available 10/21/2020 Is Blood Transfusion Acceptable In An Emergency? Yes Information not available 10/21/2020 What Is Your Level Of Caffeine Consumption? Moderate One Cup Daily Information not available 10/21/2020 In The 14 Days Before Symptom Onset, Have You Had Close Contact With A Laboratory-piero SINGER-19 While That Case Was Ill? No Information not available 10/21/2020 In The 14 Days Before Symptom Onset, Have You Had Close Contact With A Person Who Is Under Investigation For COVID-19 While That Person Was Ill? No Information not available 10/21/2020 Have You Been To An Area Known To Be High Risk For COVID-19? No Information not available 10/21/2020 Are You Deaf [...] Or The Highest Degree You Have Received? [id number] Information not available 10/21/2020 Which Of Your [...] No Information not available 10/21/2020 Do You Have Difficulty Walking Or Climbing Stairs? Yes Pain In Lower Extremities Occasional Information not available 10/21/2020 Sex: Unknown Functional Status Question Answer Note LastModified by Organizat ion Details LastModified Time Do you use any illicit or recreational drugs? No Information not available 10/21/2020 Do you or have you ever used any other forms of tobacco or nicotine? No Information not available 10/21/2020 What is your level of alcohol consumption? None Information not available 10/21/2020 Are you currently employed? No Disability Information not available 10/21/2020 Are you able to walk independently without assistance or assistive devices? YESWOREST Information not available 10/21/2020 Do you have difficulty doing errands alone? No Information not available 10/21/2020 Are you able to care for yourself independently? Yes Information not available 10/21/2020 Do you have difficulty dressing, bathing, grooming, or toileting? No Information not available 10/21/2020 What is [...] erythematosu s Not available 10:00:06 Maternal Aunt Malignant neoplasm of ovary suspected pt unsure if vagina l vs ovaria [...] Vaccine Type Date Status Note Provider Eduardo andrew and Address Organization Details Recorded Time tetanus toxoid, adsorbed 1 completed Pricila blunt [place] [facility] 10/21/2020 09:56:30 SARS-COV-2 (COVID-19) vaccine, UNSPECIFIED 1 PAYAL Smith [facility] 10/21/2020 09:57:11 Influenza, split virus, quadrivalent, preservative 0 completed Pricila blunt [place] - [facility] 10/21/2020 10:13:11 Past Encounters Encounter ID Performer Location Encounter Start Date Encounter Closed Date Diagnosis/Indication Diagnosis SNOMED-CT Code Diagnosis ICD10 Code Diagnosis IMO Codes Diagnosis Note [id number] [facility], [facility] Main Office [address] [address] 10/21/2020 09:36:20 10/21/2020 10:46:25 Active or passive immunization 262854513 Z23 Adult heal th examination 631318002 Z00.00 Screening for cardiovascular system disease 874855859 Z13.6 Screening for malignant neoplasm of colon 093388399 Z12.11 Screening mammography 24 844033 Z12.31 Lumbago with sciatica 20 4670362 M54.40 Health Concerns Section Related Observation LastModified by Organization Detai ls LastModified Time None Recorded Concern Status LastModified by Organization Details LastModified Time None Recorded Advance Directives Directive N: Payers Insurance Date Sequence Insurance Name Policy Number Policy Nugent Covered Member ID Nugent Member ID Guarantor Name 10/21/2020 1 [facility] Venus Hernandez [id number] Venus Hernandez 10/21/2020 [employer] Venus Mary [id number] Venus Hernandez 10/21/2020 2 [place] Venus Hernandez [id number] Venus Hernandez Notes Date Note Type Note Provider Name and Address Organization Details Recorded Time 10/21/2020 text/html Pain Management InitialReported by Patient Pt here today to establish care and for annual wellness visit. She also complains of low back and leg pain when walking [facility] [place] [facility] 10/21/2020 12:54:12 OBGyn Episode No OBEpisode recorded.
--- OUTSIDE RECORDS SUMMARY | 2025-03-11 07:16 | XMS_ITS | Patient Health Record ---
Author Organization [facility] Address [address] [place] [address] Care Team Providers Care Industrial Relations Manager Name Role Phone Robinson Melara Unavailable [phone] Reason For Referral No Information Medications Medication SIG (Take, Route, Fr equency, Duration) Notes Start Date End Date Status Lamisil 250 250 MG 1 Tab Oral Daily; Duration: 90 08/16/2011 Active NexIUM 40 MG as directed Orally Active Problems Problem Type SNOMED Code ICD Code Onset Dates Problem Status W/U Status Risk Notes Problem Onychomycosis (949300670) Onychomycosis (110.1) Active confirmed Problem Pain in limb (13931177) Pain in Limb (729.5) Active confirmed Problem Ingrowing nail (005040522) Ingrowing Nail (703.0) Active confirmed Plan Of Treatment Pending Test Test Name Order Date *Liver Function Test (LFT) 08/16/2011 [id number] Plate 10/21/2011 [id number] Plate 01/17/2012 08056-Tygiipbv Plate 08/16/2011 Insurance Providers Payer Name Payer Address Payer Phone Subscriber Number Group Number Insured Name Patient Relationship to Insured Coverage Start Date Coverage End Date [facility] [address] [place] [id number] GENEVA FORBES Self - patient is the insured Medical (General) History Medical History History ICD Code chicken pox reflux Surgical History Surgery Date(Month/Year) kidney surgery 2006
--- NOTE | 2025-03-11 07:41 | A.OFFVIS_ITS ---
Vital Signs 03/11/25 07:50 Height 5 ft Weight 190 lb 4.143 oz BMI 37.2 BP 124/70 Blood Pressure Location Lt brachial Position Sitting Pulse 78 Pulse Source Pulse Oximeter Pulse Oximetry (%) 99 Oxygen Delivery Method Room Air Intake Visit Reasons: Lt Shoulder pain/injection Intake Note: Patient presents today for Lt shoulder pain and injection follow up. Senior Science Consultant Required: Yes Senior Science Consultant Language: Lumber Checker Services: Senior Science Consultant Offered & Declined Information Interpreted: non-clinical & clinical Accompanied by: Self / Same As Patient Allergies etanercept (From Enbrel) Allergy (Verified 03/11/25 07:49) Rash hydroxychloroquine Adverse Reaction (Intermediate, Verified 03/11/25 07:49) GI upset sulfasalazine Adverse Reaction (Intermediate, Verified 03/11/25 07:49) gi upset Medication List - Last Reconciled 03/11/25 by Yanna Xie MD amlodipine 10 mg PO DAILY 90 days atorvastatin 20 mg PO BEDTIME 90 days cholecalciferol (vitamin D3) 50 mcg PO DAILY clonazepam 0.5 mg PO BID PRN fluticasone propionate 50 mcg/actuation (Flonase Allergy Relief) 1 spray intranasal Q12H 30 days omeprazole 40 mg PO DAILY 90 days paroxetine HCl 10 mg PO QAM HPI Comments Details: Patient is a 69-year-old female with generalized anxiety disorder, GERD, hypertension, hyperlipidemia, osteoporosis, seronegative rheumatoid arthritis and polyarticular osteoarthritis here today for follow up Interval History: Patient last seen 01/22/25 with me - Not on DMARDs - Shoulder improved, sometimes needs to take NSAIDs but not frequently - No falls or fractures - C/o heel pain. Known heel spur Today - Not on DMARDs - Urgent visit for left shoulder pain - Was helping lift her 100 year old mom and injured her shoulder Rheumatologic History: Positive COLLEEN 1:80 homogeneous, 1:40 nuclear fine speckled Seronegative Dx 04/18 MTX couldn't be started due to transaminitis Enbrel 06/16-07/17 stopped due to local rash SSZ 11/16 partially effective DC due to GI uoset HCQ 02/2024 partially effective DC 07/2023 due to GI upset Off DMARDs since 07/2023 Initial history: This is a 66-year-old female with mild recurrent major depression and rheumatoid arthritis that comes for her physical exam. Depression stable with paroxetine and this is follow by Psychiatry. Rheumatoid arthritis is follow by Rheumatology and has not started methotrexate yet. No need for Pap smears due to hysterectomy. Mammogram is scheduled for 04/15/2022. Was refer for colonoscopy through open access and has not received it date yet. Last colonoscopy was 15 years ago. Complains of diffuse abdominal pain. Current Rheumatology Medication(s): [facility] Medical History (Updated 10/22/24 @ 10:14 by Colleen Catalan MD) Mild recurrent major depression COLLEEN positive Left ankle pain Chronic GERD HTN (hypertension) Surgical History Hx of esophagogastroduodenoscopy Hx of colonoscopy History of carpal tunnel surgery of left wrist Vocal cord anomaly History of partial hysterectomy Family History Mother Arthritis Father Prostate cancer Maternal Aunt Breast cancer Cervical cancer Sister SLE (systemic lupus erythematosus) Social History Household Members: Children Housing: House Are you a primary career development counselor to a significant other at home: No Do you presently have visiting nurse or other home services: No Alcohol intake: current Alcohol intake frequency: holidays/special occasions only Alcohol type: hard liquor Patient Tobacco Use Status: Former Tobacco user Tobacco use type: Cigarette e-Cigarette/Vaping Use: Never Used Second Hand Smoke Exposure: No service: No Current occupational status: retired and disabled 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 Cognitive needs: No Hearing needs: No Vision needs: Yes Review of Systems Narrative Review of Systems Constitutional: Denies fever, chills, weight loss ENT: Denies vision changes, eye pain or eye redness, dental caries, dry mouth GI: Denies nausea, vomiting, diarrhea, abdominal pain, change in BM Pulm: Denies SOB, HYATT, hemoptysis, wheezing Cards: Denies chest pain, palpitations Skin: Denies Raynaud's, rash, nail changes, photosensitivity, WHEAT GROWER: Denies headaches, weakness, paresthesias, recurrent falls MSK: as per HPI All other systems reviewed and are unremarkable except noted above Physical Exam Exam Exam: Vital signs reviewed Physical Examination CONSTITUITIONAL Patient alert and cooperative. Well appearing and in no apparent painful distress MSK Shoulders * Right shoulder: Full ROM. No swelling noted. No TTP of the AC joint. No TTP of the subacromial bursa. No TTP of the posterior shoulder * Left shoulder: Decreased ROM. No swelling noted. No TTP of the AC joint. TTP of the subacromial bursa. Vital Signs: Last Vital Signs Pulse 78 03/11/25 07:50 BP 124/70 03/11/25 07:50 Pulse Ox 99 03/11/25 07:50 Oxygen Delivery Method Room Air 03/11/25 07:50 BMI result Body Mass Index 37.2 Results Reviewed Results Reviewed: XR Left Shoulder 05/2023 FINDINGS: Glenohumeral alignment is anatomic. No acute fracture is seen. The acromioclavicular joint appears intact with degenerative change. IMPRESSION: No acute findings. Assessment & Plan Assessment & Plan (1) Left shoulder pain: Code(s): M25.512 - Pain in left shoulder Qualifiers: Chronicity: chronic Qualified Code(s): M25.512 - Pain in left shoulder; G89.29 - Other chronic pain Plan: #Left shoulder pain Patient is a 69 year old female with RA not on DMARDs. Here today for urgent visit due to left shoulder pain. Likely aggravated due to recent activities Plan - s/p steroid injection to left shoulder today - RTC for regular appointment Plan Procedure only Orders: Orders AMB Joint Injection/Aspiration Today G89.29 - Other chronic pain, M25.512 - Pain in left shoulder Medications: New Kenalog (triamcinolone acetonide) 40 mg intrabursal ONCE 1 mL 0RF NS G89.29 - Other chronic pain, M25.512 - Pain in left shoulder lidocaine (PF) 1 mL Infiltration ONCE 2 mL 0RF G89.29 - Other chronic pain, M25.512 - Pain in left shoulder Coding Level of Care Code Procedure Only Diagnoses Chronic left shoulder pain M25.512; G89.29 Chronicity: chronic
[2025-03-11 07:50] VITALS: BP 124/70; PULSE 78; O2SAT 99; BMI 37.2
== END 2025-03-11 08:39 | disposition home or self-care (01) ==
LOC: HO.RHES 07:12
PROVIDERS: PCP Internal Medicine; Visit Provider Student in an Organized Health Care Education/Training Program
DX: M25.512 Pain in left shoulder (principal); G89.29 Other chronic pain
CPT/HCPCS: 20610

== ENCOUNTER → 2025-03-11 07:12 | Outpatient (BNVA) | payer OTHER, SELFPAY | PROVIDERS: PCP Internal Medicine; Visit Provider Student in an Organized Health Care Education/Training Program | DX: G89.29 Other chronic pain (principal); M25.512 Pain in left shoulder | CPT/HCPCS: 20610; J2003; J3301 ==

== ENCOUNTER 2025-03-18 09:41 | Outpatient (REF) | payer OTHER, SELFPAY ==
--- OUTSIDE RECORDS SUMMARY | 2025-03-18 10:32 | XMS_ITS | Patient Health Record ---
Author Organization [facility] Address [address] [place] [address] Care Team Providers [facility] Former Brace End Name Role Phone Robinson Melara Unavailable [phone] Reason For Referral No Information Medications Medication SIG (Take, Route, Fr equency, Duration) Notes Start Date End Date Status Lamisil 250 250 MG 1 Tab Oral Daily; Duration: 90 08/16/2011 Active NexIUM 40 MG as directed Orally Active Problems Problem Type SNOMED Code ICD Code Onset Dates Problem Status W/U Status Risk Notes Problem Onychomycosis (921171170) Onychomycosis (110.1) Active confirmed Problem Pain in limb (73183042) Pain in Limb (729.5) Active confirmed Problem Ingrowing nail (524864124) Ingrowing Nail (703.0) Active confirmed Plan Of Treatment Pending Test Test Name Order Date *Liver Function Test (LFT) 08/16/2011 [id number] Plate 10/21/2011 [id number] Plate 01/17/2012 [id number] Plate 08/16/2011 Insurance Providers Payer Name Payer Address Payer Phone Subscriber Number Group Number Insured Name Patient Relationship to Insured Coverage Start Date Coverage End Date [facility] [address] [place] [address] [id number] GENEVA FORBES Self - patient is the insured Medical (General) History Medical History History ICD Code chicken pox reflux Surgical History Surgery Date(Month/Year) kidney surgery 2006
== END 2025-03-18 09:42 ==
LOC: HO.MAMMO 09:41
PROVIDERS: PCP Internal Medicine; Visit Provider Internal Medicine
DX: Z12.31 Encounter for screening mammogram for malignant neoplasm of breast (principal)
CPT/HCPCS: 77063; 77067

== ENCOUNTER → 2025-03-18 10:00 | Outpatient (BNV) | payer OTHER, SELFPAY | PROVIDERS: PCP Internal Medicine; Visit Provider Internal Medicine | DX: Z12.31 Encounter for screening mammogram for malignant neoplasm of breast (principal) | CPT/HCPCS: 77063; 77067 ==